=== PATIENT | male | born 1955 | race Caucasian/White ===

== ENCOUNTER 2017-12-24 17:39 | Inpatient (IN) | END 2017-12-31 16:14 | disposition home health service (06) | DRG 292 ==

== ENCOUNTER 2018-10-11 13:06 | Inpatient (IN) | payer OTHER ==
[~2018-10-11] VITALS: Ht 182.9 cm; Wt 122.2 kg
[~2018-10-11 13:06] MED LIST: APIX5TAB PO; BROM0.8T PO; CARV25TA79 PO; DAPA10TA PO; DIGO250T PO; ERGO500013 PO; FURO40TA4 PO; GLIM4TAB PO; METF100010 PO; SIMV40TA2 PO
[2018-10-11 13:10] VITALS: Ht 182.9 cm; Wt 122.2 kg
--- NOTE | 2018-10-11 14:49 | ERD ---
ER Documentation Chief Complaint Chief Complaint cough and sob x 2 1/2 weeks HPI The patient is a 62-year-old male, presenting to the ER because of shortness of breath for the last 2-1/2 weeks, with URI symptoms. He saw his physician on 10/05/2017, treated him with antibiotic and prednisone but he did not remember the antibiotic name. He did not feel better, complains of worsening shortness of breath today, denies any chest pain, abdominal pain, vomiting, dysuria, diarrhea. He does not smoke, drinks socially Past medical history: Diabetes mellitus, dyslipidemia, hypertension, atrial fibrillation, history of CHF with low EF of 50%, history of nonsustained VT, obstructive sleep apnea Past surgical history: None ROS All systems reviewed and are negative except as per history of present illness. Medications Home Meds Reported Medications Amoxicillin* (Amoxicillin*) 500 Mg Cap, 500 MG PO Q12H, #20 CAP 10/11/18 Dextromethorphan Hb-Promethazine Hcl* (Promethazine DM* Syrup) 473 Ml Syrup, 5 ML PO Q6 PRN for COUGH, ML 10/11/18 Simvastatin* (Zocor*) 40 Mg Tablet, 40 MG PO QHS, #30 TAB 10/11/18 Empagliflozin (Jardiance) 10 Mg Tablet, 10 MG PO DAILY, TAB 10/11/18 Acetazolamide* (Acetazolamide*) 250 Mg Tablet, 250 MG PO BID, #60 TAB 10/11/18 Furosemide* (Furosemide*) 40 Mg Tablet, 40 MG PO BID, TAB 10/11/18 Apixaban* (Eliquis*) 5 Mg Tablet, 5 MG PO BID, TAB 10/11/18 Digoxin* (Digox*) 250 Mcg Tablet, 0.25 MG PO DAILY, TAB 10/11/18 Carvedilol* (Coreg*) 25 Mg Tablet, 25 MG PO BID, #60 TAB 10/11/18 Sildenafil Citrate* (Sildenafil Citrate*) 20 Mg Tablet, 20 MG PO NEEDED, TAB TAKE 3-5 TABS BEFORE SEXUAL ACTIVITY. 10/11/18 Bromocriptine Mesylate (CYCLOSET) 0.8 Mg Tablet, 4.8 MG PO QAM, TAB 10/11/18 Glimepiride* (Glimepiride*) 4 Mg Tablet, 4 MG PO WITH BREAKFAST DINNE, TAB 10/11/18 Metformin Hcl* (Metformin Hcl*) 1,000 Mg Tablet, 1000 MG PO WITH BREAKFAST DINNE, #60 TAB 10/11/18 Ergocalciferol (Vitamin D2) (VITAMIN D2) 50,000 Unit Capsule, 13172 UNIT PO Q7D, CAP 10/11/18 Discontinued Reported Medications Dapagliflozin Propanediol (Farxiga) 10 Mg Tablet, 10 MG PO DAILY, #30 TAB 12/24/17 Simvastatin* (Zocor*) 40 Mg Tablet, 40 MG PO QHS, #30 TAB 12/24/17 Bromocriptine Mesylate (CYCLOSET) 0.8 Mg Tablet, 0.8 MG PO DAILY, TAB 12/24/17 Glimepiride* (Glimepiride*) 4 Mg Tablet, 4 MG PO WITH BREAKFAST DINNE, TAB 12/24/17 Ergocalciferol (Vitamin D2) (VITAMIN D2) 50,000 Unit Capsule, 78551 UNIT PO Q7D, CAP 12/24/17 Digoxin* (Digitek*) 250 Mcg Tablet, 0.25 MG PO DAILY, TAB 12/24/17 Apixaban* (Eliquis*) 5 Mg Tablet, 5 MG PO BID, TAB 12/24/17 Carvedilol* (Carvedilol*) 25 Mg Tablet, 25 MG PO BID, #60 TAB 12/24/17 Metformin Hcl* (Metformin Hcl*) 1,000 Mg Tablet, 1000 MG PO WITH BREAKFAST DINNE, #60 TAB 12/24/17 Discontinued Scripts Furosemide* (Furosemide*) 40 Mg Tablet, 40 MG PO BID DIURETICS for 30 Days, TAB 3 Refills Prov:ROEL ALBA F 12/31/17 Allergies Allergies: Coded Allergies: No Known Allergy (Unverified , 10/11/18) PMhx/Soc History of Surgery: Yes Anesthesia Reaction: No Hx 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 Disorder: No Hx Respiratory Disorders: Yes Hx Cardiac Disorders: Yes Hx Psychiatric Problems: No Hx Miscellaneous Medical Probl: No (HTN, Afib on eliquis, DM, systolic CHF ) Hx Alcohol Use: No Hx Substance Use: No Hx Tobacco Use: No Physical Exam Vitals Vital Signs Date Temp Pulse Resp B/P (MAP) Pulse Ox O2 O2 Flow FiO2 Time Delivery Rate 10/11/18 98 24 84 Nasal 2.0 15:39 Cannula 10/11/18 Simple 15:36 Mask 10/11/18 98.0 88 22 110/68 95 High Flow 15:36 (82) 10/11/18 98.2 102 24 98/56 (70) 86 13:10 Physical Exam Const: Mild acute distress. Head: Atraumatic. Eyes: Normal Conjunctiva. ENT: Normal External Ears, Nose and Mouth. Neck: Full range of motion. No meningismus. Resp: Tachypneic, bilateral expiratory wheezes Cardio: Irregularly irregular Abd: Soft, non distended, normal bowel sounds, non tender. Skin: No petechiae or rashes. Back: No midline or flank tenderness. Ext: No cyanosis, or edema. No calf tenderness Neur: Awake and alert. No focal deficit Psych: Normal Mood and Affect. Result Diagram: 10/11/18 1513 10/11/18 1513 Results 24 hrs Laboratory Tests Test 10/11/18 15:13 10/11/18 16:04 10/11/18 17:03 White Blood Count 10.9 10^3/ul Red Blood Count 5.29 10^6/ul Hemoglobin 13.5 g/dl Hematocrit 44.3 % Mean Corpuscular Volume 83.7 fl Mean Corpuscular Hemoglobin 25.5 pg Mean Corpuscular 30.5 g/dl Hemoglobin Concent Red Cell Distribution Width 17.0 % Platelet Count 225 10^3/UL Mean Platelet Volume 9.9 fl Immature Granulocytes % 0.600 % Neutrophils % 74.6 % Lymphocytes % 11.8 % Monocytes % 11.6 % Eosinophils % 1.0 % Basophils % 0.4 % Nucleated Red Blood Cells % 0.0 /100WBC Immature Granulocytes # 0.070 10^3/ul Neutrophils # 8.2 10^3/ul Lymphocytes # 1.3 10^3/ul Monocytes # 1.3 10^3/ul Eosinophils # 0.1 10^3/ul Basophils # 0.0 10^3/ul Nucleated Red Blood Cells # 0.0 10^3/ul Prothrombin Time 16.7 Sec Prothrombin Time Ratio 1.3 INR International 1.34 Normalized Ratio Activated 34.1 Sec Partial Thromboplast Time D-Dimer 468.50 ng/ml D-Dimer Comment Sodium Level 140 mmol/L Potassium Level 3.8 mmol/L Chloride Level 101 mmol/L Carbon Dioxide Level 29 mmol/L Anion Gap 10 Blood Urea Nitrogen 25 mg/dl Creatinine 0.93 mg/dl Est Glomerular Filtrat > 60 mL/min Rate mL/min Glucose Level 106 mg/dl Calcium Level 9.1 mg/dl Magnesium Level 2.2 mg/dl Total Bilirubin 0.9 mg/dl Direct Bilirubin 0.00 mg/dl Indirect Bilirubin 0.9 mg/dl Aspartate Amino 30 IU/L Transf (AST/SGOT) Alanine 38 IU/L Aminotransferase (ALT/SGPT) Alkaline Phosphatase 70 IU/L Troponin I < 0.012 ng/ml B-Type Natriuretic Peptide 324 PG/ML Total Protein 7.4 g/dl Albumin 4.0 g/dl Globulin 3.40 g/dl Albumin/Globulin Ratio 1.17 Digoxin Level 0.7 ng/ml POC Venous Lactate 1.3 mmol/L Blood Gas Specimen Source Blood arterial Arterial Blood Date Drawn 10/11/2018 5:18:31 PM Arterial Blood pH 7.377 (Temp corrected) Arterial Blood pCO2 42.8 mmhg (Temp correct) Arterial Blood pO2 56.1 mmHG (Temp corrected) Arterial Blood HCO3 24.6 mmol/L Arterial Blood Base Excess -0.7 mmol/L Arterial Blood 87.3 mmHG Oxygen Saturation David Test ACCEPTAB Arterial Blood Gas Right Radial Puncture Site Arterial 1.6 % Blood Carboxyhemoglobin Arterial Blood 0.1 % Methemoglobin Blood Gas A-a O2 93.0 mmHg Differential Oxyhemoglobin Percent 85.8 % Blood Gas Temperature 37.0 C Blood Gas Modality NASAL CANNULA FiO2 28.0 % Blood Gas Notified Whom M.D. Blood Gas Notified Time 10/11/2018 5:27:58 PM Current Medications Medications Dose Sig/Fanny Start Time Status Last (Trade) Ordered Route PRN Stop Time Admin Dose Reason Admin 3.75 mg ONCE STAT 10/11/18 DC 10/11/18 Levalbuterol INH 14:57 15:38 (Xopenex 10/11/18 15:00 Neb) Ipratropium 1.5 mg ONCE STAT 10/11/18 DC 10/11/18 [place] INH 14:57 15:38 (Atrovent 10/11/18 15:00 0.02% (Neb)) 125 mg ONCE ONCE 10/11/18 DC 10/11/18 Methylprednis IV 17:30 17:31 olone Sodium 10/11/18 17:31 Succinate (Solu-Medrol) 150 ml @ ONCE ONCE 10/11/18 10/11/18 Levofloxacin/ 100 mls/hr IVPB 17:30 17:31 Dextrose 10/11/18 18:59 Procedures/MDM [place] [id number] Radiology Main Line: [phone] DIAGNOSTIC IMAGING REPORT Patient: RAMYA DE : 1955 Age: 62 Sex: M MR #: [id number] DOS: 10/11/18 1457 Ordering MD: KAYLA ZEE MD Location: E/R Room/Bed: PROCEDURE: XR Chest. CLINICAL INDICATION: Sepsis TECHNIQUE: Single AP view of the chest was obtained COMPARISON: 09/26/2012 FINDINGS: The heart and mediastinum are within normal limits. The pulmonary vasculature are unremarkable. The aorta demonstrates atherosclerotic calcifications. Mild bibasilar linear opacities are seen which appear to be atelectasis with no other opacity, effusion or pneumothorax. Degenerative changes are seen within the thoracic spine and shoulders. There is no acute osseous abnormality. IMPRESSION: Likely bibasilar foci of plate atelectasis. RPTAT: AA .Boyd Raza MD, MD Date Time Electronically viewed and signed by .Boyd Raza MD, MD on 10/11/2018 15:23 .J/ CC: KAYLA ZEE MD [phone] CTA of the chest is pending EKG: Read by emergency physician Rate/Rhythm: Atrial fibrillation 84 beats/min QRS, ST, T-waves: No ST elevation, no T inversion, LAD, inferior Q's Impression: Abnormal EKG MEDICAL MAKING DECISION: The patient is a 61-year-old male, presenting with acute respiratory failure of unknown etiology, was treated with Xopenex 3.75 mg and Atrovent 1.5 mg continuous nebulizer over 1 hour, Solu-Medrol 125 mg IV for acute wheezing and Levaquin IV empirically with good response. The differential diagnoses considered include but are not limited to asthma, COPD, pneumonia, pulmonary embolus, pleural effusion, congestive heart failure. Critical Care: Time: 35 minutes excluding all billable procedures. Treatments/Evaluations: Close monitoring and treatment of unstable vital signs, cardiorespiratory, and neurologic status, while maintaining tight balance of fluid, respiratory, and cardiac interventions. Departure Diagnosis: Primary Impression: Respiratory failure, acute Additional Impression: Anemia Condition: Serious Comments I discussed the findings with the patient. I discussed the patient with Dr Colunga at 5:20p , who was made aware of the lab, the treatment, the patient condition. The patient is admitted to Tel Disclaimer: Inadvertent spelling and grammatical errors are likely due to EHR/dictation software use and do not reflect on the overall quality of patient care. Also, please note that the electronic time recorded on this note does not necessarily reflect the actual time of the patient encounter. KAYLA ZEE MD Oct 11, 2018 14:49
[2018-10-11] MEDS ORDERED: LEVALBUTEROL (NEB) 1.25 MG/0.5 ML AMP INH STA (14:57)
[2018-10-11] MEDS ORDERED: IPRATROPIUM (NEB) 0.5 MG/2.5 ML AMP INH STA (14:57)
[2018-10-11] MEDS ORDERED: ERGO500013 PO (15:06)
[2018-10-11] MEDS ORDERED: METF100010 PO (15:06)
[2018-10-11] MEDS ORDERED: GLIM4TAB PO (15:07)
[2018-10-11] MEDS ORDERED: BROM0.8T PO (15:08)
[2018-10-11] MEDS ORDERED: SILD20TA PO (15:10)
[2018-10-11] MEDS ORDERED: CARV25TA97 PO (15:11)
[2018-10-11] MEDS ORDERED: APIX5TAB PO (15:11)
[2018-10-11] MEDS ORDERED: DIGO250T16 PO (15:11)
[2018-10-11] MEDS ORDERED: ACET250T22 PO (15:12)
[2018-10-11] MEDS ORDERED: FURO40TA4 PO (15:12)
[2018-10-11] MEDS ORDERED: EMPA10TA PO (15:13)
[2018-10-11] MEDS ORDERED: SIMV40TA2 PO (15:14)
[2018-10-11] MEDS ORDERED: D-ME473S2 PO (15:17)
[2018-10-11] MEDS ORDERED: AMOX500C2 PO (15:18)
[2018-10-11] MEDS ORDERED: LEVOFLOXACIN 750MG/D5W (PMX) 150 ML IVPB ONE (17:30)
[2018-10-11] MEDS ORDERED: METHYLPREDNISOLONE 125 MG INJ IV ONE (17:30)
[2018-10-11] MEDS ORDERED: SOD CHLORIDE 0.9% 100 ML ONE (17:46)
[2018-10-11] MEDS ORDERED: IOHEXOL 100 ML ONE (17:46)
[2018-10-11] MEDS ORDERED: IPRATROPIUM (NEB) 0.5 MG/2.5 ML AMP HHN ONE (20:00)
[2018-10-11] MEDS ORDERED: LEVALBUTEROL (NEB) 1.25 MG/0.5 ML AMP HHN ONE (20:00)
[2018-10-11] MEDS ORDERED: ONDANSETRON 4 MG INJ IV PRN (20:30)
[2018-10-11] MEDS ORDERED: ZOLPIDEM 5 MG TAB PO PRN (20:30)
[2018-10-11] MEDS: INSULIN ASPART [NOVOLOG] 3 ML PEN SC SCH (21:00)
[2018-10-11] MEDS ORDERED: GLUCOSE GEL 15 GRAM TUBE BUCCAL PRN (21:00)
[2018-10-11] MEDS ORDERED: DEXTROSE 50% 50 ML SYRINGE IV PRN ×2 (21:00)
[2018-10-11] MEDS ORDERED: GLUCOSE GEL 15 GRAM TUBE PO PRN ×2 (21:00)
[2018-10-11] MEDS ORDERED: PROMETHAZINE/DM (CUP) PO PRN (21:00)
[2018-10-11] MEDS ORDERED: NON-FORMULARY/PATIENT OWN MED (Simvastatin* (Zocor*) 40 MG) PO SCH (21:00)
[2018-10-11] MEDS ORDERED: GLUCAGON 1 MG INJ IM PRN (21:00)
[2018-10-11] MEDS: FUROSEMIDE 40 MG TAB PO SCH (21:57)
[2018-10-11] MEDS: ATORVASTATIN 20 MG TAB PO SCH (23:24)
[2018-10-12] MEDS: METHYLPREDNISOLONE 125 MG INJ IV SCH ×3 (01:00→21:33)
[2018-10-12] MEDS: ALBUTEROL/IPRATROPIUM (NEB) 3 ML AMP HHN SCH ×6 (01:41→19:39)
[2018-10-12] MEDS: INSULIN ASPART [NOVOLOG] 3 ML PEN SC SCH ×4 (08:00→21:04)
[2018-10-12] MEDS ORDERED: metFORMIN 500 MG TAB PO SCH (08:00)
[2018-10-12] MEDS ORDERED: BROMOCRIPTINE MESYLATE PO SCH (09:00)
[2018-10-12] MEDS: GLIMEPIRIDE 4 MG TAB PO SCH ×2 (09:34→17:32)
[2018-10-12] MEDS: DIGOXIN 0.25 MG TAB PO SCH (10:12)
[2018-10-12] MEDS: FUROSEMIDE 40 MG TAB PO SCH ×2 (10:13→21:34)
--- NOTE | 2018-10-12 12:10 | CONS ---
Assessment/Plan Assessment/Plan Hospital Course (Demo Recall) Respiratory failure PNA Chronic Systolic CHF Cardiomyopathy Chronic Atrial Fibrillation DM patient with respiratory failure and evidence of PNA on CT chest, -PE No evidence of significant volume overload BP on lower side, would change coreg to toprol at the current time Cont Eliquis if no contraindication Consultation Date/Type/Reason Admit Date/Time Type of Consult Cardiology Reason for Consultation Shortness of breath Date/Time of Note DATE: 10/12/18 TIME: 12:04 Hx of Present Illness This is a 62-year-old male with past medical history of cardia myopathy, atrial ablation, hypertension who presents with progressive worsening shortness of breath, cough and sweating over the past few weeks. Patient was treated at an urgent care facility with antibiotics and steroids with minimal improvement. Given worsening symptoms, he was told to come to emergency room. [place] any chest pain, dizziness or lightheadedness. He denies any palpitations. He denies any lower extremity swelling. 12 point review of systems was performed with all pertinent positives and negat jess mentioned above and all else is negative Past Medical History Atrial fibrillation Medical History: congestive heart failure, diabetes, hypertension Home Meds Reported Medications Dextromethorphan Hb-Promethazine Hcl* (Promethazine DM* Syrup) 473 Ml Syrup, 5 ML PO Q6 PRN for COUGH, ML 10/11/18 Simvastatin* (Zocor*) 40 Mg Tablet, 40 MG PO QHS, #30 TAB 10/11/18 Empagliflozin (Jardiance) 10 Mg Tablet, 10 MG PO DAILY, TAB 10/11/18 Acetazolamide* (Acetazolamide*) 250 Mg Tablet, 250 MG PO BID, #60 TAB 10/11/18 Furosemide* (Furosemide*) 40 Mg Tablet, 40 MG PO BID, TAB 10/11/18 Apixaban* (Eliquis*) 5 Mg Tablet, 5 MG PO BID, TAB 10/11/18 Digoxin* (Digox*) 250 Mcg Tablet, 0.25 MG PO DAILY, TAB 10/11/18 Carvedilol* (Coreg*) 25 Mg Tablet, 25 MG PO BID, #60 TAB 10/11/18 Sildenafil Citrate* (Sildenafil Citrate*) 20 Mg Tablet, 20 MG PO NEEDED, TAB TAKE 3-5 TABS BEFORE SEXUAL ACTIVITY. 10/11/18 Bromocriptine Mesylate (CYCLOSET) 0.8 Mg Tablet, 4.8 MG PO QAM, TAB 10/11/18 Glimepiride* (Glimepiride*) 4 Mg Tablet, 4 MG PO WITH BREAKFAST DINNE, TAB 10/11/18 Metformin Hcl* (Metformin Hcl*) 1,000 Mg Tablet, 1000 MG PO WITH BREAKFAST DINNE, #60 TAB 10/11/18 Ergocalciferol (Vitamin D2) (VITAMIN D2) 50,000 Unit Capsule, 27369 UNIT PO Q7D, CAP 10/11/18 Discontinued Reported Medications Amoxicillin* (Amoxicillin*) 500 Mg Cap, 500 MG PO Q12H, #20 CAP 10/11/18 Dapagliflozin Propanediol (Farxiga) 10 Mg Tablet, 10 MG PO DAILY, #30 TAB 12/24/17 Simvastatin* (Zocor*) 40 Mg Tablet, 40 MG PO QHS, #30 TAB 12/24/17 Bromocriptine Mesylate (CYCLOSET) 0.8 Mg Tablet, 0.8 MG PO DAILY, TAB 12/24/17 Glimepiride* (Glimepiride*) 4 Mg Tablet, 4 MG PO WITH BREAKFAST DINNE, TAB 12/24/17 Ergocalciferol (Vitamin D2) (VITAMIN D2) 50,000 Unit Capsule, [address]20 UNIT PO Q7D, CAP 12/24/17 Digoxin* (Digitek*) 250 Mcg Tablet, 0.25 MG PO DAILY, TAB 12/24/17 Apixaban* (Eliquis*) 5 Mg Tablet, 5 MG PO BID, TAB 12/24/17 Carvedilol* (Carvedilol*) 25 Mg Tablet, 25 MG PO BID, #60 TAB 12/24/17 Metformin Hcl* (Metformin Hcl*) 1,000 Mg Tablet, 1000 MG PO WITH BREAKFAST DINNE, #60 TAB 12/24/17 Discontinued Scripts Furosemide* (Furosemide*) 40 Mg Tablet, 40 MG PO BID DIURETICS for 30 Days, TAB 3 Refills Prov:ROEL ALBA 12/31/17 Medications Current Medications Levofloxacin/ Dextrose 150 ml @ 100 mls/hr DAILY@1700 IVPB ; Start 10/12/18 at 17:00 Albuterol/ Ipratropium (Duoneb) 3 ml Q4 HHN Last administered on 10/12/18at 07:28; Admin Dose 3 ML; Start 10/11/18 at 21:00 Methylprednisolone Sodium Succinate (Solu-Medrol) 60 mg Q8H IV ; Start 10/12/18 at 01:00 Insulin Aspart (Novolog Insulin Pen) NOVOLOG *MODERATE* ALGORITHM WITH MEALS BEDTIME SC ; Start 10/11/18 at 21:00 Zolpidem Tartrate (Ambien) 5 mg HS MAY REPEAT X 1 PRN PO INSOMNIA; Start 10/11/18 at 20:30 Ondansetron HCl (Zofran Inj) 4 mg Q4 PRN IV nausea; Start 10/11/18 at 20:30 Miscellaneous Information 1 ea NOTE XX ; Start 10/11/18 at 21:00 Glucose (Glutose) 15 gm Q15M PRN PO DECREASED GLUCOSE; Start 10/11/18 at 21:00 Glucose (Glutose) 22.5 gm Q15M PRN PO DECREASED GLUCOSE; Start 10/11/18 at 21:00 Dextrose (D50w Syringe) 25 ml Q15M PRN IV DECREASED GLUCOSE; Start 10/11/18 at 21:00 Dextrose (D50w Syringe) 50 ml Q15M PRN IV DECREASED GLUCOSE; Start 10/11/18 at 21:00 Glucagon (Glucagen) 1 mg Q15M PRN IM DECREASED GLUCOSE; Start 10/11/18 at 21:00 Glucose (Glutose) 15 gm Q15M PRN BUCCAL DECREASED GLUCOSE; Start 10/11/18 at 21:00 Carvedilol (Coreg) 25 mg BID PO Last administered on 10/12/18at 10:12; Admin Dose 25 MG; Start 10/11/18 at 21:00 Promethazine HCl/ Dextromethorphan (Phenergan-Dm) 5 ml Q6 PRN PO COUGH; Start 10/11/18 at 21:00 Digoxin (Digoxin) 0.25 mg DAILY PO Last administered on 10/12/18at 10:12; Admin Dose 0.25 MG; Start 10/12/18 at 09:00 Furosemide (Lasix) 40 mg BID PO Last administered on 10/12/18at 10:13; Admin Dose 40 MG; Start 10/11/18 at 21:00 Glimepiride (Amaryl) 4 mg WITH BREAKFAST DINNE PO Last administered on 10/12/18at 09:34; Admin Dose 4 MG; Start 10/12/18 at 08:00 Metformin HCl (Glucophage) 1,000 mg WITH BREAKFAST DINNE PO Last administered on 10/12/18at 09:34; Admin Dose 1,000 MG; Start 10/12/18 at 08:00 Miscellaneous Information 4.8 mg QAM PO ; Start 10/12/18 at 09:00; Status UNV Atorvastatin Calcium (Lipitor) 20 mg DAILY@21 PO Last administered on 10/11/18at 23:24; Admin Dose 20 MG; Start 10/11/18 at 22:30 Allergies: Coded Allergies: No Known Allergy (Unverified , 10/11/18) Past Surgical History Past Surgical Hx: no surgical history Social History Smoking Status: Former smoker Exam/Review of Systems Vital Signs Vitals Vital Signs Date Temp Pulse Resp B/P (MAP) Pulse Ox O2 O2 Flow FiO2 Time Delivery Rate 10/12/18 86 18 114/89 94 High Flow 10:00 (97) 10/12/18 98.1 08:00 10/12/18 100 07:31 10/11/18 6.0 19:42 Intake and Output 10/11/18 10/11/18 10/12/18 1515:00 23:00 07:00 OutputOutput Total 400 ml 1100 ml BalanceBalance -400 ml -1100 ml Exam Constitutional: alert, oriented (On high flow oxygen, dyspnea with extensive speaking, obese) Head: normocephalic Respiratory: other (Coarse breath sounds with scattered rhonchi and wheezing) Cardiovascular: irregular rhythm, other (S1-S2 heard) Gastrointestinal: soft, non-tender, bowel sounds Extremities: other (No significant edema) Labs Result Diagram: 10/11/18 1513 10/11/18 1513 Results 24hrs Laboratory Tests Test 10/11/18 15:13 10/11/18 16:04 10/11/18 17:03 10/11/18 19:00 White Blood Count 10.9 #H Red Blood Count 5.29 Hemoglobin 13.5 L Hematocrit 44.3 Mean Corpuscular 83.7 Volume Mean Corpuscular 25.5 L Hemoglobin Mean Corpuscular 30.5 L Hemoglobin Concen t Red Cell 17.0 H Distribution Width Platelet Count 225 # Mean Platelet 9.9 Volume Immature 0.600 H Granulocytes % Neutrophils % 74.6 Lymphocytes % 11.8 L Monocytes % 11.6 H Eosinophils % 1.0 Basophils % 0.4 Nucleated Red 0.0 Blood Cells % Immature 0.070 H Granulocytes # Neutrophils # 8.2 H Lymphocytes # 1.3 Monocytes # 1.3 H Eosinophils # 0.1 Basophils # 0.0 Nucleated Red 0.0 Blood Cells # Prothrombin Time 16.7 H Prothrombin Time 1.3 Ratio INR International 1.34 Normalized Ratio Activated 34.1 Partial Thrombopl ast Time D-Dimer 468.50 H D-Dimer Comment Sodium Level 140 Potassium Level 3.8 Chloride Level 101 Carbon Dioxide 29 Level Anion Gap 10 Blood Urea 25 H Nitrogen Creatinine 0.93 Est Glomerular > 60 Filtrat Rate mL/min Glucose Level 106 Calcium Level 9.1 Magnesium Level 2.2 Total Bilirubin 0.9 Direct Bilirubin 0.00 Indirect 0.9 Bilirubin Aspartate Amino 30 Transf (AST/SGOT) Alanine 38 Aminotransferase (ALT/SGPT) Alkaline 70 Phosphatase Troponin I < 0.012 B-Type 324 H Natriuretic Peptide Total Protein 7.4 Albumin 4.0 Globulin 3.40 H Albumin/Globulin 1.17 Ratio Digoxin Level 0.7 L POC Venous 1.3 Lactate Blood Gas Blood arterial Specimen Source Arterial Blood 10/11/2018 5:18:3 Date Drawn 1 PM Arterial Blood pH 7.377 (Temp corrected) Arterial Blood 42.8 pCO2 (Temp correct) Arterial Blood 56.1 L pO2 (Temp corrected) Arterial Blood 24.6 HCO3 Arterial Blood -0.7 Base Excess Arterial Blood 87.3 L Oxygen Saturation David Test ACCEPTAB Arterial Blood Right Radial Gas Puncture Site Arterial 1.6 Blood Carboxyhemo globin Arterial Blood 0.1 Methemoglobin Blood Gas A-a O2 93.0 H Differential Oxyhemoglobin 85.8 L Percent Blood Gas 37.0 Temperature Blood Gas NASAL CANNULA Modality FiO2 28.0 Blood Gas M.D. Notified Whom Blood Gas 10/11/2018 5:27:5 Notified Time 8 PM Bedside Urine pH 6.0 (LAB) Bedside Urine Negative Protein (LAB) Bedside Urine 0.50% H Glucose (UA) Bedside Urine Negative Ketones (LAB) Bedside Urine Negative Blood Bedside Urine Negative Nitrite (LAB) Bedside Urine Negative Leukocyte Esteras e (L Test 10/11/18 21:16 10/11/18 21:47 10/12/18 09:29 Lactic Acid Level 1.4 Bedside Glucose 200 149 Imaging Imaging ECG demonstrates atrial fibrillation 84 bpm, QRS 116 ms,anterolat q waves, non specific st abn Medications Medications Current Medications Levofloxacin/ Dextrose 150 ml @ 100 mls/hr DAILY@1700 IVPB ; Start 10/12/18 at 17:00 Albuterol/ Ipratropium (Duoneb) 3 ml Q4 HHN Last administered on 10/12/18at 07:28; Admin Dose 3 ML; Start 10/11/18 at 21:00 Methylprednisolone Sodium Succinate (Solu-Medrol) 60 mg Q8H IV ; Start 10/12/18 at 01:00 Insulin Aspart (Novolog Insulin Pen) NOVOLOG *MODERATE* ALGORITHM WITH MEALS BEDTIME SC ; Start 10/11/18 at 21:00 Zolpidem Tartrate (Ambien) 5 mg HS MAY REPEAT X 1 PRN PO INSOMNIA; Start 10/11/18 at 20:30 Ondansetron HCl (Zofran Inj) 4 mg Q4 PRN IV nausea; Start 10/11/18 at 20:30 Miscellaneous Information 1 ea NOTE XX ; Start 10/11/18 at 21:00 Glucose (Glutose) 15 gm Q15M PRN PO DECREASED GLUCOSE; Start 10/11/18 at 21:00 Glucose (Glutose) 22.5 gm Q15M PRN PO DECREASED GLUCOSE; Start 10/11/18 at 21:00 Dextrose (D50w Syringe) 25 ml Q15M PRN IV DECREASED GLUCOSE; Start 10/11/18 at 21:00 Dextrose (D50w Syringe) 50 ml Q15M PRN IV DECREASED GLUCOSE; Start 10/11/18 at 21:00 Glucagon (Glucagen) 1 mg Q15M PRN IM DECREASED GLUCOSE; Start 10/11/18 at 21:00 Glucose (Glutose) 15 gm Q15M PRN BUCCAL DECREASED GLUCOSE; Start 10/11/18 at 21:00 Carvedilol (Coreg) 25 mg BID PO Last administered on 10/12/18at 10:12; Admin Dose 25 MG; Start 10/11/18 at 21:00 Promethazine HCl/ Dextromethorphan (Phenergan-Dm) 5 ml Q6 PRN PO COUGH; Start 10/11/18 at 21:00 Digoxin (Digoxin) 0.25 mg DAILY PO Last administered on 6/26/19at 10:12; Admin Dose 0.25 MG; Start 10/12/18 at 09:00 Furosemide (Lasix) 40 mg BID PO Last administered on 10/12/18 10:13; Admin Dose 40 MG; Start 10/11/18 at 21:00 Glimepiride (Amaryl) 4 mg WITH BREAKFAST DINNE PO Last administered on 10/12/18 09:34; Admin Dose 4 MG; Start 10/12/18 at 08:00 Metformin HCl (Glucophage) 1,000 mg WITH BREAKFAST DINNE PO Last administered on 10/12/18 09:34; Admin Dose 1,000 MG; Start 10/12/18 at 08:00 Miscellaneous Information 4.8 mg QAM PO ; Start 10/12/18 at 09:00; Status UNV Atorvastatin Calcium (Lipitor) 20 mg DAILY@21 PO Last administered on 10/11/18 23:24; Admin Dose 20 MG; Start 10/11/18 at 22:30 Rocael Poole DO Oct 12, 2018 12:10
--- NOTE | 2018-10-12 12:17 | RADRPT ---
Echocardiogram Report Patient Name: RAMYA DEPatient ID: [id number] : 1955 (63y )Study Date: 10/12/2018 11:38:22 AM Gender: MAccession #: [id number] Tech: Lito Zayas RDCS Location: [facility] Ref.Physician: ROCAEL POOLE Height(Cm): BSA: Weight(Kg): Quality: AdequateOrder Physician: ROCAEL POOLE Account #: Procedures: Echocardiographic Report: Transthoracic echocardiogram with complete 2D, M-Mode, and doppler examination. Indications: Congestive Heart Failure, and Shortness of breath. Measurements: 2D/M Mode Doppler Measurement Value Normal Range Measurement Value Normal Range LVIDd 2D 5.6 [ 4.2 - 5.8 ] cm AV Peak Marshall 1.7 [ 100.0 - 170.0 ] cm/sec LVIDs 2D 2.6 [ 2.5 - 4.0 ] cm AV Peak PG 11.0 [ 2.0 - 9.0 ] mmHg LVPWd 2D 1.0 [ 0.6 - 1.0 ] cm LVOT Peak Marshall 1.0 [ 70.0 - 110.0 ] cm/sec IVSd 2D 1.0 [ 0.6 - 1.0 ] cm LVOT Peak PG 4.0 [ 2.0 - 6.0 ] mmHg IVS/LVPW 2D 1.0 ratio MV E Peak Marshall 0.9 [ 60.0 - 130.0 ] cm/sec AoR Diam 2D 3.3 [ 2.6 - 3.4 ] cm TR Peak Marshall 3.0 [ 100.0 - 280.0 ] cm/sec LA/Ao 2D 1 ratio TR Peak PG 35.0 mmHg LA Dimen 2D 4.2 [ 3.0 - 4.0 ] cm RVSP 50.0 [ 10.0 - 36.0 ] mmHg RA Pressure 15.0 mmHg Findings: Left Ventricle: Overall, normal left ventricular systolic function. Not all segments visualized. Normal left ventricular cavity size. Normal left ventricular wall thickness. Ejection fraction is visually estimated at 55 %. Abnormal Diastolic Function. Right Ventricle: Normal right ventricular systolic function. Mild enlargement of right ventricle. Left Atrium: There is mild enlargement of left atrium. Right Atrium: The right atrium is normal in size. Mitral Valve: Mitral valve leaflets appear mildly thickened. Mild mitral annular calcification. Mild mitral valve regurgitation. Aortic Valve: Normal appearance of the aortic valve. No significant aortic stenosis or insufficiency. Tricuspid Valve: Normal appearance of the tricuspid valve. The estimated Peak RVSP is 50 mmHg. There is mild tricuspid regurgitation. Pulmonic Valve: Pulmonic valve not well visualized. Pericardium: Normal pericardium with no significant pericardial effusion. Aorta: Normal aortic root. IVC: Dilated IVC without respiratory collapse consistent with elevated right atrial pressure. Conclusions: Overall, normal left ventricular systolic function. Not all segments visualized. Normal left ventricular cavity size. Normal left ventricular wall thickness. Ejection fraction is visually estimated at 55 %. Abnormal Diastolic Function. Normal right ventricular systolic function. Mild enlargement of right ventricle. There is mild enlargement of left atrium. The right atrium is normal in size. Mild mitral valve regurgitation. No significant aortic stenosis or insufficiency. The estimated Peak RVSP is 50 mmHg. There is mild tricuspid regurgitation. Normal pericardium with no significant pericardial effusion. Electronically Signed By: Rocael Poole 2018-10-12 12:15:56 PDT
[2018-10-12] MEDS: APIXABAN 5 MG TABLET PO SCH ×2 (12:53→21:34)
[2018-10-12] MEDS ORDERED: METHYLPREDNISOLONE 125 MG INJ IV ONE (13:30)
--- NOTE | 2018-10-12 15:01 | HP ---
Date/Time of Note Date/Time of Note DATE: 10/12/18 TIME: 14:07 Assessment/Plan VTE Prophylaxis SCD applied (from Nsg): No SCD contraindicated: other Pharmacological prophylaxis: apixaban Lines/Catheters IV [facility]from [facility] Saline Lock Assessment/Plan Assessment/Plan 62 yo male with: DM 1. Acute respiratory failure, likely secondary to reactive airway and pneumonia, patient seems to be euvolemic for now. Continue Solu-Medrol Patient currently on high flow Continue IV antibiotics, Levaquin Titrate O2 requirement down as tolerated Pulmonary consult today. 2. Atrial fibrillation, chronic, rate controlled. Appreciate recommendations from cardiology today, with echocardiogram with ejection fraction of 55%. Again patient seems euvolemic on exam. Continue current medications, noted beta-blockers changed to Toprol XL per cardiology. Continue Eliquis, Digoxin. Cardiology following. 3. Congestive heart failure, diastolic dysfunction, chronic, currently euvolemic. Continue current medication, patient on oral Lasix daily. 4. Diabetes mellitus, patient always refusing insulin, I have explained to him that because of the CT angiogram he had done overnight we cannot give metformin at this point and on the insulin he is on a sliding scale insulin which is needed even more due to the fact that he is on IV steroids currently. Sliding scale insulin, glimepiride, Cycloset Resume metformin in 48 hours and resume Jardiance at home 5. Hypertension, patient currently with systolic blood pressure in the 90s. Appreciate adjustment of medications made by cardiology. We will have to hold Lasix if remains slightly hypotensive. Prophylaxis: Eliquis for DVT prophylaxis, Pepcid for GI prophylaxis. Disposition: Patient was admitted to telemetry on high flow overnight, for now may be upgraded to ICU per pulmonary recommendations given his high requirement on high flow. Result Diagram: 10/11/18 1513 10/11/18 1513 Results 24hrs Laboratory Tests Test 10/11/18 15:13 10/11/18 16:04 10/11/18 17:03 10/11/18 19:00 White Blood Count 10.9 #H Red Blood Count 5.29 Hemoglobin 13.5 L Hematocrit 44.3 Mean Corpuscular 83.7 Volume Mean Corpuscular 25.5 L Hemoglobin Mean Corpuscular 30.5 L Hemoglobin Concen t Red Cell 17.0 H Distribution Width Platelet Count 225 # Mean Platelet 9.9 Volume Immature 0.600 H Granulocytes % Neutrophils % 74.6 Lymphocytes % 11.8 L Monocytes % 11.6 H Eosinophils % 1.0 Basophils % 0.4 Nucleated Red 0.0 Blood Cells % Immature 0.070 H Granulocytes # Neutrophils # 8.2 H Lymphocytes # 1.3 Monocytes # 1.3 H Eosinophils # 0.1 Basophils # 0.0 Nucleated Red 0.0 Blood Cells # Prothrombin Time 16.7 H Prothrombin Time 1.3 Ratio INR International 1.34 Normalized Ratio Activated 34.1 Partial Thrombopl ast Time D-Dimer 468.50 H D-Dimer Comment Sodium Level 140 Potassium Level 3.8 Chloride Level 101 Carbon Dioxide 29 Level Anion Gap 10 Blood Urea 25 H Nitrogen Creatinine 0.93 Est Glomerular > 60 Filtrat Rate mL/min Glucose Level 106 Calcium Level 9.1 Magnesium Level 2.2 Total Bilirubin 0.9 Direct Bilirubin 0.00 Indirect 0.9 Bilirubin Aspartate Amino 30 Transf (AST/SGOT) Alanine 38 Aminotransferase (ALT/SGPT) Alkaline 70 Phosphatase Troponin I < 0.012 B-Type 324 H Natriuretic Peptide Total Protein 7.4 Albumin 4.0 Globulin 3.40 H Albumin/Globulin 1.17 Ratio Digoxin Level 0.7 L POC Venous 1.3 Lactate Blood Gas Blood arterial Specimen Source Arterial Blood 10/11/2018 5:18:3 Date Drawn 1 PM Arterial Blood pH 7.377 (Temp corrected) Arterial Blood 42.8 pCO2 (Temp correct) Arterial Blood 56.1 L pO2 (Temp corrected) Arterial Blood 24.6 HCO3 Arterial Blood -0.7 Base Excess Arterial Blood 87.3 L Oxygen Saturation David Test ACCEPTAB Arterial Blood Right Radial Gas Puncture Site Arterial 1.6 Blood Carboxyhemo globin Arterial Blood 0.1 Methemoglobin Blood Gas A-a O2 93.0 H Differential Oxyhemoglobin 85.8 L Percent Blood Gas 37.0 Temperature Blood Gas NASAL CANNULA Modality FiO2 28.0 Blood Gas M.D. Notified Whom Blood Gas 10/11/2018 5:27:5 Notified Time 8 PM Bedside Urine pH 6.0 (LAB) Bedside Urine Negative Protein (LAB) Bedside Urine 0.50% H Glucose (UA) Bedside Urine Negative Ketones (LAB) Bedside Urine Negative Blood Bedside Urine Negative Nitrite (LAB) Bedside Urine Negative Leukocyte Esteras e (L Test 10/11/18 21:16 10/11/18 21:47 10/12/18 09:29 Lactic Acid Level 1.4 Bedside Glucose 200 149 HPI/ROS Admit Date/Time Admit Date/Time Hx of Present Illness Chief complaint: Shortness of breath 62-year-old male with atrial fibrillation, diastolic dysfunction congestive heart failure, hypertension, diabetes mellitus and previous history of sleep apnea who was sent into the emergency department due to persistent cough, s hortness of breath and worsening hypoxemia. Patient reports that for the past couple weeks, he has been having an ongoing cough, shortness of breath. It started while he was in [place] on vacation, he was seen in urgent care there, started on antibiotics (they do not recall the name) and steroids, his symptoms never really improved, when he came back in the [place] area, he went to his physician, he was given a longer course of steroids with no improvement, he went back to his physician yesterday and was redirected to the emergency department. He was found to be severely hypoxemic in the emergency department, essentially in respiratory failure, and he was started on high flow and currently requiring 90%. He had a chest x-ray and a CT angiogram of the chest, no pulmonary embolus was seen but the patient seems to have a right lower lobe bronchopneumonia. He was started on IV steroids, IV antibiotics and admitted to telemetry on high flow. This afternoon, while being evaluated by pulmonary, there is a concern for possible decompensation therefore patient is upgraded to ICU. He has been evaluated by cardiology also, he remained stable, his beta-blockers have been adjusted. Patient currently reports he is feeling better with high flow on, no fevers. He denies chest pain, nausea or vomiting. ROS Constitutional: improved Eyes: no complaints ENT: no complaints Respiratory: cough, shortness of breath, wheezing Cardiovascular: no complaints Gastrointestinal: no complaints Genitourinary: no complaints Musculoskeletal: no complaints Skin: no complaints Neurologic: no complaints Endocrine: no complaints Lymphatic: no complaints Psychological: no complaints PMH/Family/Social Past Medical History Medical History: congestive heart failure, diabetes, hypertension, other (Atrial fibrillation ) Medications Current Medications Levofloxacin/ Dextrose 150 ml @ 100 mls/hr DAILY@1700 IVPB ; Start 10/12/18 at 17:00 Albuterol/ Ipratropium (Duoneb) 3 ml Q4 HHN Last administered on 10/12/18at 12: 06; Admin Dose 3 ML; Start 10/11/18 at 21:00 Insulin Aspart (Novolog Insulin Pen) NOVOLOG *MODERATE* ALGORITHM WITH MEALS BEDTIME SC ; Start 10/11/18 at 21:00 Zolpidem Tartrate (Ambien) 5 mg HS MAY REPEAT X 1 PRN PO INSOMNIA; Start 10/11/18 at 20:30 Ondansetron HCl (Zofran Inj) 4 mg Q4 PRN IV nausea; Start 10/11/18 at 20:30 Miscellaneous Information 1 ea NOTE XX ; Start 10/11/18 at 21:00 Glucose (Glutose) 15 gm Q15M PRN PO DECREASED GLUCOSE; Start 10/11/18 at 21:00 Glucose (Glutose) 22.5 gm Q15M PRN PO DECREASED GLUCOSE; Start 10/11/18 at 21:00 Dextrose (D50w Syringe) 25 ml Q15M PRN IV DECREASED GLUCOSE; Start 10/11/18 at 21:00 Dextrose (D50w Syringe) 50 ml Q15M PRN IV DECREASED GLUCOSE; Start 10/11/18 at 21:00 Glucagon (Glucagen) 1 mg Q15M PRN IM DECREASED GLUCOSE; Start 10/11/18 at 21:00 Glucose (Glutose) 15 gm Q15M PRN BUCCAL DECREASED GLUCOSE; Start 10/11/18 at 21:00 Promethazine HCl/ Dextromethorphan (Phenergan-Dm) 5 ml Q6 PRN PO COUGH; Start 10/11/18 at 21:00 Digoxin (Digoxin) 0.25 mg DAILY PO Last administered on 10/12/18at 10:12; Admin Dose 0.25 MG; Start 10/12/18 at 09:00 Furosemide (Lasix) 40 mg BID PO Last administered on 10/12/18at 10:13; Admin Dose 40 MG; Start 10/11/18 at 21:00 Glimepiride (Amaryl) 4 mg WITH BREAKFAST DINNE PO Last administered on 9at 09:34; Admin Dose 4 MG; Start 10/12/18 at 08:00 Metformin HCl (Glucophage) 1,000 mg WITH BREAKFAST DINNE PO Last administered on 10/12/18at 09:34; Admin Dose 1,000 MG; Start 10/12/18 at 08:00 Miscellaneous Information 4.8 mg QAM PO ; Start 10/12/18 at 09:00; Status UNV Atorvastatin Calcium (Lipitor) 20 mg DAILY@21 PO Last administered on 10/11/18at 23:24; Admin Dose 20 MG; Start 10/11/18 at 22:30 Apixaban (Eliquis) 5 mg BID PO Last administered on 10/12/18at 12:53; Admin Dose 5 MG; Start 10/12/18 at 12:30 Metoprolol Succinate (Toprol Xl) 50 mg BID PO ; Start 10/12/18 at 21:00 Methylprednisolone Sodium Succinate (Solu-Medrol) 60 mg Q8 IV ; Start 10/12/18 at 22:00 Coded Allergies: No Known Allergy (Unverified , 10/11/18) Past Surgical History Past Surgical Hx: no surgical history Family History Significant Family History: no pertinent family hx Social History Smoking Status: Former smoker Exam/Review of Systems Vital Signs Vitals Vital Signs Date Temp Pulse Resp B/P (MAP) Pulse Ox O2 O2 Flow FiO2 Time Delivery Rate 10/12/18 98.6 87 18 120/17 98 High Flow 6.0 12:13 (51) 86 10/12/18 100 12:06 Intake and Output 10/11/18 10/11/18 10/12/18 1515:00 23:00 07:00 OutputOutput Total 400 ml 1100 ml BalanceBalance -400 ml -1100 ml Exam Constitutional: alert, oriented, well developed, other (on Hi flow currrently ) Respiratory: diminished breath sounds (Bases bilaterally ), wheezing (scaterred bilateral ), other (on Hi Flow ) Cardiovascular: regular rate and rhythm, nl pulses Gastrointestinal: soft, non-tender Musculoskeletal: nl extremities to inspection Extremities: normal pulses, other (no edema, clubbing or cyanosis ) 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 CLINICAL INDICATION: Sepsis TECHNIQUE: Single AP view of the chest was obtained COMPARISON: 09/26/2012 FINDINGS: The heart and mediastinum are within normal limits. The pulmonary vasculature are unremarkable. The aorta demonstrates atherosclerotic calcifications. Mild bibasilar linear opacities are seen which appear to be atelectasis with no other opacity, effusion or pneumothorax. Degenerative changes are seen within the thoracic spine and shoulders. There is no acute osseous abnormality. IMPRESSION: Likely bibasilar foci of plate atelectasis. RPTAT: AA .Boyd Raza MD, Date Time Electronically viewed and signed by .Boyd Raza MD, on 10/11/2018 15:23 .J/ CC: KAYLA ZEE MD PROCEDURE: CTA Chest. CLINICAL INDICATION: Shortness of breath TECHNIQUE: The study was performed utilizing a multidetector CT scanner. Direct spiral 1 axial sections were obtained from the thoracic inlet to the upper abdomen with the use of 100 cc of [id number]-300 nonionic intravenous contrast material and reformatted at 3. Coronal, sagittal and 3-D angiographic reformations were obtained. The images were reviewed on a PACS workstation. CT D I 62 mCi Dose 837 mGy/cm Individualized dose optimization technique was used for the performance of this exam. This included 1. Automated exposure control. 2. Adjustment of the mA and / or kV according to the patient's size. 3. Use of iterative reconstruction technique. DICOM images are included COMPARISON: CT pulmonary angiogram December 31, 2017 FINDINGS: There is no central or peripheral pulmonary embolism. Main pulmonary artery is borderline enlarged measuring 37 mm in diameter. There is cardiomegaly with coronary artery calcifications. Mild calcified plaque is seen in the wall of the aorta with no dissection or aneurysm. Noted are confluent coarse interstitial infiltrates in the right lower lobe extending to the hilum and the pleural surface with volume loss. There is partial compromise of the associated bronchi. This most likely represents evidence of bronchopneumonia, however, underlying malignancy cannot be ruled out. Plate-like atelectasis is noted in the inferior segment of the lingula and in the central right middle lobe. There are visible but nonpathologically enlarged right hilar nodes.. There is no hilar or mediastinal adenopathy or mass. No pleural or pericardial effusion is visualized. There is no pneumothorax. No upper abdominal or adrenal mass is present. There are multiple parenchymal cysts of the right kidney. The osseous structures appear normal. IMPRESSION: No pulmonary embolism. Borderline enlarged main pulmonary artery compatible with pulmonary hypertension. No thoracic aortic aneurysm or dissection. Vascular calcifications. Probable right lower lobe bronchopneumonia with reactive right hilar nodes. Underlying malignancy cannot be ruled out. Follow-up is recommended to ensure complete clearing. Right renal cysts. .Chacorta Killian MD, MD Date Time Electronically viewed and signed by .Chacorta Killian MD, MD on 10/11/2018 18:47 .A/ CC: KAYLA ZEE MD, N'DEYE F Oct 12, 2018 14:17
[2018-10-12] MEDS ORDERED: LEVOFLOXACIN 750MG/D5W (PMX) 150 ML IVPB SCH (17:00)
[2018-10-12 21:21] VITALS: PULSE 96
[2018-10-12] MEDS: METOPROLOL (XL) 25 MG TAB PO SCH (21:34)
[2018-10-12] MEDS: ATORVASTATIN 20 MG TAB PO SCH (21:34)
[2018-10-12 22:00] VITALS: BP 114/80; PULSE 81; RESP 28
--- NOTE | 2018-10-12 22:33 | CONS ---
DATE OF ADMISSION: 10/12/2018 DATE OF CONSULTATION: 10/12/2018 REASON FOR CONSULTATION: Hypoxemia and shortness of breath. Thank you, Dr. Myers, for this consultation. HISTORY OF PRESENT ILLNESS: This is a 62-year-old gentleman who presents with several-day history of increasing shortness of breath, orthopnea, PND, marked hypoxemia, found to be in atrial fibrillation with rapid ventricular rate on admission. He also demonstrates bilateral wheezing and hypoxemia and evidence of pulmonary edema. He states he has been traveling to [place] on vacation where he prese nted to urgent care. At that point, he was given steroids and antibiotics for presumed COPD exacerba tion. He states he still remains short of breath despite this initial treatment. PAST MEDICAL HISTORY: 1. Diabetes mellitus. 2. Hypertension. 3. Hyperlipidemia. 4. History of obstructive sleep apnea. 5. Congestive cardiac failure with diastolic dysfunction. 6. Atrial fibrillation. MEDICATIONS: Per chart. ALLERGIES: UNKNOWN. SOCIAL HISTORY: Currently nonsmoker. No alcohol. No history of drug use. FAMILY HISTORY: Noncontributory. SYSTEMS REVIEW: A 12-point review of systems was negative other than that mentioned above. PHYSICAL EXAMINATION: GENERAL: Elderly-appearing gentleman, appears comfortable at rest, no acute distress. VITAL SIGNS: Currently afebrile, pulse is 87, blood pressure 120/89, O2 saturation 96% on 90% FiO2 a t 30 L/min. NECK: Supple. No JVD or lymphadenopathy. CARDIAC: S1, S2. No added sounds or murmurs. CHEST: Diminished air entry bilaterally with extensive rales. ABDOMEN: Soft, nontender. No guarding or rebound. EXTREMITIES: No cyanosis, clubbing, 1+ edema. NEUROLOGIC: Grossly intact. No focal deficits. LABORATORY DATA: White count 10.9, hemoglobin 13.5, platelets 225. BUN 25, creatinine 0.93. INR wa s 1.34. Urinalysis unremarkable. DIAGNOSTIC STUDIES: CT angiogram negative for pulmonary embolus, however, did demonstrate borderline pulmonary hypertension, right lower lobe pneumonia. IMPRESSION AND PLAN: 1. Acute hypoxemic respiratory failure, likely secondary to acute tracheobronchitis. 2. Right lower lobe pneumonia. No evidence of thromboembolic disease. He will require: 1. Incentive spirometry. 2. Bronchodilators. 3. Steroids. 4. Antibiotics. 5. Continue anticoagulation for atrial fibrillation. 6. Rate control. 7. DVT and GI prophylaxis. Dictated By: TELMA CAI MD SV/MICHAEL Conf#: [id number] DID#: [id number] CC: ELI YARBROUGH MD;*EndCC*
[2018-10-12 23:00] VITALS: BP 109/71; PULSE 85; RESP 20
[2018-10-12] MEDS: [UNRECOGNIZED DRUG - OTHER] XX SCH (23:30)
[2018-10-13] VITALS (28 sets, daily range): BP systolic 101–126; BP diastolic 61–84; PULSE 73–97; RESP 15–24
[2018-10-13] MEDS: ALBUTEROL/IPRATROPIUM (NEB) 3 ML AMP HHN SCH ×6 (01:06→20:26)
[2018-10-13] MEDS: METHYLPREDNISOLONE 125 MG INJ IV SCH ×3 (05:37→17:27)
[2018-10-13] MEDS: [UNRECOGNIZED DRUG - OTHER] XX SCH (07:30)
[2018-10-13] MEDS: GLIMEPIRIDE 4 MG TAB PO SCH (07:46)
[2018-10-13] MEDS: INSULIN ASPART [NOVOLOG] 3 ML PEN SC SCH ×4 (07:59→20:58)
[2018-10-13] MEDS: DIGOXIN 0.25 MG TAB PO SCH (08:53)
[2018-10-13] MEDS: APIXABAN 5 MG TABLET PO SCH ×2 (08:53→20:51)
[2018-10-13] MEDS: METOPROLOL (XL) 25 MG TAB PO SCH ×2 (08:54→20:51)
[2018-10-13] MEDS: FUROSEMIDE 40 MG TAB PO SCH ×2 (08:59→20:51)
--- NOTE | 2018-10-13 09:12 | PN ---
Date/Time of Note Date/Time of Note DATE: 10/13/18 TIME: 08:53 Assessment/Plan VTE Prophylaxis SCD applied (from Nsg): No SCD contraindicated: other Pharmacological prophylaxis: apixaban Lines/Catheters IV Catheter Type (from Nrs): Peripheral IV Urinary Cath still in place: No Assessment/Plan Assessment/Plan 62 yo male with: 1. Acute Hypoxic respiratory failure, likely secondary to reactive airway and pneumonia, patient seems to be euvolemic for now. Still requiring high flow and increased O2 requirement of up to FiO2 100%. Increase Solu-Medrol to 60 mg IV Q6 Antibiotics broaden, starting cefepime and vancomycin. Continue to monitor in ICU today Titrate O2 requirement down as tolerated and able Pulmonary following. Follow-up chest x-ray results this AM. 2. Atrial fibrillation, chronic, rate controlled. Follow up recommendations from cardiology. Again patient seems euvolemic on exam. F/u CXR. Continue current medications. Continue Eliquis, Digoxin. 3. Congestive heart failure, diastolic dysfunction, chronic, currently euvolemic. Echocardiogram with EF of 55%. Continue current medication, patient on oral Lasix daily. 4. Diabetes mellitus, patient always refusing insulin, I have explained to him that because of the CT angiogram he had done overnight we cannot give metformin at this point and on the insulin he is on a sliding scale insulin which is n eeded even more due to the fact that he is on IV steroids currently. Sliding scale insulin, glimepiride, Cycloset Resume metformin in 48 hours and resume Jardiance at home 5. Hypertension, BPs better. Appreciate adjustment of medications made by cardiology. We will have to hold Lasix if remains slightly hypotensive. Prophylaxis: Eliquis for DVT prophylaxis, Pepcid for GI prophylaxis. Disposition: Monitor in ICU, still requiring high FiO2 on high flow, steroids increased and antibiotics broadened. Pulmonary and cardiology following. Result Diagram: 10/13/18 0509 10/13/18 0509 Results 24hrs Laboratory Tests Test 10/12/18 09:29 10/12/18 14:35 10/12/18 17:36 10/12/18 21:00 Bedside Glucose 149 158 222 H 290 H Test 10/13/18 04:15 10/13/18 05:09 10/13/18 07:00 10/13/18 07:45 Bedside Glucose 270 H 207 White Blood Count 11.2 H Red Blood Count 5.18 Hemoglobin 13.2 L Hematocrit 43.5 Mean Corpuscular 84.0 Volume Mean Corpuscular 25.5 L Hemoglobin Mean Corpuscular 30.3 L Hemoglobin Concen t Red Cell 16.6 H Distribution Width Platelet Count 256 Mean Platelet 10.4 Volume Immature 0.900 H Granulocytes % Neutrophils % 89.2 H Lymphocytes % 6.6 L Monocytes % 3.2 Eosinophils % 0.0 Basophils % 0.1 Nucleated Red 0.0 Blood Cells % Immature 0.100 H Granulocytes # Neutrophils # 10.0 H Lymphocytes # 0.7 L Monocytes # 0.4 Eosinophils # 0.0 Basophils # 0.0 Nucleated Red 0.0 Blood Cells # Sodium Level 144 Potassium Level 4.2 Chloride Level 102 Carbon Dioxide 30 Level Anion Gap 12 Blood Urea 22 H Nitrogen Creatinine 0.89 Est Glomerular > 60 Filtrat Rate mL/min Glucose Level 256 #H Calcium Level 9.8 Magnesium Level 2.3 Total Bilirubin 0.5 Direct Bilirubin 0.00 Indirect 0.5 Bilirubin Aspartate Amino 35 Transf (AST/SGOT) Alanine 31 Aminotransferase (ALT/SGPT) Alkaline 69 Phosphatase Total Protein 7.1 Albumin 3.9 Globulin 3.20 Albumin/Globulin 1.21 Ratio Blood Gas Blood arterial Specimen Source Arterial Blood 10/13/2018 7:06:4 Date Drawn 9 AM Arterial Blood pH 7.400 (Temp corrected) Arterial Blood 45.7 H pCO2 (Temp correct) Arterial Blood 81.2 pO2 (Temp corrected) Arterial Blood 27.7 H HCO3 Arterial Blood 2.3 Base Excess Arterial Blood 95.2 Oxygen Saturation David Test ACCEPTAB Arterial Blood Right Radial Gas Puncture Site Arterial 0.4 Blood Carboxyhemo globin Arterial Blood 0 Methemoglobin Blood Gas A-a O2 586.1 H Differential Oxyhemoglobin 94.8 Percent Blood Gas 37.0 Temperature Blood Gas HFNC Modality FiO2 100.0 Blood Gas TM Notified Whom Blood Gas 10/13/2018 7:52:1 Notified Time 9 AM Subjective 24 Hr Interval Summary Free Text/Dictation Patient stated acute hypoxemic respiratory failure, on high flow now requiring 100% FiO2. He reports he feels better, he seems to be more comfortable. He de nies chest pains. Cardiac rhythm remains stable. Exam/Review of Systems Exam Vitals Vital Signs Date Temp Pulse Resp B/P (MAP) Pulse Ox O2 O2 Flow FiO2 Time Delivery Rate 10/13/18 97.8 20 117/84 92 High Flow 08:10 (95) 10/13/18 73 07:00 10/13/18 100 05:03 10/12/18 6.0 16:00 Intake and Output 10/12/18 10/12/18 10/13/18 1515:00 23:00 07:00 IntakeIntake Total 50 ml 45 ml OutputOutput Total 950 ml 1575 ml 1365 ml BalanceBalance -950 ml -1525 ml -1320 ml Constitutional: alert, oriented, well developed, obese Respiratory: diminished breath sounds (bases ), other (no wheezes ) Cardiovascular: regular rate and rhythm, nl pulses Gastrointestinal: soft, non-tender Extremities: normal pulses 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: 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 TEST ENGINEER II-XII 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, nl mental status, nl speech, nl strength Lymph: nl lymph nodes Results Results 24hrs Laboratory Tests Test 10/12/18 09:29 10/12/18 14:35 10/12/18 17:36 10/12/18 21:00 Bedside Glucose 149 158 222 H 290 H Test 10/13/18 04:15 10/13/18 05:09 10/13/18 07:00 10/13/18 07:45 Bedside Glucose 270 H 207 White Blood Count 11.2 H Red Blood Count 5.18 Hemoglobin 13.2 L Hematocrit 43.5 Mean Corpuscular 84.0 Volume Mean Corpuscular 25.5 L Hemoglobin Mean Corpuscular 30.3 L Hemoglobin Concen t Red Cell 16.6 H Distribution Width Platelet Count 256 Mean Platelet 10.4 Volume Immature 0.900 H Granulocytes % Neutrophils % 89.2 H Lymphocytes % 6.6 L Monocytes % 3.2 Eosinophils % 0.0 Basophils % 0.1 Nucleated Red 0.0 Blood Cells % Immature 0.100 H Granulocytes # Neutrophils # 10.0 H Lymphocytes # 0.7 L Monocytes # 0.4 Eosinophils # 0.0 Basophils # 0.0 Nucleated Red 0.0 Blood Cells # Sodium Level 144 Potassium Level 4.2 Chloride Level 102 Carbon Dioxide 30 Level Anion Gap 12 Blood Urea 22 H Nitrogen Creatinine 0.89 Est Glomerular > 60 Filtrat Rate mL/min Glucose Level 256 #H Calcium Level 9.8 Magnesium Level 2.3 Total Bilirubin 0.5 Direct Bilirubin 0.00 Indirect 0.5 Bilirubin Aspartate Amino 35 Transf (AST/SGOT) Alanine 31 Aminotransferase (ALT/SGPT) Alkaline 69 Phosphatase Total Protein 7.1 Albumin 3.9 Globulin 3.20 Albumin/Globulin 1.21 Ratio Blood Gas Blood arterial Specimen Source Arterial Blood 10/13/2018 7:06:4 Date Drawn 9 AM Arterial Blood pH 7.400 (Temp corrected) Arterial Blood 45.7 H pCO2 (Temp correct) Arterial Blood 81.2 pO2 (Temp corrected) Arterial Blood 27.7 H HCO3 Arterial Blood 2.3 Base Excess Arterial Blood 95.2 Oxygen Saturation David Test ACCEPTAB Arterial Blood Right Radial Gas Puncture Site Arterial 0.4 Blood Carboxyhemo globin Arterial Blood 0 Methemoglobin Blood Gas A-a O2 586.1 H Differential Oxyhemoglobin 94.8 Percent Blood Gas 37.0 Temperature Blood Gas HFNC Modality FiO2 100.0 Blood Gas TM Notified Whom Blood Gas 10/13/2018 7:52:1 Notified Time 9 AM Imaging Imaging CXR done this AM, results pending Medications Medication Current Medications Levofloxacin/ Dextrose 150 ml @ 100 mls/hr DAILY@1700 IVPB Last administered on 10/12/18at 17:16; Admin Dose 100 MLS/HR; Start 10/12/18 at 17:00 Albuterol/ Ipratropium (Duoneb) 3 ml Q4 HHN Last administered on 10/13/18at 05:03; Admin Dose 3 ML; Start 10/11/18 at 21:00 Insulin Aspart (Novolog Insulin Pen) NOVOLOG *MODERATE* ALGORITHM WITH MEALS BEDTIME SC Last administered on 10/13/18at 07:59; Admin Dose 4 UNIT; Start 10/11/18 at 21:00 Zolpidem Tartrate (Ambien) 5 mg HS MAY REPEAT X 1 PRN PO INSOMNIA; Start 10/11/18 at 20:30 Ondansetron HCl (Zofran Inj) 4 mg Q4 PRN IV nausea; Start 10/11/18 at 20:30 Miscellaneous Information 1 ea NOTE XX ; Start 10/11/18 at 21:00 Glucose (Glutose) 15 gm Q15M PRN PO DECREASED GLUCOSE; Start 10/11/18 at 21:00 Glucose (Glutose) 22.5 gm Q15M PRN PO DECREASED GLUCOSE; Start 10/11/18 at 21:00 Dextrose (D50w Syringe) 25 ml Q15M PRN IV DECREASED GLUCOSE; Start 10/11/18 at 21:00 Dextrose (D50w Syringe) 50 ml Q15M PRN IV DECREASED GLUCOSE; Start 10/11/18 at 21:00 Glucagon (Glucagen) 1 mg Q15M PRN IM DECREASED GLUCOSE; Start 10/11/18 at 21:00 Glucose (Glutose) 15 gm Q15M PRN BUCCAL DECREASED GLUCOSE; Start 10/11/18 at 21:00 Promethazine HCl/ Dextromethorphan (Phenergan-Dm) 5 ml Q6 PRN PO COUGH; Start 10/11/18 at 21:00 Digoxin (Digoxin) 0.25 mg DAILY PO Last administered on 10/12/18at 10:12; Admin Dose 0.25 MG; Start 10/12/18 at 09:00 Furosemide (Lasix) 40 mg BID PO Last administered on 10/12/18at 21:34; Admin Dose 40 MG; Start 10/11/18 at 21:00 Glimepiride (Amaryl) 4 mg WITH BREAKFAST DINNE PO Last administered on 10/13/18 at 07:46; Admin Dose 4 MG; Start 10/12/18 at 08:00 Miscellaneous Information 4.8 mg QAM PO ; Start 10/12/18 at 09:00; Status UNV Atorvastatin Calcium (Lipitor) 20 mg DAILY@21 PO Last administered on 10/12/18at 21:34; Admin Dose 20 MG; Start 10/11/18 at 22:30 Apixaban (Eliquis) 5 mg BID PO Last administered on 10/12/18at 21:34; Admin Dose 5 MG; Start 10/12/18 at 12:30 Metoprolol Succinate (Toprol Xl) 50 mg BID PO Last administered on 10/12/18 21:34; Admin Dose 50 MG; Start 10/12/18 at 21:00 Miscellaneous Information (*Order Clarification Bulletin) CYCLOSET IS NON FORMULARY ITEM..PLE... Q8H XX ; Start 10/12/18 at 23:30 Methylprednisolone Sodium Succinate (Solu-Medrol) 60 mg Q6 IV ; Start 10/13/18 at 12:00; Status UNV ROEL ALBA Oct 13, 2018 09:03
[2018-10-13] MEDS ORDERED: VANCOMYCIN IV PER PHARMACY XX SCH (09:30)
[2018-10-13] MEDS: CEFEPIME 2GM/50 ML (PMX) 50 ML IVPB SCH ×3 (09:56→21:21)
--- NOTE | 2018-10-13 10:11 | CONS ---
Consult Date/Type/Reason Admit Date/Time Oct 12, 2018 at 06:16 Initial Consult Date Type of Consult Pulmonary Date/Time of Note DATE: 10/13/18 TIME: 10:09 Subjective Patient stable this morning still requiring high flow 100% FiO2. Awake alert and oriented no accessory muscle use. Objective Vital Signs Date Temp Pulse Resp B/P (MAP) Pulse Ox O2 O2 Flow FiO2 Time Delivery Rate 10/13/18 97.8 81 20 106/71 96 High Flow 10:00 (83) 10/13/18 100 09:07 10/12/18 6.0 16:00 Intake and Output 10/12/18 10/12/18 10/13/18 1515:00 23:00 07:00 IntakeIntake Total 50 ml 45 ml OutputOutput Total 950 ml 1575 ml 1365 ml BalanceBalance -950 ml -1525 ml -1320 ml Exam GENERAL: Well-nourished well-developed gentleman on high flow O2. VITAL SIGNS: per chart NECK: Supple. No JVD or lymphadenopathy. CARDIAC EXAM: S1, S2. No added sounds or murmurs. CHEST: Diminished air entry bilaterally with rales ABDOMEN: Soft, nontender. No guarding or rebound. EXTREMITIES: No cyanosis, clubbing or edema. NEUROLOGIC: Generalized weakness. No focal deficits. Vent Setting Fraction of Inspired Oxygen pe: 100 Results/Medications Result Diagram: 10/13/18 0509 10/13/18 0509 Results 24 hrs Laboratory Tests Test 10/12/18 14:35 10/12/18 17:36 10/12/18 21:00 10/13/18 04:15 Bedside Glucose 158 222 H 290 H 270 H Test 10/13/18 05:09 10/13/18 07:00 10/13/18 07:45 White Blood Count 11.2 H Red Blood Count 5.18 Hemoglobin 13.2 L Hematocrit 43.5 Mean Corpuscular 84.0 Volume Mean Corpuscular 25.5 L Hemoglobin Mean Corpuscular 30.3 L Hemoglobin Concen t Red Cell 16.6 H Distribution Width Platelet Count 256 Mean Platelet 10.4 Volume Immature 0.900 H Granulocytes % Neutrophils % 89.2 H Lymphocytes % 6.6 L Monocytes % 3.2 Eosinophils % 0.0 Basophils % 0.1 Nucleated Red 0.0 Blood Cells % Immature 0.100 H Granulocytes # Neutrophils # 10.0 H Lymphocytes # 0.7 L Monocytes # 0.4 Eosinophils # 0.0 Basophils # 0.0 Nucleated Red 0.0 Blood Cells # Sodium Level 144 Potassium Level 4.2 Chloride Level 102 Carbon Dioxide 30 Level Anion Gap 12 Blood Urea 22 H Nitrogen Creatinine 0.89 Est Glomerular > 60 Filtrat Rate mL/min Glucose Level 256 #H Calcium Level 9.8 Magnesium Level 2.3 Total Bilirubin 0.5 Direct Bilirubin 0.00 Indirect 0.5 Bilirubin Aspartate Amino 35 Transf (AST/SGOT) Alanine 31 Aminotransferase (ALT/SGPT) Alkaline 69 Phosphatase Total Protein 7.1 Albumin 3.9 Globulin 3.20 Albumin/Globulin 1.21 Ratio Blood Gas Blood arterial Specimen Source Arterial Blood 10/13/2018 7:06:4 Date Drawn 9 AM Arterial Blood pH 7.400 (Temp corrected) Arterial Blood 45.7 H pCO2 (Temp correct) Arterial Blood 81.2 pO2 (Temp corrected) Arterial Blood 27.7 H HCO3 Arterial Blood 2.3 Base Excess Arterial Blood 95.2 Oxygen Saturation David Test ACCEPTAB Arterial Blood Right Radial Gas Puncture Site Arterial 0.4 Blood Carboxyhemo globin Arterial Blood 0 Methemoglobin Blood Gas A-a O2 586.1 H Differential Oxyhemoglobin 94.8 Percent Blood Gas 37.0 Temperature Blood Gas HFNC Modality FiO2 100.0 Blood Gas TM Notified Whom Blood Gas 10/13/2018 7:52:1 Notified Time 9 AM Bedside Glucose 207 Medications Current Medications Albuterol/ Ipratropium (Duoneb) 3 ml Q4 HHN Last administered on 10/13/18at 09:11; Admin Dose 3 ML; Start 10/11/18 at 21:00 Insulin Aspart (Novolog Insulin Pen) NOVOLOG *MODERATE* ALGORITHM WITH MEALS BEDTIME SC Last administered on 10/13/18at 07:59; Admin Dose 4 UNIT; Start 10/11/18 at 21:00 Zolpidem Tartrate (Ambien) 5 mg HS MAY REPEAT X 1 PRN PO INSOMNIA; Start 10/11/18 at 20:30 Ondansetron HCl (Zofran Inj) 4 mg Q4 PRN IV nausea; Start 10/11/18 at 20:30 Miscellaneous Information 1 ea NOTE XX ; Start 10/11/18 at 21:00 Glucose (Glutose) 15 gm Q15M PRN PO DECREASED GLUCOSE; Start 10/11/18 at 21:00 Glucose (Glutose) 22.5 gm Q15M PRN PO DECREASED GLUCOSE; Start 10/11/18 at 21:00 Dextrose (D50w Syringe) 25 ml Q15M PRN IV DECREASED GLUCOSE; Start 10/11/18 at 21:00 Dextrose (D50w Syringe) 50 ml Q15M PRN IV DECREASED GLUCOSE; Start 10/11/18 at 21:00 Glucagon (Glucagen) 1 mg Q15M PRN IM DECREASED GLUCOSE; Start 10/11/18 at 21:00 Glucose (Glutose) 15 gm Q15M PRN BUCCAL DECREASED GLUCOSE; Start 10/11/18 at 21:00 Promethazine HCl/ Dextromethorphan (Phenergan-Dm) 5 ml Q6 PRN PO COUGH; Start 10/11/18 at 21:00 Digoxin (Digoxin) 0.25 mg DAILY PO Last administered on 10/13/18at 08:53; Admin Dose 0.25 MG; Start 10/12/18 at 09:00 Furosemide (Lasix) 40 mg BID PO Last administered on 10/13/18at 08:59; Admin Dose 40 MG; Start 10/11/18 at 21:00 Glimepiride (Amaryl) 4 mg WITH BREAKFAST DINNE PO Last administered on 10/13/18at 07:46; Admin Dose 4 MG; Start 10/12/18 at 08:00 Miscellaneous Information 4.8 mg QAM PO ; Start 10/12/18 at 09:00; Status UNV Atorvastatin Calcium (Lipitor) 20 mg DAILY@21 PO Last administered on 10/12/18at 21:34; Admin Dose 20 MG; Start 10/11/18 at 22:30 Apixaban (Eliquis) 5 mg BID PO Last administered on 10/13/18at 08:53; Admin Dose 5 MG; Start 10/12/18 at 12:30 Metoprolol Succinate (Toprol Xl) 50 mg BID PO Last administered on 10/13/18at 08:54; Admin Dose 50 MG; Start 10/12/18 at 21:00 Miscellaneous Information (*Order Clarification Bulletin) CYCLOSET IS NON FORMULARY ITEM..PLE... Q8H XX ; Start 10/12/18 at 23:30 Methylprednisolone Sodium Succinate (Solu-Medrol) 60 mg Q6 IV ; Start 10/13/18 at 12:00 Cefepime HCl 50 ml @ 100 mls/hr Q8 IVPB Last administered on 10/13/18at 09:56; Admin Dose 100 MLS/HR; Start 10/13/18 at 10:00 Vancomycin HCl (Vanco Iv Per Pharmacy) VANCOMYCIN PER PHARMACY PER PROTOCOL XX ; Start 10/13/18 at 09:30 Assessment/Plan Hospital Course (Demo Recall) IMPRESSION 1. Acute hypoxemic respiratory failure, likely secondary to acute tracheobronch itis. Bibasilar atelectasis noted but no significant pneumonic infiltrates or effusions. Differential does include thrombo-embolic disease however CT pulmonary angiogram negative. Also in the differential is pulmonary hypertension and a right to left intrapulmonary shunt. 2. Right lower lobe pneumonia. No evidence of thromboembolic disease. Plan 1. Incentive spirometry. 2. Bronchodilators. 3. Steroids., Agree with increasing dose 4. Antibiotics. 5. Continue anticoagulation for atrial fibrillation. 6. Rate control. 7. DVT and GI prophylaxis. 8. Will consider cardiac bubble study to evaluate for intracardiac shunt if hypoxemia does not resolve. TELMA CAI MD, [facility] Oct 13, 2018 10:11
[2018-10-13] MEDS ORDERED: VANCOMYCIN HCL 2 GM in SOD CHLORIDE 0.9% 500 ML IVPB SCH (12:00)
--- NOTE | 2018-10-13 13:33 | CONS ---
Assessment/Plan Assessment/Plan Hospital Course (Demo Recall) Respiratory failure PNA Chronic Systolic CHF History of cardiomyopathy, current left ventricular ejection fraction 55% Chronic Atrial Fibrillation DM Patient with improvement in respiratory status and feeling better Antibiotics as per infectious disease Continue diuretics as renal function blood pressure permits, tolerating switch to Toprol-XL from carvedilol Cont Eliquis if no contraindication Consultation Date/Type/Reason Admit Date/Time Oct 12, 2018 at 06:16 Initial Consult Date Type of Consult Cardiology Date/Time of Note DATE: 10/13/18 TIME: 13:30 24 HR Interval Summary Free Text/Dictation Shortness of breath is better, still with cough. Denies palpitations or chest pain Exam/Review of Systems Vital Signs Vitals Vital Signs Date Temp Pulse Resp B/P (MAP) Pulse Ox O2 O2 Flow FiO2 Time Delivery Rate 10/13/18 94 100 13:06 10/13/18 87 18 13:06 10/13/18 98.6 110/62 High Flow 12:10 (78) 10/12/18 6.0 16:00 Intake and Output 10/12/18 10/12/18 10/13/18 1515:00 23:00 07:00 IntakeIntake Total 50 ml 45 ml OutputOutput Total 950 ml 1575 ml 1365 ml BalanceBalance -950 ml -1525 ml -1320 ml Exam Constitutional: alert, oriented (Eating lunch, on high flow oxygen) Head: normocephalic Respiratory: congested cough, crackles/rales, wheezing Cardiovascular: irregular rhythm (S1-S2 heard) Gastrointestinal: soft, non-tender, bowel sounds Extremities: edema (Trace) Labs Result Diagram: 10/13/18 0509 10/13/18 0509 Results 24hrs Laboratory Tests Test 10/12/18 14:35 10/12/18 17:36 10/12/18 21:00 10/13/18 04:15 Bedside Glucose 158 222 H 290 H 270 H Test 10/13/18 05:09 10/13/18 07:00 10/13/18 07:45 10/13/18 11:38 White Blood Count 11.2 H Red Blood Count 5.18 Hemoglobin 13.2 L Hematocrit 43.5 Mean Corpuscular 84.0 Volume Mean Corpuscular 25.5 L Hemoglobin Mean Corpuscular 30.3 L Hemoglobin Concen t Red Cell 16.6 H Distribution Width Platelet Count 256 Mean Platelet 10.4 Volume Immature 0.900 H Granulocytes % Neutrophils % 89.2 H Lymphocytes % 6.6 L Monocytes % 3.2 Eosinophils % 0.0 Basophils % 0.1 Nucleated Red 0.0 Blood Cells % Immature 0.100 H Granulocytes # Neutrophils # 10.0 H Lymphocytes # 0.7 L Monocytes # 0.4 Eosinophils # 0.0 Basophils # 0.0 Nucleated Red 0.0 Blood Cells # Sodium Level 144 Potassium Level 4.2 Chloride Level 102 Carbon Dioxide 30 Level Anion Gap 12 Blood Urea 22 H Nitrogen Creatinine 0.89 Est Glomerular > 60 Filtrat Rate mL/min Glucose Level 256 #H Calcium Level 9.8 Magnesium Level 2.3 Total Bilirubin 0.5 Direct Bilirubin 0.00 Indirect 0.5 Bilirubin Aspartate Amino 35 Transf (AST/SGOT) Alanine 31 Aminotransferase (ALT/SGPT) Alkaline 69 Phosphatase Total Protein 7.1 Albumin 3.9 Globulin 3.20 Albumin/Globulin 1.21 Ratio Blood Gas Blood arterial Specimen Source Arterial Blood 10/13/2018 7:06:4 Date Drawn 9 AM Arterial Blood pH 7.400 (Temp corrected) Arterial Blood 45.7 H pCO2 (Temp correct) Arterial Blood 81.2 pO2 (Temp corrected) Arterial Blood 27.7 H HCO3 Arterial Blood 2.3 Base Excess Arterial Blood 95.2 Oxygen Saturation David Test ACCEPTAB Arterial Blood Right Radial Gas Puncture Site Arterial 0.4 Blood Carboxyhemo globin Arterial Blood 0 Methemoglobin Blood Gas A-a O2 586.1 H Differential Oxyhemoglobin 94.8 Percent Blood Gas 37.0 Temperature Blood Gas HFNC Modality FiO2 100.0 Blood Gas Notified Whom Blood Gas 10/13/2018 7:52:1 Notified Time 9 AM Bedside Glucose 207 217 Medications Medications Current Medications Albuterol/ Ipratropium (Duoneb) 3 ml Q4 HHN Last administered on 10/13/18at 13:06; Admin Dose 3 ML; Start 10/11/18 at 21:00 Insulin Aspart (Novolog Insulin Pen) NOVOLOG *MODERATE* ALGORITHM WITH MEALS BEDTIME SC Last administered on 10/13/18at 11:43; Admin Dose 4 UNIT; Start 10/11/18 at 21:00 Zolpidem Tartrate (Ambien) 5 mg HS MAY REPEAT X 1 PRN PO INSOMNIA; Start 10/11/18 at 20:30 Ondansetron HCl (Zofran Inj) 4 mg Q4 PRN IV nausea; Start 10/11/18 at 20:30 Miscellaneous Information 1 ea NOTE XX ; Start 10/11/18 at 21:00 Glucose (Glutose) 15 gm Q15M PRN PO DECREASED GLUCOSE; Start 10/11/18 at 21:00 Glucose (Glutose) 22.5 gm Q15M PRN PO DECREASED GLUCOSE; Start 10/11/18 at 21:00 Dextrose (D50w Syringe) 25 ml Q15M PRN IV DECREASED GLUCOSE; Start 10/11/18 at 21:00 Dextrose (D50w Syringe) 50 ml Q15M PRN IV DECREASED GLUCOSE; Start 10/11/18 at 21:00 Glucagon (Glucagen) 1 mg Q15M PRN IM DECREASED GLUCOSE; Start 10/11/18 at 21:00 Glucose (Glutose) 15 gm Q15M PRN BUCCAL DECREASED GLUCOSE; Start 10/11/18 at 21:00 Promethazine HCl/ Dextromethorphan (Phenergan-Dm) 5 ml Q6 PRN PO COUGH; Start 10/11/18 at 21:00 Digoxin (Digoxin) 0.25 mg DAILY PO Last administered on 10/13/18at 08:53; Admin Dose 0.25 MG; Start 10/12/18 at 09:00 Furosemide (Lasix) 40 mg BID PO Last administered on 10/13/18at 08:59; Admin Dose 40 MG; Start 10/11/18 at 21:00 Atorvastatin Calcium (Lipitor) 20 mg DAILY@21 PO Last administered on 10/12/18at 21:34; Admin Dose 20 MG; Start 10/11/18 at 22:30 Apixaban (Eliquis) 5 mg BID PO Last administered on 10/13/18at 08:53; Admin Dose 5 MG; Start 10/12/18 at 12:30 Metoprolol Succinate (Toprol Xl) 50 mg BID PO Last administered on 10/13/18at 08:54; Admin Dose 50 MG; Start 10/12/18 at 21:00 Methylprednisolone Sodium Succinate (Solu-Medrol) 60 mg Q6 IV Last administered on 10/13/18at 11:46; Admin Dose 60 MG; Start 10/13/18 at 12:00 Cefepime HCl 50 ml @ 100 mls/hr Q8 IVPB Last administered on 10/13/18at 09:56; Admin Dose 100 MLS/HR; Start 10/13/18 at 10:00 Vancomycin HCl (Vanco Iv Per Pharmacy) VANCOMYCIN PER PHARMACY PER PROTOCOL XX ; Start 10/13/18 at 09:30 Vancomycin HCl 2 gm/Sodium Chloride 500 ml @ 125 mls/hr ONCE IVPB Last administered on 10/13/18at 12:05; Admin Dose 125 MLS/HR; Start 10/13/18 at 12:00; Stop 10/13/18 at 15:59 Patient Own Medication 6 ea AM PO ; Start 10/13/18 at 13:00 Rocael Poole DO Oct 13, 2018 13:33
[2018-10-13] MEDS: CYCLOSET PO SCH (14:34)
[2018-10-13] MEDS: ATORVASTATIN 20 MG TAB PO SCH (20:51)
[2018-10-13] MEDS: ACETAZOLAMIDE 250 MG TAB PO SCH (20:51)
[2018-10-14] VITALS (23 sets, daily range): BP systolic 86–128; BP diastolic 37–88; PULSE 55–102; RESP 15–25
[2018-10-14] MEDS: METHYLPREDNISOLONE 125 MG INJ IV SCH ×4 (00:35→20:38)
[2018-10-14] MEDS: VANCOMYCIN HCL 1.5 GM in SOD CHLORIDE 0.9% 250 ML IVPB SCH ×2 (00:35→15:33)
[2018-10-14] MEDS: ALBUTEROL/IPRATROPIUM (NEB) 3 ML AMP HHN SCH ×6 (01:16→20:42)
[2018-10-14] MEDS: CEFEPIME 2GM/50 ML (PMX) 50 ML IVPB SCH ×3 (05:42→22:08)
--- NOTE | 2018-10-14 07:34 | CONS ---
Assessment/Plan Assessment/Plan Assessment/Plan (Daily) 1. Metabolic alkalosis on Acetazolamide 250mg BID 1. Acute Hypoxic respiratory failure, likely secondary to reactive airway and pneumonia, patient seems to be euvolemic for now. 2. Atrial fibrillation, chronic, rate controlled. 3. Congestive heart failure, diastolic dysfunction, chronic, currently euvolemic. Echocardiogram with EF of 55%. Continue current medication, patient on oral Lasix daily. 4. Diabetes mellitus Type II with acute hyperglycemia 5. Hypertension Prophylaxis: Eliquis for DVT prophylaxis, Pepcid for GI prophylaxis. Consultation Date/Type/Reason Admit Date/Time Oct 12, 2018 at 06:16 Date of Consultation: Oct 14, 2018 Type of Consult NEPHROLOGY Reason for Consultation Alkalosis, fluid management Requesting Provider: ROEL ALBA Date/Time of Note DATE: 10/14/18 TIME: 07:33 Hx of Present Illness 62 y/o C M w/ h/o T2DM, HTN, chronic diastolic CHF, A-fib, [place], in [place] until recent trip when he developed bronchitis. [place] [facility] [place]. However, symptoms worsened and pt. returned got different antibiotic and steroid. Despite this was not feeling better, developing worsen ing SOB, so 3 days ago came to [facility]. pO2 was 56 on 28% FiO2. Pt. rec'ed solumedrol and xopenex and admitted. Has been on high flow O2 by nasal cannula. Has been receiving solu-medrol 60 mg IV q6. Renal has been consulted for alkalosis. Pt has been on lasix 40mg BID and Acetazolamide 250mg BID at home Constitutional: no complaints Eyes: no complaints ENT: no complaints Respiratory: cough, pleuritic pain, shortness of breath Cardiovascular: no complaints Gastrointestinal: no complaints Genitourinary: no complaints Musculoskeletal: no complaints Skin: no complaints Neurologic: no complaints Endocrine: no complaints Lymphatic: no complaints Psychological: no complaints Immunologic: no complaints Past Medical History Medical History: congestive heart failure, diabetes, hypertension, other (Atrial fibrillation ) Home Meds Reported Medications Dextromethorphan Hb-Promethazine Hcl* (Promethazine DM* Syrup) 473 Ml Syrup, 5 M L PO Q6 PRN for COUGH, ML 10/11/18 Simvastatin* (Zocor*) 40 Mg Tablet, 40 MG PO QHS, #30 TAB 10/11/18 Empagliflozin (Jardiance) 10 Mg Tablet, 10 MG PO DAILY, TAB 10/11/18 Acetazolamide* (Acetazolamide*) 250 Mg Tablet, 250 MG PO BID, #60 TAB 10/11/18 Furosemide* (Furosemide*) 40 Mg Tablet, 40 MG PO BID, TAB 10/11/18 Apixaban* (Eliquis*) 5 Mg Tablet, 5 MG PO BID, TAB 10/11/18 Digoxin* (Digox*) 250 Mcg Tablet, 0.25 MG PO DAILY, TAB 10/11/18 Carvedilol* (Coreg*) 25 Mg Tablet, 25 MG PO BID, #60 TAB 10/11/18 Sildenafil Citrate* (Sildenafil Citrate*) 20 Mg Tablet, 20 MG PO NEEDED, TAB TAKE 3-5 TABS BEFORE SEXUAL ACTIVITY. 10/11/18 Bromocriptine Mesylate (CYCLOSET) 0.8 Mg Tablet, 4.8 MG PO QAM, TAB 10/11/18 Glimepiride* (Glimepiride*) 4 Mg Tablet, 4 MG PO WITH BREAKFAST DINNE, TAB 10/11/18 Metformin Hcl* (Metformin Hcl*) 1,000 Mg Tablet, 1000 MG PO WITH BREAKFAST DINNE, #60 TAB 10/11/18 Ergocalciferol (Vitamin D2) (VITAMIN D2) 50,000 Unit Capsule, 05013 UNIT PO Q7D, CAP 10/11/18 Discontinued Reported Medications Amoxicillin* (Amoxicillin*) 500 Mg Cap, 500 MG PO Q12H, #20 CAP 10/11/18 Dapagliflozin Propanediol (Farxiga) 10 Mg Tablet, 10 MG PO DAILY, #30 TAB 12/24/17 Simvastatin* (Zocor*) 40 Mg Tablet, 40 MG PO QHS, #30 TAB 12/24/17 Bromocriptine Mesylate (CYCLOSET) 0.8 Mg Tablet, 0.8 MG PO DAILY, TAB 12/24/17 Glimepiride* (Glimepiride*) 4 Mg Tablet, 4 MG PO WITH BREAKFAST DINNE, TAB 12/24/17 Ergocalciferol (Vitamin D2) (VITAMIN D2) 50,000 Unit Capsule, 03296 UNIT PO Q7D, CAP 12/24/17 Digoxin* (Digitek*) 250 Mcg Tablet, 0.25 MG PO DAILY, TAB 12/24/17 Apixaban* (Eliquis*) 5 Mg Tablet, 5 MG PO BID, TAB 12/24/17 Carvedilol* (Carvedilol*) 25 Mg Tablet, 25 MG PO BID, #60 TAB 12/24/17 Metformin Hcl* (Metformin Hcl*) 1,000 Mg Tablet, 1000 MG PO WITH BREAKFAST DINNE, #60 TAB 12/24/17 Discontinued Scripts Furosemide* (Furosemide*) 40 Mg Tablet, 40 MG PO BID DIURETICS for 30 Days, TAB 3 Refills Prov:ROEL ALBA F 12/31/17 Medications Current Medications Albuterol/ Ipratropium (Duoneb) 3 ml Q4 HHN Last administered on 10/14/18at 04:04; Admin Dose 3 ML; Start 10/11/18 at 21:00 Insulin Aspart (Novolog Insulin Pen) NOVOLOG *MODERATE* ALGORITHM WITH MEALS BEDTIME SC Last administered on 10/13/18at 20:58; Admin Dose 3 UNIT; Start 10/11/18 at 21:00 Zolpidem Tartrate (Ambien) 5 mg HS MAY REPEAT X 1 PRN PO INSOMNIA; Start 10/11/18 at 20:30 Ondansetron HCl (Zofran Inj) 4 mg Q4 PRN IV nausea; Start 10/11/18 at 20:30 Miscellaneous Information 1 ea NOTE XX ; Start 10/11/18 at 21:00 Glucose (Glutose) 15 gm Q15M PRN PO DECREASED GLUCOSE; Start 10/11/18 at 21:00 Glucose (Glutose) 22.5 gm Q15M PRN PO DECREASED GLUCOSE; Start 10/11/18 at 21:00 Dextrose (D50w Syringe) 25 ml Q15M PRN IV DECREASED GLUCOSE; Start 10/11/18 at 21:00 Dextrose (D50w Syringe) 50 ml Q15M PRN IV DECREASED GLUCOSE; Start 10/11/18 at 21:00 Glucagon (Glucagen) 1 mg Q15M PRN IM DECREASED GLUCOSE; Start 10/11/18 at 21:00 Glucose (Glutose) 15 gm Q15M PRN BUCCAL DECREASED GLUCOSE; Start 10/11/18 at 21:00 Promethazine HCl/ Dextromethorphan (Phenergan-Dm) 5 ml Q6 PRN PO COUGH; Start 10/11/18 at 21:00 Digoxin (Digoxin) 0.25 mg DAILY PO Last administered on 10/13/18 08:53; Admin Dose 0.25 MG; Start 10/12/18 at 09:00 Furosemide (Lasix) 40 mg BID PO Last administered on 10/13/18 20:51; Admin Dose 40 MG; Start 10/11/18 at 21:00 Atorvastatin Calcium (Lipitor) 20 mg DAILY@21 PO Last administered on 10/13/18 20:51; Admin Dose 20 MG; Start 10/11/18 at 22:30 Apixaban (Eliquis) 5 mg BID PO Last administered on 10/13/18 20:51; Admin Dose 5 MG; Start 10/12/18 at 12:30 Metoprolol Succinate (Toprol Xl) 50 mg BID PO Last administered on 10/13/18 20:51; Admin Dose 50 MG; Start 10/12/18 at 21:00 Methylprednisolone Sodium Succinate (Solu-Medrol) 60 mg Q6 IV Last administered on 10/14/18 05:42; Admin Dose 60 MG; Start 10/13/18 at 12:00 Cefepime HCl 50 ml @ 100 mls/hr Q8 IVPB Last administered on 10/14/18 05:42; Admin Dose 100 MLS/HR; Start 10/13/18 at 10:00 Vancomycin HCl (Vanco Iv Per Pharmacy) VANCOMYCIN PER PHARMACY PER PROTOCOL XX ; Start 10/13/18 at 09:30 Patient Own Medication 6 ea AM PO Last administered on 10/13/18 14:34; Admin Dose 6 EA; Start 10/13/18 at 13:00 Acetazolamide (Diamox) 250 mg BID PO Last administered on 10/13/18 20:51; Admin Dose 250 MG; Start 10/13/18 at 21:00 Vancomycin HCl 1.5 gm/Sodium Chloride 250 ml @ 83.333 mls/ hr Q12H IVPB Last administered on 10/14/18 00:35; Admin Dose 83.333 MLS/HR; Start 10/14/18 at 00:00 Allergies: Coded Allergies: No Known Allergy (Unverified , 10/11/18) Past Surgical History Past Surgical Hx: no surgical history Social History Smoking Status: Former smoker Exam/Review of Systems Exam Vitals Vital Signs Date Temp Pulse Resp B/P (MAP) Pulse Ox O2 O2 Flow FiO2 Time Delivery Rate 10/14/18 68 18 113/72 92 High Flow 07:00 (86) 10/14/18 100 04:05 10/14/18 98.0 00:00 10/12/18 6.0 16:00 Intake and Output 10/13/18 10/13/18 10/14/18 1515:00 23:00 07:00 IntakeIntake Total 1170 ml 550 ml 620.00 ml OutputOutput Total 2250 ml 800 ml 1500 ml BalanceBalance -1080 ml -250 ml -880.00 ml Constitutional: distress Psych: no complaints Head: normocephalic Neck: jvd Respiratory: congested cough, crackles/rales, diminished breath sounds Cardiovascular: regular rate and rhythm, nl pulses Gastrointestinal: soft, nl liver, spleen, non-tender, other (obese) Musculoskeletal: nl extremities to inspection, nl gait and stance, swelling (1- 2+ pitting edema ) 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: [employer]ING [employer]ST II-XII intact, nl mental status, nl speech Lymph: nl lymph nodes Results Result Diagram: 10/14/186 10/14/186 Results 24hrs Laboratory Tests Test 10/13/18 07:45 10/13/18 11:38 10/13/18 17:26 10/13/18 20:48 Bedside Glucose 207 217 261 H 289 H Test 10/14/18 04:46 White Blood Count 13.9 #H Red Blood Count 5.04 Hemoglobin 12.8 L Hematocrit 42.0 Mean Corpuscular 83.3 Volume Mean Corpuscular 25.4 L Hemoglobin Mean Corpuscular 30.5 L Hemoglobin Concent Red Cell 16.5 H Distribution Width Platelet Count 240 Mean Platelet Volume 10.7 H Immature 0.900 H Granulocytes % Neutrophils % 87.9 H Lymphocytes % 6.6 L Monocytes % 4.5 Eosinophils % 0.0 Basophils % 0.1 Nucleated Red Blood 0.0 Cells % Immature 0.120 H Granulocytes # Neutrophils # 12.3 H Lymphocytes # 0.9 Monocytes # 0.6 Eosinophils # 0.0 Basophils # 0.0 Nucleated Red Blood 0.0 Cells # Sodium Level 139 Potassium Level 4.2 Chloride Level 101 Carbon Dioxide Level 31 Anion Gap 7 Blood Urea Nitrogen 21 H Creatinine 0.74 Est Glomerular > 60 Filtrat Rate mL/min Glucose Level 272 H Calcium Level 9.0 Phosphorus Level 4.1 Magnesium Level 2.4 Medications Medication Current Medications Albuterol/ Ipratropium (Duoneb) 3 ml Q4 HHN Last administered on 10/14/18at 04:0 4; Admin Dose 3 ML; Start 10/11/18 at 21:00 Insulin Aspart (Novolog Insulin Pen) NOVOLOG *MODERATE* ALGORITHM WITH MEALS BEDTIME SC Last administered on 10/13/18at 20:58; Admin Dose 3 UNIT; Start at 21:00 Zolpidem Tartrate (Ambien) 5 mg HS MAY REPEAT X 1 PRN PO INSOMNIA; Start 10/11/18 at 20:30 Ondansetron HCl (Zofran Inj) 4 mg Q4 PRN IV nausea; Start 10/11/18 at 20:30 Miscellaneous Information 1 ea NOTE XX ; Start 10/11/18 at 21:00 Glucose (Glutose) 15 gm Q15M PRN PO DECREASED GLUCOSE; Start 10/11/18 at 21:00 Glucose (Glutose) 22.5 gm Q15M PRN PO DECREASED GLUCOSE; Start 10/11/18 at 21:00 Dextrose (D50w Syringe) 25 ml Q15M PRN IV DECREASED GLUCOSE; Start 10/11/18 at 21:00 Dextrose (D50w Syringe) 50 ml Q15M PRN IV DECREASED GLUCOSE; Start 10/11/18 at 21:00 Glucagon (Glucagen) 1 mg Q15M PRN IM DECREASED GLUCOSE; Start 10/11/18 at 21:00 Glucose (Glutose) 15 gm Q15M PRN BUCCAL DECREASED GLUCOSE; Start 10/11/18 at 21:00 Promethazine HCl/ Dextromethorphan (Phenergan-Dm) 5 ml Q6 PRN PO COUGH; Start 10/11/18 at 21:00 Digoxin (Digoxin) 0.25 mg DAILY PO Last administered on 10/13/18at 08:53; Admin Dose 0.25 MG; Start 10/12/18 at 09:00 Furosemide (Lasix) 40 mg BID PO Last administered on 10/13/18at 20:51; Admin Dose 40 MG; Start 10/11/18 at 21:00 Atorvastatin Calcium (Lipitor) 20 mg DAILY@21 PO Last administered on 6/27/19at 20:51; Admin Dose 20 MG; Start 10/11/18 at 22:30 Apixaban (Eliquis) 5 mg BID PO Last administered on 10/13/18 20:51; Admin Dose 5 MG; Start 10/12/18 at 12:30 Metoprolol Succinate (Toprol Xl) 50 mg BID PO Last administered on 10/13/18 20:51; Admin Dose 50 MG; Start 10/12/18 at 21:00 Methylprednisolone Sodium Succinate (Solu-Medrol) 60 mg Q6 IV Last administered on 10/14/18 05:42; Admin Dose 60 MG; Start 10/13/18 at 12:00 Cefepime HCl 50 ml @ 100 mls/hr Q8 IVPB Last administered on 10/14/18 05:42; Admin Dose 100 MLS/HR; Start 10/13/18 at 10:00 Vancomycin HCl (Vanco Iv Per Pharmacy) VANCOMYCIN PER PHARMACY PER PROTOCOL XX ; Start 10/13/18 at 09:30 Patient Own Medication 6 ea AM PO Last administered on 10/13/18 14:34; Admin Dose 6 EA; Start 10/13/18 at 13:00 Acetazolamide (Diamox) 250 mg BID PO Last administered on 10/13/18 20:51; Admin Dose 250 MG; Start 10/13/18 at 21:00 Vancomycin HCl 1.5 gm/Sodium Chloride 250 ml @ 83.333 mls/ hr Q12H IVPB Last administered on 10/14/18 00:35; Admin Dose 83.333 MLS/HR; Start 10/14/18 at 00:00 NEDA STAHL MD Oct 14, 2018 07:34
[2018-10-14] MEDS: INSULIN ASPART [NOVOLOG] 3 ML PEN SC SCH ×4 (08:53→20:53)
[2018-10-14] MEDS: FUROSEMIDE 40 MG TAB PO SCH ×2 (08:54→20:43)
[2018-10-14] MEDS: DIGOXIN 0.25 MG TAB PO SCH (08:55)
[2018-10-14] MEDS: METOPROLOL (XL) 25 MG TAB PO SCH ×2 (08:55→20:42)
[2018-10-14] MEDS: APIXABAN 5 MG TABLET PO SCH ×2 (08:56→20:43)
[2018-10-14] MEDS: ACETAZOLAMIDE 250 MG TAB PO SCH ×2 (08:56→20:43)
[2018-10-14] MEDS: CYCLOSET PO SCH (09:00)
--- NOTE | 2018-10-14 09:46 | CONS ---
Consult Date/Type/Reason Admit Date/Time Oct 12, 2018 at 06:16 Initial Consult Date Type of Consult Pulmonary Date/Time of Note DATE: 10/14/18 TIME: 09:37 Objective Vital Signs Date Temp Pulse Resp B/P (MAP) Pulse Ox O2 O2 Flow FiO2 Time Delivery Rate 10/14/18 79 17 97 80 09:08 10/14/18 113/72 High Flow 07:00 (86) 10/14/18 98.0 00:00 10/12/18 6.0 16:00 Intake and Output 10/13/18 10/13/18 10/14/18 1515:00 23:00 07:00 IntakeIntake Total 1170 ml 550 ml 620.00 ml OutputOutput Total 2250 ml 800 ml 1500 ml BalanceBalance -1080 ml -250 ml -880.00 ml Exam GENERAL: Well-nourished well-developed gentleman on high flow O2. VITAL SIGNS: per chart NECK: Supple. No JVD or lymphadenopathy. CARDIAC EXAM: S1, S2. No added sounds or murmurs. CHEST: Diminished air entry bilaterally with rales ABDOMEN: Soft, nontender. No guarding or rebound. EXTREMITIES: No cyanosis, clubbing or edema. NEUROLOGIC: Generalized weakness. No focal deficits. Vent Setting Fraction of Inspired Oxygen pe: 80 Results/Medications Result Diagram: 10/14/186 10/14/186 Results 24 hrs Laboratory Tests Test 10/13/18 11:38 10/13/18 17:26 10/13/18 20:48 10/14/18 04:46 Bedside Glucose 217 261 H 289 H White Blood Count 13.9 #H Red Blood Count 5.04 Hemoglobin 12.8 L Hematocrit 42.0 Mean Corpuscular 83.3 Volume Mean Corpuscular 25.4 L Hemoglobin Mean Corpuscular 30.5 L Hemoglobin Concent Red Cell 16.5 H Distribution Width Platelet Count 240 Mean Platelet Volume 10.7 H Immature 0.900 H Granulocytes % Neutrophils % 87.9 H Lymphocytes % 6.6 L Monocytes % 4.5 Eosinophils % 0.0 Basophils % 0.1 Nucleated Red Blood 0.0 Cells % Immature 0.120 H Granulocytes # Neutrophils # 12.3 H Lymphocytes # 0.9 Monocytes # 0.6 Eosinophils # 0.0 Basophils # 0.0 Nucleated Red Blood 0.0 Cells # Sodium Level 139 Potassium Level 4.2 Chloride Level 101 Carbon Dioxide Level 31 Anion Gap 7 Blood Urea Nitrogen 21 H Creatinine 0.74 Est Glomerular > 60 Filtrat Rate mL/min Glucose Level 272 H Calcium Level 9.0 Phosphorus Level 4.1 Magnesium Level 2.4 Test 10/14/18 08:30 Bedside Glucose 249 H Medications Current Medications Albuterol/ Ipratropium (Duoneb) 3 ml Q4 HHN Last administered on 10/14/18at 09:04; Admin Dose 3 ML; Start 10/11/18 at 21:00 Insulin Aspart (Novolog Insulin Pen) NOVOLOG *MODERATE* ALGORITHM WITH MEALS BEDTIME SC Last administered on 10/14/18at 08:53; Admin Dose 6 UNIT; Start 10/11/18 at 21:00 Zolpidem Tartrate (Ambien) 5 mg HS MAY REPEAT X 1 PRN PO INSOMNIA; Start 10/11/18 at 20:30 Ondansetron HCl (Zofran Inj) 4 mg Q4 PRN IV nausea; Start 10/11/18 at 20:30 Miscellaneous Information 1 ea NOTE XX ; Start 10/11/18 at 21:00 Glucose (Glutose) 15 gm Q15M PRN PO DECREASED GLUCOSE; Start 10/11/18 at 21:00 Glucose (Glutose) 22.5 gm Q15M PRN PO DECREASED GLUCOSE; Start 10/11/18 at 21:00 Dextrose (D50w Syringe) 25 ml Q15M PRN IV DECREASED GLUCOSE; Start 10/11/18 at 21:00 Dextrose (D50w Syringe) 50 ml Q15M PRN IV DECREASED GLUCOSE; Start 10/11/18 at 21:00 Glucagon (Glucagen) 1 mg Q15M PRN IM DECREASED GLUCOSE; Start 10/11/18 at 21:00 Glucose (Glutose) 15 gm Q15M PRN BUCCAL DECREASED GLUCOSE; Start 10/11/18 at 21:00 Promethazine HCl/ Dextromethorphan (Phenergan-Dm) 5 ml Q6 PRN PO COUGH; Start 10/11/18 at 21:00 Digoxin (Digoxin) 0.25 mg DAILY PO Last administered on 10/14/18at 08:55; Admin Dose 0.25 MG; Start 10/12/18 at 09:00 Furosemide (Lasix) 40 mg BID PO Last administered on 10/14/18 08:54; Admin Dose 40 MG; Start 10/11/18 at 21:00 Atorvastatin Calcium (Lipitor) 20 mg DAILY@21 PO Last administered on 10/13/18 20:51; Admin Dose 20 MG; Start 10/11/18 at 22:30 Apixaban (Eliquis) 5 mg BID PO Last administered on 10/14/18 08:56; Admin Dose 5 MG; Start 10/12/18 at 12:30 Metoprolol Succinate (Toprol Xl) 50 mg BID PO Last administered on 10/14/18 08:55; Admin Dose 50 MG; Start 10/12/18 at 21:00 Methylprednisolone Sodium Succinate (Solu-Medrol) 60 mg Q6 IV Last administered on 10/14/18 05:42; Admin Dose 60 MG; Start 10/13/18 at 12:00 Cefepime HCl 50 ml @ 100 mls/hr Q8 IVPB Last administered on 10/14/18 05:42; Admin Dose 100 MLS/HR; Start 10/13/18 at 10:00 Vancomycin HCl (Vanco Iv Per Pharmacy) VANCOMYCIN PER PHARMACY PER PROTOCOL XX ; Start 10/13/18 at 09:30 Patient Own Medication 6 ea AM PO Last administered on 10/14/18 09:00; Admin Dose 6 EA; Start 10/13/18 at 13:00 Acetazolamide (Diamox) 250 mg BID PO Last administered on 10/14/18 08:56; A dmin Dose 250 MG; Start 10/13/18 at 21:00 Vancomycin HCl 1.5 gm/Sodium Chloride 250 ml @ 83.333 mls/ hr Q12H IVPB Last administered on 10/14/18 00:35; Admin Dose 83.333 MLS/HR; Start 10/14/18 at 00 :00 Assessment/Plan Hospital Course (Demo Recall) IMPRESSION 1. Acute hypoxemic respiratory failure, likely secondary to acute tracheobronchitis. Bibasilar atelectasis noted but no significant pneumonic infiltrates or effusions. Differential does include thrombo-embolic disease however CT pulmonary angiogram negative. Also in the differential is pulmonary hypertension and a right to left intrapulmonary shunt. 2. Right lower lobe pneumonia. No evidence of thromboembolic disease. Plan 1. Incentive spirometry. 2. Bronchodilators. 3. Steroids., Agree with increasing dose 4. Antibiotics. 5. Continue anticoagulation for atrial fibrillation. 6. Rate control. 7. DVT and GI prophylaxis. 8. Consider bubble study for intracardiac shunt. critical care time 40 minutes. We will discuss with primary care team. TELMA CAI MD, [facility] Oct 14, 2018 09:46
--- NOTE | 2018-10-14 10:59 | PN ---
Date/Time of Note Date/Time of Note DATE: 10/14/18 TIME: 10:57 Subjective Doing well. No chest pain or shortness of breath. at the bedside. Objective Vitals Vital Signs Date Temp Pulse Resp B/P (MAP) Pulse Ox O2 O2 Flow FiO2 Time Delivery Rate 10/14/18 79 17 97 80 09:08 10/14/18 113/72 High Flow 07:00 (86) 10/14/18 98.0 00:00 10/12/18 6.0 16:00 Intake and Output 10/13/18 10/13/18 10/14/18 1515:00 23:00 07:00 IntakeIntake Total 1170 ml 550 ml 620.00 ml OutputOutput Total 2250 ml 800 ml 1500 ml BalanceBalance -1080 ml -250 ml -880.00 ml Bilateral rhonchi. No wheezes. Regular rate and rhythm with distant heart sounds Soft obese nontender nondistended normoactive bowel sounds No edema Nonfocal Results Result Diagram: 10/14/18 0446 10/14/18 0446 Medications Medications Current Medications Albuterol/ Ipratropium (Duoneb) 3 ml Q4 HHN Last administered on 10/14/18at 09:04; Admin Dose 3 ML; Start 10/11/18 at 21:00 Insulin Aspart (Novolog Insulin Pen) NOVOLOG *MODERATE* ALGORITHM WITH MEALS BEDTIME SC Last administered on 10/14/18at 08:53; Admin Dose 6 UNIT; Start 10/11/18 at 21:00 Zolpidem Tartrate (Ambien) 5 mg HS MAY REPEAT X 1 PRN PO INSOMNIA; Start 10/11/18 at 20:30 Ondansetron HCl (Zofran Inj) 4 mg Q4 PRN IV nausea; Start 10/11/18 at 20:30 Miscellaneous Information 1 ea NOTE XX ; Start 10/11/18 at 21:00 Glucose (Glutose) 15 gm Q15M PRN PO DECREASED GLUCOSE; Start 10/11/18 at 21:00 Glucose (Glutose) 22.5 gm Q15M PRN PO DECREASED GLUCOSE; Start 10/11/18 at 21:00 Dextrose (D50w Syringe) 25 ml Q15M PRN IV DECREASED GLUCOSE; Start 10/11/18 at 21:00 Dextrose (D50w Syringe) 50 ml Q15M PRN IV DECREASED GLUCOSE; Start 10/11/18 at 21:00 Glucagon (Glucagen) 1 mg Q15M PRN IM DECREASED GLUCOSE; Start 10/11/18 at 21:00 Glucose (Glutose) 15 gm Q15M PRN BUCCAL DECREASED GLUCOSE; Start 10/11/18 at 21:00 Promethazine HCl/ Dextromethorphan (Phenergan-Dm) 5 ml Q6 PRN PO COUGH; Start 10/11/18 at 21:00 Digoxin (Digoxin) 0.25 mg DAILY PO Last administered on 10/14/18 08:55; Admin Dose 0.25 MG; Start 10/12/18 at 09:00 Furosemide (Lasix) 40 mg BID PO Last administered on 10/14/18 08:54; Admin Dose 40 MG; Start 10/11/18 at 21:00 Atorvastatin Calcium (Lipitor) 20 mg DAILY@21 PO Last administered on 10/13/18at 20:51; Admin Dose 20 MG; Start 10/11/18 at 22:30 Apixaban (Eliquis) 5 mg BID PO Last administered on 10/14/18 08:56; Admin Dose 5 MG; Start 10/12/18 at 12:30 Metoprolol Succinate (Toprol Xl) 50 mg BID PO Last administered on 10/14/18 08:55; Admin Dose 50 MG; Start 10/12/18 at 21:00 Methylprednisolone Sodium Succinate (Solu-Medrol) 60 mg Q6 IV Last administered on 10/14/18at 05:42; Admin Dose 60 MG; Start 10/13/18 at 12:00 Cefepime HCl 50 ml @ 100 mls/hr Q8 IVPB Last administered on 10/14/18at 05:42; Admin Dose 100 MLS/HR; Start 10/13/18 at 10:00 Vancomycin HCl (Vanco Iv Per Pharmacy) VANCOMYCIN PER PHARMACY PER PROTOCOL XX ; Start 10/13/18 at 09:30 Patient Own Medication 6 ea AM PO Last administered on 10/14/18at 09:00; Admin Dose 6 EA; Start 10/13/18 at 13:00 Acetazolamide (Diamox) 250 mg BID PO Last administered on 10/14/18 08:56; Admin Dose 250 MG; Start 10/13/18 at 21:00 Vancomycin HCl 1.5 gm/Sodium Chloride 250 ml @ 83.333 mls/ hr Q12H IVPB Last administered on 10/14/18at 00:35; Admin Dose 83.333 MLS/HR; Start 10/14/18 at 00:00 VTE Prophylaxis Risk score (from Ns)>0 risk: 3 SCD applied (from [facility] [place]): Yes Lines/Catheters IV Catheter Type: Saline Lock [place] in Place: No Assessment/Plan Assessment/Plan 62-year-old male with acute hypoxemic respiratory failure Possible pneumonia versus tracheobronchitis Chronic atrial fibrillation, rate controlled CHF compensated Type 2 diabetes mellitus Continue high flow to and wean as tolerated Transfer to telemetry if okay with pulmonary Endocrinology consultation was requested per family's wishes ELI YARBROUGH MD Oct 14, 2018 10:59
--- NOTE | 2018-10-14 12:50 | CONS ---
Assessment/Plan Assessment/Plan Hospital Course (Demo Recall) Respiratory failure PNA Chronic Systolic CHF History of cardiomyopathy, current left ventricular ejection fraction 55% Chronic Atrial Fibrillation DM Patient with less shortness of breath but continues to require significant oxygen supplementation Request was made for bubble study, will order limited echo Antibiotics as per infectious disease Continue diuretics as renal function and blood pressure permits, tolerating switch to Toprol-XL from carvedilol Cont Eliquis if no contraindication Consultation Date/Type/Reason Admit Date/Time Oct 12, 2018 at 06:16 Initial Consult Date Type of Consult Cardiology Date/Time of Note DATE: 10/14/18 TIME: 12:48 24 HR Interval Summary Free Text/Dictation Feeling better, less shortness of breath, cough is improving Exam/Review of Systems Vital Signs Vitals Vital Signs Date Temp Pulse Resp B/P (MAP) Pulse Ox O2 O2 Flow FiO2 Time Delivery Rate 10/14/18 79 17 97 80 09:08 10/14/18 113/72 High Flow 07:00 (86) 10/14/18 98.0 00:00 10/12/18 6.0 16:00 Intake and Output 10/13/18 10/13/18 10/14/18 1515:00 23:00 07:00 IntakeIntake Total 1170 ml 550 ml 620.00 ml OutputOutput Total 2250 ml 800 ml 1500 ml BalanceBalance -1080 ml -250 ml -880.00 ml Exam Constitutional: alert, oriented Head: normocephalic Respiratory: wheezing, other (Scattered rhonchi) Cardiovascular: irregular rhythm (S1-S2 heard) Gastrointestinal: soft, non-tender, bowel sounds Extremities: edema (Trace) Labs Result Diagram: 10/14/18 0446 10/14/18 0446 Results 24hrs Laboratory Tests Test 10/13/18 17:26 10/13/18 20:48 10/14/18 04:46 10/14/18 08:30 Bedside Glucose 261 H 289 H 249 H White Blood Count 13.9 #H Red Blood Count 5.04 Hemoglobin 12.8 L Hematocrit 42.0 Mean Corpuscular 83.3 Volume Mean Corpuscular 25.4 L Hemoglobin Mean Corpuscular 30.5 L Hemoglobin Concen t Red Cell 16.5 H Distribution Width Platelet Count 240 Mean Platelet 10.7 H Volume Immature 0.900 H Granulocytes % Neutrophils % 87.9 H Lymphocytes % 6.6 L Monocytes % 4.5 Eosinophils % 0.0 Basophils % 0.1 Nucleated Red 0.0 Blood Cells % Immature 0.120 H Granulocytes # Neutrophils # 12.3 H Lymphocytes # 0.9 Monocytes # 0.6 Eosinophils # 0.0 Basophils # 0.0 Nucleated Red 0.0 Blood Cells # Sodium Level 139 Potassium Level 4.2 Chloride Level 101 Carbon Dioxide 31 Level Anion Gap 7 Blood Urea 21 H Nitrogen Creatinine 0.74 Est Glomerular > 60 Filtrat Rate mL/min Glucose Level 272 H Calcium Level 9.0 Phosphorus Level 4.1 Magnesium Level 2.4 Test 10/14/18 09:45 Blood Gas Blood arterial Specimen Source Arterial Blood 10/14/2018 9:54:2 Date Drawn 9 AM Arterial Blood pH 7.405 (Temp corrected) Arterial Blood 46.8 H pCO2 (Temp correct) Arterial Blood 65.5 L pO2 (Temp corrected) Arterial Blood 28.7 H HCO3 Arterial Blood 3.2 H Base Excess Arterial Blood 92.1 L Oxygen Saturation David Test ACCEPTAB Arterial Blood Right Radial Gas Puncture Site Arterial 1.0 Blood Carboxyhemo globin Arterial Blood 0.1 Methemoglobin Blood Gas A-a O2 600.7 H Differential Oxyhemoglobin 91.1 L Percent Blood Gas 37.0 Temperature Blood Gas HFNC Modality FiO2 100.0 Blood Gas TM Notified Whom Blood Gas 10/14/2018 10:03: Notified Time 07 AM Medications Medications Current Medications Albuterol/ Ipratropium (Duoneb) 3 ml Q4 HHN Last administered on 10/14/18at 09:04; Admin Dose 3 ML; Start 10/11/18 at 21:00 Insulin Aspart (Novolog Insulin Pen) NOVOLOG *MODERATE* ALGORITHM WITH MEALS BEDTIME SC Last administered on 10/14/18at 08:53; Admin Dose 6 UNIT; Start 10/11/18 at 21:00 Zolpidem Tartrate (Ambien) 5 mg HS MAY REPEAT X 1 PRN PO INSOMNIA; Start 10/11/18 at 20:30 Ondansetron HCl (Zofran Inj) 4 mg Q4 PRN IV nausea; Start 10/11/18 at 20:30 Miscellaneous Information 1 ea NOTE XX ; Start 10/11/18 at 21:00 Glucose (Glutose) 15 gm Q15M PRN PO DECREASED GLUCOSE; Start 10/11/18 at 21:00 Glucose (Glutose) 22.5 gm Q15M PRN PO DECREASED GLUCOSE; Start 10/11/18 at 21:00 Dextrose (D50w Syringe) 25 ml Q15M PRN IV DECREASED GLUCOSE; Start 10/11/18 at 21:00 Dextrose (D50w Syringe) 50 ml Q15M PRN IV DECREASED GLUCOSE; Start 10/11/18 at 21:00 Glucagon (Glucagen) 1 mg Q15M PRN IM DECREASED GLUCOSE; Start 10/11/18 at 21:00 Glucose (Glutose) 15 gm Q15M PRN BUCCAL DECREASED GLUCOSE; Start 10/11/18 at 21:00 Promethazine HCl/ Dextromethorphan (Phenergan-Dm) 5 ml Q6 PRN PO COUGH; Start 10/11/18 at 21:00 Digoxin (Digoxin) 0.25 mg DAILY PO Last administered on 10/14/18 08:55; Admin Dose 0.25 MG; Start 10/12/18 at 09:00 Furosemide (Lasix) 40 mg BID PO Last administered on 10/14/18 08:54; Admin Do se 40 MG; Start 10/11/18 at 21:00 Atorvastatin Calcium (Lipitor) 20 mg DAILY@21 PO Last administered on 10/13/18at 20:51; Admin Dose 20 MG; Start 10/11/18 at 22:30 Apixaban (Eliquis) 5 mg BID PO Last administered on 10/14/18at 08:56; Admin Dose 5 MG; Start 10/12/18 at 12:30 Metoprolol Succinate (Toprol Xl) 50 mg BID PO Last administered on 10/14/18 08:55; Admin Dose 50 MG; Start 10/12/18 at 21:00 Methylprednisolone Sodium Succinate (Solu-Medrol) 60 mg Q6 IV Last administered on 10/14/18at 05:42; Admin Dose 60 MG; Start 10/13/18 at 12:00 Cefepime HCl 50 ml @ 100 mls/hr Q8 IVPB Last administered on 10/14/18at 05:42; Admin Dose 100 MLS/HR; Start 10/13/18 at 10:00 Vancomycin HCl (Vanco Iv Per Pharmacy) VANCOMYCIN PER PHARMACY PER PROTOCOL XX ; Start 10/13/18 at 09:30 Patient Own Medication 6 ea AM PO Last administered on 10/14/18at 09:00; Admin Dose 6 EA; Start 10/13/18 at 13:00 Acetazolamide (Diamox) 250 mg BID PO Last administered on 10/14/18at 08:56; Admin Dose 250 MG; Start 10/13/18 at 21:00 Vancomycin HCl 1.5 gm/Sodium Chloride 250 ml @ 83.333 mls/ hr Q12H IVPB Last administered on 10/14/18at 00:35; Admin Dose 83.333 MLS/HR; Start 10/14/18 at 00:00 Miscellaneous Information (*Rx Drug Level Order Reminder*) VANCO TR LEVEL PRIOR... 2300 ONCE XX ; Start 10/14/18 at 23:00; Stop 10/14/18 at 23:01 Rocael Poole DO Oct 14, 2018 12:50
--- NOTE | 2018-10-14 19:02 | RADRPT ---
Echocardiogram Report Patient Name: RAMYA DEPatient ID: [id number] : 1955 (63y )Study Date: 10/14/2018 1:35:50 PM Gender: MAccession #: [id number] Tech: Lito Zayas [facility] Location: 112 Ref.Physician: ROCAEL POOLE Height(Cm): BSA: Weight(Kg): Quality: AdequateOrder Physician: ROCAEL POOLE Account #: Procedures: Echocardiographic Report: Transthoracic echocardiogram examination. Indications: Pulmonary Hypertension. Measurements: 2D/M Mode Doppler Measurement Value Normal Range Measurement Value Normal Range IVC Diam 3.0 [ 1.2 - 2.0 ] sec TR Peak Marshall 3.6 [ 100.0 - 280.0 ] cm/sec TR Peak PG 52.0 mmHg RVSP 67.0 [ 10.0 - 36.0 ] mmHg RA Pressure 15.0 mmHg Findings: Left Ventricle: Lower limits of normal left ventricular systolic function. The left ventricular ejection fraction is visually estimated at 50-55 %. Atrial Septum: Agitated saline was injected intravenously for microbubble contrast study. No right to left shunt was identified with and with out valsalva maneuver. Tricuspid Valve: Normal appearance of the tricuspid valve. The estimated Peak RVSP is 67 mmHg. There is mild tricuspid regurgitation. IVC: Dilated inferior vena cava with no respiratory collapse. Conclusions: Lower limits of normal left ventricular systolic function. The left ventricular ejection fraction is visually estimated at 50-55 %. Agitated saline was injected intravenously for microbubble contrast study. No right to left shunt was identified with and with out valsalva maneuver. The estimated Peak RVSP is 67 mmHg. There is mild tricuspid regurgitation. Electronically Signed By: Rocael Poole 2018-10-14 19:02:14 PDT
--- NOTE | 2018-10-14 20:07 | CONS ---
Assessment/Plan Assessment/Plan Problems: (1) Type 2 diabetes mellitus with hyperglycemia Status: Acute Comment: Glucose elevated due to steroids. Pt. w/ last A1c 7.4% 2 months ago. Currently only on one of his home meds, cycloset. Will resume metformin and SGLT-2i. Will substitute DPP-David for GLP-1a. However, pt. normally takes high- dose glimepiride and acarbose to maintain his A1c. Instead of resuming these, which would likely be ineffective in the face of steroid treatment, will start weight-based insulin. Will start lantus 30 units qhs and Novolog 14 units qac. Monitor on these doses and titrate up or down as needed. Plan to wean down or off as steroids weaned. Will follow with you. Qualifiers: Qualified Codes: E11.65 - Type 2 diabetes mellitus with hyperglycemia Consultation Date/Type/Reason Admit Date/Time Oct 12, 2018 at 06:16 Date of Consultation: Oct 14, 2018 Type of Consult Endocrinology Reason for Consultation T2DM Management Requesting Provider: ELI YARBROUGH MD Date/Time of Note DATE: 10/14/18 TIME: 19:42 Hx of Present Illness Pt. is a 62 y/o C M w/ h/o T2DM, HTN, chronic diastolic CHF, A-fib, [place], in [place] until recent trip when he developed bronchitis. Went to [facility] where he was given antibiotics. However, symptoms worsened and pt. returned got different antibiotic and steroid. Despite this was not feeling better, developing worsening SOB, so 3 days ago came to [facility]. pO2 was 56 on 28% FiO2. Pt. rec'ed solumedrol and xopenex and admitted. Has been on high flow O2 by nasal cannula. Has been receiving solu-medrol 60 mg IV q6. Predictably, BG has been elevated to 200-300 mg/dL range. Endo consulted today to assist w/ BG control. Constitutional: no complaints, improved, requiring O2 Eyes: no complaints ENT: no complaints Respiratory: cough, shortness of breath Cardiovascular: no complaints Gastrointestinal: no complaints Genitourinary: no complaints Musculoskeletal: no complaints Neurologic: no complaints Past Medical History Medical History: congestive heart failure, diabetes, hypertension, other (Atrial fibrillation, REYNOLD) Home Meds Reported Medications Dextromethorphan Hb-Promethazine Hcl* (Promethazine DM* Syrup) 473 Ml Syrup, 5 ML PO Q6 PRN for COUGH, ML 10/11/18 Simvastatin* (Zocor*) 40 Mg Tablet, 40 MG PO QHS, #30 TAB 10/11/18 Empagliflozin (Jardiance) 10 Mg Tablet, 10 MG PO DAILY, TAB 10/11/18 Acetazolamide* (Acetazolamide*) 250 Mg Tablet, 250 MG PO BID, #60 TAB 10/11/18 Furosemide* (Furosemide*) 40 Mg Tablet, 40 MG PO BID, TAB 10/11/18 Apixaban* (Eliquis*) 5 Mg Tablet, 5 MG PO BID, TAB 10/11/18 Digoxin* (Digox*) 250 Mcg Tablet, 0.25 MG PO DAILY, TAB 10/11/18 Carvedilol* (Coreg*) 25 Mg Tablet, 25 MG PO BID, #60 TAB 10/11/18 Sildenafil Citrate* (Sildenafil Citrate*) 20 Mg Tablet, 20 MG PO NEEDED, TAB TAKE 3-5 TABS BEFORE SEXUAL ACTIVITY. 10/11/18 Bromocriptine Mesylate (CYCLOSET) 0.8 Mg Tablet, 4.8 MG PO QAM, TAB 10/11/18 Glimepiride* (Glimepiride*) 4 Mg Tablet, 4 MG PO WITH BREAKFAST DINNE, TAB 10/11/18 Metformin Hcl* (Metformin Hcl*) 1,000 Mg Tablet, 1000 MG PO WITH BREAKFAST DINNE, #60 TAB 10/11/18 Ergocalciferol (Vitamin D2) (VITAMIN D2) 50,000 Unit Capsule, 45864 UNIT PO Q7D, CAP 10/11/18 Discontinued Reported Medications Amoxicillin* (Amoxicillin*) 500 Mg Cap, 500 MG PO Q12H, #20 CAP 10/11/18 Dapagliflozin Propanediol (Farxiga) 10 Mg Tablet, 10 MG PO DAILY, #30 TAB 12/24/17 Simvastatin* (Zocor*) 40 Mg Tablet, 40 MG PO QHS, #30 TAB 12/24/17 Bromocriptine Mesylate (CYCLOSET) 0.8 Mg Tablet, 0.8 MG PO DAILY, TAB 12/24/17 Glimepiride* (Glimepiride*) 4 Mg Tablet, 4 MG PO WITH BREAKFAST DINNE, TAB 12/24/17 Ergocalciferol (Vitamin D2) (VITAMIN D2) 50,000 Unit Capsule, 52627 UNIT PO Q7D, CAP 12/24/17 Digoxin* (Digitek*) 250 Mcg Tablet, 0.25 MG PO DAILY, TAB 12/24/17 Apixaban* (Eliquis*) 5 Mg Tablet, 5 MG PO BID, TAB 12/24/17 Carvedilol* (Carvedilol*) 25 Mg Tablet, 25 MG PO BID, #60 TAB 12/24/17 Metformin Hcl* (Metformin Hcl*) 1,000 Mg Tablet, 1000 MG PO WITH BREAKFAST DINNE, #60 TAB 12/24/17 Discontinued Scripts Furosemide* (Furosemide*) 40 Mg Tablet, 40 MG PO BID DIURETICS for 30 Days, TAB 3 Refills Prov:Felix ALBAMagdalenaBONITA F 12/31/17 Medications Current Medications Albuterol/ Ipratropium (Duoneb) 3 ml Q4 HHN Last administered on 10/14/18at 17:26; Admin Dose 3 ML; Start 10/11/18 at 21:00 Insulin Aspart (Novolog Insulin Pen) NOVOLOG *MODERATE* ALGORITHM WITH MEALS BEDTIME SC Last administered on 10/14/18at 17:36; Admin Dose 8 UNIT; Start 09/18 09/04 at 21:00 Zolpidem Tartrate (Ambien) 5 mg HS MAY REPEAT X 1 PRN PO INSOMNIA; Start 10/11/18 at 20:30 Ondansetron HCl (Zofran Inj) 4 mg Q4 PRN IV nausea; Start 10/11/18 at 20:30 Miscellaneous Information 1 ea NOTE XX ; Start 10/11/18 at 21:00 Glucose (Glutose) 15 gm Q15M PRN PO DECREASED GLUCOSE; Start 10/11/18 at 21:00 Glucose (Glutose) 22.5 gm Q15M PRN PO DECREASED GLUCOSE; Start 10/11/18 at 21:00 Dextrose (D50w Syringe) 25 ml Q15M PRN IV DECREASED GLUCOSE; Start 10/11/18 at 21:00 Dextrose (D50w Syringe) 50 ml Q15M PRN IV DECREASED GLUCOSE; Start 10/11/18 at 21:00 Glucagon (Glucagen) 1 mg Q15M PRN IM DECREASED GLUCOSE; Start 10/11/18 at 21:00 Glucose (Glutose) 15 gm Q15M PRN BUCCAL DECREASED GLUCOSE; Start 10/11/18 at 21:00 Promethazine HCl/ Dextromethorphan (Phenergan-Dm) 5 ml Q6 PRN PO COUGH; Start 10/11/18 at 21:00 Digoxin (Digoxin) 0.25 mg DAILY PO Last administered on 10/14/18 08:55; Admin Dose 0.25 MG; Start 10/12/18 at 09:00 Furosemide (Lasix) 40 mg BID PO Last administered on 10/14/18 08:54; Admin Dose 40 MG; Start 10/11/18 at 21:00 Atorvastatin Calcium (Lipitor) 20 mg DAILY@21 PO Last administered on 10/13/18 20:51; Admin Dose 20 MG; Start 10/11/18 at 22:30 Apixaban (Eliquis) 5 mg BID PO Last administered on 10/14/18 08:56; Admin Dose 5 MG; Start 10/12/18 at 12:30 Metoprolol Succinate (Toprol Xl) 50 mg BID PO Last administered on 10/14/18 08:55; Admin Dose 50 MG; Start 10/12/18 at 21:00 Methylprednisolone Sodium Succinate (Solu-Medrol) 60 mg Q6 IV Last administered on 10/14/18 13:00; Admin Dose 60 MG; Start 10/13/18 at 12:00 Cefepime HCl 50 ml @ 100 mls/hr Q8 IVPB Last administered on 10/14/18 15:37; Admin Dose 100 MLS/HR; Start 10/13/18 at 10:00 Vancomycin HCl (Vanco Iv Per Pharmacy) VANCOMYCIN PER PHARMACY PER PROTOCOL XX ; Start 10/13/18 at 09:30 Patient Own Medication 6 ea AM PO Last administered on 10/14/18 09:00; Admin Dose 6 EA; Start 10/13/18 at 13:00 Acetazolamide (Diamox) 250 mg BID PO Last administered on 10/14/18 08:56; Admin Dose 250 MG; Start 10/13/18 at 21:00 Vancomycin HCl 1.5 gm/Sodium Chloride 250 ml @ 83.333 mls/ hr Q12H IVPB Last administered on 10/14/18 15:33; Admin Dose 83.333 MLS/HR; Start 10/14/18 at 00:00 Miscellaneous Information (*Rx Drug Level Order Reminder*) VANCO TR LEVEL PRIOR... 2300 ONCE XX ; Start 10/14/18 at 23:00; Stop 10/14/18 at 23:01 Metformin HCl (Glucophage Xr) 1,000 mg BID PO ; Start 10/14/18 at 21:00 Empaglifozin (Jardiance) 25 mg DAILY@08 PO ; Start 10/15/18 at 08:00 Diagnostic Test (Pha) (Accu-Chek) 1 ea 02 XX ; Start 10/15/18 at 02:00 Insulin Glargine (Lantus) 30 units DAILY@2000 SC ; Start 10/14/18 at 20:00 Insulin Aspart (Novolog Insulin Pen) 14 unit WITH MEALS SC ; Start 10/15/18 at 07:35 Linagliptin (Tradjenta) 5 mg DAILY PO ; Start 10/15/18 at 09:00 Allergies: Coded Allergies: No Known Allergy (Unverified , 10/11/18) Past Surgical History Past Surgical Hx: no surgical history Family History Significant Family History: COPD (sister) Social History b. [place], hs grad, some college, works for [employer], , 2 children Alcohol Use: none Smoking Status: Former smoker (adolesence) Drug Use: none Exam/Review of Systems Exam Vitals VS - Last 72 Hours, by Label Date Temp Pulse Resp B/P (MAP) Pulse Ox O2 O2 Flow FiO2 Time Delivery Rate 10/14/18 80 18 105/71 97 High Flow 18:00 (82) 10/14/18 96 100 17:30 10/14/18 71 22 68 99 17:29 10/14/18 74 99/69 (79) 97 High Flow 17:00 10/14/18 97.7 85 21 112/71 88 High Flow 16:00 (85) 10/14/18 77 16:00 10/14/18 95 100 15:20 10/14/18 70 18 107/67 95 High Flow 15:00 (80) 10/14/18 94 25 99/37 (57) 95 High Flow 14:00 10/14/18 72 21 95 100 13:04 10/14/18 95 100 13:00 10/14/18 83 20 105/68 94 High Flow 13:00 (80) 10/14/18 97.6 84 20 101/69 98 High Flow 12:00 (80) 10/14/18 84 12:00 10/14/18 93 100 11:35 10/14/18 102 21 86/62 (70) 93 High Flow 11:00 10/14/18 96 20 119/66 92 High Flow 10:00 (83) 10/14/18 79 17 97 100 09:08 10/14/18 94 100 09:05 10/14/18 95 20 112/51 91 High Flow 09:00 (71) 10/14/18 97.3 80 22 128/88 96 High Flow 08:00 (101) 10/14/18 63 08:00 10/14/18 Vapotherm 08:00 10/14/18 93 100 08:00 10/14/18 68 18 113/72 92 High Flow 07:00 (86) 10/14/18 68 18 113/72 92 07:00 (86) 10/14/18 18 121/78 93 High Flow 06:00 (92) 10/14/18 67 18 119/73 93 High Flow 05:00 (88) 10/14/18 71 18 94 100 04:05 10/14/18 94 100 04:05 10/14/18 80 04:00 10/14/18 66 15 108/64 94 04:00 (79) 10/14/18 63 19 114/71 96 High Flow 03:00 (85) 10/14/18 69 16 101/65 93 High Flow 02:00 (77) 10/14/18 94 100 01:17 10/14/18 84 18 94 100 01:17 10/14/18 71 20 110/81 94 High Flow 01:00 (91) 10/14/18 90 00:00 10/14/18 98.0 80 18 114/70 92 High Flow 00:00 (85) 10/13/18 24 114/70 92 High Flow 23:00 (85) 10/13/18 82 15 112/75 92 High Flow 22:00 (87) 10/13/18 89 19 113/79 90 High Flow 21:00 (90) 10/13/18 93 100 20:27 10/13/18 97 18 93 100 20:27 10/13/18 Vapotherm 20:00 10/13/18 88 22 126/70 94 High Flow 20:00 (88) 10/13/18 87 20:00 10/13/18 98.5 76 18 112/63 91 High Flow 19:00 (79) 10/13/18 98.6 88 20 114/75 94 High Flow 18:14 (88) 10/13/18 98.9 92 20 122/70 95 High Flow 17:00 (87) 10/13/18 93 90 16:46 10/13/18 86 16 93 90 16:46 10/13/18 98.8 87 18 110/70 94 High Flow 16:16 (83) 10/13/18 97 16:00 10/13/18 94 90 15:38 10/13/18 98.5 88 18 112/67 94 High Flow 15:10 (82) 10/13/18 98.7 90 20 111/69 92 High Flow 14:20 (83) 10/13/18 98.7 90 20 115/74 92 High Flow 13:33 (88) 10/13/18 94 100 13:06 10/13/18 87 18 95 100 13:06 10/13/18 98.6 91 20 110/62 94 High Flow 12:10 (78) 10/13/18 93 12:00 10/13/18 98.0 86 20 114/65 93 High Flow 11:00 (81) 10/13/18 97.8 81 20 106/71 96 High Flow 10:00 (83) 10/13/18 78 15 94 100 09:07 10/13/18 92 100 09:07 10/13/18 97.9 80 20 106/68 93 High Flow 09:04 (81) 10/13/18 97.8 20 117/84 92 High Flow 08:10 (95) 10/13/18 95 08:00 10/13/18 Vapotherm 08:00 10/13/18 73 20 109/63 98 High Flow 07:00 (78) 10/13/18 83 23 108/70 92 High Flow 06:00 (83) 10/13/18 77 18 95 100 05:03 10/13/18 75 22 123/78 95 High Flow 05:00 (93) 10/13/18 85 04:04 10/13/18 94 100 04:02 10/13/18 97.9 88 24 104/61 93 High Flow 04:00 (75) 10/13/18 79 16 104/76 High Flow 03:00 (85) 10/13/18 80 20 110/74 95 High Flow 02:00 (86) 10/13/18 85 18 94 100 01:08 10/13/18 94 100 01:08 10/13/18 77 21 106/62 94 High Flow 01:01 (77) 10/13/18 90 00:00 10/13/18 97.6 101/64 High Flow 00:00 (76) 10/12/18 85 20 109/71 92 High Flow 23:00 (84) 10/12/18 92 100 22:03 10/12/18 97.8 81 28 114/80 93 High Flow 22:00 (91) 10/12/18 Vapotherm 22:00 10/12/18 96 21:21 10/12/18 98.7 91 17 113/68 92 High Flow 20:14 (83) 10/12/18 92 100 19:40 10/12/18 78 22 92 Nasal 100 19:40 Cannula 10/12/18 90 20 103/77 95 High Flow 18:30 (86) 10/12/18 86 20 93 Nasal 90 17:15 Cannula 10/12/18 93 90 17:15 10/12/18 98.6 74 18 98/63 (75) 96 High Flow 6.0 16:00 86 10/12/18 98.6 87 18 120/17 98 High Flow 6.0 12:13 (51) 86 10/12/18 91 20 92 Nasal 100 12:06 Cannula 10/12/18 92 100 12:06 10/12/18 86 18 114/89 94 High Flow 10:00 (97) 10/12/18 98.1 86 18 109/79 93 High Flow 08:00 (89) 10/12/18 83 20 96 Nasal 100 07:31 Cannula 10/12/18 93 100 07:28 10/12/18 100 06:18 10/12/18 82 18 105/63 92 High Flow 06:01 (77) 10/12/18 93 22 95 Nasal 100 05:29 Cannula 10/12/18 92 20 107/73 91 High Flow 04:00 (84) 10/12/18 96 20 107/63 91 High Flow 02:00 (78) 10/12/18 89 22 92 Nasal 100 01:43 Cannula 10/12/18 90 18 107/81 90 High Flow 00:00 (90) 10/11/18 92 100 23:40 10/11/18 95 18 110/44 90 High Flow 22:00 (66) 10/11/18 90 100 21:50 10/11/18 100 20:08 Vital Signs Date Temp Pulse Resp B/P (MAP) Pulse Ox O2 O2 Flow FiO2 Time Delivery Rate 10/14/18 80 18 105/71 97 High Flow 18:00 (82) 10/14/18 100 17:30 10/14/18 97.7 16:00 10/12/18 6.0 16:00 Intake and Output 10/13/18 10/13/18 10/14/18 1515:00 23:00 07:00 IntakeIntake Total 1170 ml 550 ml 620.00 ml OutputOutput Total 2250 ml 800 ml 1500 ml BalanceBalance -1080 ml -250 ml -880.00 ml Constitutional: alert, oriented, obese Psych: no complaints, nl mood/affect Eyes: nl conjunctiva, EOMI, nl lids, nl sclera, PERRL ENMT: nl external ears & nose, mucosa pink and moist Neck: supple, non-tender; No bruits, No masses, No thyromegaly Respiratory: clear to auscultation, normal air movement Cardiovascular: regular rate and rhythm, nl pulses, edema (1+ BLE), other (venous congestion BLE); No murmurs/extra sounds, No rub Gastrointestinal: soft, nl liver, spleen, non-tender, bowel sounds; No mass, No rebound or guarding Musculoskeletal: nl extremities to inspection Extremities: normal pulses, edema (1+ BLE); No cyanosis, No clubbing 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: INFORMATION SYSTEMS DIRECTOR II-XII intact, nl mental status, nl speech, nl strength Additional Comments Bedside Glucose - 72 Hours Test 10/11/18 21:47 10/12/18 09:29 10/12/18 14:35 10/12/18 17:36 Bedside 200 149 158 222 Glucose mg/dL (70-220) mg/dL (70-220) mg/dL (70-220) mg/dL (70-220) H Test 10/12/18 21:00 10/13/18 04:15 10/13/18 07:45 10/13/18 11:38 Bedside 290 270 207 217 Glucose mg/dL (70-220) mg/dL (70-220) mg/dL (70-220) mg/dL (70-220) H H Test 10/13/18 17:26 10/13/18 20:48 10/14/18 08:30 10/14/18 13:06 Bedside 261 289 249 303 Glucose mg/dL (70-220) mg/dL (70-220) mg/dL (70-220) mg/dL (70-220) H H H H Test 10/14/18 17:33 Bedside 287 Glucose mg/dL (70-220) H Results Result Diagram: 10/14/18 0446 10/14/18 0446 Results 24hrs Laboratory Tests Test 10/13/18 20:48 10/14/18 04:46 10/14/18 08:30 10/14/18 09:45 Bedside Glucose 289 H 249 H White Blood Count 13.9 #H Red Blood Count 5.04 Hemoglobin 12.8 L Hematocrit 42.0 Mean Corpuscular 83.3 Volume Mean Corpuscular 25.4 L Hemoglobin Mean Corpuscular 30.5 L Hemoglobin Concen t Red Cell 16.5 H Distribution Width Platelet Count 240 Mean Platelet 10.7 H Volume Immature 0.900 H Granulocytes % Neutrophils % 87.9 H Lymphocytes % 6.6 L Monocytes % 4.5 Eosinophils % 0.0 Basophils % 0.1 Nucleated Red 0.0 Blood Cells % Immature 0.120 H Granulocytes # Neutrophils # 12.3 H Lymphocytes # 0.9 Monocytes # 0.6 Eosinophils # 0.0 Basophils # 0.0 Nucleated Red 0.0 Blood Cells # Sodium Level 139 Potassium Level 4.2 Chloride Level 101 Carbon Dioxide 31 Level Anion Gap 7 Blood Urea 21 H Nitrogen Creatinine 0.74 Est Glomerular > 60 Filtrat Rate mL/min Glucose Level 272 H Calcium Level 9.0 Phosphorus Level 4.1 Magnesium Level 2.4 Blood Gas Blood arterial Specimen Source Arterial Blood 10/14/2018 9:54:2 Date Drawn 9 AM Arterial Blood pH 7.405 (Temp corrected) Arterial Blood 46.8 H pCO2 (Temp correct) Arterial Blood 65.5 L pO2 (Temp corrected) Arterial Blood 28.7 H HCO3 Arterial Blood 3.2 H Base Excess Arterial Blood 92.1 L Oxygen Saturation David Test ACCEPTAB Arterial Blood Right Radial Gas Puncture Site Arterial 1.0 Blood Carboxyhemo globin Arterial Blood 0.1 Methemoglobin Blood Gas A-a O2 600.7 H Differential Oxyhemoglobin 91.1 L Percent Blood Gas 37.0 Temperature Blood Gas HFNC Modality FiO2 100.0 Blood Gas TM Notified Whom Blood Gas 10/14/2018 10:03: Notified Time 07 AM Test 10/14/18 13:06 10/14/18 17:33 Bedside Glucose 303 H 287 H Medications Medication Current Medications Albuterol/ Ipratropium (Duoneb) 3 ml Q4 HHN Last administered on 10/14/18at 17:26; Admin Dose 3 ML; Start 10/11/18 at 21:00 Insulin Aspart (Novolog Insulin Pen) NOVOLOG *MODERATE* ALGORITHM WITH MEALS BEDTIME SC Last administered on 10/14/18at 17:36; Admin Dose 8 UNIT; Start 10/11/18 at 21:00 Zolpidem Tartrate (Ambien) 5 mg HS MAY REPEAT X 1 PRN PO INSOMNIA; Start 10/11/18 at 20:30 Ondansetron HCl (Zofran Inj) 4 mg Q4 PRN IV nausea; Start 10/11/18 at 20:30 Miscellaneous Information 1 ea NOTE XX ; Start 10/11/18 at 21:00 Glucose (Glutose) 15 gm Q15M PRN PO DECREASED GLUCOSE; Start 10/11/18 at 21:00 Glucose (Glutose) 22.5 gm Q15M PRN PO DECREASED GLUCOSE; Start 10/11/18 at 21:00 Dextrose (D50w Syringe) 25 ml Q15M PRN IV DECREASED GLUCOSE; Start 10/11/18 at 21:00 Dextrose (D50w Syringe) 50 ml Q15M PRN IV DECREASED GLUCOSE; Start 10/11/18 at 21:00 Glucagon (Glucagen) 1 mg Q15M PRN IM DECREASED GLUCOSE; Start 10/11/18 at 21:00 Glucose (Glutose) 15 gm Q15M PRN BUCCAL DECREASED GLUCOSE; Start 10/11/18 at 21:00 Promethazine HCl/ Dextromethorphan (Phenergan-Dm) 5 ml Q6 PRN PO COUGH; Start 10/11/18 at 21:00 Digoxin (Digoxin) 0.25 mg DAILY PO Last administered on 10/14/18at 08:55; Admin Dose 0.25 MG; Start 10/12/18 at 09:00 Furosemide (Lasix) 40 mg BID PO Last administered on 10/14/18 08:54; Admin Dose 40 MG; Start 10/11/18 at 21:00 Atorvastatin Calcium (Lipitor) 20 mg DAILY@21 PO Last administered on 10/13/18 20:51; Admin Dose 20 MG; Start 10/11/18 at 22:30 Apixaban (Eliquis) 5 mg BID PO Last administered on 10/14/18 08:56; Admin Dose 5 MG; Start 10/12/18 at 12:30 Metoprolol Succinate (Toprol Xl) 50 mg BID PO Last administered on 10/14/18 08:55; Admin Dose 50 MG; Start 10/12/18 at 21:00 Methylprednisolone Sodium Succinate (Solu-Medrol) 60 mg Q6 IV Last administered on 10/14/18 13:00; Admin Dose 60 MG; Start 10/13/18 at 12:00 Cefepime HCl 50 ml @ 100 mls/hr Q8 IVPB Last administered on 10/14/18 15:37; Admin Dose 100 MLS/HR; Start 10/13/18 at 10:00 Vancomycin HCl (Vanco Iv Per Pharmacy) VANCOMYCIN PER PHARMACY PER PROTOCOL XX ; Start 10/13/18 at 09:30 Patient Own Medication 6 ea AM PO Last administered on 10/14/18 09:00; Admin Dose 6 EA; Start 10/13/18 at 13:00 Acetazolamide (Diamox) 250 mg BID PO Last administered on 10/14/18 08:56; Admin Dose 250 MG; Start 10/13/18 at 21:00 Vancomycin HCl 1.5 gm/Sodium Chloride 250 ml @ 83.333 mls/ hr Q12H IVPB Last administered on 10/14/18 15:33; Admin Dose 83.333 MLS/HR; Start 10/14/18 at 00:00 Miscellaneous Information (*Rx Drug Level Order Reminder*) VANCO TR LEVEL PRIOR... 2300 ONCE XX ; Start 10/14/18 at 23:00; Stop 10/14/18 at 23:01 Metformin HCl (Glucophage Xr) 1,000 mg BID PO ; Start 10/14/18 at 21:00 Empaglifozin (Jardiance) 25 mg DAILY@08 PO ; Start 10/15/18 at 08:00 Diagnostic Test (Pha) (Accu-Chek) 1 ea 02 XX ; Start 10/15/18 at 02:00 Insulin Glargine (Lantus) 30 units DAILY@2000 SC ; Start 10/14/18 at 20:00 Insulin Aspart (Novolog Insulin Pen) 14 unit WITH MEALS SC ; Start 10/15/18 at 07:35 Linagliptin (Tradjenta) 5 mg DAILY PO ; Start 10/15/18 at 09:00 KAYLA BUCK MD Oct 14, 2018 19:54
[2018-10-14] MEDS: ATORVASTATIN 20 MG TAB PO SCH (20:41)
[2018-10-14] MEDS: INSULIN GLARGINE [LANTus] (100 UNITS/ML) SYG SC SCH (20:53)
[2018-10-14] MEDS: metFORMIN (XR) 500 MG TAB PO SCH (22:07)
[2018-10-15] VITALS (17 sets, daily range): BP systolic 102–127; BP diastolic 59–79; PULSE 58–103; RESP 15–24
[2018-10-15] MEDS: METHYLPREDNISOLONE 125 MG INJ IV SCH ×5 (00:21→23:07)
[2018-10-15] MEDS: VANCOMYCIN HCL 1.5 GM in SOD CHLORIDE 0.9% 250 ML IVPB SCH ×3 (00:21→23:07)
[2018-10-15] MEDS: ALBUTEROL/IPRATROPIUM (NEB) 3 ML AMP HHN SCH ×6 (01:17→21:15)
[2018-10-15] MEDS: ACCU-CHEK XX SCH (02:00)
[2018-10-15] MEDS: CEFEPIME 2GM/50 ML (PMX) 50 ML IVPB SCH ×3 (05:52→21:05)
[2018-10-15] MEDS: INSULIN ASPART [NOVOLOG] 3 ML PEN SC SCH ×7 (07:35→20:49)
[2018-10-15] MEDS: CYCLOSET PO SCH (08:39)
[2018-10-15] MEDS: metFORMIN (XR) 500 MG TAB PO SCH ×2 (08:40→20:33)
[2018-10-15] MEDS: EMPAGLIFLOZIN 10 MG TABLET PO SCH (08:40)
[2018-10-15] MEDS: ACETAZOLAMIDE 250 MG TAB PO SCH ×2 (08:41→20:34)
[2018-10-15] MEDS: LINAGLIPTIN 5 MG TABLET PO SCH (08:41)
[2018-10-15] MEDS: DIGOXIN 0.25 MG TAB PO SCH (08:42)
[2018-10-15] MEDS: APIXABAN 5 MG TABLET PO SCH ×2 (08:42→20:32)
--- NOTE | 2018-10-15 08:47 | CONS ---
Assessment/Plan Assessment/Plan Assessment/Plan (Daily) 1. Metabolic alkalosis on Acetazolamide 250mg BID 1. Acute Hypoxic respiratory failure, likely secondary to reactive airway and pneumonia, patient seems to be euvolemic for now.- on IV abx cefepime and vancomycin< renally dose all abx and monitor electrolytes 2. Atrial fibrillation, chronic, rate controlled. 3. Congestive heart failure, diastolic dysfunction, chronic, currently euvolemic. Echocardiogram with EF of 55%.- on lasix 40mg pO BID Continue current medication, patient on oral Lasix daily. 4. Diabetes mellitus Type II with acute hyperglycemia 5. Hypertension Consultation Date/Type/Reason Admit Date/Time Oct 12, 2018 at 06:16 Initial Consult Date 10/14/18 Type of Consult NEPHROLOGY Requesting Provider: ROEL ALBA Date/Time of Note DATE: 10/15/18 TIME: 08:47 Exam/Review of Systems Exam Vitals Vital Signs Date Temp Pulse Resp B/P (MAP) Pulse Ox O2 O2 Flow FiO2 Time Delivery Rate 10/15/18 79 20 91 100 08:11 10/15/18 105/69 High Flow 06:00 (81) 10/15/18 98.0 04:00 10/12/18 6.0 16:00 Intake and Output 10/14/18 10/14/18 10/15/18 1515:00 23:00 07:00 IntakeIntake Total 1320 ml 1399.999 ml 900.00 ml OutputOutput Total 2500 ml 2400 ml 1300 ml BalanceBalance -1180 ml -1000.001 ml -400.00 ml Exam Constitutional: awake, alert, no acute distress Respiratory: congested cough, crackles/rales, diminished breath sounds Cardiovascular: regular rate and rhythm, nl pulses Gastrointestinal: soft, nl liver, spleen, non-tender, other (obese) Musculoskeletal: nl extremities to inspection, nl gait and stance, swelling (1- 2+ pitting edema ) 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: [employer] II-XII intact, nl mental status, nl speech Results Result Diagram: 10/15/18 0447 10/15/187 Results 24hrs Laboratory Tests Test 10/14/18 09:45 10/14/18 13:06 10/14/18 17:33 10/14/18 20:45 Blood Gas Blood arterial Specimen Source Arterial Blood 10/14/2018 9:54:2 Date Drawn 9 AM Arterial Blood pH 7.405 (Temp corrected) Arterial Blood 46.8 H pCO2 (Temp correct) Arterial Blood 65.5 L pO2 (Temp corrected) Arterial Blood 28.7 H HCO3 Arterial Blood 3.2 H Base Excess Arterial Blood 92.1 L Oxygen Saturation David Test ACCEPTAB Arterial Blood Right Radial Gas Puncture Site Arterial 1.0 Blood Carboxyhemo globin Arterial Blood 0.1 Methemoglobin Blood Gas A-a O2 600.7 H Differential Oxyhemoglobin 91.1 L Percent Blood Gas 37.0 Temperature Blood Gas HFNC Modality FiO2 100.0 Blood Gas TM Notified Whom Blood Gas 10/14/2018 10:03: Notified Time 07 AM Bedside Glucose 303 H 287 H 296 H Test 10/14/18 23:19 10/15/18 02:11 10/15/18 04:47 10/15/18 08:02 Vancomycin Level 11.2 Trough Bedside Glucose 269 H 273 H White Blood Count 12.9 H Red Blood Count 5.03 Hemoglobin 13.0 L Hematocrit 42.6 Mean Corpuscular 84.7 Volume Mean Corpuscular 25.8 L Hemoglobin Mean Corpuscular 30.5 L Hemoglobin Concen t Red Cell 16.4 H Distribution Width Platelet Count 217 Mean Platelet 10.5 H Volume Immature 0.600 H Granulocytes % Neutrophils % 89.9 H Lymphocytes % 5.5 L Monocytes % 3.9 Eosinophils % 0.0 Basophils % 0.1 Nucleated Red 0.0 Blood Cells % Immature 0.080 H Granulocytes # Neutrophils # 11.6 H Lymphocytes # 0.7 L Monocytes # 0.5 Eosinophils # 0.0 Basophils # 0.0 Nucleated Red 0.0 Blood Cells # Sodium Level 139 Potassium Level 4.2 Chloride Level 100 Carbon Dioxide 29 Level Anion Gap 10 Blood Urea 24 H Nitrogen Creatinine 0.86 Est Glomerular > 60 Filtrat Rate mL/min Glucose Level 300 H Calcium Level 9.2 Phosphorus Level 3.8 Magnesium Level 2.4 Medications Medication Current Medications Albuterol/ Ipratropium (Duoneb) 3 ml Q4 HHN Last administered on 10/15/18at 08:10; Admin Dose 3 ML; Start 10/11/18 at 21:00 Insulin Aspart (Novolog Insulin Pen) NOVOLOG *MODERATE* ALGORITHM WITH MEALS BEDTIME SC Last administered on 10/14/18at 20:53; Admin Dose 3 UNIT; Start 10/11/18 at 21:00 Zolpidem Tartrate (Ambien) 5 mg HS MAY REPEAT X 1 PRN PO INSOMNIA; Start 10/11/18 at 20:30 Ondansetron HCl (Zofran Inj) 4 mg Q4 PRN IV nausea; Start 10/11/18 at 20:30 Miscellaneous Information 1 ea NOTE XX ; Start 10/11/18 at 21:00 Glucose (Glutose) 15 gm Q15M PRN PO DECREASED GLUCOSE; Start 10/11/18 at 21:00 Glucose (Glutose) 22.5 gm Q15M PRN PO DECREASED GLUCOSE; Start 10/11/18 at 21:00 Dextrose (D50w Syringe) 25 ml Q15M PRN IV DECREASED GLUCOSE; Start 10/11/18 at 21:00 Dextrose (D50w Syringe) 50 ml Q15M PRN IV DECREASED GLUCOSE; Start 10/11/18 at 21:00 Glucagon (Glucagen) 1 mg Q15M PRN IM DECREASED GLUCOSE; Start 10/11/18 at 21:00 Glucose (Glutose) 15 gm Q15M PRN BUCCAL DECREASED GLUCOSE; Start 10/11/18 at 21:00 Promethazine HCl/ Dextromethorphan (Phenergan-Dm) 5 ml Q6 PRN PO COUGH; Start 10/11/18 at 21:00 Digoxin (Digoxin) 0.25 mg DAILY PO Last administered on 10/15/18at 08:42; Admin Dose 0.25 MG; Start 10/12/18 at 09:00 Furosemide (Lasix) 40 mg BID PO Last administered on 10/14/18at 20:43; Admin Dose 40 MG; Start 10/11/18 at 21:00 Atorvastatin Calcium (Lipitor) 20 mg DAILY@21 PO Last administered on 10/14/18at 20:41; Admin Dose 20 MG; Start 10/11/18 at 22:30 Apixaban (Eliquis) 5 mg BID PO Last administered on 10/15/18at 08:42; Admin Dose 5 MG; Start 10/12/18 at 12:30 Metoprolol Succinate (Toprol Xl) 50 mg BID PO Last administered on 10/14/18at 20:42; Admin Dose 50 MG; Start 10/12/18 at 21:00 Methylprednisolone Sodium Succinate (Solu-Medrol) 60 mg Q6 IV Last administered on 10/15/18 05:52; Admin Dose 60 MG; Start 10/13/18 at 12:00 Cefepime HCl 50 ml @ 100 mls/hr Q8 IVPB Last administered on 10/15/18 05:52; Admin Dose 100 MLS/HR; Start 10/13/18 at 10:00 Vancomycin HCl (Vanco Iv Per Pharmacy) VANCOMYCIN PER PHARMACY PER PROTOCOL XX ; Start 10/13/18 at 09:30 Patient Own Medication 6 ea AM PO Last administered on 10/15/18 08:39; Admin Dose 6 EA; Start 10/13/18 at 13:00 Acetazolamide (Diamox) 250 mg BID PO Last administered on 10/15/18 08:41; Admin Dose 250 MG; Start 10/13/18 at 21:00 Vancomycin HCl 1.5 gm/Sodium Chloride 250 ml @ 83.333 mls/ hr Q12H IVPB Last administered on 10/15/18 00:21; Admin Dose 83.333 MLS/HR; Start 10/14/18 at 00:00 Metformin HCl (Glucophage Xr) 1,000 mg BID PO Last administered on 10/15/18 08:40; Admin Dose 1,000 MG; Start 10/14/18 at 21:00 Empaglifozin (Jardiance) 25 mg DAILY@08 PO Last administered on 10/15/18 08:40; Admin Dose 25 MG; Start 10/15/18 at 08:00 Diagnostic Test (Pha) (Accu-Chek) 1 ea 02 XX Last administered on 10/15/18 02:00; Admin Dose 1 EA; Start 10/15/18 at 02:00 Insulin Glargine (Lantus) 30 units DAILY@2000 SC Last administered on 10/14/18 20:53; Admin Dose 30 UNITS; Start 10/14/18 at 20:00 Insulin Aspart (Novolog Insulin Pen) 14 unit WITH MEALS SC ; Start 10/15/18 at 07:35 Linagliptin (Tradjenta) 5 mg DAILY PO Last administered on 10/15/18 08:41; Admin Dose 5 MG; Start 10/15/18 at 09:00 NEDA STAHL MD Oct 15, 2018 08:47
[2018-10-15] MEDS: METOPROLOL (XL) 25 MG TAB PO SCH ×2 (09:00→20:34)
[2018-10-15] MEDS: FUROSEMIDE 40 MG TAB PO SCH ×2 (09:00→20:33)
--- NOTE | 2018-10-15 09:26 | CONS ---
Consult Date/Type/Reason Admit Date/Time Oct 12, 2018 at 06:16 Initial Consult Date Type of Consult Pulmonary Requesting Provider: ROEL ALBA Date/Time of Note DATE: 10/15/18 TIME: 09:23 Subjective Continues high flow FiO2 at 100%. Remains awake alert and oriented no accessory muscle use preliminary bubble study negative for intracardiac shunt. Objective Vital Signs Date Temp Pulse Resp B/P (MAP) Pulse Ox O2 O2 Flow FiO2 Time Delivery Rate 10/15/18 79 20 91 100 08:11 10/15/18 105/69 High Flow 06:00 (81) 10/15/18 98.0 04:00 10/12/18 6.0 16:00 Intake and Output 10/14/18 10/14/18 10/15/18 1515:00 23:00 07:00 IntakeIntake Total 1320 ml 1399.999 ml 900.00 ml OutputOutput Total 2500 ml 2400 ml 1300 ml BalanceBalance -1180 ml -1000.001 ml -400.00 ml Exam GENERAL: Well-nourished well-developed gentleman on high flow O2. VITAL SIGNS: per chart NECK: Supple. No JVD or lymphadenopathy. CARDIAC EXAM: S1, S2. No added sounds or murmurs. CHEST: Diminished air entry bilaterally with rales ABDOMEN: Soft, nontender. No guarding or rebound. EXTREMITIES: No cyanosis, clubbing or edema. NEUROLOGIC: Generalized weakness. No focal deficits. Vent Setting Fraction of Inspired Oxygen pe: 100 Results/Medications Result Diagram: 10/15/18 0447 10/15/18 0447 Results 24 hrs Laboratory Tests Test 10/14/18 09:45 10/14/18 13:06 10/14/18 17:33 10/14/18 20:45 Blood Gas Blood arterial Specimen Source Arterial Blood 10/14/2018 9:54:2 Date Drawn 9 AM Arterial Blood pH 7.405 (Temp corrected) Arterial Blood 46.8 H pCO2 (Temp correct) Arterial Blood 65.5 L pO2 (Temp corrected) Arterial Blood 28.7 H HCO3 Arterial Blood 3.2 H Base Excess Arterial Blood 92.1 L Oxygen Saturation David Test ACCEPTAB Arterial Blood Right Radial Gas Puncture Site Arterial 1.0 Blood Carboxyhemo globin Arterial Blood 0.1 Methemoglobin Blood Gas A-a O2 600.7 H Differential Oxyhemoglobin 91.1 L Percent Blood Gas 37.0 Temperature Blood Gas HFNC Modality FiO2 100.0 Blood Gas TM Notified Whom Blood Gas 10/14/2018 10:03: Notified Time 07 AM Bedside Glucose 303 H 287 H 296 H Test 10/14/18 23:19 10/15/18 02:11 10/15/18 04:47 10/15/18 08:02 Vancomycin Level 11.2 Trough Bedside Glucose 269 H 273 H White Blood Count 12.9 H Red Blood Count 5.03 Hemoglobin 13.0 L Hematocrit 42.6 Mean Corpuscular 84.7 Volume Mean Corpuscular 25.8 L Hemoglobin Mean Corpuscular 30.5 L Hemoglobin Concen t Red Cell 16.4 H Distribution Width Platelet Count 217 Mean Platelet 10.5 H Volume Immature 0.600 H Granulocytes % Neutrophils % 89.9 H Lymphocytes % 5.5 L Monocytes % 3.9 Eosinophils % 0.0 Basophils % 0.1 Nucleated Red 0.0 Blood Cells % Immature 0.080 H Granulocytes # Neutrophils # 11.6 H Lymphocytes # 0.7 L Monocytes # 0.5 Eosinophils # 0.0 Basophils # 0.0 Nucleated Red 0.0 Blood Cells # Sodium Level 139 Potassium Level 4.2 Chloride Level 100 Carbon Dioxide 29 Level Anion Gap 10 Blood Urea 24 H Nitrogen Creatinine 0.86 Est Glomerular > 60 Filtrat Rate mL/min Glucose Level 300 H Calcium Level 9.2 Phosphorus Level 3.8 Magnesium Level 2.4 Medications Current Medications Albuterol/ Ipratropium (Duoneb) 3 ml Q4 HHN Last administered on 10/15/18at 08:10; Admin Dose 3 ML; Start 10/11/18 at 21:00 Insulin Aspart (Novolog Insulin Pen) NOVOLOG *MODERATE* ALGORITHM WITH MEALS BEDTIME SC Last administered on 10/15/18at 08:49; Admin Dose 8 UNIT; Start 10/11/18 at 21:00 Zolpidem Tartrate (Ambien) 5 mg HS MAY REPEAT X 1 PRN PO INSOMNIA; Start 10/11/18 at 20:30 Ondansetron HCl (Zofran Inj) 4 mg Q4 PRN IV nausea; Start 10/11/18 at 20:30 Miscellaneous Information 1 ea NOTE XX ; Start 10/11/18 at 21:00 Glucose (Glutose) 15 gm Q15M PRN PO DECREASED GLUCOSE; Start 10/11/18 at 21:00 Glucose (Glutose) 22.5 gm Q15M PRN PO DECREASED GLUCOSE; Start 10/11/18 at 21:00 Dextrose (D50w Syringe) 25 ml Q15M PRN IV DECREASED GLUCOSE; Start 10/11/18 at 21:00 Dextrose (D50w Syringe) 50 ml Q15M PRN IV DECREASED GLUCOSE; Start 10/11/18 at 21:00 Glucagon (Glucagen) 1 mg Q15M PRN IM DECREASED GLUCOSE; Start 10/11/18 at 21:00 Glucose (Glutose) 15 gm Q15M PRN BUCCAL DECREASED GLUCOSE; Start 10/11/18 at 21:00 Promethazine HCl/ Dextromethorphan (Phenergan-Dm) 5 ml Q6 PRN PO COUGH; Start 10/11/18 at 21:00 Digoxin (Digoxin) 0.25 mg DAILY PO Last administered on 10/15/18 08:42; Admin Dose 0.25 MG; Start 10/12/18 at 09:00 Furosemide (Lasix) 40 mg BID PO Last administered on 10/14/18at 20:43; Admin Dose 40 MG; Start 10/11/18 at 21:00 Atorvastatin Calcium (Lipitor) 20 mg DAILY@21 PO Last administered on 10/14/18at 20:41; Admin Dose 20 MG; Start 10/11/18 at 22:30 Apixaban (Eliquis) 5 mg BID PO Last administered on 10/15/18at 08:42; Admin Dose 5 MG; Start 10/12/18 at 12:30 Metoprolol Succinate (Toprol Xl) 50 mg BID PO Last administered on 10/14/18at 20:42; Admin Dose 50 MG; Start 10/12/18 at 21:00 Methylprednisolone Sodium Succinate (Solu-Medrol) 60 mg Q6 IV Last administered on 10/15/18at 05:52; Admin Dose 60 MG; Start 10/13/18 at 12:00 Cefepime HCl 50 ml @ 100 mls/hr Q8 IVPB Last administered on 10/15/18 05:52; Admin Dose 100 MLS/HR; Start 10/13/18 at 10:00 Vancomycin HCl (Vanco Iv Per Pharmacy) VANCOMYCIN PER PHARMACY PER PROTOCOL XX ; Start 10/13/18 at 09:30 Patient Own Medication 6 ea AM PO Last administered on 10/15/18 08:39; Admin Dose 6 EA; Start 10/13/18 at 13:00 Acetazolamide (Diamox) 250 mg BID PO Last administered on 10/15/18 08:41; Admin Dose 250 MG; Start 10/13/18 at 21:00 Vancomycin HCl 1.5 gm/Sodium Chloride 250 ml @ 83.333 mls/ hr Q12H IVPB Last administered on 10/15/18 00:21; Admin Dose 83.333 MLS/HR; Start 10/14/18 at 00:00 Metformin HCl (Glucophage Xr) 1,000 mg BID PO Last administered on 10/15/18 08:40; Admin Dose 1,000 MG; Start 10/14/18 at 21:00 Empaglifozin (Jardiance) 25 mg DAILY@08 PO Last administered on 10/15/18 08:40; Admin Dose 25 MG; Start 10/15/18 at 08:00 Diagnostic Test (Pha) (Accu-Chek) 1 ea 02 XX Last administered on 10/15/18 02:00; Admin Dose 1 EA; Start 10/15/18 at 02:00 Insulin Glargine (Lantus) 30 units DAILY@2000 SC Last administered on 10/14/18 20:53; Admin Dose 30 UNITS; Start 10/14/18 at 20:00 Insulin Aspart (Novolog Insulin Pen) 14 unit WITH MEALS SC Last administered on 10/15/18 07:35; Admin Dose 14 UNIT; Start 10/15/18 at 07:35 Linagliptin (Tradjenta) 5 mg DAILY PO Last administered on 10/15/18 08:41; Admin Dose 5 MG; Start 10/15/18 at 09:00 Assessment/Plan Hospital Course (Demo Recall) IMPRESSION 1. Acute hypoxemic respiratory failure, likely secondary to acute tracheobronchitis. Bibasilar atelectasis noted but no significant pneumonic infiltrates or effusions. No evidence of intracardiac shunt 2. Right lower lobe pneumonia. No evidence of thromboembolic disease. During hypoxemia out of proportion to minimal radiographic changes. Plan 1. Incentive spirometry. 2. Bronchodilators. 3. Steroids., 4. Antibiotics. 5. Continue anticoagulation for atrial fibrillation. 6. Rate control. 7. DVT and GI prophylaxis. critical care time 40 minutes. TELMA CAI MD, [facility] Oct 15, 2018 09:26
--- NOTE | 2018-10-15 11:13 | PN ---
Date/Time of Note Date/Time of Note DATE: 10/15/18 TIME: 11:11 Subjective Doing well. No new complaints. Objective Vitals Vital Signs Date Temp Pulse Resp B/P (MAP) Pulse Ox O2 O2 Flow FiO2 Time Delivery Rate 10/15/18 79 20 91 100 08:11 10/15/18 105/69 High Flow 06:00 (81) 10/15/18 98.0 04:00 10/12/18 6.0 16:00 Intake and Output 10/14/18 10/14/18 10/15/18 1515:00 23:00 07:00 IntakeIntake Total 1320 ml 1399.999 ml 900.00 ml OutputOutput Total 2500 ml 2400 ml 1300 ml BalanceBalance -1180 ml -1000.001 ml -400.00 ml Mild rhonchi bilaterally Regular rate and rhythm Soft nontender nondistended normoactive bowel sounds no edema Nonfocal Results Result Diagram: 10/15/18 0447 10/15/18446 Medications Medications Current Medications Albuterol/ Ipratropium (Duoneb) 3 ml Q4 HHN Last administered on 10/15/18at 08:10; Admin Dose 3 ML; Start 10/11/18 at 21:00 Insulin Aspart (Novolog Insulin Pen) NOVOLOG *MODERATE* ALGORITHM WITH MEALS BEDTIME SC Last administered on 10/15/18at 08:49; Admin Dose 8 UNIT; Start 10/11/18 at 21:00 Zolpidem Tartrate (Ambien) 5 mg HS MAY REPEAT X 1 PRN PO INSOMNIA; Start 10/11/18 at 20:30 Ondansetron HCl (Zofran Inj) 4 mg Q4 PRN IV nausea; Start 10/11/18 at 20:30 Miscellaneous Information 1 ea NOTE XX ; Start 10/11/18 at 21:00 Glucose (Glutose) 15 gm Q15M PRN PO DECREASED GLUCOSE; Start 10/11/18 at 21:00 Glucose (Glutose) 22.5 gm Q15M PRN PO DECREASED GLUCOSE; Start 10/11/18 at 21:00 Dextrose (D50w Syringe) 25 ml Q15M PRN IV DECREASED GLUCOSE; Start 10/11/18 at 21:00 Dextrose (D50w Syringe) 50 ml Q15M PRN IV DECREASED GLUCOSE; Start 10/11/18 at 21:00 Glucagon (Glucagen) 1 mg Q15M PRN IM DECREASED GLUCOSE; Start 10/11/18 at 21:00 Glucose (Glutose) 15 gm Q15M PRN BUCCAL DECREASED GLUCOSE; Start 10/11/18 at 21:00 Promethazine HCl/ Dextromethorphan (Phenergan-Dm) 5 ml Q6 PRN PO COUGH; Start 10/11/18 at 21:00 Digoxin (Digoxin) 0.25 mg DAILY PO Last administered on 10/15/18 08:42; Admin Dose 0.25 MG; Start 10/12/18 at 09:00 Furosemide (Lasix) 40 mg BID PO Last administered on 10/14/18 20:43; Admin Dose 40 MG; Start 10/11/18 at 21:00 Atorvastatin Calcium (Lipitor) 20 mg DAILY@21 PO Last administered on 10/14/18 20:41; Admin Dose 20 MG; Start 10/11/18 at 22:30 Apixaban (Eliquis) 5 mg BID PO Last administered on 10/15/18 08:42; Admin Dose 5 MG; Start 10/12/18 at 12:30 Metoprolol Succinate (Toprol Xl) 50 mg BID PO Last administered on 10/14/18 20:42; Admin Dose 50 MG; Start 10/12/18 at 21:00 Methylprednisolone Sodium Succinate (Solu-Medrol) 60 mg Q6 IV Last administered on 10/15/18 05:52; Admin Dose 60 MG; Start 10/13/18 at 12:00 Cefepime HCl 50 ml @ 100 mls/hr Q8 IVPB Last administered on 10/15/18 05:52; Admin Dose 100 MLS/HR; Start 10/13/18 at 10:00 Vancomycin HCl (Vanco Iv Per Pharmacy) VANCOMYCIN PER PHARMACY PER PROTOCOL XX ; Start 10/13/18 at 09:30 Patient Own Medication 6 ea AM PO Last administered on 10/15/18 08:39; Admin Dose 6 EA; Start 10/13/18 at 13:00 Acetazolamide (Diamox) 250 mg BID PO Last administered on 10/15/18 08:41; Admin Dose 250 MG; Start 10/13/18 at 21:00 Vancomycin HCl 1.5 gm/Sodium Chloride 250 ml @ 83.333 mls/ hr Q12H IVPB Last administered on 10/15/18 00:21; Admin Dose 83.333 MLS/HR; Start 10/14/18 at 00:00 Metformin HCl (Glucophage Xr) 1,000 mg BID PO Last administered on 10/15/18 08:40; Admin Dose 1,000 MG; Start 10/14/18 at 21:00 Empaglifozin (Jardiance) 25 mg DAILY@08 PO Last administered on 10/15/18 08:40; Admin Dose 25 MG; Start 10/15/18 at 08:00 Diagnostic Test (Pha) (Accu-Chek) 1 ea 02 XX Last administered on 10/15/18 0 2:00; Admin Dose 1 EA; Start 10/15/18 at 02:00 Insulin Glargine (Lantus) 30 units DAILY@2000 SC Last administered on 10/14/18 20:53; Admin Dose 30 UNITS; Start 10/14/18 at 20:00 Insulin Aspart (Novolog Insulin Pen) 14 unit WITH MEALS SC Last administered on 10/15/18 07:35; Admin Dose 14 UNIT; Start 10/15/18 at 07:35 Linagliptin (Tradjenta) 5 mg DAILY PO Last administered on 10/15/18 08:41; Admin Dose 5 MG; Start 10/15/18 at 09:00 VTE Prophylaxis Risk score (from Nsg)>0 risk: 5 SCD applied (from Nsg): Yes Lines/Catheters IV Catheter Type: Saline Lock [place] in Place: No Assessment/Plan Assessment/Plan 62-year-old male with acute hypoxemic respiratory failure, on high flow O2 Left lower lobe pneumonia Sleep apnea Moderate obesity Type 2 diabetes mellitus Wean off high flow O2 Continue current therapy Pulmonary and endocrine follow-up ELI YARBROUGH MD Oct 15, 2018 11:13
--- NOTE | 2018-10-15 14:39 | CONS ---
Consult Date/Type/Reason Admit Date/Time Oct 12, 2018 at 06:16 Initial Consult Date 10/14/18 Requesting Provider: ROEL ALBA Date/Time of Note DATE: 10/15/18 TIME: 14:33 Subjective Interventional cardiology follow-up progress note Subjective: Case discussed with the staff telemetry was reviewed patient remains in atrial fibrillation. Heart rate is under good control. Patient continues to be severely hypoxemic and 100% high flow oxygen. Discussed with family were at the bedside. Patient said his breathing has improved now no chest pain or pressure no palpitation Objective: General: Obese gentleman in no acute distress HEENT: NC/AT. pupils are equal. round. NECK: no stridor. CV: Regularly regular. systolic murmur; no gallop or rubs. PULM: no wheezing . + rhonchi. Right more than left side GI: SOFT, NT, ND, no rebound or guarding Extremity: trace B/L LE edema. no clubbing. neuro: awake and alert, OX3. Psych: calm and pleasant rectal: deferred echo Overall, normal left ventricular systolic function. Not all segments visualized. Normal left ventricular cavity size. Normal left ventricular wall thickness. Ejection fraction is visually estimated at 55 %. Abnormal Diastolic Function. Normal right ventricular systolic function. Mild enlargement of right ventricle. There is mild enlargement of left atrium. The right atrium is normal in size. Mild mitral valve regurgitation. No significant aortic stenosis or insufficiency. The estimated Peak RVSP is 50 mmHg. There is mild tricuspid regurgitation. Normal pericardium with no significant pericardial effusion. Objective Vitals Vital Signs Date Temp Pulse Resp B/P (MAP) Pulse Ox O2 O2 Flow FiO2 Time Delivery Rate 10/15/18 95 18 93 100 13:21 10/15/18 105/69 High Flow 06:00 (81) 10/15/18 98.0 04:00 10/12/18 6.0 16:00 Intake and Output 10/14/18 10/14/18 10/15/18 1515:00 23:00 07:00 IntakeIntake Total 1320 ml 1399.999 ml 900.00 ml OutputOutput Total 2500 ml 2400 ml 1300 ml BalanceBalance -1180 ml -1000.001 ml -400.00 ml Results/Medications Result Diagram: 10/15/18 0447 10/15/18 0447 Results 24 hrs Laboratory Tests Test 10/14/18 17:33 10/14/18 20:45 10/14/18 23:19 10/15/18 02:11 Bedside Glucose 287 H 296 H 269 H Vancomycin Level 11.2 Trough Test 10/15/18 04:47 10/15/18 08:02 10/15/18 12:09 White Blood Count 12.9 H Red Blood Count 5.03 Hemoglobin 13.0 L Hematocrit 42.6 Mean Corpuscular 84.7 Volume Mean Corpuscular 25.8 L Hemoglobin Mean Corpuscular 30.5 L Hemoglobin Concent Red Cell 16.4 H Distribution Width Platelet Count 217 Mean Platelet Volume 10.5 H Immature 0.600 H Granulocytes % Neutrophils % 89.9 H Lymphocytes % 5.5 L Monocytes % 3.9 Eosinophils % 0.0 Basophils % 0.1 Nucleated Red Blood 0.0 Cells % Immature 0.080 H Granulocytes # Neutrophils # 11.6 H Lymphocytes # 0.7 L Monocytes # 0.5 Eosinophils # 0.0 Basophils # 0.0 Nucleated Red Blood 0.0 Cells # Sodium Level 139 Potassium Level 4.2 Chloride Level 100 Carbon Dioxide Level 29 Anion Gap 10 Blood Urea Nitrogen 24 H Creatinine 0.86 Est Glomerular > 60 Filtrat Rate mL/min Glucose Level 300 H Calcium Level 9.2 Phosphorus Level 3.8 Magnesium Level 2.4 Bedside Glucose 273 H 182 Home Meds Reported Medications Dextromethorphan Hb-Promethazine Hcl* (Promethazine DM* Syrup) 473 Ml Syrup, 5 ML PO Q6 PRN for COUGH, ML 10/11/18 Simvastatin* (Zocor*) 40 Mg Tablet, 40 MG PO QHS, #30 TAB 10/11/18 Empagliflozin (Jardiance) 10 Mg Tablet, 10 MG PO DAILY, TAB 10/11/18 Acetazolamide* (Acetazolamide*) 250 Mg Tablet, 250 MG PO BID, #60 TAB 10/11/18 Furosemide* (Furosemide*) 40 Mg Tablet, 40 MG PO BID, TAB 10/11/18 Apixaban* (Eliquis*) 5 Mg Tablet, 5 MG PO BID, TAB 10/11/18 Digoxin* (Digox*) 250 Mcg Tablet, 0.25 MG PO DAILY, TAB 10/11/18 Carvedilol* (Coreg*) 25 Mg Tablet, 25 MG PO BID, #60 TAB 10/11/18 Sildenafil Citrate* (Sildenafil Citrate*) 20 Mg Tablet, 20 MG PO NEEDED, TAB TAKE 3-5 TABS BEFORE SEXUAL ACTIVITY. 10/11/18 Bromocriptine Mesylate (CYCLOSET) 0.8 Mg Tablet, 4.8 MG PO QAM, TAB 10/11/18 Glimepiride* (Glimepiride*) 4 Mg Tablet, 4 MG PO WITH BREAKFAST DINNE, TAB 10/11/18 Metformin Hcl* (Metformin Hcl*) 1,000 Mg Tablet, 1000 MG PO WITH BREAKFAST DINNE, #60 TAB 10/11/18 Ergocalciferol (Vitamin D2) (VITAMIN D2) 50,000 Unit Capsule, 11583 UNIT PO Q7D, CAP 10/11/18 Discontinued Reported Medications Amoxicillin* (Amoxicillin*) 500 Mg Cap, 500 MG PO Q12H, #20 CAP 10/11/18 Dapagliflozin Propanediol (Farxiga) 10 Mg Tablet, 10 MG PO DAILY, #30 TAB 12/24/17 Simvastatin* (Zocor*) 40 Mg Tablet, 40 MG PO QHS, #30 TAB 12/24/17 Bromocriptine Mesylate (CYCLOSET) 0.8 Mg Tablet, 0.8 MG PO DAILY, TAB 12/24/17 Glimepiride* (Glimepiride*) 4 Mg Tablet, 4 MG PO WITH BREAKFAST DINNE, TAB 12/24/17 Ergocalciferol (Vitamin D2) (VITAMIN D2) 50,000 Unit Capsule, 16088 UNIT PO Q7D, CAP 12/24/17 Digoxin* (Digitek*) 250 Mcg Tablet, 0.25 MG PO DAILY, TAB 12/24/17 Apixaban* (Eliquis*) 5 Mg Tablet, 5 MG PO BID, TAB 12/24/17 Carvedilol* (Carvedilol*) 25 Mg Tablet, 25 MG PO BID, #60 TAB 12/24/17 Metformin Hcl* (Metformin Hcl*) 1,000 Mg Tablet, 1000 MG PO WITH BREAKFAST DINNE, #60 TAB 12/24/17 Discontinued Scripts Furosemide* (Furosemide*) 40 Mg Tablet, 40 MG PO BID DIURETICS for 30 Days, TAB 3 Refills Prov:ROEL ALBA F 12/31/17 Medications Current Medications Albuterol/ Ipratropium (Duoneb) 3 ml Q4 HHN Last administered on 10/15/18at 13:20; Admin Dose 3 ML; Start 10/11/18 at 21:00 Insulin Aspart (Novolog Insulin Pen) NOVOLOG *MODERATE* ALGORITHM WITH MEALS BEDTIME SC Last administered on 10/15/18at 12:58; Admin Dose 4 UNIT; Start 10/11/18 at 21:00 Zolpidem Tartrate (Ambien) 5 mg HS MAY REPEAT X 1 PRN PO INSOMNIA; Start 10/11/18 at 20:30 Ondansetron HCl (Zofran Inj) 4 mg Q4 PRN IV nausea; Start 10/11/18 at 20:30 Miscellaneous Information 1 ea NOTE XX ; Start 10/11/18 at 21:00 Glucose (Glutose) 15 gm Q15M PRN PO DECREASED GLUCOSE; Start 10/11/18 at 21:00 Glucose (Glutose) 22.5 gm Q15M PRN PO DECREASED GLUCOSE; Start 10/11/18 at 21:00 Dextrose (D50w Syringe) 25 ml Q15M PRN IV DECREASED GLUCOSE; Start 10/11/18 at 21:00 Dextrose (D50w Syringe) 50 ml Q15M PRN IV DECREASED GLUCOSE; Start 10/11/18 at 21:00 Glucagon (Glucagen) 1 mg Q15M PRN IM DECREASED GLUCOSE; Start 10/11/18 at 21:00 Glucose (Glutose) 15 gm Q15M PRN BUCCAL DECREASED GLUCOSE; Start 10/11/18 at 21:00 Promethazine HCl/ Dextromethorphan (Phenergan-Dm) 5 ml Q6 PRN PO COUGH; Start 10/11/18 at 21:00 Digoxin (Digoxin) 0.25 mg DAILY PO Last administered on 10/15/18at 08:42; Admin Dose 0.25 MG; Start 10/12/18 at 09:00 Furosemide (Lasix) 40 mg BID PO Last administered on 10/14/18at 20:43; Admin Dose 40 MG; Start 10/11/18 at 21:00 Atorvastatin Calcium (Lipitor) 20 mg DAILY@21 PO Last administered on 10/14/18at 20:41; Admin Dose 20 MG; Start 10/11/18 at 22:30 Apixaban (Eliquis) 5 mg BID PO Last administered on 10/15/18 08:42; Admin Dose 5 MG; Start 10/12/18 at 12:30 Metoprolol Succinate (Toprol Xl) 50 mg BID PO Last administered on 10/14/18 20:42; Admin Dose 50 MG; Start 10/12/18 at 21:00 Methylprednisolone Sodium Succinate (Solu-Medrol) 60 mg Q6 IV Last administered on 10/15/18 12:14; Admin Dose 60 MG; Start 10/13/18 at 12:00 Cefepime HCl 50 ml @ 100 mls/hr Q8 IVPB Last administered on 10/15/18 14:06; Admin Dose 100 MLS/HR; Start 10/13/18 at 10:00 Vancomycin HCl (Vanco Iv Per Pharmacy) VANCOMYCIN PER PHARMACY PER PROTOCOL XX ; Start 10/13/18 at 09:30 Patient Own Medication 6 ea AM PO Last administered on 10/15/18 08:39; Admin Dose 6 EA; Start 10/13/18 at 13:00 Acetazolamide (Diamox) 250 mg BID PO Last administered on 10/15/18 08:41; Admin Dose 250 MG; Start 10/13/18 at 21:00 Vancomycin HCl 1.5 gm/Sodium Chloride 250 ml @ 83.333 mls/ hr Q12H IVPB Last administered on 10/15/18 12:13; Admin Dose 83.333 MLS/HR; Start 10/14/18 at 00:00 Metformin HCl (Glucophage Xr) 1,000 mg BID PO Last administered on 10/15/18 08:40; Admin Dose 1,000 MG; Start 10/14/18 at 21:00 Empaglifozin (Jardiance) 25 mg DAILY@08 PO Last administered on 10/15/18 08:40; Admin Dose 25 MG; Start 10/15/18 at 08:00 Diagnostic Test (Pha) (Accu-Chek) 1 ea 02 XX Last administered on 10/15/18 02:00; Admin Dose 1 EA; Start 10/15/18 at 02:00 Insulin Glargine (Lantus) 30 units DAILY@2000 SC Last administered on 10/14/18 20:53; Admin Dose 30 UNITS; Start 10/14/18 at 20:00 Insulin Aspart (Novolog Insulin Pen) 14 unit WITH MEALS SC Last administered on 10/15/18at 12:58; Admin Dose 14 UNIT; Start 10/15/18 at 07:35 Linagliptin (Tradjenta) 5 mg DAILY PO Last administered on 10/15/18at 08:41; Admin Dose 5 MG; Start 10/15/18 at 09:00 Assessment/Plan Hospital Course (Demo Recall) 1. Severe hypoxemia 2. Pneumonia 3. Atrial fibrillation 4. Diabetes 5. Hypertension 6. pulm HTN Recommendations: Diabetic management as per endocrine consultation and internal medicine team. Continue with Eliquis for anticoagulation Continue with the digoxin will check the level and adjusted as needed Continue oxygen supplementation. Currently on high flow oxygen at 100% Continue with the Coreg for now Continue with ICU care for now. More than 33 minutes critical care time was for management treatment is critically patient excluding any procedures thank you for his referral. We will continue to follow along with you SAGE PILLAI MD [facility] SAGE PILLAI MD Oct 15, 2018 14:39
--- NOTE | 2018-10-15 14:58 | CONS ---
Assessment/Plan Assessment/Plan Problems: (1) Type 2 diabetes mellitus with hyperglycemia Status: Acute Comment: Hyperglycemia secondary to corticosteroids. Started on insulin yesterday evening basal prandial bolus regimen. Shoeing better glycemic control. Qualifiers: Diabetes mellitus intermediate accountant insulin use: without prison use Qualified Codes: E11.65 - Type 2 diabetes mellitus with hyperglycemia Assessment/Plan (Daily) Will monitor blood glucose levels today and further adjust tomorrow. Consultation Date/Type/Reason Admit Date/Time Oct 12, 2018 at 06:16 Initial Consult Date 10/14/18 Type of Consult Endocrine Reason for Consultation DM Type 2 and glucose management while on corticosteroids Requesting Provider: ROEL ALBA Date/Time of Note DATE: 10/15/18 TIME: 14:54 24 HR Interval Summary Free Text/Dictation Feeling better although still feels like he is wheezing. Exam/Review of Systems Exam Vitals Vital Signs Date Temp Pulse Resp B/P (MAP) Pulse Ox O2 O2 Flow FiO2 Time Delivery Rate 10/15/18 95 18 93 100 13:21 10/15/18 105/69 High Flow 06:00 (81) 10/15/18 98.0 04:00 10/12/18 6.0 16:00 Intake and Output 10/14/18 10/14/18 10/15/18 1515:00 23:00 07:00 IntakeIntake Total 1320 ml 1399.999 ml 900.00 ml OutputOutput Total 2500 ml 2400 ml 1300 ml BalanceBalance -1180 ml -1000.001 ml -400.00 ml Constitutional: alert, oriented, obese Neck: supple Respiratory: respirations (normal), other (O2 nasal cannula) Cardiovascular: regular rate and rhythm Musculoskeletal: nl extremities to inspection Additional Comments POC glucose reviewed Results Result Diagram: 10/15/18 0447 10/15/18 0447 Results 24hrs Laboratory Tests Test 10/14/18 17:33 10/14/18 20:45 10/14/18 23:19 10/15/18 02:11 Bedside Glucose 287 H 296 H 269 H Vancomycin Level 11.2 Trough Test 10/15/18 04:47 10/15/18 08:02 10/15/18 12:09 White Blood Count 12.9 H Red Blood Count 5.03 Hemoglobin 13.0 L Hematocrit 42.6 Mean Corpuscular 84.7 Volume Mean Corpuscular 25.8 L Hemoglobin Mean Corpuscular 30.5 L Hemoglobin Concent Red Cell 16.4 H Distribution Width Platelet Count 217 Mean Platelet Volume 10.5 H Immature 0.600 H Granulocytes % Neutrophils % 89.9 H Lymphocytes % 5.5 L Monocytes % 3.9 Eosinophils % 0.0 Basophils % 0.1 Nucleated Red Blood 0.0 Cells % Immature 0.080 H Granulocytes # Neutrophils # 11.6 H Lymphocytes # 0.7 L Monocytes # 0.5 Eosinophils # 0.0 Basophils # 0.0 Nucleated Red Blood 0.0 Cells # Sodium Level 139 Potassium Level 4.2 Chloride Level 100 Carbon Dioxide Level 29 Anion Gap 10 Blood Urea Nitrogen 24 H Creatinine 0.86 Est Glomerular > 60 Filtrat Rate mL/min Glucose Level 300 H Calcium Level 9.2 Phosphorus Level 3.8 Magnesium Level 2.4 Bedside Glucose 273 H 182 Medications Medication Current Medications Albuterol/ Ipratropium (Duoneb) 3 ml Q4 HHN Last administered on 10/15/18at 13:20; Admin Dose 3 ML; Start 10/11/18 at 21:00 Insulin Aspart (Novolog Insulin Pen) NOVOLOG *MODERATE* ALGORITHM WITH MEALS BEDTIME SC Last administered on 10/15/18at 12:58; Admin Dose 4 UNIT; Start 10/11/18 at 21:00 Zolpidem Tartrate (Ambien) 5 mg HS MAY REPEAT X 1 PRN PO INSOMNIA; Start 10/11/18 at 20:30 Ondansetron HCl (Zofran Inj) 4 mg Q4 PRN IV nausea; Start 10/11/18 at 20:30 Miscellaneous Information 1 ea NOTE XX ; Start 10/11/18 at 21:00 Glucose (Glutose) 15 gm Q15M PRN PO DECREASED GLUCOSE; Start 10/11/18 at 21:00 Glucose (Glutose) 22.5 gm Q15M PRN PO DECREASED GLUCOSE; Start 10/11/18 at 21:00 Dextrose (D50w Syringe) 25 ml Q15M PRN IV DECREASED GLUCOSE; Start 10/11/18 at 21:00 Dextrose (D50w Syringe) 50 ml Q15M PRN IV DECREASED GLUCOSE; Start 10/11/18 at 21:00 Glucagon (Glucagen) 1 mg Q15M PRN IM DECREASED GLUCOSE; Start 10/11/18 at 21:00 Glucose (Glutose) 15 gm Q15M PRN BUCCAL DECREASED GLUCOSE; Start 10/11/18 at 21:00 Promethazine HCl/ Dextromethorphan (Phenergan-Dm) 5 ml Q6 PRN PO COUGH; Start 10/11/18 at 21:00 Digoxin (Digoxin) 0.25 mg DAILY PO Last administered on 10/15/18 08:42; Admin Dose 0.25 MG; Start 10/12/18 at 09:00 Furosemide (Lasix) 40 mg BID PO Last administered on 10/14/18 20:43; Admin Dose 40 MG; Start 10/11/18 at 21:00 Atorvastatin Calcium (Lipitor) 20 mg DAILY@21 PO Last administered on 10/14/18 20:41; Admin Dose 20 MG; Start 10/11/18 at 22:30 Apixaban (Eliquis) 5 mg BID PO Last administered on 10/15/18 08:42; Admin Dose 5 MG; Start 10/12/18 at 12:30 Metoprolol Succinate (Toprol Xl) 50 mg BID PO Last administered on 10/14/18 20:42; Admin Dose 50 MG; Start 10/12/18 at 21:00 Methylprednisolone Sodium Succinate (Solu-Medrol) 60 mg Q6 IV Last administered on 10/15/18 12:14; Admin Dose 60 MG; Start 10/13/18 at 12:00 Cefepime HCl 50 ml @ 100 mls/hr Q8 IVPB Last administered on 10/15/18 14:06; Admin Dose 100 MLS/HR; Start 10/13/18 at 10:00 Vancomycin HCl (Vanco Iv Per Pharmacy) VANCOMYCIN PER PHARMACY PER PROTOCOL XX ; Start 10/13/18 at 09:30 Patient Own Medication 6 ea AM PO Last administered on 10/15/18 08:39; Admin Dose 6 EA; Start 10/13/18 at 13:00 Acetazolamide (Diamox) 250 mg BID PO Last administered on 10/15/18 08:41; Admin Dose 250 MG; Start 10/13/18 at 21:00 Vancomycin HCl 1.5 gm/Sodium Chloride 250 ml @ 83.333 mls/ hr Q12H IVPB Last administered on 10/15/18 12:13; Admin Dose 83.333 MLS/HR; Start 10/14/18 at 00:00 Metformin HCl (Glucophage Xr) 1,000 mg BID PO Last administered on 10/15/18 08:40; Admin Dose 1,000 MG; Start 10/14/18 at 21:00 Empaglifozin (Jardiance) 25 mg DAILY@08 PO Last administered on 10/15/18 08:40; Admin Dose 25 MG; Start 10/15/18 at 08:00 Diagnostic Test (Pha) (Accu-Chek) 1 ea 02 XX Last administered on 10/15/18 02:00; Admin Dose 1 EA; Start 10/15/18 at 02:00 Insulin Glargine (Lantus) 30 units DAILY@2000 SC Last administered on 10/14/18 20:53; Admin Dose 30 UNITS; Start 10/14/18 at 20:00 Insulin Aspart (Novolog Insulin Pen) 14 unit WITH MEALS SC Last administered on 10/15/18 12:58; Admin Dose 14 UNIT; Start 10/15/18 at 07:35 Linagliptin (Tradjenta) 5 mg DAILY PO Last administered on 10/15/18 08:41; Admin Dose 5 MG; Start 10/15/18 at 09:00 CELIA MCCLELLAN MD Oct 15, 2018 14:58
[2018-10-15] MEDS: ATORVASTATIN 20 MG TAB PO SCH (20:33)
[2018-10-15] MEDS: INSULIN GLARGINE [LANTus] (100 UNITS/ML) SYG SC SCH (20:38)
[2018-10-16] VITALS (26 sets, daily range): BP systolic 96–123; BP diastolic 59–93; PULSE 84–146; RESP 11–28
[2018-10-16] MEDS: ALBUTEROL/IPRATROPIUM (NEB) 3 ML AMP HHN SCH ×6 (01:25→20:56)
[2018-10-16] MEDS: ACCU-CHEK XX SCH (02:15)
[2018-10-16] MEDS: CEFEPIME 2GM/50 ML (PMX) 50 ML IVPB SCH ×3 (05:23→21:24)
[2018-10-16] MEDS: METHYLPREDNISOLONE 125 MG INJ IV SCH ×4 (05:23→23:39)
--- NOTE | 2018-10-16 07:55 | CONS ---
Assessment/Plan Assessment/Plan Assessment/Plan (Daily) 1. Metabolic alkalosis on Acetazolamide 250mg BID , HCO3 30, BUN/Cr 27/0.82, WBC 12 1. Acute Hypoxic respiratory failure, likely secondary to reactive airway and pneumonia, patient seems to be euvolemic for now.- on IV abx cefepime and vancomycin< renally dose all abx and monitor electrolytes 2. Atrial fibrillation, chronic, rate controlled. 3. Congestive heart failure, diastolic dysfunction, chronic, currently euvolemic. Echocardiogram with EF of 55%.- on lasix 40mg pO BID Continue current medication, patient on oral Lasix daily. 4. Diabetes mellitus Type II with acute hyperglycemia 5. Hypertension Consultation Date/Type/Reason Admit Date/Time Oct 12, 2018 at 06:16 Initial Consult Date 10/14/18 Type of Consult NEPHROLOGY Requesting Provider: ROEL ALBA Date/Time of Note DATE: 10/16/18 TIME: 07:55 Exam/Review of Systems Exam Vitals Vital Signs Date Temp Pulse Resp B/P (MAP) Pulse Ox O2 O2 Flow FiO2 Time Delivery Rate 10/16/18 84 16 123/83 91 High Flow 07:00 (96) 10/16/18 90 04:15 10/16/18 97.9 04:15 10/12/18 6.0 16:00 Intake and Output 10/15/18 10/15/18 10/16/18 1515:00 23:00 07:00 IntakeIntake Total 360 ml 3090 ml 1640 ml OutputOutput Total 525 ml 1975 ml 2000 ml BalanceBalance -165 ml 1115 ml -360 ml Results Result Diagram: 10/15/18 0447 10/16/18 0508 Results 24hrs Laboratory Tests Test 10/15/18 08:02 10/15/18 12:09 10/15/18 17:20 10/15/18 20:31 Bedside Glucose 273 H 182 201 197 Test 10/16/18 01:53 10/16/18 05:08 Bedside Glucose 200 Sodium Level 139 Potassium Level 3.9 Chloride Level 99 Carbon Dioxide Level 30 Anion Gap 10 Blood Urea Nitrogen 27 H Creatinine 0.82 Est Glomerular > 60 Filtrat Rate mL/min Glucose Level 194 # Calcium Level 9.5 Magnesium Level 2.3 Total Bilirubin 0.6 Direct Bilirubin 0.00 Indirect Bilirubin 0.6 Aspartate Amino 40 Transf (AST/SGOT) Alanine 63 Aminotransferase (AL T/SGPT) Alkaline Phosphatase 65 B-Type Natriuretic 912 H Peptide Total Protein 6.6 Albumin 3.7 Globulin 2.90 Albumin/Globulin 1.27 Ratio Digoxin Level < 0.4 L Medications Medication Current Medications Albuterol/ Ipratropium (Duoneb) 3 ml Q4 HHN Last administered on 10/16/18at 04:15; Admin Dose 3 ML; Start 10/11/18 at 21:00 Insulin Aspart (Novolog Insulin Pen) NOVOLOG *MODERATE* ALGORITHM WITH MEALS BEDTIME SC Last administered on 10/15/18at 20:49; Admin Dose 1 UNIT; Start 10/11/18 at 21:00 Zolpidem Tartrate (Ambien) 5 mg HS MAY REPEAT X 1 PRN PO INSOMNIA; Start 10/11/18 at 20:30 Ondansetron HCl (Zofran Inj) 4 mg Q4 PRN IV nausea; Start 10/11/18 at 20:30 Miscellaneous Information 1 ea NOTE XX ; Start 10/11/18 at 21:00 Glucose (Glutose) 15 gm Q15M PRN PO DECREASED GLUCOSE; Start 10/11/18 at 21:00 Glucose (Glutose) 22.5 gm Q15M PRN PO DECREASED GLUCOSE; Start 10/11/18 at 21:00 Dextrose (D50w Syringe) 25 ml Q15M PRN IV DECREASED GLUCOSE; Start 10/11/18 at 21:00 Dextrose (D50w Syringe) 50 ml Q15M PRN IV DECREASED GLUCOSE; Start 10/11/18 at 21:00 Glucagon (Glucagen) 1 mg Q15M PRN IM DECREASED GLUCOSE; Start 10/11/18 at 21:00 Glucose (Glutose) 15 gm Q15M PRN BUCCAL DECREASED GLUCOSE; Start 10/11/18 at 21:00 Promethazine HCl/ Dextromethorphan (Phenergan-Dm) 5 ml Q6 PRN PO COUGH; Start 10/11/18 at 21:00 Digoxin (Digoxin) 0.25 mg DAILY PO Last administered on 10/15/18at 08:42; Admin Dose 0.25 MG; Start 10/12/18 at 09:00 Furosemide (Lasix) 40 mg BID PO Last administered on 10/15/18at 20:33; Admin Dose 40 MG; Start 10/11/18 at 21:00 Atorvastatin Calcium (Lipitor) 20 mg DAILY@21 PO Last administered on 10/15/18 20:33; Admin Dose 20 MG; Start 10/11/18 at 22:30 Apixaban (Eliquis) 5 mg BID PO Last administered on 10/15/18 20:32; Admin Dose 5 MG; Start 10/12/18 at 12:30 Metoprolol Succinate (Toprol Xl) 50 mg BID PO Last administered on 10/15/18 20:34; Admin Dose 50 MG; Start 10/12/18 at 21:00 Methylprednisolone Sodium Succinate (Solu-Medrol) 60 mg Q6 IV Last administered on 10/16/18 05:23; Admin Dose 60 MG; Start 10/13/18 at 12:00 Cefepime HCl 50 ml @ 100 mls/hr Q8 IVPB Last administered on 10/16/18 05:23; Admin Dose 100 MLS/HR; Start 10/13/18 at 10:00 Vancomycin HCl (Vanco Iv Per Pharmacy) VANCOMYCIN PER PHARMACY PER PROTOCOL XX ; Start 10/13/18 at 09:30 Patient Own Medication 6 ea AM PO Last administered on 10/15/18 08:39; Admin Dose 6 EA; Start 10/13/18 at 13:00 Acetazolamide (Diamox) 250 mg BID PO Last administered on 10/15/18 20:34; Admin Dose 250 MG; Start 10/13/18 at 21:00 Vancomycin HCl 1.5 gm/Sodium Chloride 250 ml @ 83.333 mls/ hr Q12H IVPB Last administered on 10/15/18 23:07; Admin Dose 83.333 MLS/HR; Start 10/14/18 at 00:00 Metformin HCl (Glucophage Xr) 1,000 mg BID PO Last administered on 10/15/18 20:33; Admin Dose 1,000 MG; Start 10/14/18 at 21:00 Empaglifozin (Jardiance) 25 mg DAILY@08 PO Last administered on 10/15/18 08:40; Admin Dose 25 MG; Start 10/15/18 at 08:00 Diagnostic Test (Pha) (Accu-Chek) 1 ea 02 XX Last administered on 10/16/18 02:15; Admin Dose 1 EA; Start 10/15/18 at 02:00 Insulin Glargine (Lantus) 30 units DAILY@2000 SC Last administered on 10/15/18at 20:38; Admin Dose 30 UNITS; Start 10/14/18 at 20:00 Insulin Aspart (Novolog Insulin Pen) 14 unit WITH MEALS SC Last administered on 10/15/18at 17:40; Admin Dose 14 UNIT; Start 10/15/18 at 07:35 Linagliptin (Tradjenta) 5 mg DAILY PO Last administered on 10/15/18at 08:41; Admin Dose 5 MG; Start 10/15/18 at 09:00 NEDA STAHL MD Oct 16, 2018 07:55
[2018-10-16] MEDS: INSULIN ASPART [NOVOLOG] 3 ML PEN SC SCH ×7 (08:18→21:00)
[2018-10-16] MEDS: metFORMIN (XR) 500 MG TAB PO SCH ×2 (08:41→20:48)
[2018-10-16] MEDS: LINAGLIPTIN 5 MG TABLET PO SCH (08:43)
[2018-10-16] MEDS: DIGOXIN 0.25 MG TAB PO SCH (08:43)
[2018-10-16] MEDS: METOPROLOL (XL) 25 MG TAB PO SCH ×2 (08:44→20:49)
[2018-10-16] MEDS: FUROSEMIDE 40 MG TAB PO SCH (08:45)
[2018-10-16] MEDS: APIXABAN 5 MG TABLET PO SCH ×2 (08:46→20:48)
[2018-10-16] MEDS: EMPAGLIFLOZIN 10 MG TABLET PO SCH (08:56)
[2018-10-16] MEDS: ACETAZOLAMIDE 250 MG TAB PO SCH ×2 (08:56→20:48)
--- NOTE | 2018-10-16 10:17 | CONS ---
Consult Date/Type/Reason Admit Date/Time Oct 12, 2018 at 06:16 Initial Consult Date Type of Consult Pulmonary Requesting Provider: ROEL ALBA Date/Time of Note DATE: 10/16/18 TIME: 10:17 Subjective Patient continues high flow O2 though FiO2 is decreased to 90% today. Remains awake alert cough is becoming more productive. Objective Vital Signs Date Temp Pulse Resp B/P (MAP) Pulse Ox O2 O2 Flow FiO2 Time Delivery Rate 10/16/18 91 20 92 90 09:19 10/16/18 96/59 (71) High Flow 09:00 10/16/18 98.0 08:00 10/12/18 6.0 16:00 Intake and Output 10/15/18 10/15/18 10/16/18 1515:00 23:00 07:00 IntakeIntake Total 360 ml 3090 ml 1640 ml OutputOutput Total 525 ml 1975 ml 2000 ml BalanceBalance -165 ml 1115 ml -360 ml Exam GENERAL: Well-nourished well-developed gentleman on high flow O2. VITAL SIGNS: per chart NECK: Supple. No JVD or lymphadenopathy. CARDIAC EXAM: S1, S2. No added sounds or murmurs. CHEST: Diminished air entry bilaterally with rales ABDOMEN: Soft, nontender. No guarding or rebound. EXTREMITIES: No cyanosis, clubbing or edema. NEUROLOGIC: Generalized weakness. No focal deficits. Vent Setting Fraction of Inspired Oxygen pe: 90 Results/Medications Result Diagram: 10/15/18 0447 10/16/18 0508 Results 24 hrs Laboratory Tests Test 10/15/18 12:09 10/15/18 17:20 10/15/18 20:31 10/16/18 01:53 Bedside Glucose 182 201 197 200 Test 10/16/18 05:08 10/16/18 08:09 Sodium Level 139 Potassium Level 3.9 Chloride Level 99 Carbon Dioxide Level 30 Anion Gap 10 Blood Urea Nitrogen 27 H Creatinine 0.82 Est Glomerular > 60 Filtrat Rate mL/min Glucose Level 194 # Calcium Level 9.5 Magnesium Level 2.3 Total Bilirubin 0.6 Direct Bilirubin 0.00 Indirect Bilirubin 0.6 Aspartate Amino 40 Transf (AST/SGOT) Alanine 63 Aminotransferase (AL T/SGPT) Alkaline Phosphatase 65 B-Type Natriuretic 912 H Peptide Total Protein 6.6 Albumin 3.7 Globulin 2.90 Albumin/Globulin 1.27 Ratio Digoxin Level < 0.4 L Bedside Glucose 173 Medications Current Medications Albuterol/ Ipratropium (Duoneb) 3 ml Q4 HHN Last administered on 10/16/18at 09:18; Admin Dose 3 ML; Start 10/11/18 at 21:00 Insulin Aspart (Novolog Insulin Pen) NOVOLOG *MODERATE* ALGORITHM WITH MEALS BEDTIME SC Last administered on 10/16/18 08:22; Admin Dose 2 UNIT; Start 10/11/18 at 21:00 Zolpidem Tartrate (Ambien) 5 mg HS MAY REPEAT X 1 PRN PO INSOMNIA; Start 10/11/18 at 20:30 Ondansetron HCl (Zofran Inj) 4 mg Q4 PRN IV nausea; Start 10/11/18 at 20:30 Miscellaneous Information 1 ea NOTE XX ; Start 10/11/18 at 21:00 Glucose (Glutose) 15 gm Q15M PRN PO DECREASED GLUCOSE; Start 10/11/18 at 21:00 Glucose (Glutose) 22.5 gm Q15M PRN PO DECREASED GLUCOSE; Start 10/11/18 at 21:00 Dextrose (D50w Syringe) 25 ml Q15M PRN IV DECREASED GLUCOSE; Start 10/11/18 at 21:00 Dextrose (D50w Syringe) 50 ml Q15M PRN IV DECREASED GLUCOSE; Start 10/11/18 at 21:00 Glucagon (Glucagen) 1 mg Q15M PRN IM DECREASED GLUCOSE; Start 10/11/18 at 21:00 Glucose (Glutose) 15 gm Q15M PRN BUCCAL DECREASED GLUCOSE; Start 10/11/18 at 21:00 Promethazine HCl/ Dextromethorphan (Phenergan-Dm) 5 ml Q6 PRN PO COUGH; Start 10/11/18 at 21:00 Digoxin (Digoxin) 0.25 mg DAILY PO Last administered on 10/16/18at 08:43; Admin Dose 0.25 MG; Start 10/12/18 at 09:00 Furosemide (Lasix) 40 mg BID PO Last administered on 10/16/18at 08:45; Admin Dose 40 MG; Start 10/11/18 at 21:00 Atorvastatin Calcium (Lipitor) 20 mg DAILY@21 PO Last administered on 10/15/18at 20:33; Admin Dose 20 MG; Start 10/11/18 at 22:30 Apixaban (Eliquis) 5 mg BID PO Last administered on 10/16/18 08:46; Admin Dose 5 MG; Start 10/12/18 at 12:30 Metoprolol Succinate (Toprol Xl) 50 mg BID PO Last administered on 10/16/18 08:44; Admin Dose 50 MG; Start 10/12/18 at 21:00 Methylprednisolone Sodium Succinate (Solu-Medrol) 60 mg Q6 IV Last administered on 10/16/18 05:23; Admin Dose 60 MG; Start 10/13/18 at 12:00 Cefepime HCl 50 ml @ 100 mls/hr Q8 IVPB Last administered on 10/16/18 05:23; Admin Dose 100 MLS/HR; Start 10/13/18 at 10:00 Vancomycin HCl (Vanco Iv Per Pharmacy) VANCOMYCIN PER PHARMACY PER PROTOCOL XX ; Start 10/13/18 at 09:30 Patient Own Medication 6 ea AM PO Last administered on 10/15/18 08:39; Admin Dose 6 EA; Start 10/13/18 at 13:00 Acetazolamide (Diamox) 250 mg BID PO Last administered on 10/16/18 08:56; Admin Dose 250 MG; Start 10/13/18 at 21:00 Vancomycin HCl 1.5 gm/Sodium Chloride 250 ml @ 83.333 mls/ hr Q12H IVPB Last administered on 10/15/18 23:07; Admin Dose 83.333 MLS/HR; Start 10/14/18 at 00:00 Metformin HCl (Glucophage Xr) 1,000 mg BID PO Last administered on 10/16/18 08:41; Admin Dose 1,000 MG; Start 10/14/18 at 21:00 Empaglifozin (Jardiance) 25 mg DAILY@08 PO Last administered on 10/16/18 08:56; Admin Dose 25 MG; Start 10/15/18 at 08:00 Diagnostic Test (Pha) (Accu-Chek) 1 ea 02 XX Last administered on 10/16/18 02:15; Admin Dose 1 EA; Start 10/15/18 at 02:00 Insulin Glargine (Lantus) 30 units DAILY@2000 SC Last administered on 10/15/18 20:38; Admin Dose 30 UNITS; Start 10/14/18 at 20:00 Insulin Aspart (Novolog Insulin Pen) 14 unit WITH MEALS SC Last administered on 10/16/18at 08:18; Admin Dose 14 UNIT; Start 10/15/18 at 07:35 Linagliptin (Tradjenta) 5 mg DAILY PO Last administered on 10/16/18at 08:43; Admin Dose 5 MG; Start 10/15/18 at 09:00 Assessment/Plan Hospital Course (Demo Recall) IMPRESSION 1. Acute hypoxemic respiratory failure, likely secondary to acute tracheobronchitis. Bibasilar atelectasis noted but no significant pneumonic infiltrates or effusions. No evidence of intracardiac shunt 2. Right lower lobe pneumonia. No evidence of thromboembolic disease. During hypoxemia out of proportion to minimal radiographic changes. Plan 1. Incentive spirometry. 2. Bronchodilators. 3. Steroids., 4. Antibiotics. 5. Continue anticoagulation for atrial fibrillation. 6. Rate control. 7. DVT and GI prophylaxis. critical care time 40 minutes. TELMA CAI MD, [facility] Oct 16, 2018 10:17
--- NOTE | 2018-10-16 10:49 | PN ---
Date/Time of Note Date/Time of Note DATE: 10/16/18 TIME: 10:47 Subjective Doing well. No chest pain or shortness of breath. Coughing up prado sputum Objective Vitals Vital Signs Date Temp Pulse Resp B/P (MAP) Pulse Ox O2 O2 Flow FiO2 Time Delivery Rate 10/16/18 91 20 92 90 09:19 10/16/18 96/59 (71) High Flow 09:00 10/16/18 98.0 08:00 10/12/18 6.0 16:00 Intake and Output 10/15/18 10/15/18 10/16/18 1515:00 23:00 07:00 IntakeIntake Total 360 ml 3090 ml 1640 ml OutputOutput Total 525 ml 1975 ml 2000 ml BalanceBalance -165 ml 1115 ml -360 ml Bilateral rhonchi no wheezes Regular rate and rhythm no murmurs or gallops Soft nontender nondistended normoactive bowel sounds No edema Nonfocal Results Result Diagram: 10/15/18 0447 10/16/18 0508 Medications Medications Current Medications Albuterol/ Ipratropium (Duoneb) 3 ml Q4 HHN Last administered on 10/16/18at 09:18; Admin Dose 3 ML; Start 10/11/18 at 21:00 Insulin Aspart (Novolog Insulin Pen) NOVOLOG *MODERATE* ALGORITHM WITH MEALS BEDTIME SC Last administered on 10/16/18at 08:22; Admin Dose 2 UNIT; Start 10/11/18 at 21:00 Zolpidem Tartrate (Ambien) 5 mg HS MAY REPEAT X 1 PRN PO INSOMNIA; Start 10/11/18 at 20:30 Ondansetron HCl (Zofran Inj) 4 mg Q4 PRN IV nausea; Start 10/11/18 at 20:30 Miscellaneous Information 1 ea NOTE XX ; Start 10/11/18 at 21:00 Glucose (Glutose) 15 gm Q15M PRN PO DECREASED GLUCOSE; Start 10/11/18 at 21:00 Glucose (Glutose) 22.5 gm Q15M PRN PO DECREASED GLUCOSE; Start 10/11/18 at 21:00 Dextrose (D50w Syringe) 25 ml Q15M PRN IV DECREASED GLUCOSE; Start 10/11/18 at 21:00 Dextrose (D50w Syringe) 50 ml Q15M PRN IV DECREASED GLUCOSE; Start 10/11/18 at 21:00 Glucagon (Glucagen) 1 mg Q15M PRN IM DECREASED GLUCOSE; Start 10/11/18 at 21:00 Glucose (Glutose) 15 gm Q15M PRN BUCCAL DECREASED GLUCOSE; Start 10/11/18 at 21:00 Promethazine HCl/ Dextromethorphan (Phenergan-Dm) 5 ml Q6 PRN PO COUGH; Start 10/11/18 at 21:00 Digoxin (Digoxin) 0.25 mg DAILY PO Last administered on 10/16/18 08:43; Admin Dose 0.25 MG; Start 10/12/18 at 09:00 Atorvastatin Calcium (Lipitor) 20 mg DAILY@21 PO Last administered on 10/15/18 20:33; Admin Dose 20 MG; Start 10/11/18 at 22:30 Apixaban (Eliquis) 5 mg BID PO Last administered on 10/16/18 08:46; Admin Dose 5 MG; Start 10/12/18 at 12:30 Metoprolol Succinate (Toprol Xl) 50 mg BID PO Last administered on 10/16/18 08:44; Admin Dose 50 MG; Start 10/12/18 at 21:00 Methylprednisolone Sodium Succinate (Solu-Medrol) 60 mg Q6 IV Last administered on 10/16/18 05:23; Admin Dose 60 MG; Start 10/13/18 at 12:00 Cefepime HCl 50 ml @ 100 mls/hr Q8 IVPB Last administered on 10/16/18 05:23; Admin Dose 100 MLS/HR; Start 10/13/18 at 10:00 Vancomycin HCl (Vanco Iv Per Pharmacy) VANCOMYCIN PER PHARMACY PER PROTOCOL XX ; Start 10/13/18 at 09:30 Patient Own Medication 6 ea AM PO Last administered on 10/15/18 08:39; Admin Dose 6 EA; Start 10/13/18 at 13:00 Acetazolamide (Diamox) 250 mg BID PO Last administered on 10/16/18 08:56; Admin Dose 250 MG; Start 10/13/18 at 21:00 Vancomycin HCl 1.5 gm/Sodium Chloride 250 ml @ 83.333 mls/ hr Q12H IVPB Last administered on 10/15/18at 23:07; Admin Dose 83.333 MLS/HR; Start 10/14/18 at 0 0:00 Metformin HCl (Glucophage Xr) 1,000 mg BID PO Last administered on 10/16/18 08:41; Admin Dose 1,000 MG; Start 10/14/18 at 21:00 Empaglifozin (Jardiance) 25 mg DAILY@08 PO Last administered on 10/16/18 08:56; Admin Dose 25 MG; Start 10/15/18 at 08:00 Diagnostic Test (Pha) (Accu-Chek) 1 ea 02 XX Last administered on 10/16/18 02:15; Admin Dose 1 EA; Start 10/15/18 at 02:00 Insulin Glargine (Lantus) 30 units DAILY@2000 SC Last administered on 10/15/18 20:38; Admin Dose 30 UNITS; Start 10/14/18 at 20:00 Insulin Aspart (Novolog Insulin Pen) 14 unit WITH MEALS SC Last administered on 10/16/18 08:18; Admin Dose 14 UNIT; Start 10/15/18 at 07:35 Linagliptin (Tradjenta) 5 mg DAILY PO Last administered on 10/16/18 08:43; Admin Dose 5 MG; Start 10/15/18 at 09:00 Furosemide (Lasix) 40 mg BID DIURETICS IV ; Start 10/16/18 at 18:00 VTE Prophylaxis Risk score (from Nsg)>0 risk: 7 SCD applied (from Nsg): Yes Lines/Catheters IV Catheter Type: Saline Lock [place] in Place: No Assessment/Plan Assessment/Plan 62-year-old male with acute hypoxemic respiratory failure, high flow O2 has been decreased to 90% Left lower lobe pneumonia Sleep apnea Moderate obesity Hypertension Type 2 diabetes mellitus Continue current therapy Wean off high flow 02 Pulmonary follow-up Case was discussed with stock grader. The extent of hypoxia is out of prop ortion to imaging studies. ELI YARBROUGH MD Oct 16, 2018 10:49
[2018-10-16] MEDS ORDERED: POTASSIUM CHLORIDE (SR) 20 MEQ TAB PO STA (12:09)
--- NOTE | 2018-10-16 12:10 | CONS ---
Consult Date/Type/Reason Admit Date/Time Oct 12, 2018 at 06:16 Initial Consult Date 10/14/18 Type of Consultation: cv Requesting Provider: ROEL ALBA Date/Time of Note DATE: 10/16/18 TIME: 12:04 Subjective Interventional cardiology follow-up progress note/ critical care note Subjective: Case discussed with the staff telemetry was reviewed patient remains in atrial fibrillation. Heart rate is under fair control. Patient continues to be severely hypoxemic and 90% high flow oxygen. Discussed with family were at the bedside. Patient states his breathing has improved now no chest pain or pressure no palpitation + orthopnea and cough with lying down Objective: General: Obese gentleman in mild resp distress but on High flow O2 HEENT: NC/AT. pupils are equal. round. NECK: no stridor. CV: Regularly regular. systolic murmur; no gallop or rubs. PULM: no wheezing . + rhonchi. Right more than left side GI: SOFT, NT, ND, no rebound or guarding Extremity: trace B/L LE edema. no clubbing. neuro: awake and alert, OX3. Psych: calm and pleasant rectal: deferred echo Overall, normal left ventricular systolic function. Not all segments visualized. Normal left ventricular cavity size. Normal left ventricular wall thickness. Ejection fraction is visually estimated at 55 %. Abnormal Diastolic Function. Normal right ventricular systolic function. Mild enlargement of right ventricle.\ There is mild enlargement of left atrium. The right atrium is normal in size. Mild mitral valve regurgitation. No significant aortic stenosis or insufficiency. The estimated Peak RVSP is 50 mmHg. There is mild tricuspid regurgitation. Normal pericardium with no significant pericardial effusion. Objective Vitals Vital Signs Date Temp Pulse Resp B/P (MAP) Pulse Ox O2 O2 Flow FiO2 Time Delivery Rate 10/16/18 131 21 99/71 (80) 89 High Flow 11:00 10/16/18 90 09:19 10/16/18 98.0 08:00 10/12/18 6.0 16:00 Intake and Output 10/15/18 10/15/18 10/16/18 1515:00 23:00 07:00 IntakeIntake Total 360 ml 3090 ml 1640 ml OutputOutput Total 525 ml 1975 ml 2000 ml BalanceBalance -165 ml 1115 ml -360 ml Results/Medications Result Diagram: 10/15/18 0447 10/16/18 0508 Results 24 hrs Laboratory Tests Test 10/15/18 12:09 10/15/18 17:20 10/15/18 20:31 10/16/18 01:53 Bedside Glucose 182 201 197 200 Test 10/16/18 05:08 10/16/18 07:00 10/16/18 08:09 10/16/18 11:59 Sodium Level 139 Potassium Level 3.9 Chloride Level 99 Carbon Dioxide 30 Level Anion Gap 10 Blood Urea 27 H Nitrogen Creatinine 0.82 Est Glomerular > 60 Filtrat Rate mL/min Glucose Level 194 # Calcium Level 9.5 Magnesium Level 2.3 Total Bilirubin 0.6 Direct Bilirubin 0.00 Indirect 0.6 Bilirubin Aspartate Amino 40 Transf (AST/SGOT) Alanine 63 Aminotransferase (ALT/SGPT) Alkaline 65 Phosphatase B-Type 912 H Natriuretic Peptide Total Protein 6.6 Albumin 3.7 Globulin 2.90 Albumin/Globulin 1.27 Ratio Digoxin Level < 0.4 L Blood Gas Blood arterial Specimen Source Arterial Blood 10/16/2018 10:35: Date Drawn 02 AM Arterial Blood pH 7.404 (Temp corrected) Arterial Blood 40.7 pCO2 (Temp correct) Arterial Blood 75.5 L pO2 (Temp corrected) Arterial Blood 24.9 HCO3 Arterial Blood 0.1 Base Excess Arterial Blood 94.8 L Oxygen Saturation David Test ACCEPTAB Arterial Blood Right Radial Gas Puncture Site Arterial 0.4 Blood Carboxyhemo globin Arterial Blood 0.1 Methemoglobin Blood Gas A-a O2 524.5 H Differential Oxyhemoglobin 94.3 Percent Blood Gas 37.0 Temperature Blood Gas HFNC Modality FiO2 90.0 Blood Gas DT Notified Whom Blood Gas 10/16/2018 10:45: Notified Time 43 AM Bedside Glucose 173 221 H Home Meds Reported Medications Dextromethorphan Hb-Promethazine Hcl* (Promethazine DM* Syrup) 473 Ml Syrup, 5 ML PO Q6 PRN for COUGH, ML 10/11/18 Simvastatin* (Zocor*) 40 Mg Tablet, 40 MG PO QHS, #30 TAB 10/11/18 Empagliflozin (Jardiance) 10 Mg Tablet, 10 MG PO DAILY, TAB 10/11/18 Acetazolamide* (Acetazolamide*) 250 Mg Tablet, 250 MG PO BID, #60 TAB 10/11/18 Furosemide* (Furosemide*) 40 Mg Tablet, 40 MG PO BID, TAB 10/11/18 Apixaban* (Eliquis*) 5 Mg Tablet, 5 MG PO BID, TAB 10/11/18 Digoxin* (Digox*) 250 Mcg Tablet, 0.25 MG PO DAILY, TAB 10/11/18 Carvedilol* (Coreg*) 25 Mg Tablet, 25 MG PO BID, #60 TAB 10/11/18 Sildenafil Citrate* (Sildenafil Citrate*) 20 Mg Tablet, 20 MG PO NEEDED, TAB TAKE 3-5 TABS BEFORE SEXUAL ACTIVITY. 10/11/18 Bromocriptine Mesylate (CYCLOSET) 0.8 Mg Tablet, 4.8 MG PO QAM, TAB 10/11/18 Glimepiride* (Glimepiride*) 4 Mg Tablet, 4 MG PO WITH BREAKFAST DINNE, TAB 10/11/18 Metformin Hcl* (Metformin Hcl*) 1,000 Mg Tablet, 1000 MG PO WITH BREAKFAST DINNE, #60 TAB 10/11/18 Ergocalciferol (Vitamin D2) (VITAMIN D2) 50,000 Unit Capsule, 37256 UNIT PO Q7D, CAP 10/11/18 Discontinued Reported Medications Amoxicillin* (Amoxicillin*) 500 Mg Cap, 500 MG PO Q12H, #20 CAP 10/11/18 Dapagliflozin Propanediol (Farxiga) 10 Mg Tablet, 10 MG PO DAILY, #30 TAB 12/24/17 Simvastatin* (Zocor*) 40 Mg Tablet, 40 MG PO QHS, #30 TAB 12/24/17 Bromocriptine Mesylate (CYCLOSET) 0.8 Mg Tablet, 0.8 MG PO DAILY, TAB 12/24/17 Glimepiride* (Glimepiride*) 4 Mg Tablet, 4 MG PO WITH BREAKFAST DINNE, TAB 12/24/17 Ergocalciferol (Vitamin D2) (VITAMIN D2) 50,000 Unit Capsule, 34931 UNIT PO Q7D, CAP 12/24/17 Digoxin* (Digitek*) 250 Mcg Tablet, 0.25 MG PO DAILY, TAB 12/24/17 Apixaban* (Eliquis*) 5 Mg Tablet, 5 MG PO BID, TAB 12/24/17 Carvedilol* (Carvedilol*) 25 Mg Tablet, 25 MG PO BID, #60 TAB 12/24/17 Metformin Hcl* (Metformin Hcl*) 1,000 Mg Tablet, 1000 MG PO WITH BREAKFAST DINNE, #60 TAB 12/24/17 Discontinued Scripts Furosemide* (Furosemide*) 40 Mg Tablet, 40 MG PO BID DIURETICS for 30 Days, TAB 3 Refills Prov:ROEL ALBA 12/31/17 Medications Current Medications Albuterol/ Ipratropium (Duoneb) 3 ml Q4 HHN Last administered on 10/16/18at 09:18; Admin Dose 3 ML; Start 10/11/18 at 21:00 Insulin Aspart (Novolog Insulin Pen) NOVOLOG *MODERATE* ALGORITHM WITH MEALS BEDTIME SC Last administered on 10/16/18at 08:22; Admin Dose 2 UNIT; Start 10/11/18 at 21:00 Zolpidem Tartrate (Ambien) 5 mg HS MAY REPEAT X 1 PRN PO INSOMNIA; Start 10/11/18 at 20:30 Ondansetron HCl (Zofran Inj) 4 mg Q4 PRN IV nausea; Start 10/11/18 at 20:30 Miscellaneous Information 1 ea NOTE XX ; Start 10/11/18 at 21:00 Glucose (Glutose) 15 gm Q15M PRN PO DECREASED GLUCOSE; Start 10/11/18 at 21:00 Glucose (Glutose) 22.5 gm Q15M PRN PO DECREASED GLUCOSE; Start 10/11/18 at 21:00 Dextrose (D50w Syringe) 25 ml Q15M PRN IV DECREASED GLUCOSE; Start 10/11/18 at 21:00 Dextrose (D50w Syringe) 50 ml Q15M PRN IV DECREASED GLUCOSE; Start 10/11/18 at 21:00 Glucagon (Glucagen) 1 mg Q15M PRN IM DECREASED GLUCOSE; Start 10/11/18 at 21:00 Glucose (Glutose) 15 gm Q15M PRN BUCCAL DECREASED GLUCOSE; Start 10/11/18 at 21:00 Promethazine HCl/ Dextromethorphan (Phenergan-Dm) 5 ml Q6 PRN PO COUGH; Start 10/11/18 at 21:00 Digoxin (Digoxin) 0.25 mg DAILY PO Last administered on 10/16/18at 08:43; Admin Dose 0.25 MG; Start 10/12/18 at 09:00 Atorvastatin Calcium (Lipitor) 20 mg DAILY@21 PO Last administered on 10/15/18 20:33; Admin Dose 20 MG; Start 10/11/18 at 22:30 Apixaban (Eliquis) 5 mg BID PO Last administered on 10/16/18 08:46; Admin Dose 5 MG; Start 10/12/18 at 12:30 Metoprolol Succinate (Toprol Xl) 50 mg BID PO Last administered on 10/16/18 08:44; Admin Dose 50 MG; Start 10/12/18 at 21:00 Methylprednisolone Sodium Succinate (Solu-Medrol) 60 mg Q6 IV Last administered on 10/16/18 05:23; Admin Dose 60 MG; Start 10/13/18 at 12:00 Cefepime HCl 50 ml @ 100 mls/hr Q8 IVPB Last administered on 10/16/18 05:23; Admin Dose 100 MLS/HR; Start 10/13/18 at 10:00 Vancomycin HCl (Vanco Iv Per Pharmacy) VANCOMYCIN PER PHARMACY PER PROTOCOL XX ; Start 10/13/18 at 09:30 Patient Own Medication 6 ea AM PO Last administered on 10/15/18 08:39; Admin Dose 6 EA; Start 10/13/18 at 13:00 Acetazolamide (Diamox) 250 mg BID PO Last administered on 10/16/18 08:56; Admin Dose 250 MG; Start 10/13/18 at 21:00 Vancomycin HCl 1.5 gm/Sodium Chloride 250 ml @ 83.333 mls/ hr Q12H IVPB Last administered on 10/15/18 23:07; Admin Dose 83.333 MLS/HR; Start 10/14/18 at 00:00 Metformin HCl (Glucophage Xr) 1,000 mg BID PO Last administered on 10/16/18 08:41; Admin Dose 1,000 MG; Start 10/14/18 at 21:00 Empaglifozin (Jardiance) 25 mg DAILY@08 PO Last administered on 10/16/18 08:56; Admin Dose 25 MG; Start 10/15/18 at 08:00 Diagnostic Test (Pha) (Accu-Chek) 1 ea 02 XX Last administered on 10/16/18 02:15; Admin Dose 1 EA; Start 10/15/18 at 02:00 Insulin Glargine (Lantus) 30 units DAILY@2000 SC Last administered on 10/15/18at 20:38; Admin Dose 30 UNITS; Start 10/14/18 at 20:00 Insulin Aspart (Novolog Insulin Pen) 14 unit WITH MEALS SC Last administered on 10/16/18at 08:18; Admin Dose 14 UNIT; Start 10/15/18 at 07:35 Linagliptin (Tradjenta) 5 mg DAILY PO Last administered on 10/16/18at 08:43; Admin Dose 5 MG; Start 10/15/18 at 09:00 Furosemide (Lasix) 40 mg BID DIURETICS IV ; Start 10/16/18 at 18:00 Assessment/Plan Hospital Course (Demo Recall) 1. Severe hypoxemia 2. Pneumonia 3. Atrial fibrillation 4. Diabetes 5. Hypertension 6. pulm HTN Recommendations: Diabetic management as per endocrine consultation and internal medicine team. Continue with Eliquis for anticoagulation IV dig now. cont po dig and adjust as needed CHECK TSH. Continue oxygen supplementation. Currently on high flow oxygen at 90% Continue with the betablocker for for now Continue with ICU care for now. More than 32 minutes critical care time was for management treatment is critically patient excluding any procedures thank you for his referral. We will continue to follow along with you SAGE PILLAI MD [facility] SAGE PILLAI MD Oct 16, 2018 12:10
[2018-10-16] MEDS: SPIRONOLACTONE 25 MG TAB PO SCH (12:30)
[2018-10-16] MEDS ORDERED: DIGOXIN 500 MCG INJ IV ONE (12:30)
--- NOTE | 2018-10-16 14:23 | CONS ---
Assessment/Plan Assessment/Plan Problems: (1) Type 2 diabetes mellitus with hyperglycemia Status: Acute Comment: Blood glucose levels are suboptimal. Appears to require an increase in basal dose of insulin. Qualifiers: Diabetes mellitus care home insulin use: without care home use Qualified Codes: E11.65 - Type 2 diabetes mellitus with hyperglycemia Assessment/Plan (Daily) Increase Glargine to 36 units at HS Consultation Date/Type/Reason Admit Date/Time Oct 12, 2018 at 06:16 Initial Consult Date 10/14/18 Type of Consult Endocrine Reason for Consultation DM Type 2 management of glucose while on corticosteroids Requesting Provider: ROEL ALBA Date/Time of Note DATE: 10/16/18 TIME: 14:20 24 HR Interval Summary Free Text/Dictation Patient feels a little better. FIO2 decreased to 90% Exam/Review of Systems Exam Vitals Vital Signs Date Temp Pulse Resp B/P (MAP) Pulse Ox O2 O2 Flow FiO2 Time Delivery Rate 10/16/18 110 12:00 10/16/18 21 99/71 (80) 89 High Flow 11:00 10/16/18 90 09:19 10/16/18 98.0 08:00 10/12/18 6.0 16:00 Intake and Output 10/15/18 10/15/18 10/16/18 1515:00 23:00 07:00 IntakeIntake Total 360 ml 3090 ml 1640 ml OutputOutput Total 525 ml 1975 ml 2000 ml BalanceBalance -165 ml 1115 ml -360 ml Exam Family at bedside Constitutional: alert, oriented Respiratory: wheezing Cardiovascular: regular rate and rhythm Gastrointestinal: soft Musculoskeletal: nl extremities to inspection Additional Comments POC glucose reviewed Results Result Diagram: 10/15/18 0447 10/16/18 0508 Results 24hrs Laboratory Tests Test 10/15/18 17:20 10/15/18 20:31 10/16/18 01:53 10/16/18 05:08 Bedside Glucose 201 197 200 Sodium Level 139 Potassium Level 3.9 Chloride Level 99 Carbon Dioxide 30 Level Anion Gap 10 Blood Urea 27 H Nitrogen Creatinine 0.82 Est Glomerular > 60 Filtrat Rate mL/min Glucose Level 194 # Calcium Level 9.5 Magnesium Level 2.3 Total Bilirubin 0.6 Direct Bilirubin 0.00 Indirect 0.6 Bilirubin Aspartate Amino 40 Transf (AST/SGOT) Alanine 63 Aminotransferase (ALT/SGPT) Alkaline 65 Phosphatase B-Type 912 H Natriuretic Peptide Total Protein 6.6 Albumin 3.7 Globulin 2.90 Albumin/Globulin 1.27 Ratio Digoxin Level < 0.4 L Test 10/16/18 07:00 10/16/18 08:09 10/16/18 11:59 Blood Gas Blood arterial Specimen Source Arterial Blood 10/16/2018 10:35: Date Drawn 02 AM Arterial Blood pH 7.404 (Temp corrected) Arterial Blood 40.7 pCO2 (Temp correct) Arterial Blood 75.5 L pO2 (Temp corrected) Arterial Blood 24.9 HCO3 Arterial Blood 0.1 Base Excess Arterial Blood 94.8 L Oxygen Saturation David Test ACCEPTAB Arterial Blood Right Radial Gas Puncture Site Arterial 0.4 Blood Carboxyhemo globin Arterial Blood 0.1 Methemoglobin Blood Gas A-a O2 524.5 H Differential Oxyhemoglobin 94.3 Percent Blood Gas 37.0 Temperature Blood Gas HFNC Modality FiO2 90.0 Blood Gas DT Notified Whom Blood Gas 10/16/2018 10:45: Notified Time 43 AM Bedside Glucose 173 221 H Medications Medication Current Medications Albuterol/ Ipratropium (Duoneb) 3 ml Q4 HHN Last administered on 10/16/18at 09:18; Admin Dose 3 ML; Start 10/11/18 at 21:00 Insulin Aspart (Novolog Insulin Pen) NOVOLOG *MODERATE* ALGORITHM WITH MEALS BEDTIME SC Last administered on 10/16/18at 08:22; Admin Dose 2 UNIT; Start 10/11/18 at 21:00 Zolpidem Tartrate (Ambien) 5 mg HS MAY REPEAT X 1 PRN PO INSOMNIA; Start 10/11/18 at 20:30 Ondansetron HCl (Zofran Inj) 4 mg Q4 PRN IV nausea; Start 10/11/18 at 20:30 Miscellaneous Information 1 ea NOTE XX ; Start 10/11/18 at 21:00 Glucose (Glutose) 15 gm Q15M PRN PO DECREASED GLUCOSE; Start 10/11/18 at 21:00 Glucose (Glutose) 22.5 gm Q15M PRN PO DECREASED GLUCOSE; Start 10/11/18 at 21:00 Dextrose (D50w Syringe) 25 ml Q15M PRN IV DECREASED GLUCOSE; Start 10/11/18 at 21:00 Dextrose (D50w Syringe) 50 ml Q15M PRN IV DECREASED GLUCOSE; Start 10/11/18 at 21:00 Glucagon (Glucagen) 1 mg Q15M PRN IM DECREASED GLUCOSE; Start 10/11/18 at 21:00 Glucose (Glutose) 15 gm Q15M PRN BUCCAL DECREASED GLUCOSE; Start 10/11/18 at 21:00 Promethazine HCl/ Dextromethorphan (Phenergan-Dm) 5 ml Q6 PRN PO COUGH; Start 10/11/18 at 21:00 Digoxin (Digoxin) 0.25 mg DAILY PO Last administered on 10/16/18 08:43; Admin Dose 0.25 MG; Start 10/12/18 at 09:00 Atorvastatin Calcium (Lipitor) 20 mg DAILY@21 PO Last administered on 10/15/18 20:33; Admin Dose 20 MG; Start 10/11/18 at 22:30 Apixaban (Eliquis) 5 mg BID PO Last administered on 10/16/18 08:46; Admin Dose 5 MG; Start 10/12/18 at 12:30 Metoprolol Succinate (Toprol Xl) 50 mg BID PO Last administered on 10/16/18 08:44; Admin Dose 50 MG; Start 10/12/18 at 21:00 Methylprednisolone Sodium Succinate (Solu-Medrol) 60 mg Q6 IV Last administered on 10/16/18 05:23; Admin Dose 60 MG; Start 10/13/18 at 12:00 Cefepime HCl 50 ml @ 100 mls/hr Q8 IVPB Last administered on 10/16/18 05:23; Admin Dose 100 MLS/HR; Start 10/13/18 at 10:00 Vancomycin HCl (Vanco Iv Per Pharmacy) VANCOMYCIN PER PHARMACY PER PROTOCOL XX ; Start 10/13/18 at 09:30 Patient Own Medication 6 ea AM PO Last administered on 10/15/18 08:39; Admin Dose 6 EA; Start 10/13/18 at 13:00 Acetazolamide (Diamox) 250 mg BID PO Last administered on 10/16/18 08:56; Admin Dose 250 MG; Start 10/13/18 at 21:00 Vancomycin HCl 1.5 gm/Sodium Chloride 250 ml @ 83.333 mls/ hr Q12H IVPB Last administered on 10/15/18 23:07; Admin Dose 83.333 MLS/HR; Start 10/14/18 at 00:00 Metformin HCl (Glucophage Xr) 1,000 mg BID PO Last administered on 10/16/18at 08:41; Admin Dose 1,000 MG; Start 10/14/18 at 21:00 Empaglifozin (Jardiance) 25 mg DAILY@08 PO Last administered on 10/16/18at 08:56; Admin Dose 25 MG; Start 10/15/18 at 08:00 Diagnostic Test (Pha) (Accu-Chek) 1 ea 02 XX Last administered on 10/16/18at 02:15; Admin Dose 1 EA; Start 10/15/18 at 02:00 Insulin Aspart (Novolog Insulin Pen) 14 unit WITH MEALS SC Last administered on 10/16/18at 12:08; Admin Dose 14 UNIT; Start 10/15/18 at 07:35 Linagliptin (Tradjenta) 5 mg DAILY PO Last administered on 10/16/18at 08:43; Admin Dose 5 MG; Start 10/15/18 at 09:00 Furosemide (Lasix) 40 mg BID DIURETICS IV ; Start 10/16/18 at 18:00 Spironolactone (Aldactone) 25 mg DAILY PO ; Start 10/16/18 at 12:30 Insulin Glargine (Lantus) 36 units DAILY@2000 SC ; Start 10/16/18 at 20:00 CELIA MCCLELLAN MD Oct 16, 2018 14:23
[2018-10-16] MEDS: VANCOMYCIN HCL 1.5 GM in SOD CHLORIDE 0.9% 250 ML IVPB SCH ×2 (14:25→23:39)
[2018-10-16] MEDS: CYCLOSET PO SCH (16:02)
[2018-10-16] MEDS: FUROSEMIDE 40 MG INJ IV SCH (17:48)
[2018-10-16] MEDS: ATORVASTATIN 20 MG TAB PO SCH (20:48)
[2018-10-16] MEDS: INSULIN GLARGINE [LANTus] (100 UNITS/ML) SYG SC SCH (20:55)
[2018-10-17] VITALS (24 sets, daily range): BP systolic 85–118; BP diastolic 52–84; PULSE 83–131; RESP 11–28
[2018-10-17] MEDS: ALBUTEROL/IPRATROPIUM (NEB) 3 ML AMP HHN SCH ×6 (01:03→20:47)
[2018-10-17] MEDS: ACCU-CHEK XX SCH (02:00)
[2018-10-17] MEDS: METHYLPREDNISOLONE 125 MG INJ IV SCH ×3 (06:32→18:38)
[2018-10-17] MEDS: CEFEPIME 2GM/50 ML (PMX) 50 ML IVPB SCH ×3 (06:32→21:03)
[2018-10-17] MEDS: FUROSEMIDE 40 MG INJ IV SCH ×2 (06:33→18:37)
[2018-10-17] MEDS: INSULIN ASPART [NOVOLOG] 3 ML PEN SC SCH ×7 (08:25→21:00)
[2018-10-17] MEDS: SPIRONOLACTONE 25 MG TAB PO SCH (09:34)
[2018-10-17] MEDS: EMPAGLIFLOZIN 10 MG TABLET PO SCH (09:34)
[2018-10-17] MEDS: ACETAZOLAMIDE 250 MG TAB PO SCH ×2 (09:35→20:54)
[2018-10-17] MEDS: DIGOXIN 0.25 MG TAB PO SCH (09:35)
[2018-10-17] MEDS: APIXABAN 5 MG TABLET PO SCH ×2 (09:36→20:53)
[2018-10-17] MEDS: metFORMIN (XR) 500 MG TAB PO SCH ×2 (09:36→20:54)
[2018-10-17] MEDS: METOPROLOL (XL) 25 MG TAB PO SCH ×2 (09:37→20:55)
[2018-10-17] MEDS: LINAGLIPTIN 5 MG TABLET PO SCH (09:38)
--- NOTE | 2018-10-17 09:42 | CONS ---
Consult Date/Type/Reason Admit Date/Time Oct 12, 2018 at 06:16 Initial Consult Date Type of Consult Pulmonary Requesting Provider: ROEL ALBA Date/Time of Note DATE: 10/17/18 TIME: 09:41 Subjective Patient continues high flow O2 at 90% still has oxygen saturations in the low 90s to high 80s. Objective Vital Signs Date Temp Pulse Resp B/P (MAP) Pulse Ox O2 O2 Flow FiO2 Time Delivery Rate 10/17/18 91 90 09:05 10/17/18 102 16 Nasal 08:00 Cannula 10/17/18 98.0 108/75 06:00 (86) Intake and Output 10/16/18 10/16/18 10/17/18 1515:00 23:00 07:00 IntakeIntake Total 634 ml 568 ml 750 ml OutputOutput Total 2300 ml 600 ml 500 ml BalanceBalance -1666 ml -32 ml 250 ml Exam GENERAL: Well-nourished well-developed gentleman on high flow O2. VITAL SIGNS: per chart NECK: Supple. No JVD or lymphadenopathy. CARDIAC EXAM: S1, S2. No added sounds or murmurs. CHEST: Diminished air entry bilaterally with rales ABDOMEN: Soft, nontender. No guarding or rebound. EXTREMITIES: No cyanosis, clubbing or edema. NEUROLOGIC: Generalized weakness. No focal deficits. Vent Setting Fraction of Inspired Oxygen pe: 90 Results/Medications Result Diagram: 10/15/18 0447 10/16/18 0508 Results 24 hrs Laboratory Tests Test 10/16/18 11:59 10/16/18 17:12 10/16/18 20:33 10/17/18 04:51 Bedside Glucose 221 H 112 172 Magnesium Level 2.3 B-Type Natriuretic 649 H Peptide Thyroid Stimulating 0.092 L Hormone (TSH) Free Thyroxine 0.86 Test 10/17/18 08:21 Bedside Glucose 173 Medications Current Medications Albuterol/ Ipratropium (Duoneb) 3 ml Q4 HHN Last administered on 10/17/18at 08: 00; Admin Dose 3 ML; Start 10/11/18 at 21:00 Insulin Aspart (Novolog Insulin Pen) NOVOLOG *MODERATE* ALGORITHM WITH MEALS BEDTIME SC Last administered on 10/17/18at 08:26; Admin Dose 2 UNIT; Start at 21:00 Zolpidem Tartrate (Ambien) 5 mg HS MAY REPEAT X 1 PRN PO INSOMNIA; Start 10/11/18 at 20:30 Ondansetron HCl (Zofran Inj) 4 mg Q4 PRN IV nausea; Start 10/11/18 at 20:30 Miscellaneous Information 1 ea NOTE XX ; Start 10/11/18 at 21:00 Glucose (Glutose) 15 gm Q15M PRN PO DECREASED GLUCOSE; Start 10/11/18 at 21:00 Glucose (Glutose) 22.5 gm Q15M PRN PO DECREASED GLUCOSE; Start 10/11/18 at 21:00 Dextrose (D50w Syringe) 25 ml Q15M PRN IV DECREASED GLUCOSE; Start 10/11/18 at 21:00 Dextrose (D50w Syringe) 50 ml Q15M PRN IV DECREASED GLUCOSE; Start 10/11/18 at 21:00 Glucagon (Glucagen) 1 mg Q15M PRN IM DECREASED GLUCOSE; Start 10/11/18 at 21:00 Glucose (Glutose) 15 gm Q15M PRN BUCCAL DECREASED GLUCOSE; Start 10/11/18 at 21:00 Promethazine HCl/ Dextromethorphan (Phenergan-Dm) 5 ml Q6 PRN PO COUGH; Start 10/11/18 at 21:00 Digoxin (Digoxin) 0.25 mg DAILY PO Last administered on 10/16/18at 08:43; Admin Dose 0.25 MG; Start 10/12/18 at 09:00 Atorvastatin Calcium (Lipitor) 20 mg DAILY@21 PO Last administered on 10/16/18at 20:48; Admin Dose 20 MG; Start 10/11/18 at 22:30 Apixaban (Eliquis) 5 mg BID PO Last administered on 10/16/18at 20:48; Admin Dose 5 MG; Start 10/12/18 at 12:30 Metoprolol Succinate (Toprol Xl) 50 mg BID PO Last administered on 10/16/18at 20:49; Admin Dose 50 MG; Start 10/12/18 at 21:00 Methylprednisolone Sodium Succinate (Solu-Medrol) 60 mg Q6 IV Last administered on 10/17/18at 06:32; Admin Dose 60 MG; Start 10/13/18 at 12:00 Cefepime HCl 50 ml @ 100 mls/hr Q8 IVPB Last administered on 10/17/18 06:32; Admin Dose 100 MLS/HR; Start 10/13/18 at 10:00 Vancomycin HCl (Vanco Iv Per Pharmacy) VANCOMYCIN PER PHARMACY PER PROTOCOL XX ; Start 10/13/18 at 09:30 Patient Own Medication 6 ea AM PO Last administered on 10/16/18 16:02; Admin Dose 6 EA; Start 10/13/18 at 13:00 Acetazolamide (Diamox) 250 mg BID PO Last administered on 10/16/18 20:48; Admin Dose 250 MG; Start 10/13/18 at 21:00 Vancomycin HCl 1.5 gm/Sodium Chloride 250 ml @ 83.333 mls/ hr Q12H IVPB Last administered on 10/16/18 23:39; Admin Dose 83.333 MLS/HR; Start 10/14/18 at 00:00 Metformin HCl (Glucophage Xr) 1,000 mg BID PO Last administered on 10/16/18 20:48; Admin Dose 1,000 MG; Start 10/14/18 at 21:00 Empaglifozin (Jardiance) 25 mg DAILY@08 PO Last administered on 10/16/18 08:56; Admin Dose 25 MG; Start 10/15/18 at 08:00 Diagnostic Test (Pha) (Accu-Chek) 1 ea 02 XX Last administered on 10/16/18 02:15; Admin Dose 1 EA; Start 10/15/18 at 02:00 Linagliptin (Tradjenta) 5 mg DAILY PO Last administered on 10/16/18 08:43; Admin Dose 5 MG; Start 10/15/18 at 09:00 Furosemide (Lasix) 40 mg BID DIURETICS IV Last administered on 10/17/18 06:33; Admin Dose 40 MG; Start 10/16/18 at 18:00 Spironolactone (Aldactone) 25 mg DAILY PO Last administered on 10/16/18 12:30; Admin Dose 25 MG; Start 10/16/18 at 12:30 Insulin Glargine (Lantus) 36 units DAILY@2000 SC Last administered on 10/16/18 20:55; Admin Dose 36 UNITS; Start 10/16/18 at 20:00 Insulin Aspart (Novolog Insulin Pen) 18 unit WITH MEALS SC ; Start 10/17/18 at 11:30 Assessment/Plan Hospital Course (Demo Recall) IMPRESSION 1. Acute hypoxemic respiratory failure, likely secondary to acute tracheobronchitis. Bibasilar atelectasis noted but no significant pneumonic in filtrates or effusions. No evidence of intracardiac shunt. Persistent hypoxemia however despite prolonged steroids and antibiotics. 2. Right lower lobe pneumonia. No evidence of thromboembolic disease. During hypoxemia out of proportion to minimal radiographic changes. Plan 1. Incentive spirometry. 2. Bronchodilators. 3. Steroids., 4. Antibiotics. 5. Continue anticoagulation for atrial fibrillation. 6. Rate control. 7. DVT and GI prophylaxis. critical care time 40 minutes. TELMA CAI MD, [facility] Oct 17, 2018 09:42
[2018-10-17] MEDS: CYCLOSET PO SCH (09:43)
--- NOTE | 2018-10-17 10:02 | PN ---
Date/Time of Note Date/Time of Note DATE: 10/17/18 TIME: 10:00 Subjective Alert and comfortable. No complaint of shortness of breath or chest pain. Remains on high flow to Objective Vitals Vital Signs Date Temp Pulse Resp B/P (MAP) Pulse Ox O2 O2 Flow FiO2 Time Delivery Rate 10/17/18 91 90 09:05 10/17/18 102 16 Nasal 08:00 Cannula 10/17/18 98.0 108/75 06:00 (86) Intake and Output 10/16/18 10/16/18 10/17/18 1515:00 23:00 07:00 IntakeIntake Total 634 ml 568 ml 750 ml OutputOutput Total 2300 ml 600 ml 500 ml BalanceBalance -1666 ml -32 ml 250 ml Bilateral rhonchi and rales Regular rate and rhythm Soft nontender nondistended normoactive bowel sounds No edema Nonfocal Results Result Diagram: 10/15/18 0447 10/16/18 0508 Medications Medications Current Medications Albuterol/ Ipratropium (Duoneb) 3 ml Q4 HHN Last administered on 10/17/18at 08:00; Admin Dose 3 ML; Start 10/11/18 at 21:00 Insulin Aspart (Novolog Insulin Pen) NOVOLOG *MODERATE* ALGORITHM WITH MEALS BEDTIME SC Last administered on 10/17/18at 08:26; Admin Dose 2 UNIT; Start 10/11/18 at 21:00 Zolpidem Tartrate (Ambien) 5 mg HS MAY REPEAT X 1 PRN PO INSOMNIA; Start 10/11/18 at 20:30 Ondansetron HCl (Zofran Inj) 4 mg Q4 PRN IV nausea; Start 10/11/18 at 20:30 Miscellaneous Information 1 ea NOTE XX ; Start 10/11/18 at 21:00 Glucose (Glutose) 15 gm Q15M PRN PO DECREASED GLUCOSE; Start 10/11/18 at 21:00 Glucose (Glutose) 22.5 gm Q15M PRN PO DECREASED GLUCOSE; Start 10/11/18 at 21:00 Dextrose (D50w Syringe) 25 ml Q15M PRN IV DECREASED GLUCOSE; Start 10/11/18 at 21:00 Dextrose (D50w Syringe) 50 ml Q15M PRN IV DECREASED GLUCOSE; Start 10/11/18 at 21:00 Glucagon (Glucagen) 1 mg Q15M PRN IM DECREASED GLUCOSE; Start 10/11/18 at 21:00 Glucose (Glutose) 15 gm Q15M PRN BUCCAL DECREASED GLUCOSE; Start 10/11/18 at 21:00 Promethazine HCl/ Dextromethorphan (Phenergan-Dm) 5 ml Q6 PRN PO COUGH; Start 10/11/18 at 21:00 Digoxin (Digoxin) 0.25 mg DAILY PO Last administered on 10/17/18 09:35; Admin Dose 0.25 MG; Start 10/12/18 at 09:00 Atorvastatin Calcium (Lipitor) 20 mg DAILY@21 PO Last administered on 10/16/18 20:48; Admin Dose 20 MG; Start 10/11/18 at 22:30 Apixaban (Eliquis) 5 mg BID PO Last administered on 10/17/18 09:36; Admin Dose 5 MG; Start 10/12/18 at 12:30 Metoprolol Succinate (Toprol Xl) 50 mg BID PO Last administered on 10/17/18 09:37; Admin Dose 50 MG; Start 10/12/18 at 21:00 Methylprednisolone Sodium Succinate (Solu-Medrol) 60 mg Q6 IV Last administered on 10/17/18 06:32; Admin Dose 60 MG; Start 10/13/18 at 12:00 Cefepime HCl 50 ml @ 100 mls/hr Q8 IVPB Last administered on 10/17/18 06:32; Admin Dose 100 MLS/HR; Start 10/13/18 at 10:00 Vancomycin HCl (Vanco Iv Per Pharmacy) VANCOMYCIN PER PHARMACY PER PROTOCOL XX ; Start 10/13/18 at 09:30 Patient Own Medication 6 ea AM PO Last administered on 10/17/18 09:43; Admin Dose 6 EA; Start 10/13/18 at 13:00 Acetazolamide (Diamox) 250 mg BID PO Last administered on 10/17/18 09:35; Admin Dose 250 MG; Start 10/13/18 at 21:00 Vancomycin HCl 1.5 gm/Sodium Chloride 250 ml @ 83.333 mls/ hr Q12H IVPB Last administered on 10/16/18 23:39; Admin Dose 83.333 MLS/HR; Start 10/14/18 at 00:00 Metformin HCl (Glucophage Xr) 1,000 mg BID PO Last administered on 10/17/18 09:36; Admin Dose 1,000 MG; Start 10/14/18 at 21:00 Empaglifozin (Jardiance) 25 mg DAILY@08 PO Last administered on 10/17/18 09:34; Admin Dose 25 MG; Start 10/15/18 at 08:00 Diagnostic Test (Pha) (Accu-Chek) 1 ea 02 XX Last administered on 10/16/18at 02:15; Admin Dose 1 EA; Start 10/15/18 at 02:00 Linagliptin (Tradjenta) 5 mg DAILY PO Last administered on 10/17/18 09:38; Admin Dose 5 MG; Start 10/15/18 at 09:00 Furosemide (Lasix) 40 mg BID DIURETICS IV Last administered on 10/17/18 06:33; Admin Dose 40 MG; Start 10/16/18 at 18:00 Spironolactone (Aldactone) 25 mg DAILY PO Last administered on 10/17/18 09:34; Admin Dose 25 MG; Start 10/16/18 at 12:30 Insulin Glargine (Lantus) 36 units DAILY@2000 SC Last administered on 10/16/18 20:55; Admin Dose 36 UNITS; Start 10/16/18 at 20:00 Insulin Aspart (Novolog Insulin Pen) 18 unit WITH MEALS SC ; Start 10/17/18 at 11:30 VTE Prophylaxis Risk score (from Nsg)>0 risk: 5 SCD applied (from Nsg): Yes Lines/Catheters IV Catheter Type: Saline Lock [place] in Place: No Assessment/Plan Assessment/Plan 62-year-old male with acute hypoxemic respiratory failure, on high flow O2 90% Left lower lobe pneumonia Moderate obesity Sleep apnea Type 2 diabetes mellitus Continue current therapy Wean off high flow O2 Pulmonary follow-up ELI YARBROUGH MD Oct 17, 2018 10:02
--- NOTE | 2018-10-17 11:26 | CONS ---
Assessment/Plan Assessment/Plan Hospital Course (Demo Recall) Respiratory failure with persistent hypoxia PNA Acute decompensated systolic and diastolic congestive heart failure History of cardiomyopathy, current left ventricular ejection fraction 50-55% Pulmonary hypertension Chronic Atrial Fibrillation DM Patient with less shortness of breath but continues to require significant oxygen supplementation Repeat echocardiogram with negative bubble study. PA pressures were in the high 60s. Lasix has been switched to IV. If no significant improvement in hypoxia, would consider a trial of sildenafil Antibiotics as per infectious disease Continue beta-blockers heart rate and blood pressure permits Cont Eliquis if no contraindication Consultation Date/Type/Reason Admit Date/Time Oct 12, 2018 at 06:16 Initial Consult Date Type of Consult Cardiology Requesting Provider: ROEL ALBA Date/Time of Note DATE: 10/17/18 TIME: 11:23 24 HR Interval Summary Free Text/Dictation Denies chest pain, palpitations. Shortness of breath is present but improved Exam/Review of Systems Vital Signs Vitals Vital Signs Date Temp Pulse Resp B/P (MAP) Pulse Ox O2 O2 Flow FiO2 Time Delivery Rate 10/17/18 91 90 09:05 10/17/18 102 16 Nasal 08:00 Cannula 10/17/18 98.0 108/75 06:00 (86) Intake and Output 10/16/18 10/16/18 10/17/18 1515:00 23:00 07:00 IntakeIntake Total 634 ml 568 ml 750 ml OutputOutput Total 2300 ml 600 ml 500 ml BalanceBalance -1666 ml -32 ml 250 ml Exam Constitutional: alert, oriented (Distant with excessively speaking) Head: normocephalic Respiratory: other (Coarse breath sounds bilaterally, scattered rhonchi, mild end expiratory wheeze) Cardiovascular: irregular rhythm, other (S1-S2 heard) Gastrointestinal: soft, non-tender, bowel sounds Extremities: edema Labs Result Diagram: 10/17/1837 10/17/18936 Results 24hrs Laboratory Tests Test 10/16/18 11:59 10/16/18 17:12 10/16/18 20:33 10/17/18 04:51 Bedside Glucose 221 H 112 172 Magnesium Level 2.3 B-Type Natriuretic 649 H Peptide Thyroid Stimulating 0.092 L Hormone (TSH) Free Thyroxine 0.86 Test 10/17/18 08:21 10/17/18 09:37 Bedside Glucose 173 White Blood Count 13.6 H Red Blood Count 5.54 Hemoglobin 14.2 Hematocrit 45.4 Mean Corpuscular 81.9 L Volume Mean Corpuscular 25.6 L Hemoglobin Mean Corpuscular 31.3 L Hemoglobin Concent Red Cell Distribution 16.2 H Width Platelet Count 217 Mean Platelet Volume 10.4 Immature Granulocytes 0.900 H % Neutrophils % 90.4 H Lymphocytes % 5.6 L Monocytes % 3.0 Eosinophils % 0.0 Basophils % 0.1 Nucleated Red Blood 0.0 Cells % Immature Granulocytes 0.120 H # Neutrophils # 12.3 H Lymphocytes # 0.8 Monocytes # 0.4 Eosinophils # 0.0 Basophils # 0.0 Nucleated Red Blood 0.0 Cells # Sodium Level 139 Potassium Level 3.9 Chloride Level 96 L Carbon Dioxide Level 30 Anion Gap 13 Blood Urea Nitrogen 31 H Creatinine 0.90 Est Glomerular > 60 Filtrat Rate mL/min Glucose Level 215 Calcium Level 9.4 Medications Medications Current Medications Albuterol/ Ipratropium (Duoneb) 3 ml Q4 HHN Last administered on 10/17/18at 08:00; Admin Dose 3 ML; Start 10/11/18 at 21:00 Insulin Aspart (Novolog Insulin Pen) NOVOLOG *MODERATE* ALGORITHM WITH MEALS BE DTIME SC Last administered on 10/17/18at 08:26; Admin Dose 2 UNIT; Start 10/11/18 at 21:00 Zolpidem Tartrate (Ambien) 5 mg HS MAY REPEAT X 1 PRN PO INSOMNIA; Start 10/11/18 at 20:30 Ondansetron HCl (Zofran Inj) 4 mg Q4 PRN IV nausea; Start 10/11/18 at 20:30 Miscellaneous Information 1 ea NOTE XX ; Start 10/11/18 at 21:00 Glucose (Glutose) 15 gm Q15M PRN PO DECREASED GLUCOSE; Start 10/11/18 at 21:00 Glucose (Glutose) 22.5 gm Q15M PRN PO DECREASED GLUCOSE; Start 10/11/18 at 21:00 Dextrose (D50w Syringe) 25 ml Q15M PRN IV DECREASED GLUCOSE; Start 10/11/18 at 21:00 Dextrose (D50w Syringe) 50 ml Q15M PRN IV DECREASED GLUCOSE; Start 10/11/18 at 21:00 Glucagon (Glucagen) 1 mg Q15M PRN IM DECREASED GLUCOSE; Start 10/11/18 at 21:00 Glucose (Glutose) 15 gm Q15M PRN BUCCAL DECREASED GLUCOSE; Start 10/11/18 at 21:00 Promethazine HCl/ Dextromethorphan (Phenergan-Dm) 5 ml Q6 PRN PO COUGH; Start 10/11/18 at 21:00 Digoxin (Digoxin) 0.25 mg DAILY PO Last administered on 10/17/18 09:35; Admin D ose 0.25 MG; Start 10/12/18 at 09:00 Atorvastatin Calcium (Lipitor) 20 mg DAILY@21 PO Last administered on 10/16/18 20:48; Admin Dose 20 MG; Start 10/11/18 at 22:30 Apixaban (Eliquis) 5 mg BID PO Last administered on 10/17/18 09:36; Admin Dose 5 MG; Start 10/12/18 at 12:30 Metoprolol Succinate (Toprol Xl) 50 mg BID PO Last administered on 10/17/18 09:37; Admin Dose 50 MG; Start 10/12/18 at 21:00 Methylprednisolone Sodium Succinate (Solu-Medrol) 60 mg Q6 IV Last administered on 10/17/18 06:32; Admin Dose 60 MG; Start 10/13/18 at 12:00 Cefepime HCl 50 ml @ 100 mls/hr Q8 IVPB Last administered on 10/17/18 06:32; Admin Dose 100 MLS/HR; Start 10/13/18 at 10:00 Patient Own Medication 6 ea AM PO Last administered on 10/17/18 09:43; Admin Dose 6 EA; Start 10/13/18 at 13:00 Acetazolamide (Diamox) 250 mg BID PO Last administered on 10/17/18 09:35; Admin Dose 250 MG; Start 10/13/18 at 21:00 Metformin HCl (Glucophage Xr) 1,000 mg BID PO Last administered on 10/17/18 09:36; Admin Dose 1,000 MG; Start 10/14/18 at 21:00 Empaglifozin (Jardiance) 25 mg DAILY@08 PO Last administered on 10/17/18 09:34; Admin Dose 25 MG; Start 10/15/18 at 08:00 Diagnostic Test (Pha) (Accu-Chek) 1 ea 02 XX Last administered on 10/16/18at 02:15; Admin Dose 1 EA; Start 10/15/18 at 02:00 Linagliptin (Tradjenta) 5 mg DAILY PO Last administered on 10/17/18at 09:38; Admin Dose 5 MG; Start 10/15/18 at 09:00 Furosemide (Lasix) 40 mg BID DIURETICS IV Last administered on 10/17/18at 06:33; Admin Dose 40 MG; Start 10/16/18 at 18:00 Spironolactone (Aldactone) 25 mg DAILY PO Last administered on 10/17/18at 09:34; Admin Dose 25 MG; Start 10/16/18 at 12:30 Insulin Glargine (Lantus) 36 units DAILY@2000 SC Last administered on 10/16/18at 20:55; Admin Dose 36 UNITS; Start 10/16/18 at 20:00 Insulin Aspart (Novolog Insulin Pen) 18 unit WITH MEALS SC ; Start 10/17/18 at 11:30 Rocael Poole DO Oct 17, 2018 11:26
--- NOTE | 2018-10-17 11:49 | CONS ---
Assessment/Plan Assessment/Plan Assessment/Plan (Daily) 1. Metabolic alkalosis on Acetazolamide 250mg BID , HCO3 30, BUN/Cr 31/0.9, WBC 12 1. Acute Hypoxic respiratory failure, likely secondary to reactive airway and pneumonia, patient seems to be euvolemic for now.- on IV abx cefepime and vancomycin< renally dose all abx and monitor electrolytes 2. Atrial fibrillation, chronic, rate controlled. 3. Congestive heart failure, diastolic dysfunction, chronic, currently euvolemic. Echocardiogram with EF of 55%.- on lasix 40mg pO BID Continue current medication, patient on oral Lasix daily. 4. Diabetes mellitus Type II with acute hyperglycemia 5. Hypertension Consultation Date/Type/Reason Admit Date/Time Oct 12, 2018 at 06:16 Initial Consult Date 10/14/18 Type of Consult NEPHROLOGY Requesting Provider: ROEL ALBA Date/Time of Note DATE: 10/17/18 TIME: 11:49 Exam/Review of Systems Exam Vitals Vital Signs Date Temp Pulse Resp B/P (MAP) Pulse Ox O2 O2 Flow FiO2 Time Delivery Rate 10/17/18 91 90 11:29 10/17/18 102 16 Nasal 08:00 Cannula 10/17/18 98.0 108/75 06:00 (86) Intake and Output 10/16/18 10/16/18 10/17/18 1515:00 23:00 07:00 IntakeIntake Total 634 ml 568 ml 750 ml OutputOutput Total 2300 ml 600 ml 500 ml BalanceBalance -1666 ml -32 ml 250 ml Results Result Diagram: 10/17/18 0937 10/17/18 0937 Results 24hrs Laboratory Tests Test 10/16/18 11:59 10/16/18 17:12 10/16/18 20:33 10/17/18 04:51 Bedside Glucose 221 H 112 172 Magnesium Level 2.3 B-Type Natriuretic 649 H Peptide Thyroid Stimulating 0.092 L Hormone (TSH) Free Thyroxine 0.86 Test 10/17/18 08:21 10/17/18 09:37 Bedside Glucose 173 White Blood Count 13.6 H Red Blood Count 5.54 Hemoglobin 14.2 Hematocrit 45.4 Mean Corpuscular 81.9 L Volume Mean Corpuscular 25.6 L Hemoglobin Mean Corpuscular 31.3 L Hemoglobin Concent Red Cell Distribution 16.2 H Width Platelet Count 217 Mean Platelet Volume 10.4 Immature Granulocytes 0.900 H % Neutrophils % 90.4 H Lymphocytes % 5.6 L Monocytes % 3.0 Eosinophils % 0.0 Basophils % 0.1 Nucleated Red Blood 0.0 Cells % Immature Granulocytes 0.120 H # Neutrophils # 12.3 H Lymphocytes # 0.8 Monocytes # 0.4 Eosinophils # 0.0 Basophils # 0.0 Nucleated Red Blood 0.0 Cells # Sodium Level 139 Potassium Level 3.9 Chloride Level 96 L Carbon Dioxide Level 30 Anion Gap 13 Blood Urea Nitrogen 31 H Creatinine 0.90 Est Glomerular > 60 Filtrat Rate mL/min Glucose Level 215 Calcium Level 9.4 Medications Medication Current Medications Albuterol/ Ipratropium (Duoneb) 3 ml Q4 HHN Last administered on 10/17/18at 08:00; Admin Dose 3 ML; Start 10/11/18 at 21:00 Insulin Aspart (Novolog Insulin Pen) NOVOLOG *MODERATE* ALGORITHM WITH MEALS BEDTIME SC Last administered on 10/17/18at 08:26; Admin Dose 2 UNIT; Start 10/11/18 at 21:00 Zolpidem Tartrate (Ambien) 5 mg HS MAY REPEAT X 1 PRN PO INSOMNIA; Start 10/11/18 at 20:30 Ondansetron HCl (Zofran Inj) 4 mg Q4 PRN IV nausea; Start 10/11/18 at 20:30 Miscellaneous Information 1 ea NOTE XX ; Start 10/11/18 at 21:00 Glucose (Glutose) 15 gm Q15M PRN PO DECREASED GLUCOSE; Start 10/11/18 at 21:00 Glucose (Glutose) 22.5 gm Q15M PRN PO DECREASED GLUCOSE; Start 10/11/18 at 2 1:00 Dextrose (D50w Syringe) 25 ml Q15M PRN IV DECREASED GLUCOSE; Start 10/11/18 at 21:00 Dextrose (D50w Syringe) 50 ml Q15M PRN IV DECREASED GLUCOSE; Start 10/11/18 at 21:00 Glucagon (Glucagen) 1 mg Q15M PRN IM DECREASED GLUCOSE; Start 10/11/18 at 21:00 Glucose (Glutose) 15 gm Q15M PRN BUCCAL DECREASED GLUCOSE; Start 10/11/18 at 21:00 Promethazine HCl/ Dextromethorphan (Phenergan-Dm) 5 ml Q6 PRN PO COUGH; Start 10/11/18 at 21:00 Digoxin (Digoxin) 0.25 mg DAILY PO Last administered on 10/17/18 09:35; Admin Dose 0.25 MG; Start 10/12/18 at 09:00 Atorvastatin Calcium (Lipitor) 20 mg DAILY@21 PO Last administered on 10/16/18 20:48; Admin Dose 20 MG; Start 10/11/18 at 22:30 Apixaban (Eliquis) 5 mg BID PO Last administered on 10/17/18 09:36; Admin Dose 5 MG; Start 10/12/18 at 12:30 Metoprolol Succinate (Toprol Xl) 50 mg BID PO Last administered on 10/17/18 09:37; Admin Dose 50 MG; Start 10/12/18 at 21:00 Methylprednisolone Sodium Succinate (Solu-Medrol) 60 mg Q6 IV Last administered on 10/17/18 06:32; Admin Dose 60 MG; Start 10/13/18 at 12:00 Cefepime HCl 50 ml @ 100 mls/hr Q8 IVPB Last administered on 10/17/18 06:32; Admin Dose 100 MLS/HR; Start 10/13/18 at 10:00 Patient Own Medication 6 ea AM PO Last administered on 10/17/18 09:43; Admin Dose 6 EA; Start 10/13/18 at 13:00 Acetazolamide (Diamox) 250 mg BID PO Last administered on 10/17/18 09:35; Admin Dose 250 MG; Start 10/13/18 at 21:00 Metformin HCl (Glucophage Xr) 1,000 mg BID PO Last administered on 10/17/18 09 :36; Admin Dose 1,000 MG; Start 10/14/18 at 21:00 Empaglifozin (Jardiance) 25 mg DAILY@08 PO Last administered on 10/17/18 09:34; Admin Dose 25 MG; Start 10/15/18 at 08:00 Diagnostic Test (Pha) (Accu-Chek) 1 ea 02 XX Last administered on 10/16/18 02:15; Admin Dose 1 EA; Start 10/15/18 at 02:00 Linagliptin (Tradjenta) 5 mg DAILY PO Last administered on 7/1/19at 09:38; Admin Dose 5 MG; Start 10/15/18 at 09:00 Furosemide (Lasix) 40 mg BID DIURETICS IV Last administered on 10/17/18at 06:33; Admin Dose 40 MG; Start 10/16/18 at 18:00 Spironolactone (Aldactone) 25 mg DAILY PO Last administered on 10/17/18at 09:34; Admin Dose 25 MG; Start 10/16/18 at 12:30 Insulin Glargine (Lantus) 36 units DAILY@2000 SC Last administered on 10/16/18at 20:55; Admin Dose 36 UNITS; Start 10/16/18 at 20:00 Insulin Aspart (Novolog Insulin Pen) 18 unit WITH MEALS SC ; Start 10/17/18 at 11:30 NEDA STAHL MD Oct 17, 2018 11:49
--- NOTE | 2018-10-17 18:15 | CONS ---
Assessment/Plan Assessment/Plan Problems: (1) Type 2 diabetes mellitus without complications Status: Chronic Comment: Marked improvement in glycemic control while on steroids. Still w/ occ. post-prandial hyperglycemia. Will increase Novolog from 14 to 18 units qac. Will follow and continue to adjust insulin and oral med doses to optimization. 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: without jail use Qualified Codes: E11.9 - Type 2 diabetes mellitus without complications Consultation Date/Type/Reason Admit Date/Time Oct 12, 2018 at 06:16 Initial Consult Date 10/14/18 Type of Consult Endocrinology Reason for Consultation T2DM management Requesting Provider: ROEL ALBA Date/Time of Note DATE: 10/17/18 TIME: 18:13 24 HR Interval Summary Constitutional: no complaints, improved, requiring O2 Detailed Summary Respiratory: cough, shortness of breath (breathing better) Cardiovascular: no complaints Gastrointestinal: no complaints Genitourinary: no complaints Musculoskeletal: no complaints Neurologic: no complaints Exam/Review of Systems Exam Vitals VS - Last 72 Hours, by Label Date Temp Pulse Resp B/P (MAP) Pulse Ox O2 O2 Flow FiO2 Time Delivery Rate 10/17/18 97 75 17:06 10/17/18 106 20 97 Nasal 75 17:05 Cannula 10/17/18 100 16:00 10/17/18 98.3 105 15 118/74 94 High Flow 16:00 (89) 10/17/18 99 18 106/69 94 High Flow 15:00 (81) 10/17/18 94 85 14:54 10/17/18 104 22 94/71 (79) 95 High Flow 14:00 10/17/18 94 19 96 Nasal 90 13:24 Cannula 10/17/18 94 90 13:23 10/17/18 100 18 96/78 (84) 93 High Flow 13:00 10/17/18 131 12:00 10/17/18 98.0 124 28 85/71 (76) 96 High Flow 12:00 10/17/18 91 90 11:29 10/17/18 110 18 89/52 (64) 91 High Flow 11:00 10/17/18 113 21 96/68 (77) 92 High Flow 10:00 10/17/18 91 90 09:05 10/17/18 99 14 112/76 88 High Flow 09:00 (88) 10/17/18 98.9 94 17 112/81 91 High Flow 08:00 (91) 10/17/18 Vapotherm 08:00 10/17/18 102 16 91 Nasal 90 08:00 Cannula 10/17/18 98 08:00 10/17/18 90 90 07:55 10/17/18 87 18 103/68 88 High Flow 07:00 (80) 10/17/18 98.0 90 16 108/75 93 High Flow 06:00 (86) 10/17/18 88 18 93 90 05:02 10/17/18 93 90 05:02 10/17/18 83 18 110/80 90 High Flow 05:00 (90) 10/17/18 95 16 103/65 84 High Flow 04:00 (78) 10/17/18 91 04:00 10/17/18 84 15 99/65 (76) 92 High Flow 03:00 10/17/18 98.0 95 18 100/68 92 High Flow 02:00 (79) 10/17/18 90 19 91 90 01:03 10/17/18 91 90 01:03 10/17/18 88 18 105/73 90 High Flow 01:00 (84) 10/17/18 93 11 102/74 90 High Flow 00:00 (83) 10/17/18 88 00:00 10/16/18 89 16 103/68 91 High Flow 23:00 (80) 10/16/18 96 18 102/61 90 High Flow 22:00 (75) 10/16/18 146 21:09 10/16/18 107 11 104/75 90 High Flow 21:00 (85) 10/16/18 102 18 92 90 20:56 10/16/18 92 90 20:56 10/16/18 98.0 97 18 108/70 92 High Flow 20:00 (83) 10/16/18 94 20:00 10/16/18 92 90 19:45 10/16/18 96 20 99/67 (78) 94 High Flow 18:00 10/16/18 93 80 17:23 10/16/18 75 18 93 80 17:05 10/16/18 99 11 108/64 92 High Flow 17:00 (79) 10/16/18 107 16:00 10/16/18 103 12 109/70 86 High Flow 16:00 (83) 10/16/18 107 25 107/93 91 High Flow 15:00 (98) 10/16/18 98.2 110 18 105/74 96 High Flow 14:00 (84) 10/16/18 93 80 13:25 10/16/18 85 20 93 80 13:20 10/16/18 104 16 97/65 (76) 90 High Flow 13:00 10/16/18 114 23 113/79 89 High Flow 12:00 (90) 10/16/18 110 12:00 10/16/18 131 21 99/71 (80) 89 High Flow 11:00 10/16/18 97 25 108/76 93 High Flow 10:00 (87) 10/16/18 91 20 92 90 09:19 10/16/18 92 90 09:19 10/16/18 102 18 96/59 (71) 91 High Flow 09:00 10/16/18 96 08:00 10/16/18 98.0 88 20 123/81 91 High Flow 08:00 (95) 10/16/18 84 16 123/83 91 High Flow 07:00 (96) 10/16/18 101 17 118/81 93 High Flow 06:00 (93) 10/16/18 92 28 91 05:15 10/16/18 97 17 118/72 90 High Flow 05:05 (87) 10/16/18 78 22 93 90 04:15 10/16/18 87 23 91 High Flow 04:15 10/16/18 93 90 04:15 10/16/18 97.9 04:15 10/16/18 95 04:00 10/16/18 97 22 90 03:10 10/16/18 101/68 03:10 (79) 10/16/18 97 22 90 High Flow 03:10 10/16/18 100 25 106/64 90 High Flow 02:14 (78) 10/16/18 93 90 01:25 10/16/18 78 22 93 90 01:25 10/16/18 93 25 90 High Flow 01:03 10/16/18 97.9 00:09 10/16/18 98 28 111/59 93 High Flow 00:00 (76) 10/16/18 105 00:00 10/15/18 120/76 23:18 (91) 10/15/18 97 24 93 23:00 10/15/18 97 24 93 23:00 10/15/18 89 21 114/74 90 22:00 (87) 10/15/18 90 21:27 10/15/18 96 95 21:15 10/15/18 88 22 96 95 21:15 10/15/18 97.9 87 15 113/79 94 21:00 (90) 10/15/18 87 15 113/79 94 High Flow 21:00 (90) 10/15/18 90 20 127/76 96 20:00 (93) 10/15/18 101 20:00 10/15/18 98.0 20:00 10/15/18 103 22 104/71 96 High Flow 19:00 (82) 10/15/18 95 95 18:07 10/15/18 85 22 96 100 17:56 10/15/18 94 100 17:40 10/15/18 102 16:11 10/15/18 101 16:00 10/15/18 92 100 15:50 10/15/18 91 100 13:40 10/15/18 95 18 93 100 13:21 10/15/18 88 12:00 10/15/18 92 100 11:40 10/15/18 94 100 09:40 10/15/18 79 20 91 100 08:11 10/15/18 91 100 08:10 10/15/18 81 08:00 10/15/18 69 18 105/69 92 High Flow 06:00 (81) 10/15/18 87 18 95 100 05:58 10/15/18 95 100 05:58 10/15/18 73 18 102/59 93 High Flow 05:00 (73) 10/15/18 98.0 94 15 118/79 95 High Flow 04:00 (92) 10/15/18 70 04:00 10/15/18 64 15 109/59 94 High Flow 03:00 (76) 10/15/18 62 16 110/70 94 High Flow 02:00 (83) 10/15/18 100 01:19 10/15/18 94 100 01:19 10/15/18 66 20 98 100 01:18 10/15/18 60 17 106/71 97 High Flow 01:00 (83) 10/15/18 97.6 58 18 114/70 97 High Flow 00:00 (85) 10/15/18 63 00:00 10/14/18 69 15 107/70 93 High Flow 23:00 (82) 10/14/18 55 18 110/62 93 High Flow 22:00 (78) 10/14/18 71 21 111/74 99 High Flow 21:00 (86) 10/14/18 100 20:44 10/14/18 97 100 20:43 10/14/18 98.5 81 20 112/69 97 High Flow 20:00 (83) 10/14/18 73 20:00 10/14/18 Vapotherm 20:00 Vital Signs Date Temp Pulse Resp B/P (MAP) Pulse Ox O2 O2 Flow FiO2 Time Delivery Rate 10/17/18 97 75 17:06 10/17/18 106 20 Nasal 17:05 Cannula 10/17/18 98.3 118/74 16:00 (89) Intake and Output 10/16/18 10/16/18 10/17/18 1515:00 23:00 07:00 IntakeIntake Total 634 ml 568 ml 750 ml OutputOutput Total 2300 ml 600 ml 500 ml BalanceBalance -1666 ml -32 ml 250 ml Constitutional: alert, oriented, obese Psych: no complaints, nl mood/affect Respiratory: crackles/rales, wheezing Cardiovascular: regular rate and rhythm, nl pulses; No edema, No murmurs/extra sounds, No rub Gastrointestinal: soft, nl liver, spleen, non-tender, bowel sounds; No mass, No rebound or guarding Musculoskeletal: nl extremities to inspection Extremities: normal pulses; No cyanosis, No clubbing, No edema 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, nl mental status, nl speech, nl strength Additional Comments Bedside Glucose - 72 Hours Test 10/14/18 20:45 10/15/18 02:11 10/15/18 08:02 10/15/18 12:09 Bedside 296 269 273 182 Glucose mg/dL (70-220) mg/dL (70-220) mg/dL (70-220) mg/dL (70-220) H H H Test 10/15/18 17:20 10/15/18 20:31 10/16/18 01:53 10/16/18 08:09 Bedside 201 197 200 173 Glucose mg/dL (70-220) mg/dL (70-220) mg/dL (70-220) mg/dL (70-220) Test 10/16/18 11:59 10/16/18 17:12 10/16/18 20:33 10/17/18 08:21 Bedside 221 112 172 173 Glucose mg/dL (70-220) mg/dL (70-220) mg/dL (70-220) mg/dL (70-220) H Test 10/17/18 12:32 10/17/18 17:59 Bedside 167 158 Glucose mg/dL (70-220) mg/dL (70-220) Results Result Diagram: 10/17/18 0937 10/17/18 0937 Results 24hrs Laboratory Tests Test 10/16/18 20:33 10/17/18 04:51 10/17/18 08:21 10/17/18 09:37 Bedside Glucose 172 173 Magnesium Level 2.3 B-Type Natriuretic 649 H Peptide Thyroid Stimulating 0.092 L Hormone (TSH) Free Thyroxine 0.86 White Blood Count 13.6 H Red Blood Count 5.54 Hemoglobin 14.2 Hematocrit 45.4 Mean Corpuscular Volume 81.9 L Mean Corpuscular 25.6 L Hemoglobin Mean Corpuscular 31.3 L Hemoglobin Concent Red Cell Distribution 16.2 H Width Platelet Count 217 Mean Platelet Volume 10.4 Immature Granulocytes % 0.900 H Neutrophils % 90.4 H Lymphocytes % 5.6 L Monocytes % 3.0 Eosinophils % 0.0 Basophils % 0.1 Nucleated Red Blood 0.0 Cells % Immature Granulocytes # 0.120 H Neutrophils # 12.3 H Lymphocytes # 0.8 Monocytes # 0.4 Eosinophils # 0.0 Basophils # 0.0 Nucleated Red Blood 0.0 Cells # Sodium Level 139 Potassium Level 3.9 Chloride Level 96 L Carbon Dioxide Level 30 Anion Gap 13 Blood Urea Nitrogen 31 H Creatinine 0.90 Est Glomerular Filtrat > 60 Rate mL/min Glucose Level 215 Calcium Level 9.4 Test 10/17/18 12:32 Bedside Glucose 167 Medications Medication Current Medications Albuterol/ Ipratropium (Duoneb) 3 ml Q4 HHN Last administered on 10/17/18at 17:05; Admin Dose 3 ML; Start 10/11/18 at 21:00 Insulin Aspart (Novolog Insulin Pen) NOVOLOG *MODERATE* ALGORITHM WITH MEALS BEDTIME SC Last administered on 10/17/18at 13:12; Admin Dose 2 UNIT; Start 10/11/18 at 21:00 Zolpidem Tartrate (Ambien) 5 mg HS MAY REPEAT X 1 PRN PO INSOMNIA; Start 10/11/18 at 20:30 Ondansetron HCl (Zofran Inj) 4 mg Q4 PRN IV nausea; Start 10/11/18 at 20:30 Miscellaneous Information 1 ea NOTE XX ; Start 10/11/18 at 21:00 Glucose (Glutose) 15 gm Q15M PRN PO DECREASED GLUCOSE; Start 10/11/18 at 21:00 Glucose (Glutose) 22.5 gm Q15M PRN PO DECREASED GLUCOSE; Start 10/11/18 at 21:00 Dextrose (D50w Syringe) 25 ml Q15M PRN IV DECREASED GLUCOSE; Start 10/11/18 at 21:00 Dextrose (D50w Syringe) 50 ml Q15M PRN IV DECREASED GLUCOSE; Start 10/11/18 at 21:00 Glucagon (Glucagen) 1 mg Q15M PRN IM DECREASED GLUCOSE; Start 10/11/18 at 21:00 Glucose (Glutose) 15 gm Q15M PRN BUCCAL DECREASED GLUCOSE; Start 10/11/18 at 21 :00 Promethazine HCl/ Dextromethorphan (Phenergan-Dm) 5 ml Q6 PRN PO COUGH; Start 10/11/18 at 21:00 Digoxin (Digoxin) 0.25 mg DAILY PO Last administered on 10/17/18at 09:35; Admin Dose 0.25 MG; Start 10/12/18 at 09:00 Atorvastatin Calcium (Lipitor) 20 mg DAILY@21 PO Last administered on 10/16/18at 20:48; Admin Dose 20 MG; Start 10/11/18 at 22:30 Apixaban (Eliquis) 5 mg BID PO Last administered on 10/17/18 09:36; Admin Dose 5 MG; Start 10/12/18 at 12:30 Metoprolol Succinate (Toprol Xl) 50 mg BID PO Last administered on 10/17/18 09:37; Admin Dose 50 MG; Start 10/12/18 at 21:00 Methylprednisolone Sodium Succinate (Solu-Medrol) 60 mg Q6 IV Last administered on 10/17/18at 12:27; Admin Dose 60 MG; Start 10/13/18 at 12:00 Cefepime HCl 50 ml @ 100 mls/hr Q8 IVPB Last administered on 10/17/18 14:03; Admin Dose 100 MLS/HR; Start 10/13/18 at 10:00 Patient Own Medication 6 ea AM PO Last administered on 10/17/18 09:43; Admin Dose 6 EA; Start 10/13/18 at 13:00 Acetazolamide (Diamox) 250 mg BID PO Last administered on 10/17/18 09:35; Admin Dose 250 MG; Start 10/13/18 at 21:00 Metformin HCl (Glucophage Xr) 1,000 mg BID PO Last administered on 10/17/18 09:36; Admin Dose 1,000 MG; Start 10/14/18 at 21:00 Empaglifozin (Jardiance) 25 mg DAILY@08 PO Last administered on 10/17/18 09:34; Admin Dose 25 MG; Start 10/15/18 at 08:00 Diagnostic Test (Pha) (Accu-Chek) 1 ea 02 XX Last administered on 10/16/18 02:15; Admin Dose 1 EA; Start 10/15/18 at 02:00 Linagliptin (Tradjenta) 5 mg DAILY PO Last administered on 10/17/18 09:38; Admin Dose 5 MG; Start 10/15/18 at 09:00 Furosemide (Lasix) 40 mg BID DIURETICS IV Last administered on 10/17/18 06:33; Admin Dose 40 MG; Start 10/16/18 at 18:00 Spironolactone (Aldactone) 25 mg DAILY PO Last administered on 10/17/18 09:34; Admin Dose 25 MG; Start 10/16/18 at 12:30 Insulin Glargine (Lantus) 36 units DAILY@2000 SC Last administered on 10/16/18 20:55; Admin Dose 36 UNITS; Start 10/16/18 at 20:00 Insulin Aspart (Novolog Insulin Pen) 18 unit WITH MEALS SC Last administered on 10/17/18 13:12; Admin Dose 18 UNIT; Start 10/17/18 at 11:30 KAYLA BUCK MD Oct 17, 2018 18:15
[2018-10-17] MEDS: ATORVASTATIN 20 MG TAB PO SCH (20:54)
[2018-10-17] MEDS: INSULIN GLARGINE [LANTus] (100 UNITS/ML) SYG SC SCH (21:02)
[2018-10-18] VITALS (24 sets, daily range): BP systolic 94–120; BP diastolic 54–93; PULSE 90–121; RESP 12–26
[2018-10-18] MEDS: METHYLPREDNISOLONE 125 MG INJ IV SCH ×4 (00:30→17:43)
[2018-10-18] MEDS: ALBUTEROL/IPRATROPIUM (NEB) 3 ML AMP HHN SCH ×6 (00:55→20:40)
[2018-10-18] MEDS: ACCU-CHEK XX SCH (02:00)
[2018-10-18] MEDS: FUROSEMIDE 40 MG INJ IV SCH (05:29)
[2018-10-18] MEDS: CEFEPIME 2GM/50 ML (PMX) 50 ML IVPB SCH ×3 (05:29→22:04)
[2018-10-18] MEDS: INSULIN ASPART [NOVOLOG] 3 ML PEN SC SCH ×8 (08:20→21:29)
--- NOTE | 2018-10-18 09:01 | PN ---
Date/Time of Note Date/Time of Note DATE: 10/18/18 TIME: 08:59 Subjective Doing well. No shortness of breath. Sitting in the chair and having breakfast Objective Vitals Vital Signs Date Temp Pulse Resp B/P (MAP) Pulse Ox O2 O2 Flow FiO2 Time Delivery Rate 10/18/18 99 23 119/88 88 High Flow 06:00 (98) 10/18/18 75 04:53 10/18/18 97.8 04:00 Intake and Output 10/17/18 10/17/18 10/18/18 1515:00 23:00 07:00 IntakeIntake Total 410 ml 370 ml 1300 ml OutputOutput Total 2275 ml 1750 ml 2000 ml BalanceBalance -1865 ml -1380 ml -700 ml Bilateral rhonchi Regular rate and rhythm no murmurs or gallops Soft nontender nondistended normoactive bowel sounds No edema Nonfocal Results Result Diagram: 10/18/1844110/18/18 044 Medications Medications Current Medications Albuterol/ Ipratropium (Duoneb) 3 ml Q4 HHN Last administered on 10/18/18at 04:52; Admin Dose 3 ML; Start 10/11/18 at 21:00 Insulin Aspart (Novolog Insulin Pen) NOVOLOG *MODERATE* ALGORITHM WITH MEALS BEDTIME SC Last administered on 10/18/18at 08:20; Admin Dose 2 UNIT; Start 10/11/18 at 21:00 Zolpidem Tartrate (Ambien) 5 mg HS MAY REPEAT X 1 PRN PO INSOMNIA; Start 10/11/18 at 20:30 Ondansetron HCl (Zofran Inj) 4 mg Q4 PRN IV nausea; Start 10/11/18 at 20:30 Miscellaneous Information 1 ea NOTE XX ; Start 10/11/18 at 21:00 Glucose (Glutose) 15 gm Q15M PRN PO DECREASED GLUCOSE; Start 10/11/18 at 21:00 Glucose (Glutose) 22.5 gm Q15M PRN PO DECREASED GLUCOSE; Start 10/11/18 at 21:00 Dextrose (D50w Syringe) 25 ml Q15M PRN IV DECREASED GLUCOSE; Start 10/11/18 at 21:00 Dextrose (D50w Syringe) 50 ml Q15M PRN IV DECREASED GLUCOSE; Start 10/11/18 at 21:00 Glucagon (Glucagen) 1 mg Q15M PRN IM DECREASED GLUCOSE; Start 10/11/18 at 21:00 Glucose (Glutose) 15 gm Q15M PRN BUCCAL DECREASED GLUCOSE; Start 10/11/18 at 21:00 Promethazine HCl/ Dextromethorphan (Phenergan-Dm) 5 ml Q6 PRN PO COUGH; Start 10/11/18 at 21:00 Digoxin (Digoxin) 0.25 mg DAILY PO Last administered on 10/17/18 09:35; Admin Dose 0.25 MG; Start 10/12/18 at 09:00 Atorvastatin Calcium (Lipitor) 20 mg DAILY@21 PO Last administered on 10/17/18 20:54; Admin Dose 20 MG; Start 10/11/18 at 22:30 Apixaban (Eliquis) 5 mg BID PO Last administered on 10/17/18 20:53; Admin Dose 5 MG; Start 10/12/18 at 12:30 Metoprolol Succinate (Toprol Xl) 50 mg BID PO Last administered on 10/17/18 09:37; Admin Dose 50 MG; Start 10/12/18 at 21:00 Methylprednisolone Sodium Succinate (Solu-Medrol) 60 mg Q6 IV Last administered on 10/18/18 05:29; Admin Dose 60 MG; Start 10/13/18 at 12:00 Cefepime HCl 50 ml @ 100 mls/hr Q8 IVPB Last administered on 10/18/18 05:29; Admin Dose 100 MLS/HR; Start 10/13/18 at 10:00 Patient Own Medication 6 ea AM PO Last administered on 10/17/18 09:43; Admin Dose 6 EA; Start 10/13/18 at 13:00 Acetazolamide (Diamox) 250 mg BID PO Last administered on 10/17/18 20:54; Admin Dose 250 MG; Start 10/13/18 at 21:00 Metformin HCl (Glucophage Xr) 1,000 mg BID PO Last administered on 10/17/18 20:54; Admin Dose 1,000 MG; Start 10/14/18 at 21:00 Empaglifozin (Jardiance) 25 mg DAILY@08 PO Last administered on 10/17/18 09:34; Admin Dose 25 MG; Start 10/15/18 at 08:00 Diagnostic Test (Pha) (Accu-Chek) 1 ea 02 XX Last administered on 10/16/18at 02:15; Admin Dose 1 EA; Start 10/15/18 at 02:00 Linagliptin (Tradjenta) 5 mg DAILY PO Last administered on 10/17/18 09:38; Admin Dose 5 MG; Start 10/15/18 at 09:00 Furosemide (Lasix) 40 mg BID DIURETICS IV Last administered on 10/18/18 05:29; Admin Dose 40 MG; Start 10/16/18 at 18:00 Spironolactone (Aldactone) 25 mg DAILY PO Last administered on 10/17/18 09:34; Admin Dose 25 MG; Start 10/16/18 at 12:30 Insulin Glargine (Lantus) 36 units DAILY@2000 SC Last administered on 10/17/18 21:02; Admin Dose 36 UNITS; Start 10/16/18 at 20:00 Insulin Aspart (Novolog Insulin Pen) 18 unit WITH MEALS SC Last administered on 10/18/18 08:20; Admin Dose 18 UNIT; Start 10/17/18 at 11:30 VTE Prophylaxis Risk score (from Nsg)>0 risk: 4 SCD applied (from Nsg): Yes Lines/Catheters IV Catheter Type: Saline Lock [place] in Place: No Assessment/Plan Assessment/Plan 62-year-old male with acute hypoxemic respiratory failure, very slow improvement Left lower lobe pneumonia Sleep apnea Type 2 diabetes mellitus Moderate obesity Continue to wean off high flow O2 ID consultation was requested Case was discussed with patient , and service promoter salesperson ELI YARBROUGH MD Oct 18, 2018 09:01
[2018-10-18] MEDS: EMPAGLIFLOZIN 10 MG TABLET PO SCH (09:24)
[2018-10-18] MEDS: CYCLOSET PO SCH (09:25)
[2018-10-18] MEDS: SPIRONOLACTONE 25 MG TAB PO SCH (09:26)
[2018-10-18] MEDS: ACETAZOLAMIDE 250 MG TAB PO SCH ×2 (09:26→21:11)
[2018-10-18] MEDS: APIXABAN 5 MG TABLET PO SCH ×2 (09:27→21:10)
[2018-10-18] MEDS: DIGOXIN 0.25 MG TAB PO SCH (09:27)
[2018-10-18] MEDS: metFORMIN (XR) 500 MG TAB PO SCH ×2 (09:28→21:11)
[2018-10-18] MEDS: METOPROLOL (XL) 25 MG TAB PO SCH ×2 (09:30→21:10)
[2018-10-18] MEDS: LINAGLIPTIN 5 MG TABLET PO SCH (09:31)
--- NOTE | 2018-10-18 10:06 | CONS ---
Assessment/Plan Assessment/Plan Assessment/Plan (Daily) 1. Metabolic alkalosis on Acetazolamide 250mg BID , HCO3 30, BUN/Cr 27/0.82, WBC 12 1. Acute Hypoxic respiratory failure, likely secondary to reactive airway and pneumonia, patient seems to be euvolemic for now.- on IV abx cefepime and vancomycin< renally dose all abx and monitor electrolytes 2. Atrial fibrillation, chronic, rate controlled. 3. Congestive heart failure, diastolic dysfunction, chronic, currently euvolemic. Echocardiogram with EF of 55%.- on lasix 40mg pO BID Continue current medication, patient on oral Lasix daily. 4. Diabetes mellitus Type II with acute hyperglycemia 5. Hypertension Consultation Date/Type/Reason Admit Date/Time Oct 12, 2018 at 06:16 Initial Consult Date 10/14/18 Type of Consult NEPHROLOGY Requesting Provider: ROEL ALBA Date/Time of Note DATE: 10/18/18 TIME: 10:06 Exam/Review of Systems Exam Vitals Vital Signs Date Temp Pulse Resp B/P (MAP) Pulse Ox O2 O2 Flow FiO2 Time Delivery Rate 10/18/18 94 75 09:17 10/18/18 99 08:00 10/18/18 23 119/88 High Flow 06:00 (98) 10/18/18 97.8 04:00 Intake and Output 10/17/18 10/17/18 10/18/18 1515:00 23:00 07:00 IntakeIntake Total 410 ml 370 ml 1300 ml OutputOutput Total 2275 ml 1750 ml 2000 ml BalanceBalance -1865 ml -1380 ml -700 ml Results Result Diagram: 10/18/18 0442 10/18/18 0442 Results 24hrs Laboratory Tests Test 10/17/18 12:32 10/17/18 17:59 10/17/18 20:52 10/18/18 01:44 Bedside Glucose 167 158 228 H 171 Test 10/18/18 04:42 10/18/18 05:28 10/18/18 08:05 White Blood Count 15.4 H Red Blood Count 5.33 Hemoglobin 13.6 L Hematocrit 43.8 Mean Corpuscular Volume 82.2 Mean Corpuscular 25.5 L Hemoglobin Mean Corpuscular 31.1 L Hemoglobin Concent Red Cell Distribution 16.1 H Width Platelet Count 201 Mean Platelet Volume 9.8 Immature Granulocytes % 0.800 H Neutrophils % 90.1 H Lymphocytes % 5.3 L Monocytes % 3.6 Eosinophils % 0.1 Basophils % 0.1 Nucleated Red Blood 0.0 Cells % Immature Granulocytes # 0.120 H Neutrophils # 13.8 H Lymphocytes # 0.8 Monocytes # 0.6 Eosinophils # 0.0 Basophils # 0.0 Nucleated Red Blood 0.0 Cells # Sodium Level 138 Potassium Level 4.3 Chloride Level 97 Carbon Dioxide Level 30 Anion Gap 11 Blood Urea Nitrogen 38 H Creatinine 0.88 Est Glomerular Filtrat > 60 Rate mL/min Glucose Level 167 Calcium Level 9.2 Bedside Glucose 181 173 Medications Medication Current Medications Albuterol/ Ipratropium (Duoneb) 3 ml Q4 HHN Last administered on 10/18/18at 09:07; Admin Dose 3 ML; Start 10/11/18 at 21:00 Insulin Aspart (Novolog Insulin Pen) NOVOLOG *MODERATE* ALGORITHM WITH MEALS BEDTIME SC Last administered on 10/18/18at 08:20; Admin Dose 2 UNIT; Start 10/11/18 at 21:00 Zolpidem Tartrate (Ambien) 5 mg HS MAY REPEAT X 1 PRN PO INSOMNIA; Start 10/11/18 at 20:30 Ondansetron HCl (Zofran Inj) 4 mg Q4 PRN IV nausea; Start 10/11/18 at 20:30 Miscellaneous Information 1 ea NOTE XX ; Start 10/11/18 at 21:00 Glucose (Glutose) 15 gm Q15M PRN PO DECREASED GLUCOSE; Start 10/11/18 at 21:00 Glucose (Glutose) 22.5 gm Q15M PRN PO DECREASED GLUCOSE; Start 10/11/18 at 21:00 Dextrose (D50w Syringe) 25 ml Q15M PRN IV DECREASED GLUCOSE; Start 10/11/18 at 21:00 Dextrose (D50w Syringe) 50 ml Q15M PRN IV DECREASED GLUCOSE; Start 10/11/18 at 21:00 Glucagon (Glucagen) 1 mg Q15M PRN IM DECREASED GLUCOSE; Start 10/11/18 at 21:00 Glucose (Glutose) 15 gm Q15M PRN BUCCAL DECREASED GLUCOSE; Start 10/11/18 at 21:00 Promethazine HCl/ Dextromethorphan (Phenergan-Dm) 5 ml Q6 PRN PO COUGH; Start 10/11/18 at 21:00 Digoxin (Digoxin) 0.25 mg DAILY PO Last administered on 10/18/18 09:27; Admin Dose 0.25 MG; Start 10/12/18 at 09:00 Atorvastatin Calcium (Lipitor) 20 mg DAILY@21 PO Last administered on 10/17/18 20:54; Admin Dose 20 MG; Start 10/11/18 at 22:30 Apixaban (Eliquis) 5 mg BID PO Last administered on 10/18/18 09:27; Admin Dose 5 MG; Start 10/12/18 at 12:30 Metoprolol Succinate (Toprol Xl) 50 mg BID PO Last administered on 10/18/18 09:30; Admin Dose 50 MG; Start 10/12/18 at 21:00 Methylprednisolone Sodium Succinate (Solu-Medrol) 60 mg Q6 IV Last administered on 10/18/18 05:29; Admin Dose 60 MG; Start 10/13/18 at 12:00 Cefepime HCl 50 ml @ 100 mls/hr Q8 IVPB Last administered on 10/18/18 05:29; Admin Dose 100 MLS/HR; Start 10/13/18 at 10:00 Patient Own Medication 6 ea AM PO Last administered on 10/18/18 09:25; Admin Dose 6 EA; Start 10/13/18 at 13:00 Acetazolamide (Diamox) 250 mg BID PO Last administered on 10/18/18 09:26; Admin Dose 250 MG; Start 10/13/18 at 21:00 Metformin HCl (Glucophage Xr) 1,000 mg BID PO Last administered on 10/18/18 09:28; Admin Dose 1,000 MG; Start 10/14/18 at 21:00 Empaglifozin (Jardiance) 25 mg DAILY@08 PO Last administered on 10/18/18 09:24; Admin Dose 25 MG; Start 10/15/18 at 08:00 Diagnostic Test (Pha) (Accu-Chek) 1 ea 02 XX Last administered on 10/16/18 02:15; Admin Dose 1 EA; Start 10/15/18 at 02:00 Linagliptin (Tradjenta) 5 mg DAILY PO Last administered on 10/18/18 09:31; Admin Dose 5 MG; Start 10/15/18 at 09:00 Furosemide (Lasix) 40 mg BID DIURETICS IV Last administered on 10/18/18 05:29; Admin Dose 40 MG; Start 10/16/18 at 18:00 Spironolactone (Aldactone) 25 mg DAILY PO Last administered on 10/18/18at 09:26; Admin Dose 25 MG; Start 10/16/18 at 12:30 Insulin Glargine (Lantus) 36 units DAILY@2000 SC Last administered on 10/17/18at 21:02; Admin Dose 36 UNITS; Start 10/16/18 at 20:00 Insulin Aspart (Novolog Insulin Pen) 18 unit WITH MEALS SC Last administered on 10/18/18 08:20; Admin Dose 18 UNIT; Start 10/17/18 at 11:30 NEDA STAHL MD Oct 18, 2018 10:06
--- NOTE | 2018-10-18 10:58 | CONS ---
Consult Date/Type/Reason Admit Date/Time Oct 12, 2018 at 06:16 Initial Consult Date Type of Consult Pulmonary Requesting Provider: ROEL ALBA Date/Time of Note DATE: 10/18/18 TIME: 10:55 Subjective patient slowly improving FiO2 decreased to 75%. Currently hemodynamically stable chest x-ray shows bibasilar atelectasis. Objective Vital Signs Date Temp Pulse Resp B/P (MAP) Pulse Ox O2 O2 Flow FiO2 Time Delivery Rate 10/18/18 121 21 105/76 94 High Flow 10:00 (86) 10/18/18 75 09:17 10/18/18 97.1 08:00 Intake and Output 10/17/18 10/17/18 10/18/18 1515:00 23:00 07:00 IntakeIntake Total 410 ml 370 ml 1300 ml OutputOutput Total 2275 ml 1750 ml 2000 ml BalanceBalance -1865 ml -1380 ml -700 ml Exam GENERAL: Well-nourished well-developed gentleman on high flow O2. VITAL SIGNS: per chart NECK: Supple. No JVD or lymphadenopathy. CARDIAC EXAM: S1, S2. No added sounds or murmurs. CHEST: Diminished air entry bilaterally with rales ABDOMEN: Soft, nontender. No guarding or rebound. EXTREMITIES: No cyanosis, clubbing or edema. NEUROLOGIC: Generalized weakness. No focal deficits. Vent Setting Fraction of Inspired Oxygen pe: 75 Results/Medications Result Diagram: 10/18/18 0442 10/18/18 0442 Results 24 hrs Laboratory Tests Test 10/17/18 12:32 10/17/18 17:59 10/17/18 20:52 10/18/18 01:44 Bedside Glucose 167 158 228 H 171 Test 10/18/18 04:42 10/18/18 05:28 10/18/18 08:05 White Blood Count 15.4 H Red Blood Count 5.33 Hemoglobin 13.6 L Hematocrit 43.8 Mean Corpuscular Volume 82.2 Mean Corpuscular 25.5 L Hemoglobin Mean Corpuscular 31.1 L Hemoglobin Concent Red Cell Distribution 16.1 H Width Platelet Count 201 Mean Platelet Volume 9.8 Immature Granulocytes % 0.800 H Neutrophils % 90.1 H Lymphocytes % 5.3 L Monocytes % 3.6 Eosinophils % 0.1 Basophils % 0.1 Nucleated Red Blood 0.0 Cells % Immature Granulocytes # 0.120 H Neutrophils # 13.8 H Lymphocytes # 0.8 Monocytes # 0.6 Eosinophils # 0.0 Basophils # 0.0 Nucleated Red Blood 0.0 Cells # Sodium Level 138 Potassium Level 4.3 Chloride Level 97 Carbon Dioxide Level 30 Anion Gap 11 Blood Urea Nitrogen 38 H Creatinine 0.88 Est Glomerular Filtrat > 60 Rate mL/min Glucose Level 167 Calcium Level 9.2 Bedside Glucose 181 173 Medications Current Medications Albuterol/ Ipratropium (Duoneb) 3 ml Q4 HHN Last administered on 10/18/18at 09:07; Admin Dose 3 ML; Start 10/11/18 at 21:00 Insulin Aspart (Novolog Insulin Pen) NOVOLOG *MODERATE* ALGORITHM WITH MEALS BEDTIME SC Last administered on 10/18/18 08:20; Admin Dose 2 UNIT; Start 10/11/18 at 21:00 Zolpidem Tartrate (Ambien) 5 mg HS MAY REPEAT X 1 PRN PO INSOMNIA; Start 10/11/18 at 20:30 Ondansetron HCl (Zofran Inj) 4 mg Q4 PRN IV nausea; Start 10/11/18 at 20:30 Miscellaneous Information 1 ea NOTE XX ; Start 10/11/18 at 21:00 Glucose (Glutose) 15 gm Q15M PRN PO DECREASED GLUCOSE; Start 10/11/18 at 21:00 Glucose (Glutose) 22.5 gm Q15M PRN PO DECREASED GLUCOSE; Start 10/11/18 at 21:00 Dextrose (D50w Syringe) 25 ml Q15M PRN IV DECREASED GLUCOSE; Start 10/11/18 at 21:00 Dextrose (D50w Syringe) 50 ml Q15M PRN IV DECREASED GLUCOSE; Start 10/11/18 at 21:00 Glucagon (Glucagen) 1 mg Q15M PRN IM DECREASED GLUCOSE; Start 10/11/18 at 21:00 Glucose (Glutose) 15 gm Q15M PRN BUCCAL DECREASED GLUCOSE; Start 10/11/18 at 21:00 Promethazine HCl/ Dextromethorphan (Phenergan-Dm) 5 ml Q6 PRN PO COUGH; Start 10/11/18 at 21:00 Digoxin (Digoxin) 0.25 mg DAILY PO Last administered on 10/18/18at 09:27; Admin Dose 0.25 MG; Start 10/12/18 at 09:00 Atorvastatin Calcium (Lipitor) 20 mg DAILY@21 PO Last administered on 10/17/18 20:54; Admin Dose 20 MG; Start 10/11/18 at 22:30 Apixaban (Eliquis) 5 mg BID PO Last administered on 10/18/18 09:27; Admin Dose 5 MG; Start 10/12/18 at 12:30 Metoprolol Succinate (Toprol Xl) 50 mg BID PO Last administered on 10/18/18 09:30; Admin Dose 50 MG; Start 10/12/18 at 21:00 Methylprednisolone Sodium Succinate (Solu-Medrol) 60 mg Q6 IV Last administered on 10/18/18 05:29; Admin Dose 60 MG; Start 10/13/18 at 12:00 Cefepime HCl 50 ml @ 100 mls/hr Q8 IVPB Last administered on 10/18/18 05:29; Admin Dose 100 MLS/HR; Start 10/13/18 at 10:00 Patient Own Medication 6 ea AM PO Last administered on 10/18/18 09:25; Admin Dose 6 EA; Start 10/13/18 at 13:00 Acetazolamide (Diamox) 250 mg BID PO Last administered on 10/18/18 09:26; Admin Dose 250 MG; Start 10/13/18 at 21:00 Metformin HCl (Glucophage Xr) 1,000 mg BID PO Last administered on 10/18/18 09:28; Admin Dose 1,000 MG; Start 10/14/18 at 21:00 Empaglifozin (Jardiance) 25 mg DAILY@08 PO Last administered on 10/18/18 09:24; Admin Dose 25 MG; Start 10/15/18 at 08:00 Diagnostic Test (Pha) (Accu-Chek) 1 ea 02 XX Last administered on 10/16/18 02:15; Admin Dose 1 EA; Start 10/15/18 at 02:00 Linagliptin (Tradjenta) 5 mg DAILY PO Last administered on 10/18/18 09:31; Admin Dose 5 MG; Start 10/15/18 at 09:00 Furosemide (Lasix) 40 mg BID DIURETICS IV Last administered on 10/18/18 05:29; Admin Dose 40 MG; Start 10/16/18 at 18:00 Spironolactone (Aldactone) 25 mg DAILY PO Last administered on 10/18/18at 09:26; Admin Dose 25 MG; Start 10/16/18 at 12:30 Insulin Glargine (Lantus) 36 units DAILY@2000 SC Last administered on 10/17/18at 21:02; Admin Dose 36 UNITS; Start 10/16/18 at 20:00 Insulin Aspart (Novolog Insulin Pen) 18 unit WITH MEALS SC Last administered on 10/18/18at 08:20; Admin Dose 18 UNIT; Start 10/17/18 at 11:30 Assessment/Plan Hospital Course (Demo Recall) IMPRESSION 1. Acute hypoxemic respiratory failure, likely secondary to acute tracheobronchitis. Bibasilar atelectasis noted but no significant pneumonic infiltrates or effusions. No evidence of intracardiac shunt. Persistent hypoxemia however despite prolonged steroids and antibiotics. 2. Right lower lobe pneumonia. No evidence of thromboembolic disease. During hypoxemia out of proportion to minimal radiographic changes.Worsening bibasilar atelectasis noted. Plan 1. Incentive spirometry. 2. Bronchodilators. 3. Steroids. 4. Antibiotics. 5. Continue anticoagulation for atrial fibrillation. 6. Rate control. 7. DVT and GI prophylaxis. critical care time 40 minutes. TELMA CAI MD, [facility] Oct 18, 2018 10:58
--- NOTE | 2018-10-18 13:55 | CONS ---
Assessment/Plan Assessment/Plan Assessment/Plan (Daily) Assessment Respiratory failure with persistent hypoxia PNA Acute decompensated systolic and diastolic congestive heart failure History of cardiomyopathy, current left ventricular ejection fraction 50-55% Pulmonary hypertension Chronic Atrial Fibrillation DM Plan: continue AC no change in cardiac mgt Consultation Date/Type/Reason Admit Date/Time Oct 12, 2018 at 06:16 Initial Consult Date 10/14/18 Type of Consult Cardiology Requesting Provider: ROEL ALBA Date/Time of Note DATE: 10/18/18 TIME: 13:54 24 HR Interval Summary Free Text/Dictation sitting in chair, no chest pain, mild SOB Detailed Summary Respiratory: no complaints Cardiovascular: no complaints Gastrointestinal: no complaints Musculoskeletal: no complaints Skin: no complaints Exam/Review of Systems Vital Signs Vitals Vital Signs Date Temp Pulse Resp B/P (MAP) Pulse Ox O2 O2 Flow FiO2 Time Delivery Rate 10/18/18 111 12:00 10/18/18 21 105/76 94 High Flow 10:00 (86) 10/18/18 75 09:17 10/18/18 97.1 08:00 Intake and Output 10/17/18 10/17/18 10/18/18 1515:00 23:00 07:00 IntakeIntake Total 410 ml 370 ml 1300 ml OutputOutput Total 2275 ml 1750 ml 2000 ml BalanceBalance -1865 ml -1380 ml -700 ml Exam Constitutional: alert, oriented Head: normocephalic, atraumatic Respiratory: clear to auscultation Cardiovascular: irregular rhythm Musculoskeletal: nl extremities to inspection Labs Result Diagram: 10/18/18 0442 10/18/18 0442 Results 24hrs Laboratory Tests Test 10/17/18 17:59 10/17/18 20:52 10/18/18 01:44 10/18/18 04:42 Bedside Glucose 158 228 H 171 White Blood Count 15.4 H Red Blood Count 5.33 Hemoglobin 13.6 L Hematocrit 43.8 Mean Corpuscular Volume 82.2 Mean Corpuscular 25.5 L Hemoglobin Mean Corpuscular 31.1 L Hemoglobin Concent Red Cell Distribution 16.1 H Width Platelet Count 201 Mean Platelet Volume 9.8 Immature Granulocytes % 0.800 H Neutrophils % 90.1 H Lymphocytes % 5.3 L Monocytes % 3.6 Eosinophils % 0.1 Basophils % 0.1 Nucleated Red Blood 0.0 Cells % Immature Granulocytes # 0.120 H Neutrophils # 13.8 H Lymphocytes # 0.8 Monocytes # 0.6 Eosinophils # 0.0 Basophils # 0.0 Nucleated Red Blood 0.0 Cells # Sodium Level 138 Potassium Level 4.3 Chloride Level 97 Carbon Dioxide Level 30 Anion Gap 11 Blood Urea Nitrogen 38 H Creatinine 0.88 Est Glomerular Filtrat > 60 Rate mL/min Glucose Level 167 Calcium Level 9.2 Test 10/18/18 05:28 10/18/18 08:05 10/18/18 13:02 Bedside Glucose 181 173 161 Medications Medications Current Medications Albuterol/ Ipratropium (Duoneb) 3 ml Q4 HHN Last administered on 10/18/18at 13:48; Admin Dose 3 ML; Start 10/11/18 at 21:00 Insulin Aspart (Novolog Insulin Pen) NOVOLOG *MODERATE* ALGORITHM WITH MEALS BEDTIME SC Last administered on 10/18/18at 13:06; Admin Dose 2 UNIT; Start 10/11/18 at 21:00 Zolpidem Tartrate (Ambien) 5 mg HS MAY REPEAT X 1 PRN PO INSOMNIA; Start 10/11/18 at 20:30 Ondansetron HCl (Zofran Inj) 4 mg Q4 PRN IV nausea; Start 10/11/18 at 20:30 Miscellaneous Information 1 ea NOTE XX ; Start 10/11/18 at 21:00 Glucose (Glutose) 15 gm Q15M PRN PO DECREASED GLUCOSE; Start 10/11/18 at 21:00 Glucose (Glutose) 22.5 gm Q15M PRN PO DECREASED GLUCOSE; Start 10/11/18 at 21:00 Dextrose (D50w Syringe) 25 ml Q15M PRN IV DECREASED GLUCOSE; Start 10/11/18 at 21:00 Dextrose (D50w Syringe) 50 ml Q15M PRN IV DECREASED GLUCOSE; Start 10/11/18 at 21:00 Glucagon (Glucagen) 1 mg Q15M PRN IM DECREASED GLUCOSE; Start 10/11/18 at 21:00 Glucose (Glutose) 15 gm Q15M PRN BUCCAL DECREASED GLUCOSE; Start 10/11/18 at 21:00 Promethazine HCl/ Dextromethorphan (Phenergan-Dm) 5 ml Q6 PRN PO COUGH; Start 10/11/18 at 21:00 Digoxin (Digoxin) 0.25 mg DAILY PO Last administered on 10/18/18 09:27; Admin Dose 0.25 MG; Start 10/12/18 at 09:00 Atorvastatin Calcium (Lipitor) 20 mg DAILY@21 PO Last administered on 10/17/18 20:54; Admin Dose 20 MG; Start 10/11/18 at 22:30 Apixaban (Eliquis) 5 mg BID PO Last administered on 10/18/18 09:27; Admin Dose 5 MG; Start 10/12/18 at 12:30 Metoprolol Succinate (Toprol Xl) 50 mg BID PO Last administered on 10/18/18 09:30; Admin Dose 50 MG; Start 10/12/18 at 21:00 Methylprednisolone Sodium Succinate (Solu-Medrol) 60 mg Q6 IV Last administered on 10/18/18 05:29; Admin Dose 60 MG; Start 10/13/18 at 12:00 Cefepime HCl 50 ml @ 100 mls/hr Q8 IVPB Last administered on 10/18/18 05:29; Admin Dose 100 MLS/HR; Start 10/13/18 at 10:00 Patient Own Medication 6 ea AM PO Last administered on 10/18/18 09:25; Admin Dose 6 EA; Start 10/13/18 at 13:00 Acetazolamide (Diamox) 250 mg BID PO Last administered on 10/18/18 09:26; Admin Dose 250 MG; Start 10/13/18 at 21:00 Metformin HCl (Glucophage Xr) 1,000 mg BID PO Last administered on 10/18/18 09:28; Admin Dose 1,000 MG; Start 10/14/18 at 21:00 Empaglifozin (Jardiance) 25 mg DAILY@08 PO Last administered on 10/18/18 09:24; Admin Dose 25 MG; Start 10/15/18 at 08:00 Diagnostic Test (Pha) (Accu-Chek) 1 ea 02 XX Last administered on 10/16/18 02:15; Admin Dose 1 EA; Start 10/15/18 at 02:00 Linagliptin (Tradjenta) 5 mg DAILY PO Last administered on 10/18/18 09:31; Admin Dose 5 MG; Start 10/15/18 at 09:00 Spironolactone (Aldactone) 25 mg DAILY PO Last administered on 10/18/18at 09:26; Admin Dose 25 MG; Start 10/16/18 at 12:30 Insulin Glargine (Lantus) 36 units DAILY@2000 SC Last administered on 10/17/18at 21:02; Admin Dose 36 UNITS; Start 10/16/18 at 20:00 Insulin Aspart (Novolog Insulin Pen) 18 unit WITH MEALS SC Last administered on 10/18/18at 13:06; Admin Dose 18 UNIT; Start 10/17/18 at 11:30 Furosemide (Lasix) 40 mg DAILY IV ; Start 10/19/18 at 09:00 RALF LINARES MD Oct 18, 2018 13:55
--- NOTE | 2018-10-18 14:08 | CONS ---
DATE OF ADMISSION: 10/12/2018 DATE OF CONSULTATION: 10/18/2018 TYPE OF CONSULTATION: Infectious disease. REASON FOR CONSULTATION: Antibiotic management. HISTORY OF PRESENT ILLNESS: Emiliano Ascencio is a 62-year-old male who comes in on the with cough and shortness of breath for 2-1/2 weeks. The patient saw his physician on 10/05, treated him with antib iotics and prednisone, but he did not feel better. He complains of increased worsening of his shortn ess of breath on the day of admission. He denies any chest pain. He does not smoke. He does drink socially. Past problems include: 1. Adult-onset diabetes mellitus. 2. Dyslipidemia. 3. Hypertension. 4. Atrial fibrillation. 5. Congestive heart failure with low ejection fraction of 50%. 6. History of nonsustained ventricular tachycardia. 7. Obstructive sleep apnea. PAST MEDICAL HISTORY: As outlined. The patient is on Eliquis for atrial fibrillation. SOCIAL HISTORY: Does not smoke, drink or abuse drugs. ALLERGIES: NONE TO PENICILLIN, SULFA OR FOODS. MEDICATIONS: Per chart. REVIEW OF SYSTEMS: As per HPI. On admission, he was in no acute distress. On admission, he was tachycardic to 102. His white count was 10.9, H and H of 13.5 and 44.3, platele t count 225,000. BUN and creatinine 25/0.93. He had 75% neutrophils. The patient was placed on met hylprednisolone and Levaquin. Chest x-ray showed likely bibasilar foci of plate-like atelectasis. HOSPITAL COURSE: He had a CT scan of the thorax, CT angiogram that showed no pulmonary emboli, borde rline enlarged main pulmonary artery compatible with pulmonary hypertension. No thoracic aortic aneu rysm or dissection, probable right lower lobe bronchopneumonia with reactive right hilar nodes, under lying malignancy cannot be ruled out, right renal cyst. The patient was seen by Dr. Poole in cardio logy consultation. He noted respiratory failure, pneumonia, chronic systolic congestive heart failur e, cardiomyopathy, chronic atrial fibrillation, and diabetes mellitus. No evidence of volume overloa d. The patient seen by Dr. Kearney, the patient requiring 100% FiO2. Dr. Colunga felt he was doing we ll on the , white count of 13.9, on vancomycin and cefepime. Dr. Salvatore Rodriguez saw him for metab olic alkalosis on the acetazolamide to 50 b.i.d. BUN and creatinine 27/0.82. White count of 12,000. Acute hypoxic respiratory failure. The patient is euvolemic, currently slowly improving, hemodynam ically stable. White count today is 15.4. BUN and creatinine 38/0.88. PHYSICAL EXAMINATION: GENERAL: He is a well-developed male on high flow oxygen. VITAL SIGNS: Stable. SKIN: Without generalized rash. HEENT: Within normal limits. NECK: Supple. LYMPH NODES: None palpable. CHEST: Decreased breath sounds at the bases. HEART: Without murmur or gallop. Irregularly irregular rhythm. ABDOMEN: Soft, nontender, without organosplenomegaly or masses. EXTREMITIES: Without cyanosis, clubbing, or edema. RECTAL AND GENITAL: Deferred. NEUROLOGICAL: No focal neurological abnormality. Chest x-ray from the 1st showed bilateral lower lobe atelectasis and infiltrate with probable small l eft pleural effusion. We will continue him on his current therapy. He is currently on methylprednis olone 60 mg q.6h. and cefepime q.8h. I will dictate my findings to Dr. Colunga. Dictated By: LAVON SMITH MD, JD/MICHAEL Conf#: [id number] DID#: [id number]
--- NOTE | 2018-10-18 17:07 | CONS ---
Assessment/Plan Assessment/Plan Problems: (1) Type 2 diabetes mellitus without complications Status: Chronic Comment: Fair glycemic control although remains in upper end of therapeutic range. Will increase Lantus to 40 qhs and Novolog to 20 qac. Monitor and follow up tomorrow. 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: without senior living use Qualified Codes: E11.9 - Type 2 diabetes mellitus without complications Consultation Date/Type/Reason Admit Date/Time Oct 12, 2018 at 06:16 Initial Consult Date 10/14/18 Type of Consult Endocrinology Reason for Consultation T2DM management Requesting Provider: ROEL ALBA Date/Time of Note DATE: 10/18/18 TIME: 17:05 24 HR Interval Summary Constitutional: no complaints, requiring O2 Detailed Summary Respiratory: shortness of breath (stable on O2) Cardiovascular: no complaints Gastrointestinal: no complaints Genitourinary: no complaints Musculoskeletal: no complaints Neurologic: no complaints Exam/Review of Systems Exam Vitals VS - Last 72 Hours, by Label Date Temp Pulse Resp B/P (MAP) Pulse Ox O2 O2 Flow FiO2 Time Delivery Rate 10/18/18 93 70 16:43 10/18/18 99 16:00 10/18/18 109 18 117/77 95 High Flow 14:00 (90) 10/18/18 96 75 13:48 10/18/18 101 25 107/93 97 High Flow 13:00 (98) 10/18/18 97.3 109 21 116/83 96 High Flow 12:00 (94) 10/18/18 111 12:00 10/18/18 108 20 110/91 96 High Flow 11:00 (97) 10/18/18 121 21 105/76 94 10:00 (86) 10/18/18 121 21 105/76 94 High Flow 10:00 (86) 10/18/18 94 75 09:17 10/18/18 110 26 108/54 96 High Flow 09:00 (72) 10/18/18 97.1 112 24 110/55 91 High Flow 08:00 (73) 10/18/18 Vapotherm 08:00 10/18/18 99 08:00 10/18/18 101 15 100/74 90 High Flow 07:00 (83) 10/18/18 99 23 119/88 88 High Flow 06:00 (98) 10/18/18 90 12 102/71 93 High Flow 05:00 (81) 10/18/18 93 75 04:53 10/18/18 92 20 93 75 04:53 10/18/18 97.8 90 18 102/71 93 High Flow 04:00 (81) 10/18/18 91 04:00 10/18/18 99 15 101/65 91 High Flow 03:00 (77) 10/18/18 91 19 109/70 90 High Flow 02:00 (83) 10/18/18 100 17 106/69 87 High Flow 01:00 (81) 10/18/18 90 75 00:55 10/18/18 101 17 90 75 00:55 10/18/18 94 00:00 10/18/18 97.8 98 18 95/81 (86) 88 High Flow 00:00 10/17/18 102 19 103/69 90 High Flow 23:00 (80) 10/17/18 83 16 97/65 (76) 90 High Flow 22:00 10/17/18 86 75 21:06 10/17/18 103 21 108/67 86 High Flow 21:00 (81) 10/17/18 113 20 94 75 20:50 10/17/18 94 75 20:50 10/17/18 97.8 100 19 111/68 93 High Flow 20:00 (82) 10/17/18 102 20:00 10/17/18 100 20 103/84 91 High Flow 19:00 (90) 10/17/18 102 20 107/80 89 High Flow 18:00 (89) 10/17/18 97 75 17:06 10/17/18 106 20 97 Nasal 75 17:05 Cannula 10/17/18 103 12 117/83 95 High Flow 17:00 (94) 10/17/18 100 16:00 10/17/18 105 15 118/74 94 16:00 (89) 10/17/18 98.3 105 15 118/74 94 High Flow 16:00 (89) 10/17/18 99 18 106/69 94 High Flow 15:00 (81) 10/17/18 94 85 14:54 10/17/18 104 22 94/71 (79) 95 High Flow 14:00 10/17/18 94 19 96 Nasal 90 13:24 Cannula 10/17/18 94 90 13:23 10/17/18 100 18 96/78 (84) 93 High Flow 13:00 10/17/18 131 12:00 10/17/18 98.0 124 28 85/71 (76) 96 High Flow 12:00 10/17/18 91 90 11:29 10/17/18 110 18 89/52 (64) 91 High Flow 11:00 10/17/18 113 21 96/68 (77) 92 High Flow 10:00 10/17/18 91 90 09:05 10/17/18 99 14 112/76 88 High Flow 09:00 (88) 10/17/18 98.9 94 17 112/81 91 High Flow 08:00 (91) 10/17/18 Vapotherm 08:00 10/17/18 102 16 91 Nasal 90 08:00 Cannula 10/17/18 98 08:00 10/17/18 90 90 07:55 10/17/18 87 18 103/68 88 High Flow 07:00 (80) 10/17/18 98.0 90 16 108/75 93 High Flow 06:00 (86) 10/17/18 88 18 93 90 05:02 10/17/18 93 90 05:02 10/17/18 83 18 110/80 90 High Flow 05:00 (90) 10/17/18 95 16 103/65 84 High Flow 04:00 (78) 10/17/18 91 04:00 10/17/18 84 15 99/65 (76) 92 High Flow 03:00 10/17/18 98.0 95 18 100/68 92 High Flow 02:00 (79) 10/17/18 90 19 91 90 01:03 10/17/18 91 90 01:03 10/17/18 88 18 105/73 90 High Flow 01:00 (84) 10/17/18 93 11 102/74 90 High Flow 00:00 (83) 10/17/18 88 00:00 10/16/18 89 16 103/68 91 High Flow 23:00 (80) 10/16/18 96 18 102/61 90 High Flow 22:00 (75) 10/16/18 146 21:09 10/16/18 107 11 104/75 90 High Flow 21:00 (85) 10/16/18 102 18 92 90 20:56 10/16/18 92 90 20:56 10/16/18 98.0 97 18 108/70 92 High Flow 20:00 (83) 10/16/18 94 20:00 10/16/18 92 90 19:45 10/16/18 96 20 99/67 (78) 94 High Flow 18:00 10/16/18 93 80 17:23 10/16/18 75 18 93 80 17:05 10/16/18 99 11 108/64 92 High Flow 17:00 (79) 10/16/18 107 16:00 10/16/18 103 12 109/70 86 High Flow 16:00 (83) 10/16/18 107 25 107/93 91 High Flow 15:00 (98) 10/16/18 98.2 110 18 105/74 96 High Flow 14:00 (84) 10/16/18 93 80 13:25 10/16/18 85 20 93 80 13:20 10/16/18 104 16 97/65 (76) 90 High Flow 13:00 10/16/18 114 23 113/79 89 High Flow 12:00 (90) 10/16/18 110 12:00 10/16/18 131 21 99/71 (80) 89 High Flow 11:00 10/16/18 97 25 108/76 93 High Flow 10:00 (87) 10/16/18 91 20 92 90 09:19 10/16/18 92 90 09:19 10/16/18 102 18 96/59 (71) 91 High Flow 09:00 10/16/18 96 08:00 10/16/18 98.0 88 20 123/81 91 High Flow 08:00 (95) 10/16/18 84 16 123/83 91 High Flow 07:00 (96) 10/16/18 101 17 118/81 93 High Flow 06:00 (93) 10/16/18 92 28 91 05:15 10/16/18 97 17 118/72 90 High Flow 05:05 (87) 10/16/18 78 22 93 90 04:15 10/16/18 87 23 91 High Flow 04:15 10/16/18 93 90 04:15 10/16/18 97.9 04:15 10/16/18 95 04:00 10/16/18 97 22 90 03:10 10/16/18 101/68 03:10 (79) 10/16/18 97 22 90 High Flow 03:10 10/16/18 100 25 106/64 90 High Flow 02:14 (78) 10/16/18 93 90 01:25 10/16/18 78 22 93 90 01:25 10/16/18 93 25 90 High Flow 01:03 10/16/18 97.9 00:09 10/16/18 98 28 111/59 93 High Flow 00:00 (76) 10/16/18 105 00:00 10/15/18 120/76 23:18 (91) 10/15/18 97 24 93 23:00 10/15/18 97 24 93 23:00 10/15/18 89 21 114/74 90 22:00 (87) 10/15/18 90 21:27 10/15/18 96 95 21:15 10/15/18 88 22 96 95 21:15 10/15/18 97.9 87 15 113/79 94 21:00 (90) 10/15/18 87 15 113/79 94 High Flow 21:00 (90) 10/15/18 90 20 127/76 96 20:00 (93) 10/15/18 101 20:00 10/15/18 98.0 20:00 10/15/18 103 22 104/71 96 High Flow 19:00 (82) 10/15/18 95 95 18:07 10/15/18 85 22 96 100 17:56 10/15/18 94 100 17:40 Vital Signs Date Temp Pulse Resp B/P (MAP) Pulse Ox O2 O2 Flow FiO2 Time Delivery Rate 10/18/18 93 70 16:43 10/18/18 99 16:00 10/18/18 18 117/77 High Flow 14:00 (90) 10/18/18 97.3 12:00 Intake and Output 10/17/18 10/17/18 10/18/18 1515:00 23:00 07:00 IntakeIntake Total 410 ml 370 ml 1300 ml OutputOutput Total 2275 ml 1750 ml 2000 ml BalanceBalance -1865 ml -1380 ml -700 ml Constitutional: alert, oriented, obese Psych: no complaints, nl mood/affect Respiratory: crackles/rales, wheezing Cardiovascular: regular rate and rhythm; No edema, No murmurs/extra sounds, No rub Gastrointestinal: soft, nl liver, spleen, non-tender, bowel sounds; No mass, No rebound or guarding Musculoskeletal: nl extremities to inspection Extremities: normal pulses; No cyanosis, No clubbing, No edema 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: CLINICAL PROGRAM CONSULTANT II-XII intact, nl mental status, nl speech, nl strength Additional Comments Bedside Glucose - 72 Hours Test 10/15/18 17:20 10/15/18 20:31 10/16/18 01:53 10/16/18 08:09 Bedside 201 197 200 173 Glucose mg/dL (70-220) mg/dL (70-220) mg/dL (70-220) mg/dL (70-220) Test 10/16/18 11:59 10/16/18 17:12 10/16/18 20:33 10/17/18 08:21 Bedside 221 112 172 173 Glucose mg/dL (70-220) mg/dL (70-220) mg/dL (70-220) mg/dL (70-220) H Test 10/17/18 12:32 10/17/18 17:59 10/17/18 20:52 10/18/18 01:44 Bedside 167 158 228 171 Glucose mg/dL (70-220) mg/dL (70-220) mg/dL (70-220) mg/dL (70-220) H Test 10/18/18 05:28 10/18/18 08:05 10/18/18 13:02 Bedside 181 173 161 Glucose mg/dL (70-220) mg/dL (70-220) mg/dL (70-220) Results Result Diagram: 10/18/18 0442 10/18/18 0442 Results 24hrs Laboratory Tests Test 10/17/18 17:59 10/17/18 20:52 10/18/18 01:44 10/18/18 04:42 Bedside Glucose 158 228 H 171 White Blood Count 15.4 H Red Blood Count 5.33 Hemoglobin 13.6 L Hematocrit 43.8 Mean Corpuscular Volume 82.2 Mean Corpuscular 25.5 L Hemoglobin Mean Corpuscular 31.1 L Hemoglobin Concent Red Cell Distribution 16.1 H Width Platelet Count 201 Mean Platelet Volume 9.8 Immature Granulocytes % 0.800 H Neutrophils % 90.1 H Lymphocytes % 5.3 L Monocytes % 3.6 Eosinophils % 0.1 Basophils % 0.1 Nucleated Red Blood 0.0 Cells % Immature Granulocytes # 0.120 H Neutrophils # 13.8 H Lymphocytes # 0.8 Monocytes # 0.6 Eosinophils # 0.0 Basophils # 0.0 Nucleated Red Blood 0.0 Cells # Sodium Level 138 Potassium Level 4.3 Chloride Level 97 Carbon Dioxide Level 30 Anion Gap 11 Blood Urea Nitrogen 38 H Creatinine 0.88 Est Glomerular Filtrat > 60 Rate mL/min Glucose Level 167 Calcium Level 9.2 Test 10/18/18 05:28 10/18/18 08:05 10/18/18 13:02 Bedside Glucose 181 173 161 Medications Medication Current Medications Albuterol/ Ipratropium (Duoneb) 3 ml Q4 HHN Last administered on 10/18/18at 16:33; Admin Dose 3 ML; Start 10/11/18 at 21:00 Insulin Aspart (Novolog Insulin Pen) NOVOLOG *MODERATE* ALGORITHM WITH MEALS BEDTIME SC Last administered on 10/18/18at 13:06; Admin Dose 2 UNIT; Start 10/11/18 at 21:00 Zolpidem Tartrate (Ambien) 5 mg HS MAY REPEAT X 1 PRN PO INSOMNIA; Start 10/11/18 at 20:30 Ondansetron HCl (Zofran Inj) 4 mg Q4 PRN IV nausea; Start 10/11/18 at 20:30 Miscellaneous Information 1 ea NOTE XX ; Start 10/11/18 at 21:00 Glucose (Glutose) 15 gm Q15M PRN PO DECREASED GLUCOSE; Start 10/11/18 at 21:00 Glucose (Glutose) 22.5 gm Q15M PRN PO DECREASED GLUCOSE; Start 10/11/18 at 21:00 Dextrose (D50w Syringe) 25 ml Q15M PRN IV DECREASED GLUCOSE; Start 10/11/18 at 21:00 Dextrose (D50w Syringe) 50 ml Q15M PRN IV DECREASED GLUCOSE; Start 10/11/18 at 21:00 Glucagon (Glucagen) 1 mg Q15M PRN IM DECREASED GLUCOSE; Start 10/11/18 at 21:00 Glucose (Glutose) 15 gm Q15M PRN BUCCAL DECREASED GLUCOSE; Start 10/11/18 at 21:00 Promethazine HCl/ Dextromethorphan (Phenergan-Dm) 5 ml Q6 PRN PO COUGH; Start 10/11/18 at 21:00 Digoxin (Digoxin) 0.25 mg DAILY PO Last administered on 10/18/18 09:27; Admin Dose 0.25 MG; Start 10/12/18 at 09:00 Atorvastatin Calcium (Lipitor) 20 mg DAILY@21 PO Last administered on 10/17/18 20:54; Admin Dose 20 MG; Start 10/11/18 at 22:30 Apixaban (Eliquis) 5 mg BID PO Last administered on 10/18/18 09:27; Admin Dose 5 MG; Start 10/12/18 at 12:30 Metoprolol Succinate (Toprol Xl) 50 mg BID PO Last administered on 10/18/18 09:30; Admin Dose 50 MG; Start 10/12/18 at 21:00 Methylprednisolone Sodium Succinate (Solu-Medrol) 60 mg Q6 IV Last administered on 10/18/18 14:35; Admin Dose 60 MG; Start 10/13/18 at 12:00 Cefepime HCl 50 ml @ 100 mls/hr Q8 IVPB Last administered on 10/18/18 14:35; Admin Dose 100 MLS/HR; Start 10/13/18 at 10:00 Patient Own Medication 6 ea AM PO Last administered on 10/18/18 09:25; Admin Dose 6 EA; Start 10/13/18 at 13:00 Acetazolamide (Diamox) 250 mg BID PO Last administered on 10/18/18 09:26; Admin Dose 250 MG; Start 10/13/18 at 21:00 Metformin HCl (Glucophage Xr) 1,000 mg BID PO Last administered on 10/18/18 09:28; Admin Dose 1,000 MG; Start 10/14/18 at 21:00 Empaglifozin (Jardiance) 25 mg DAILY@08 PO Last administered on 10/18/18 09:24; Admin Dose 25 MG; Start 10/15/18 at 08:00 Diagnostic Test (Pha) (Accu-Chek) 1 ea 02 XX Last administered on 10/16/18 02:15; Admin Dose 1 EA; Start 10/15/18 at 02:00 Linagliptin (Tradjenta) 5 mg DAILY PO Last administered on 10/18/18 09:31; Admin Dose 5 MG; Start 10/15/18 at 09:00 Spironolactone (Aldactone) 25 mg DAILY PO Last administered on 10/18/18at 09:26; Admin Dose 25 MG; Start 10/16/18 at 12:30 Furosemide (Lasix) 40 mg DAILY IV ; Start 10/19/18 at 09:00 Insulin Aspart (Novolog Insulin Pen) 20 unit WITH MEALS SC ; Start 10/18/18 at 17:35 Insulin Glargine (Lantus) 40 units DAILY@2000 SC ; Start 10/18/18 at 20:00 KAYLA BUCK MD Oct 18, 2018 17:07
[2018-10-18] MEDS: INSULIN GLARGINE [LANTus] (100 UNITS/ML) SYG SC SCH (20:23)
[2018-10-18] MEDS: ATORVASTATIN 20 MG TAB PO SCH (21:10)
[2018-10-19] VITALS (24 sets, daily range): BP systolic 80–120; BP diastolic 61–90; PULSE 83–126; RESP 13–26
[2018-10-19] MEDS: METHYLPREDNISOLONE 125 MG INJ IV SCH ×4 (00:03→18:20)
[2018-10-19] MEDS: ALBUTEROL/IPRATROPIUM (NEB) 3 ML AMP HHN SCH ×6 (00:48→20:13)
[2018-10-19] MEDS: ACCU-CHEK XX SCH (01:58)
[2018-10-19] MEDS: CEFEPIME 2GM/50 ML (PMX) 50 ML IVPB SCH ×3 (05:47→21:52)
[2018-10-19] MEDS: EMPAGLIFLOZIN 10 MG TABLET PO SCH (08:28)
[2018-10-19] MEDS: INSULIN ASPART [NOVOLOG] 3 ML PEN SC SCH ×6 (08:35→21:02)
[2018-10-19] MEDS ORDERED: VALPROATE INJ 1,000 MG in SOD CHLORIDE 0.9% 100 ML IVPB STA (08:46)
--- NOTE | 2018-10-19 09:20 | PN ---
Date/Time of Note Date/Time of Note DATE: 10/19/18 TIME: 09:15 Subjective Doing well. No complaint of chest pain or shortness of breath. Sitting in chair Objective Vitals Vital Signs Date Temp Pulse Resp B/P (MAP) Pulse Ox O2 O2 Flow FiO2 Time Delivery Rate 10/19/18 91 65 08:30 10/19/18 97 18 25.0 08:30 10/19/18 111/78 High Flow 07:00 (89) 10/19/18 98.0 04:00 Intake and Output 10/18/18 10/18/18 10/19/18 1414:59 22:59 06:59 IntakeIntake Total 360 ml 520 ml 300 ml OutputOutput Total 950 ml 1290 ml 1100 ml BalanceBalance -590 ml -770 ml -800 ml Bilateral rhonchi Regular rate and rhythm no murmurs or gallops Soft obese nontender nondistended normoactive bowel sounds Mild edema Nonfocal Results Result Diagram: 10/18/1844110/18/18 044 Medications Medications Current Medications Albuterol/ Ipratropium (Duoneb) 3 ml Q4 HHN Last administered on 10/19/18at 08:27; Admin Dose 3 ML; Start 10/11/18 at 21:00 Insulin Aspart (Novolog Insulin Pen) NOVOLOG *MODERATE* ALGORITHM WITH MEALS BEDTIME SC Last administered on 10/18/18at 21:29; Admin Dose 1 UNIT; Start 10/11/18 at 21:00 Zolpidem Tartrate (Ambien) 5 mg HS MAY REPEAT X 1 PRN PO INSOMNIA; Start 10/11/18 at 20:30 Ondansetron HCl (Zofran Inj) 4 mg Q4 PRN IV nausea; Start 10/11/18 at 20:30 Miscellaneous Information 1 ea NOTE XX ; Start 10/11/18 at 21:00 Glucose (Glutose) 15 gm Q15M PRN PO DECREASED GLUCOSE; Start 10/11/18 at 21:00 Glucose (Glutose) 22.5 gm Q15M PRN PO DECREASED GLUCOSE; Start 10/11/18 at 21:00 Dextrose (D50w Syringe) 25 ml Q15M PRN IV DECREASED GLUCOSE; Start 10/11/18 at 21:00 Dextrose (D50w Syringe) 50 ml Q15M PRN IV DECREASED GLUCOSE; Start 10/11/18 at 21:00 Glucagon (Glucagen) 1 mg Q15M PRN IM DECREASED GLUCOSE; Start 10/11/18 at 21:00 Glucose (Glutose) 15 gm Q15M PRN BUCCAL DECREASED GLUCOSE; Start 10/11/18 at 21:00 Promethazine HCl/ Dextromethorphan (Phenergan-Dm) 5 ml Q6 PRN PO COUGH; Start 10/11/18 at 21:00 Digoxin (Digoxin) 0.25 mg DAILY PO Last administered on 10/18/18 09:27; Admin Dose 0.25 MG; Start 10/12/18 at 09:00 Atorvastatin Calcium (Lipitor) 20 mg DAILY@21 PO Last administered on 10/18/18 21:10; Admin Dose 20 MG; Start 10/11/18 at 22:30 Apixaban (Eliquis) 5 mg BID PO Last administered on 10/18/18 21:10; Admin Dose 5 MG; Start 10/12/18 at 12:30 Metoprolol Succinate (Toprol Xl) 50 mg BID PO Last administered on 10/18/18 21:10; Admin Dose 50 MG; Start 10/12/18 at 21:00 Methylprednisolone Sodium Succinate (Solu-Medrol) 60 mg Q6 IV Last administered on 10/19/18 05:48; Admin Dose 60 MG; Start 10/13/18 at 12:00 Cefepime HCl 50 ml @ 100 mls/hr Q8 IVPB Last administered on 10/19/18 05:47; Admin Dose 100 MLS/HR; Start 10/13/18 at 10:00 Patient Own Medication 6 ea AM PO Last administered on 10/18/18 09:25; Admin Dose 6 EA; Start 10/13/18 at 13:00 Acetazolamide (Diamox) 250 mg BID PO Last administered on 10/18/18 21:11; Admin Dose 250 MG; Start 10/13/18 at 21:00 Metformin HCl (Glucophage Xr) 1,000 mg BID PO Last administered on 10/18/18 21 :11; Admin Dose 1,000 MG; Start 10/14/18 at 21:00 Empaglifozin (Jardiance) 25 mg DAILY@08 PO Last administered on 10/19/18 08:28; Admin Dose 25 MG; Start 10/15/18 at 08:00 Diagnostic Test (Pha) (Accu-Chek) 1 ea 02 XX Last administered on 10/16/18at 02:15; Admin Dose 1 EA; Start 10/15/18 at 02:00 Linagliptin (Tradjenta) 5 mg DAILY PO Last administered on 10/18/18at 09:31; Admin Dose 5 MG; Start 10/15/18 at 09:00 Spironolactone (Aldactone) 25 mg DAILY PO Last administered on 10/18/18at 09:26; Admin Dose 25 MG; Start 10/16/18 at 12:30 Furosemide (Lasix) 40 mg DAILY IV ; Start 10/19/18 at 09:00 Insulin Aspart (Novolog Insulin Pen) 20 unit WITH MEALS SC Last administered on 10/19/18at 08:35; Admin Dose 20 UNIT; Start 10/18/18 at 17:35 Insulin Glargine (Lantus) 40 units DAILY@2000 SC Last administered on 10/18/18at 20:23; Admin Dose 40 UNITS; Start 10/18/18 at 20:00 VTE Prophylaxis Risk score (from Nsg)>0 risk: 3 SCD applied (from Nsg): No SCD contraindication: other Pharmacological prophylaxis: apixaban Lines/Catheters IV Catheter Type: Saline Lock [place] in Place: No Assessment/Plan Assessment/Plan 62-year-old male with acute hypoxemic respiratory failure, slowly improving Right lower lobe pneumonia Pulmonary hypertension Hypertension Type 2 diabetes mellitus Chronic atrial fibrillation, rate controlled Obesity Continue current therapy Wean off high flow O2 Pulmonary, cardiology, and ID follow-up Plan of care was discussed with patient and his at the bedside ELI YARBROUGH MD Oct 19, 2018 09:20
[2018-10-19] MEDS: metFORMIN (XR) 500 MG TAB PO SCH ×2 (09:21→20:46)
[2018-10-19] MEDS: APIXABAN 5 MG TABLET PO SCH ×2 (09:21→20:45)
[2018-10-19] MEDS: DIGOXIN 0.25 MG TAB PO SCH (09:22)
[2018-10-19] MEDS: LINAGLIPTIN 5 MG TABLET PO SCH (09:22)
[2018-10-19] MEDS: FUROSEMIDE 40 MG INJ IV SCH (09:25)
[2018-10-19] MEDS: SPIRONOLACTONE 25 MG TAB PO SCH (09:25)
[2018-10-19] MEDS: METOPROLOL (XL) 25 MG TAB PO SCH ×2 (09:26→20:45)
[2018-10-19] MEDS: CYCLOSET PO SCH (09:35)
[2018-10-19] MEDS: ACETAZOLAMIDE 250 MG TAB PO SCH ×2 (09:35→21:05)
--- NOTE | 2018-10-19 11:26 | CONS ---
Assessment/Plan Assessment/Plan Assessment/Plan (Daily) 1. Metabolic alkalosis on Acetazolamide 250mg BID , HCO3 30, BUN/Cr 27/0.82, WBC 12 1. Acute Hypoxic respiratory failure, likely secondary to reactive airway and pneumonia, patient seems to be euvolemic for now.- on IV abx cefepime and vancomycin< renally dose all abx and monitor electrolytes 2. Atrial fibrillation, chronic, rate controlled. 3. Congestive heart failure, diastolic dysfunction, chronic, currently euvolemic. Echocardiogram with EF of 55%.- on lasix 40mg pO BID Continue current medication, patient on oral Lasix daily. 4. Diabetes mellitus Type II with acute hyperglycemia 5. Hypertension Consultation Date/Type/Reason Admit Date/Time Oct 12, 2018 at 06:16 Initial Consult Date 10/14/18 Type of Consult NEPHROLOGY Requesting Provider: ROEL ALBA Date/Time of Note DATE: 10/19/18 TIME: 11:26 Exam/Review of Systems Exam Vitals Vital Signs Date Temp Pulse Resp B/P (MAP) Pulse Ox O2 O2 Flow FiO2 Time Delivery Rate 10/19/18 91 65 08:30 10/19/18 97 18 25.0 08:30 10/19/18 111/78 High Flow 07:00 (89) 10/19/18 98.0 04:00 Intake and Output 10/18/18 10/18/18 10/19/18 1515:00 23:00 07:00 IntakeIntake Total 410 ml 520 ml 300 ml OutputOutput Total 950 ml 1290 ml 1100 ml BalanceBalance -540 ml -770 ml -800 ml Results Result Diagram: 10/18/18 0442 10/18/182 Results 24hrs Laboratory Tests Test 10/18/18 13:02 10/18/18 17:36 10/18/18 20:30 10/19/18 01:54 Bedside Glucose 161 121 185 240 H Test 10/19/18 08:18 Bedside Glucose 168 Medications Medication Current Medications Albuterol/ Ipratropium (Duoneb) 3 ml Q4 HHN Last administered on 10/19/18at 08:27; Admin Dose 3 ML; Start 10/11/18 at 21:00 Insulin Aspart (Novolog Insulin Pen) NOVOLOG *MODERATE* ALGORITHM WITH MEALS BEDTIME SC Last administered on 10/18/18at 21:29; Admin Dose 1 UNIT; Start 10/11/18 at 21:00 Zolpidem Tartrate (Ambien) 5 mg HS MAY REPEAT X 1 PRN PO INSOMNIA; Start 10/11/18 at 20:30 Ondansetron HCl (Zofran Inj) 4 mg Q4 PRN IV nausea; Start 10/11/18 at 20:30 Miscellaneous Information 1 ea NOTE XX ; Start 10/11/18 at 21:00 Glucose (Glutose) 15 gm Q15M PRN PO DECREASED GLUCOSE; Start 10/11/18 at 21:00 Glucose (Glutose) 22.5 gm Q15M PRN PO DECREASED GLUCOSE; Start 10/11/18 at 21:00 Dextrose (D50w Syringe) 25 ml Q15M PRN IV DECREASED GLUCOSE; Start 10/11/18 at 21:00 Dextrose (D50w Syringe) 50 ml Q15M PRN IV DECREASED GLUCOSE; Start 10/11/18 at 21:00 Glucagon (Glucagen) 1 mg Q15M PRN IM DECREASED GLUCOSE; Start 10/11/18 at 21:00 Glucose (Glutose) 15 gm Q15M PRN BUCCAL DECREASED GLUCOSE; Start 10/11/18 at 21:00 Promethazine HCl/ Dextromethorphan (Phenergan-Dm) 5 ml Q6 PRN PO COUGH; Start 10/11/18 at 21:00 Digoxin (Digoxin) 0.25 mg DAILY PO Last administered on 10/19/18at 09:22; Admin Dose 0.25 MG; Start 10/12/18 at 09:00 Atorvastatin Calcium (Lipitor) 20 mg DAILY@21 PO Last administered on 10/18/18at 21:10; Admin Dose 20 MG; Start 10/11/18 at 22:30 Apixaban (Eliquis) 5 mg BID PO Last administered on 10/19/18 09:21; Admin Dose 5 MG; Start 10/12/18 at 12:30 Metoprolol Succinate (Toprol Xl) 50 mg BID PO Last administered on 10/19/18 09:26; Admin Dose 50 MG; Start 10/12/18 at 21:00 Methylprednisolone Sodium Succinate (Solu-Medrol) 60 mg Q6 IV Last administered on 10/19/18at 05:48; Admin Dose 60 MG; Start 10/13/18 at 12:00 Cefepime HCl 50 ml @ 100 mls/hr Q8 IVPB Last administered on 10/19/18 05:47; Admin Dose 100 MLS/HR; Start 10/13/18 at 10:00 Patient Own Medication 6 ea AM PO Last administered on 10/19/18 09:35; Admin Dose 6 EA; Start 10/13/18 at 13:00 Acetazolamide (Diamox) 250 mg BID PO Last administered on 10/19/18 09:35; Admin Dose 250 MG; Start 10/13/18 at 21:00 Metformin HCl (Glucophage Xr) 1,000 mg BID PO Last administered on 10/19/18 09:21; Admin Dose 1,000 MG; Start 10/14/18 at 21:00 Empaglifozin (Jardiance) 25 mg DAILY@08 PO Last administered on 10/19/18 08:28; Admin Dose 25 MG; Start 10/15/18 at 08:00 Diagnostic Test (Pha) (Accu-Chek) 1 ea 02 XX Last administered on 10/16/18 02 :15; Admin Dose 1 EA; Start 10/15/18 at 02:00 Linagliptin (Tradjenta) 5 mg DAILY PO Last administered on 10/19/18 09:22; Admin Dose 5 MG; Start 10/15/18 at 09:00 Spironolactone (Aldactone) 25 mg DAILY PO Last administered on 10/19/18 09:25; Admin Dose 25 MG; Start 10/16/18 at 12:30 Furosemide (Lasix) 40 mg DAILY IV Last administered on 10/19/18 09:25; Admin Dose 40 MG; Start 10/19/18 at 09:00 Insulin Aspart (Novolog Insulin Pen) 20 unit WITH MEALS SC Last administered on 10/19/18 08:35; Admin Dose 20 UNIT; Start 10/18/18 at 17:35 Insulin Glargine (Lantus) 40 units DAILY@2000 SC Last administered on 10/18/18 20:23; Admin Dose 40 UNITS; Start 10/18/18 at 20:00 NEDA STAHL MD Oct 19, 2018 11:26
--- NOTE | 2018-10-19 12:02 | CONS ---
Assessment/Plan Assessment/Plan Hospital Course (Demo Recall) Patient is alert sitting in the chair he is on high flow oxygen in no distress and no fevers overnight. WBC 15.4 yesterday no labs today Microbiology: Sputum culture grew Louise albicans blood and urine culture negative MRSA swab negative Antimicrobials: Cefepime Physical examination: This is an obese very pleasant well-developed elderly man who is alert in no distress head atraumatic normocephalic sclera nonicteric vehicle mucosa dry patient has white Trush on his tongue neck is supple chest rise symmetrical breath sounds with bilateral rhonchi more on the right. Heart: S1-S2 tachycardic regular abdomen soft bowel sounds present extremities without cyanosis patient has bilateral lower extremity chronic discoloration Assessment: 1. Acute hypoxemic respiratory failure 2. Right lower lobe pneumonia 3. Oral thrush 4. Atrial fibrillation, chronic 5. Bilateral lower extremities chronic venous stasis 6. CHF 7. Diabetes Plan: Patient is clinically stable, pending cocci and Aspergillus serology, we will add to Cancidas to the regimen as Diflucan has multiple drug interactions, add oral nystatin, continue cefepime, follow cardiology and pulmonary recommendations Discussed with family at bedside at length Consultation Date/Type/Reason Admit Date/Time Oct 12, 2018 at 06:16 Initial Consult Date 10/14/18 Type of Consult id Requesting Provider: ROEL ALBA Date/Time of Note DATE: 10/19/18 TIME: 12:02 Exam/Review of Systems Exam Vitals Vital Signs Date Temp Pulse Resp B/P (MAP) Pulse Ox O2 O2 Flow FiO2 Time Delivery Rate 10/19/18 108 24 80/69 (73) 88 11:00 10/19/18 High Flow 10:00 10/19/18 65 08:30 10/19/18 25.0 08:30 10/19/18 98.0 04:00 Intake and Output 10/18/18 10/18/18 10/19/18 1515:00 23:00 07:00 IntakeIntake Total 410 ml 520 ml 300 ml OutputOutput Total 950 ml 1290 ml 1100 ml BalanceBalance -540 ml -770 ml -800 ml Results Result Diagram: 10/18/18 0442 10/18/18 0442 Results 24hrs Laboratory Tests Test 10/18/18 13:02 10/18/18 17:36 10/18/18 20:30 10/19/18 01:54 Bedside Glucose 161 121 185 240 H Test 10/19/18 08:18 10/19/18 11:52 Bedside Glucose 168 152 Medications Medication Current Medications Albuterol/ Ipratropium (Duoneb) 3 ml Q4 HHN Last administered on 10/19/18at 08:27; Admin Dose 3 ML; Start 10/11/18 at 21:00 Insulin Aspart (Novolog Insulin Pen) NOVOLOG *MODERATE* ALGORITHM WITH MEALS BEDTIME SC Last administered on 10/18/18at 21:29; Admin Dose 1 UNIT; Start 10/11/18 at 21:00 Zolpidem Tartrate (Ambien) 5 mg HS MAY REPEAT X 1 PRN PO INSOMNIA; Start 10/11/18 at 20:30 Ondansetron HCl (Zofran Inj) 4 mg Q4 PRN IV nausea; Start 10/11/18 at 20:30 Miscellaneous Information 1 ea NOTE XX ; Start 10/11/18 at 21:00 Glucose (Glutose) 15 gm Q15M PRN PO DECREASED GLUCOSE; Start 10/11/18 at 21:00 Glucose (Glutose) 22.5 gm Q15M PRN PO DECREASED GLUCOSE; Start 10/11/18 at 21 :00 Dextrose (D50w Syringe) 25 ml Q15M PRN IV DECREASED GLUCOSE; Start 10/11/18 at 21:00 Dextrose (D50w Syringe) 50 ml Q15M PRN IV DECREASED GLUCOSE; Start 10/11/18 at 21:00 Glucagon (Glucagen) 1 mg Q15M PRN IM DECREASED GLUCOSE; Start 10/11/18 at 21:00 Glucose (Glutose) 15 gm Q15M PRN BUCCAL DECREASED GLUCOSE; Start 10/11/18 at 21:00 Promethazine HCl/ Dextromethorphan (Phenergan-Dm) 5 ml Q6 PRN PO COUGH; Start 10/11/18 at 21:00 Digoxin (Digoxin) 0.25 mg DAILY PO Last administered on 10/19/18at 09:22; Admin Dose 0.25 MG; Start 10/12/18 at 09:00 Atorvastatin Calcium (Lipitor) 20 mg DAILY@21 PO Last administered on 10/18/18at 21:10; Admin Dose 20 MG; Start 10/11/18 at 22:30 Apixaban (Eliquis) 5 mg BID PO Last administered on 10/19/18 09:21; Admin Dose 5 MG; Start 10/12/18 at 12:30 Metoprolol Succinate (Toprol Xl) 50 mg BID PO Last administered on 10/19/18 09:26; Admin Dose 50 MG; Start 10/12/18 at 21:00 Methylprednisolone Sodium Succinate (Solu-Medrol) 60 mg Q6 IV Last administered on 10/19/18 05:48; Admin Dose 60 MG; Start 10/13/18 at 12:00 Cefepime HCl 50 ml @ 100 mls/hr Q8 IVPB Last administered on 10/19/18 05:47; Admin Dose 100 MLS/HR; Start 10/13/18 at 10:00 Patient Own Medication 6 ea AM PO Last administered on 10/19/18 09:35; Admin Dose 6 EA; Start 10/13/18 at 13:00 Acetazolamide (Diamox) 250 mg BID PO Last administered on 10/19/18 09:35; Admin Dose 250 MG; Start 10/13/18 at 21:00 Metformin HCl (Glucophage Xr) 1,000 mg BID PO Last administered on 10/19/18 09:21; Admin Dose 1,000 MG; Start 10/14/18 at 21:00 Empaglifozin (Jardiance) 25 mg DAILY@08 PO Last administered on 10/19/18 08:28; Admin Dose 25 MG; Start 10/15/18 at 08:00 Diagnostic Test (Pha) (Accu-Chek) 1 ea 02 XX Last administered on 10/16/18 02:15; Admin Dose 1 EA; Start 10/15/18 at 02:00 Linagliptin (Tradjenta) 5 mg DAILY PO Last administered on 10/19/18 09:22; Admin Dose 5 MG; Start 10/15/18 at 09:00 Spironolactone (Aldactone) 25 mg DAILY PO Last administered on 10/19/18 09:25; Admin Dose 25 MG; Start 10/16/18 at 12:30 Furosemide (Lasix) 40 mg DAILY IV Last administered on 10/19/18 09:25; Admin Dose 40 MG; Start 10/19/18 at 09:00 Insulin Aspart (Novolog Insulin Pen) 20 unit WITH MEALS SC Last administered on 10/19/18at 08:35; Admin Dose 20 UNIT; Start 10/18/18 at 17:35 Insulin Glargine (Lantus) 40 units DAILY@2000 SC Last administered on 10/18/18at 20:23; Admin Dose 40 UNITS; Start 10/18/18 at 20:00 AGATHA ATKINS NP Oct 19, 2018 12:02
--- NOTE | 2018-10-19 12:32 | CONS ---
Consult Date/Type/Reason Admit Date/Time Oct 12, 2018 at 06:16 Initial Consult Date Type of Consult Pulmonary Requesting Provider: ROEL ALBA Date/Time of Note DATE: 10/19/18 TIME: 12:30 Subjective Slow progress. Still requiring FiO2 65% flow decreased to 25 L/min. Patient has significant frustration in his slow improvement. Objective Vital Signs Date Temp Pulse Resp B/P (MAP) Pulse Ox O2 O2 Flow FiO2 Time Delivery Rate 10/19/18 99 12:00 10/19/18 24 80/69 (73) 88 11:00 10/19/18 High Flow 10:00 10/19/18 65 08:30 10/19/18 25.0 08:30 10/19/18 98.0 04:00 Intake and Output 10/18/18 10/18/18 10/19/18 1515:00 23:00 07:00 IntakeIntake Total 410 ml 520 ml 300 ml OutputOutput Total 950 ml 1290 ml 1100 ml BalanceBalance -540 ml -770 ml -800 ml Exam GENERAL: Well-nourished well-developed gentleman on high flow O2. VITAL SIGNS: per chart NECK: Supple. No JVD or lymphadenopathy. CARDIAC EXAM: S1, S2. No added sounds or murmurs. CHEST: Diminished air entry bilaterally with rales ABDOMEN: Soft, nontender. No guarding or rebound. EXTREMITIES: No cyanosis, clubbing or edema. NEUROLOGIC: Generalized weakness. No focal deficits Vent Setting Fraction of Inspired Oxygen pe: 65 Results/Medications Result Diagram: 10/18/18 0442 10/18/18 0442 Results 24 hrs Laboratory Tests Test 10/18/18 13:02 10/18/18 17:36 10/18/18 20:30 10/19/18 01:54 Bedside Glucose 161 121 185 240 H Test 10/19/18 08:18 10/19/18 11:52 Bedside Glucose 168 152 Medications Current Medications Albuterol/ Ipratropium (Duoneb) 3 ml Q4 HHN Last administered on 10/19/18at 08:27; Admin Dose 3 ML; Start 10/11/18 at 21:00 Insulin Aspart (Novolog Insulin Pen) NOVOLOG *MODERATE* ALGORITHM WITH MEALS BEDTIME SC Last administered on 10/19/18at 12:02; Admin Dose 22 UNIT; Start 10/11/18 at 21:00 Zolpidem Tartrate (Ambien) 5 mg HS MAY REPEAT X 1 PRN PO INSOMNIA; Start 10/11/18 at 20:30 Ondansetron HCl (Zofran Inj) 4 mg Q4 PRN IV nausea; Start 10/11/18 at 20:30 Miscellaneous Information 1 ea NOTE XX ; Start 10/11/18 at 21:00 Glucose (Glutose) 15 gm Q15M PRN PO DECREASED GLUCOSE; Start 10/11/18 at 21:00 Glucose (Glutose) 22.5 gm Q15M PRN PO DECREASED GLUCOSE; Start 10/11/18 at 21:00 Dextrose (D50w Syringe) 25 ml Q15M PRN IV DECREASED GLUCOSE; Start 10/11/18 at 21:00 Dextrose (D50w Syringe) 50 ml Q15M PRN IV DECREASED GLUCOSE; Start 10/11/18 at 21:00 Glucagon (Glucagen) 1 mg Q15M PRN IM DECREASED GLUCOSE; Start 10/11/18 at 21:00 Glucose (Glutose) 15 gm Q15M PRN BUCCAL DECREASED GLUCOSE; Start 10/11/18 at 21:00 Promethazine HCl/ Dextromethorphan (Phenergan-Dm) 5 ml Q6 PRN PO COUGH; Start 10/11/18 at 21:00 Digoxin (Digoxin) 0.25 mg DAILY PO Last administered on 10/19/18at 09:22; Admin Dose 0.25 MG; Start 10/12/18 at 09:00 Atorvastatin Calcium (Lipitor) 20 mg DAILY@21 PO Last administered on 10/18/18 21:10; Admin Dose 20 MG; Start 10/11/18 at 22:30 Apixaban (Eliquis) 5 mg BID PO Last administered on 10/19/18 09:21; Admin Dose 5 MG; Start 10/12/18 at 12:30 Metoprolol Succinate (Toprol Xl) 50 mg BID PO Last administered on 10/19/18 09:26; Admin Dose 50 MG; Start 10/12/18 at 21:00 Methylprednisolone Sodium Succinate (Solu-Medrol) 60 mg Q6 IV Last administered on 10/19/18at 12:03; Admin Dose 60 MG; Start 10/13/18 at 12:00 Cefepime HCl 50 ml @ 100 mls/hr Q8 IVPB Last administered on 10/19/18 05:47; Admin Dose 100 MLS/HR; Start 10/13/18 at 10:00 Patient Own Medication 6 ea AM PO Last administered on 10/19/18 09:35; Admin Dose 6 EA; Start 10/13/18 at 13:00 Acetazolamide (Diamox) 250 mg BID PO Last administered on 10/19/18 09:35; Admin Dose 250 MG; Start 10/13/18 at 21:00 Metformin HCl (Glucophage Xr) 1,000 mg BID PO Last administered on 10/19/18 09:21; Admin Dose 1,000 MG; Start 10/14/18 at 21:00 Empaglifozin (Jardiance) 25 mg DAILY@08 PO Last administered on 10/19/18 08:28; Admin Dose 25 MG; Start 10/15/18 at 08:00 Diagnostic Test (Pha) (Accu-Chek) 1 ea 02 XX Last administered on 10/16/18 02:15; Admin Dose 1 EA; Start 10/15/18 at 02:00 Linagliptin (Tradjenta) 5 mg DAILY PO Last administered on 10/19/18 09:22; Admin Dose 5 MG; Start 10/15/18 at 09:00 Spironolactone (Aldactone) 25 mg DAILY PO Last administered on 10/19/18 09:25; Admin Dose 25 MG; Start 10/16/18 at 12:30 Furosemide (Lasix) 40 mg DAILY IV Last administered on 10/19/18 09:25; Admin Dose 40 MG; Start 10/19/18 at 09:00 Insulin Aspart (Novolog Insulin Pen) 20 unit WITH MEALS SC Last administered on 10/19/18 12:08; Admin Dose 20 UNIT; Start 10/18/18 at 17:35 Insulin Glargine (Lantus) 40 units DAILY@2000 SC Last administered on 10/18/18 20:23; Admin Dose 40 UNITS; Start 10/18/18 at 20:00 Caspofungin 50 mg/ Sodium Chloride 250 ml @ 250 mls/hr Q24H IVPB ; Start 10/20/18 at 13:00 Caspofungin 70 mg/ Sodium Chloride 250 ml @ 250 mls/hr ONCE ONCE IVPB ; Start 10/19/18 at 14:00; Stop 10/19/18 at 14:59 Nystatin (Nystatin Susp) 5 ml QID PO ; Start 10/19/18 at 13:00 Assessment/Plan Hospital Course (Demo Recall) IMPRESSION 1. Acute hypoxemic respiratory failure, likely secondary to acute tracheobronchitis. Bibasilar atelectasis noted but no significant pneumonic infiltrates or effusions. No evidence of intracardiac shunt. Persistent hypoxemia however despite prolonged steroids and antibiotics. 2. Right lower lobe pneumonia. No evidence of thromboembolic disease. During hypoxemia out of proportion to minimal radiographic changes.Worsening bibasilar atelectasis noted. Differential includes probable for possible pulmonary aspergillosis. Will check aspergillosis precipitants. Plan 1. Incentive spirometry. 2. Bronchodilators. 3. Steroids. 4. Antibiotics. 5. Continue anticoagulation for atrial fibrillation. 6. Rate control. 7. DVT and GI prophylaxis. critical care time 40 minutes. TELMA CAI MD, [facility] Oct 19, 2018 12:32
[2018-10-19] MEDS: NYSTATIN SUSP 5 ML CUP PO SCH ×3 (13:08→20:47)
[2018-10-19] MEDS ORDERED: CASPOFUNGIN 70 MG in SOD CHLORIDE 0.9% 250 ML IVPB ONE (14:00)
--- NOTE | 2018-10-19 15:53 | CONS ---
Assessment/Plan Assessment/Plan Hospital Course (Demo Recall) Respiratory failure with hypoxia-improving PNA Acute decompensated systolic and diastolic congestive heart failure History of cardiomyopathy, current left ventricular ejection fraction 50-55% Pulmonary hypertension Chronic Atrial Fibrillation DM Patient with less shortness of breath, O2 requirements decreasing BP on the lower side, would consider decreasing diuretics Repeat echocardiogram with negative bubble study. PA pressures were in the high 60s. Antibiotics as per infectious disease Continue beta-dana as heart rate and blood pressure permits Cont Eliquis if no contraindication Consultation Date/Type/Reason Admit Date/Time Oct 12, 2018 at 06:16 Initial Consult Date Type of Consult Cardiology Requesting Provider: ROEL ALBA Date/Time of Note DATE: 10/19/18 TIME: 15:51 24 HR Interval Summary Free Text/Dictation no cp,palp, sob is better Exam/Review of Systems Vital Signs Vitals Vital Signs Date Temp Pulse Resp B/P (MAP) Pulse Ox O2 O2 Flow FiO2 Time Delivery Rate 10/19/18 94 60 13:02 10/19/18 110 17 25.0 13:02 10/19/18 80/69 (73) 11:00 10/19/18 High Flow 10:00 10/19/18 98.0 04:00 Intake and Output 10/18/18 10/18/18 10/19/18 1515:00 23:00 07:00 IntakeIntake Total 410 ml 520 ml 300 ml OutputOutput Total 950 ml 1290 ml 1100 ml BalanceBalance -540 ml -770 ml -800 ml Exam Constitutional: alert, oriented (mild dyspnea with extensisvely speaking) Head: normocephalic Respiratory: other (course bs, scattered rhonchi, mild wheeze) Cardiovascular: irregular rhythm (s1s2) Gastrointestinal: soft, non-tender, bowel sounds Extremities: edema (tr) Labs Result Diagram: 10/18/18 0442 10/18/18 0442 Results 24hrs Laboratory Tests Test 10/18/18 17:36 10/18/18 20:30 10/19/18 01:54 10/19/18 08:18 Bedside Glucose 121 185 240 H 168 Test 10/19/18 11:52 10/19/18 13:08 Bedside Glucose 152 HIV (1&2) Antibody NEGATIVE Medications Medications Current Medications Albuterol/ Ipratropium (Duoneb) 3 ml Q4 HHN Last administered on 10/19/18 13:02; Admin Dose 3 ML; Start 10/11/18 at 21:00 Insulin Aspart (Novolog Insulin Pen) NOVOLOG *MODERATE* ALGORITHM WITH MEALS BEDTIME SC Last administered on 10/19/18 12:02; Admin Dose 22 UNIT; Start 10/11/18 at 21:00 Zolpidem Tartrate (Ambien) 5 mg HS MAY REPEAT X 1 PRN PO INSOMNIA; Start 10/11/18 at 20:30 Ondansetron HCl (Zofran Inj) 4 mg Q4 PRN IV nausea; Start 10/11/18 at 20:30 Miscellaneous Information 1 ea NOTE XX ; Start 10/11/18 at 21:00 Glucose (Glutose) 15 gm Q15M PRN PO DECREASED GLUCOSE; Start 10/11/18 at 21:00 Glucose (Glutose) 22.5 gm Q15M PRN PO DECREASED GLUCOSE; Start 10/11/18 at 21:00 Dextrose (D50w Syringe) 25 ml Q15M PRN IV DECREASED GLUCOSE; Start 10/11/18 at 21:00 Dextrose (D50w Syringe) 50 ml Q15M PRN IV DECREASED GLUCOSE; Start 10/11/18 at 21:00 Glucagon (Glucagen) 1 mg Q15M PRN IM DECREASED GLUCOSE; Start 10/11/18 at 21:00 Glucose (Glutose) 15 gm Q15M PRN BUCCAL DECREASED GLUCOSE; Start 10/11/18 at 21:00 Promethazine HCl/ Dextromethorphan (Phenergan-Dm) 5 ml Q6 PRN PO COUGH; Start 10/11/18 at 21:00 Digoxin (Digoxin) 0.25 mg DAILY PO Last administered on 10/19/18at 09:22; Admin Dose 0.25 MG; Start 10/12/18 at 09:00 Atorvastatin Calcium (Lipitor) 20 mg DAILY@21 PO Last administered on 10/18/18 21:10; Admin Dose 20 MG; Start 10/11/18 at 22:30 Apixaban (Eliquis) 5 mg BID PO Last administered on 10/19/18 09:21; Admin Dose 5 MG; Start 10/12/18 at 12:30 Metoprolol Succinate (Toprol Xl) 50 mg BID PO Last administered on 10/19/18 09:26; Admin Dose 50 MG; Start 10/12/18 at 21:00 Methylprednisolone Sodium Succinate (Solu-Medrol) 60 mg Q6 IV Last administered on 10/19/18 12:03; Admin Dose 60 MG; Start 10/13/18 at 12:00 Cefepime HCl 50 ml @ 100 mls/hr Q8 IVPB Last administered on 10/19/18 14:11; Admin Dose 100 MLS/HR; Start 10/13/18 at 10:00 Patient Own Medication 6 ea AM PO Last administered on 10/19/18 09:35; Admin Dose 6 EA; Start 10/13/18 at 13:00 Acetazolamide (Diamox) 250 mg BID PO Last administered on 10/19/18 09:35; Admin Dose 250 MG; Start 10/13/18 at 21:00 Metformin HCl (Glucophage Xr) 1,000 mg BID PO Last administered on 10/19/18 09:21; Admin Dose 1,000 MG; Start 10/14/18 at 21:00 Empaglifozin (Jardiance) 25 mg DAILY@08 PO Last administered on 10/19/18 08:28; Admin Dose 25 MG; Start 10/15/18 at 08:00 Diagnostic Test (Pha) (Accu-Chek) 1 ea 02 XX Last administered on 10/16/18 02:15; Admin Dose 1 EA; Start 10/15/18 at 02:00 Linagliptin (Tradjenta) 5 mg DAILY PO Last administered on 10/19/18 09:22; Admin Dose 5 MG; Start 10/15/18 at 09:00 Spironolactone (Aldactone) 25 mg DAILY PO Last administered on 10/19/18 09:25; Admin Dose 25 MG; Start 10/16/18 at 12:30 Furosemide (Lasix) 40 mg DAILY IV Last administered on 10/19/18 09:25; Admin Dose 40 MG; Start 10/19/18 at 09:00 Insulin Aspart (Novolog Insulin Pen) 20 unit WITH MEALS SC Last administered on 10/19/18 12:08; Admin Dose 20 UNIT; Start 10/18/18 at 17:35 Insulin Glargine (Lantus) 40 units DAILY@2000 SC Last administered on 7/2/19at 20:23; Admin Dose 40 UNITS; Start 10/18/18 at 20:00 Caspofungin 50 mg/ Sodium Chloride 250 ml @ 250 mls/hr Q24H IVPB ; Start 10/20/18 at 13:00 Nystatin (Nystatin Susp) 5 ml QID PO Last administered on 10/19/18at 13:08; Admin Dose 5 ML; Start 10/19/18 at 13:00 Rocael Poole DO Oct 19, 2018 15:53
--- NOTE | 2018-10-19 17:51 | CONS ---
Assessment/Plan Assessment/Plan Problems: (1) Type 2 diabetes mellitus without complications Status: Chronic Comment: Excellent glycemic control on current insulin doses and oral meds. Will continue. Qualifiers: Diabetes mellitus intermission coordinator insulin use: without long-term use Qualified Codes: E11.9 - Type 2 diabetes mellitus without complications Consultation Date/Type/Reason Admit Date/Time Oct 12, 2018 at 06:16 Initial Consult Date 10/14/18 Type of Consult Endocrinology Reason for Consultation T2DM management Requesting Provider: ROEL ALBA Date/Time of Note DATE: 10/19/18 TIME: 17:49 24 HR Interval Summary Constitutional: no complaints, improved, requiring O2 (flow has decreased) Detailed Summary Respiratory: no complaints Cardiovascular: no complaints Gastrointestinal: no complaints Genitourinary: no complaints Musculoskeletal: no complaints Neurologic: no complaints Exam/Review of Systems Exam Vitals VS - Last 72 Hours, by Label Date Temp Pulse Resp B/P (MAP) Pulse Ox O2 O2 Flow FiO2 Time Delivery Rate 10/19/18 93 50 17:29 10/19/18 99 15 93 25.0 50 17:29 10/19/18 110 16:00 10/19/18 101 16:00 10/19/18 95 55 15:20 10/19/18 94 60 13:02 10/19/18 110 17 94 25.0 60 13:02 10/19/18 95 12:00 10/19/18 99 12:00 10/19/18 108 24 80/69 (73) 88 11:00 10/19/18 93 18 120/81 89 High Flow 10:00 (94) 10/19/18 112 23 85/61 (69) 88 High Flow 09:00 10/19/18 91 65 08:30 10/19/18 97 18 91 25.0 65 08:30 10/19/18 89 20 100/75 91 High Flow 08:00 (83) 10/19/18 97 08:00 10/19/18 Vapotherm 08:00 10/19/18 94 20 111/78 90 High Flow 07:00 (89) 10/19/18 84 17 116/82 90 High Flow 06:00 (93) 10/19/18 84 17 116/82 90 06:00 (93) 10/19/18 87 18 94 65 05:43 10/19/18 92 18 110/80 90 High Flow 05:00 (90) 10/19/18 98.0 87 13 117/76 91 High Flow 04:00 (90) 10/19/18 89 04:00 10/19/18 87 13 117/76 91 04:00 (90) 10/19/18 96 24 115/82 92 High Flow 03:00 (93) 10/19/18 96 24 115/82 92 High Flow 03:00 (93) 10/19/18 92 65 02:01 10/19/18 83 19 110/75 92 High Flow 02:00 (87) 10/19/18 93 17 117/76 86 High Flow 01:00 (90) 10/19/18 91 65 00:48 10/19/18 92 65 00:48 10/19/18 101 00:00 10/19/18 Vapotherm 00:00 10/19/18 98.2 100 17 107/73 88 High Flow 00:00 (84) 10/18/18 91 17 94/54 (67) 89 High Flow 23:00 10/18/18 102 21 116/73 95 High Flow 22:00 (87) 10/18/18 97 18 120/76 93 High Flow 21:00 (91) 10/18/18 96 16 93 65 20:40 10/18/18 65 20:40 10/18/18 Vapotherm 20:00 10/18/18 101 20:00 10/18/18 98.4 100 20 110/71 90 High Flow 20:00 (84) 10/18/18 109 22 115/75 95 High Flow 19:00 (88) 10/18/18 111 19 107/78 90 High Flow 18:00 (88) 10/18/18 65 17:48 10/18/18 99 17 113/83 92 High Flow 17:00 (93) 10/18/18 93 70 16:43 10/18/18 99 16:00 10/18/18 98.5 95 18 111/74 93 High Flow 16:00 (86) 10/18/18 95 19 101/65 95 High Flow 15:00 (77) 10/18/18 109 18 117/77 95 High Flow 14:00 (90) 10/18/18 109 18 117/77 95 14:00 (90) 10/18/18 96 75 13:48 10/18/18 101 25 107/93 97 High Flow 13:00 (98) 10/18/18 97.3 109 21 116/83 96 High Flow 12:00 (94) 10/18/18 111 12:00 10/18/18 108 20 110/91 96 High Flow 11:00 (97) 10/18/18 121 21 105/76 94 10:00 (86) 10/18/18 121 21 105/76 94 High Flow 10:00 (86) 10/18/18 94 75 09:17 10/18/18 110 26 108/54 96 High Flow 09:00 (72) 10/18/18 97.1 112 24 110/55 91 High Flow 08:00 (73) 10/18/18 Vapotherm 08:00 10/18/18 99 08:00 10/18/18 101 15 100/74 90 High Flow 07:00 (83) 10/18/18 99 23 119/88 88 High Flow 06:00 (98) 10/18/18 90 12 102/71 93 High Flow 05:00 (81) 10/18/18 93 75 04:53 10/18/18 92 20 93 75 04:53 10/18/18 97.8 90 18 102/71 93 High Flow 04:00 (81) 10/18/18 91 04:00 10/18/18 99 15 101/65 91 High Flow 03:00 (77) 10/18/18 91 19 109/70 90 High Flow 02:00 (83) 10/18/18 100 17 106/69 87 High Flow 01:00 (81) 10/18/18 90 75 00:55 10/18/18 101 17 90 75 00:55 10/18/18 94 00:00 10/18/18 97.8 98 18 95/81 (86) 88 High Flow 00:00 10/17/18 102 19 103/69 90 High Flow 23:00 (80) 10/17/18 83 16 97/65 (76) 90 High Flow 22:00 10/17/18 86 75 21:06 10/17/18 103 21 108/67 86 High Flow 21:00 (81) 10/17/18 113 20 94 75 20:50 10/17/18 94 75 20:50 10/17/18 97.8 100 19 111/68 93 High Flow 20:00 (82) 10/17/18 102 20:00 10/17/18 100 20 103/84 91 High Flow 19:00 (90) 10/17/18 102 20 107/80 89 High Flow 18:00 (89) 10/17/18 97 75 17:06 10/17/18 106 20 97 Nasal 75 17:05 Cannula 10/17/18 103 12 117/83 95 High Flow 17:00 (94) 10/17/18 100 16:00 10/17/18 105 15 118/74 94 16:00 (89) 10/17/18 98.3 105 15 118/74 94 High Flow 16:00 (89) 10/17/18 99 18 106/69 94 High Flow 15:00 (81) 10/17/18 94 85 14:54 10/17/18 104 22 94/71 (79) 95 High Flow 14:00 10/17/18 94 19 96 Nasal 90 13:24 Cannula 10/17/18 94 90 13:23 10/17/18 100 18 96/78 (84) 93 High Flow 13:00 10/17/18 131 12:00 10/17/18 98.0 124 28 85/71 (76) 96 High Flow 12:00 10/17/18 91 90 11:29 10/17/18 110 18 89/52 (64) 91 High Flow 11:00 10/17/18 113 21 96/68 (77) 92 High Flow 10:00 10/17/18 91 90 09:05 10/17/18 99 14 112/76 88 High Flow 09:00 (88) 10/17/18 98.9 94 17 112/81 91 High Flow 08:00 (91) 10/17/18 Vapotherm 08:00 10/17/18 102 16 91 Nasal 90 08:00 Cannula 10/17/18 98 08:00 10/17/18 90 90 07:55 10/17/18 87 18 103/68 88 High Flow 07:00 (80) 10/17/18 98.0 90 16 108/75 93 High Flow 06:00 (86) 10/17/18 88 18 93 90 05:02 10/17/18 93 90 05:02 10/17/18 83 18 110/80 90 High Flow 05:00 (90) 10/17/18 95 16 103/65 84 High Flow 04:00 (78) 10/17/18 91 04:00 10/17/18 84 15 99/65 (76) 92 High Flow 03:00 10/17/18 98.0 95 18 100/68 92 High Flow 02:00 (79) 10/17/18 90 19 91 90 01:03 10/17/18 91 90 01:03 10/17/18 88 18 105/73 90 High Flow 01:00 (84) 10/17/18 93 11 102/74 90 High Flow 00:00 (83) 10/17/18 88 00:00 10/16/18 89 16 103/68 91 High Flow 23:00 (80) 10/16/18 96 18 102/61 90 High Flow 22:00 (75) 10/16/18 146 21:09 10/16/18 107 11 104/75 90 High Flow 21:00 (85) 10/16/18 102 18 92 90 20:56 10/16/18 92 90 20:56 10/16/18 98.0 97 18 108/70 92 High Flow 20:00 (83) 10/16/18 94 20:00 10/16/18 92 90 19:45 10/16/18 96 20 99/67 (78) 94 High Flow 18:00 Vital Signs Date Temp Pulse Resp B/P (MAP) Pulse Ox O2 O2 Flow FiO2 Time Delivery Rate 10/19/18 93 50 17:29 10/19/18 99 15 25.0 17:29 10/19/18 80/69 (73) 11:00 10/19/18 High Flow 10:00 10/19/18 98.0 04:00 Intake and Output 10/18/18 10/18/18 10/19/18 1515:00 23:00 07:00 IntakeIntake Total 410 ml 520 ml 300 ml OutputOutput Total 950 ml 1290 ml 1100 ml BalanceBalance -540 ml -770 ml -800 ml Constitutional: alert, oriented, obese Respiratory: crackles/rales, wheezing Cardiovascular: regular rate and rhythm, nl pulses; No edema, No murmurs/extra sounds, No rub Gastrointestinal: soft, nl liver, spleen, non-tender, bowel sounds; No mass, No rebound or guarding Musculoskeletal: nl extremities to inspection Extremities: normal pulses; No cyanosis, No clubbing, No edema 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: POST PARTUM NURSE II-XII 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, nl mental status, nl speech, nl strength Additional Comments Bedside Glucose - 72 Hours Test 10/16/18 20:33 10/17/18 08:21 10/17/18 12:32 10/17/18 17:59 Bedside 172 173 167 158 Glucose mg/dL (70-220) mg/dL (70-220) mg/dL (70-220) mg/dL (70-220) Test 10/17/18 20:52 10/18/18 01:44 10/18/18 05:28 10/18/18 08:05 Bedside 228 171 181 173 Glucose mg/dL (70-220) mg/dL (70-220) mg/dL (70-220) mg/dL (70-220) H Test 10/18/18 13:02 10/18/18 17:36 10/18/18 20:30 10/19/18 01:54 Bedside 161 121 185 240 Glucose mg/dL (70-220) mg/dL (70-220) mg/dL (70-220) mg/dL (70-220) H Test 10/19/18 08:18 10/19/18 11:52 10/19/18 17:21 Bedside 168 152 133 Glucose mg/dL (70-220) mg/dL (70-220) mg/dL (70-220) Results Result Diagram: 10/18/1844110/18/182 Results 24hrs Laboratory Tests Test 10/18/18 20:30 10/19/18 01:54 10/19/18 08:18 10/19/18 11:52 Bedside Glucose 185 240 H 168 152 Test 10/19/18 13:08 10/19/18 17:21 HIV (1&2) Antibody NEGATIVE Bedside Glucose 133 Medications Medication Current Medications Albuterol/ Ipratropium (Duoneb) 3 ml Q4 HHN Last administered on 10/19/18at 17:29; Admin Dose 3 ML; Start 10/11/18 at 21:00 Insulin Aspart (Novolog Insulin Pen) NOVOLOG *MODERATE* ALGORITHM WITH MEALS BEDTIME SC Last administered on 10/19/18at 12:02; Admin Dose 22 UNIT; Start 10/11/18 at 21:00 Zolpidem Tartrate (Ambien) 5 mg HS MAY REPEAT X 1 PRN PO INSOMNIA; Start 10/11/18 at 20:30 Ondansetron HCl (Zofran Inj) 4 mg Q4 PRN IV nausea; Start 10/11/18 at 20:30 Miscellaneous Information 1 ea NOTE XX ; Start 10/11/18 at 21:00 Glucose (Glutose) 15 gm Q15M PRN PO DECREASED GLUCOSE; Start 10/11/18 at 21:00 Glucose (Glutose) 22.5 gm Q15M PRN PO DECREASED GLUCOSE; Start 10/11/18 at 21:00 Dextrose (D50w Syringe) 25 ml Q15M PRN IV DECREASED GLUCOSE; Start 10/11/18 at 21:00 Dextrose (D50w Syringe) 50 ml Q15M PRN IV DECREASED GLUCOSE; Start 10/11/18 at 21:00 Glucagon (Glucagen) 1 mg Q15M PRN IM DECREASED GLUCOSE; Start 10/11/18 at 21:00 Glucose (Glutose) 15 gm Q15M PRN BUCCAL DECREASED GLUCOSE; Start 10/11/18 at 21:00 Promethazine HCl/ Dextromethorphan (Phenergan-Dm) 5 ml Q6 PRN PO COUGH; Start 10/11/18 at 21:00 Digoxin (Digoxin) 0.25 mg DAILY PO Last administered on 10/19/18 09:22; Admin Dose 0.25 MG; Start 10/12/18 at 09:00 Atorvastatin Calcium (Lipitor) 20 mg DAILY@21 PO Last administered on 10/18/18 21:10; Admin Dose 20 MG; Start 10/11/18 at 22:30 Apixaban (Eliquis) 5 mg BID PO Last administered on 10/19/18 09:21; Admin Dose 5 MG; Start 10/12/18 at 12:30 Metoprolol Succinate (Toprol Xl) 50 mg BID PO Last administered on 10/19/18 09:26; Admin Dose 50 MG; Start 10/12/18 at 21:00 Methylprednisolone Sodium Succinate (Solu-Medrol) 60 mg Q6 IV Last administered on 10/19/18 12:03; Admin Dose 60 MG; Start 10/13/18 at 12:00 Cefepime HCl 50 ml @ 100 mls/hr Q8 IVPB Last administered on 10/19/18 14:11; Admin Dose 100 MLS/HR; Start 10/13/18 at 10:00 Patient Own Medication 6 ea AM PO Last administered on 10/19/18 09:35; Admin Dose 6 EA; Start 10/13/18 at 13:00 Acetazolamide (Diamox) 250 mg BID PO Last administered on 10/19/18 09:35; Admin Dose 250 MG; Start 10/13/18 at 21:00 Metformin HCl (Glucophage Xr) 1,000 mg BID PO Last administered on 10/19/18 09:21; Admin Dose 1,000 MG; Start 10/14/18 at 21:00 Empaglifozin (Jardiance) 25 mg DAILY@08 PO Last administered on 10/19/18 08:28; Admin Dose 25 MG; Start 10/15/18 at 08:00 Diagnostic Test (Pha) (Accu-Chek) 1 ea 02 XX Last administered on 10/16/18 02:15; Admin Dose 1 EA; Start 10/15/18 at 02:00 Linagliptin (Tradjenta) 5 mg DAILY PO Last administered on 10/19/18 09:22; Admin Dose 5 MG; Start 10/15/18 at 09:00 Spironolactone (Aldactone) 25 mg DAILY PO Last administered on 10/19/18 09:25; Admin Dose 25 MG; Start 10/16/18 at 12:30 Furosemide (Lasix) 40 mg DAILY IV Last administered on 10/19/18 09:25; Admin Dose 40 MG; Start 10/19/18 at 09:00 Insulin Aspart (Novolog Insulin Pen) 20 unit WITH MEALS SC Last administered on 10/19/18 17:28; Admin Dose 20 UNIT; Start 10/18/18 at 17:35 Insulin Glargine (Lantus) 40 units DAILY@2000 SC Last administered on 10/18/18 20:23; Admin Dose 40 UNITS; Start 10/18/18 at 20:00 Caspofungin 50 mg/ Sodium Chloride 250 ml @ 250 mls/hr Q24H IVPB ; Start 10/20/18 at 13:00 Nystatin (Nystatin Susp) 5 ml QID PO Last administered on 10/19/18 17:29; Admin Dose 5 ML; Start 10/19/18 at 13:00 KAYLA BUCK MD Oct 19, 2018 17:51
[2018-10-19] MEDS: ATORVASTATIN 20 MG TAB PO SCH (20:46)
[2018-10-19] MEDS: INSULIN GLARGINE [LANTus] (100 UNITS/ML) SYG SC SCH (20:59)
[2018-10-20] VITALS (18 sets, daily range): BP systolic 74–119; BP diastolic 53–85; PULSE 86–169; RESP 12–30
[2018-10-20] MEDS: METHYLPREDNISOLONE 125 MG INJ IV SCH ×4 (00:17→18:13)
[2018-10-20] MEDS: ALBUTEROL/IPRATROPIUM (NEB) 3 ML AMP HHN SCH ×6 (00:19→20:51)
[2018-10-20] MEDS: ACCU-CHEK XX SCH (02:00)
[2018-10-20] MEDS: CEFEPIME 2GM/50 ML (PMX) 50 ML IVPB SCH (05:21)
[2018-10-20] MEDS: INSULIN ASPART [NOVOLOG] 3 ML PEN SC SCH ×7 (08:24→22:06)
[2018-10-20] MEDS: FUROSEMIDE 40 MG INJ IV SCH (08:44)
[2018-10-20] MEDS: EMPAGLIFLOZIN 10 MG TABLET PO SCH (08:44)
[2018-10-20] MEDS: SPIRONOLACTONE 25 MG TAB PO SCH (08:45)
[2018-10-20] MEDS: DIGOXIN 0.25 MG TAB PO SCH (08:46)
[2018-10-20] MEDS: APIXABAN 5 MG TABLET PO SCH ×2 (08:46→22:00)
[2018-10-20] MEDS: metFORMIN (XR) 500 MG TAB PO SCH ×2 (08:47→22:01)
[2018-10-20] MEDS: NYSTATIN SUSP 5 ML CUP PO SCH ×4 (08:47→22:03)
[2018-10-20] MEDS: LINAGLIPTIN 5 MG TABLET PO SCH (08:48)
[2018-10-20] MEDS: METOPROLOL (XL) 25 MG TAB PO SCH ×2 (08:49→22:08)
[2018-10-20] MEDS: CYCLOSET PO SCH (08:56)
--- NOTE | 2018-10-20 08:58 | CONS ---
Assessment/Plan Assessment/Plan Hospital Course (Demo Recall) ID PROGRESS NOTE CURRENT ABX: DAY # =>Cefepime + Cancidas 24H INTERVAL SUMMARY * Awake, alert, on high flow supplemental O2 - ambulatory to bedside commode and OOB-> Chair * No fevers, mild tachycardia, voiding DIAGNOSTIC IMAGING * 10/20/18 CXR: IMPRESSION:1. Prominent pulmonary vascular markings, at least partially related to low lung volumes. Mild pulmonary vascular congestion is not excluded. No significant interval change. 2. Bilateral basilar atelectasis. 3. Aortic atherosclerosis. MICRO * BCx(-); (-) Urine Cx * 10/17/18 Sputum (+) C.Albicans PHYSICAL EXAMINATION: GENERAL: VSS, NAD HEENT: AT, NC, NECK: Supple, CHEST: Rise symmetrical -- supplemental O2 high flow HEART: Pulse RRR ABDOMEN: Benign EXTREMITIES: Warm, dry SKIN: No rash, no diaphoresis ID ASSESSMENT 62 yo M admit with: 1. Acute hypoxemic respiratory failure 2. Right lower lobe pneumonia * HIV(-); Legionella (-) 3. Oral thrush 4. Atrial fibrillation, chronic 5. Bilateral lower extremities chronic venous stasis 6. CHF 7. Diabetes (-)MRSA Nares ABX ALLERGIES: KNDA INVASIVES: PIV CURRENT ABX: DAY # =>Cefepime + Cancidas ID RECOMMENDATIONS/PLAN: 1. ABX D/W Dr. Reyna -- Community Aquired PNA in a patient who has hx of travel * Recommend covering with Doxycycline and will change Cefepime to Ceftriaxone - Taper Steroids 2. Aspergillus & Cocci serology pending . . Consultation Date/Type/Reason Admit Date/Time Oct 12, 2018 at 06:16 Initial Consult Date 10/14/18 Requesting Provider: ROEL ALBA Date/Time of Note DATE: 10/20/18 TIME: 08:58 Exam/Review of Systems Exam Vitals Vital Signs Date Temp Pulse Resp B/P (MAP) Pulse Ox O2 O2 Flow FiO2 Time Delivery Rate 10/20/18 89 50 04:30 10/20/18 95 20 25.0 04:30 10/20/18 97.8 101/67 High Flow 04:00 (78) Nasal Cannula Intake and Output 10/19/18 10/19/18 10/20/18 1515:00 23:00 07:00 IntakeIntake Total 410 ml 900 ml 180 ml OutputOutput Total 1000 ml 1100 ml 600 ml BalanceBalance -590 ml -200 ml -420 ml Results Result Diagram: 10/18/18 0442 10/18/18 0442 Results 24hrs Laboratory Tests Test 10/19/18 11:52 10/19/18 13:08 10/19/18 17:21 10/19/18 20:51 Bedside Glucose 152 133 216 HIV (1&2) Antibody NEGATIVE Test 10/20/18 03:07 10/20/18 08:01 Bedside Glucose 155 168 Medications Medication Current Medications Albuterol/ Ipratropium (Duoneb) 3 ml Q4 HHN Last administered on 10/20/18at 04:30; Admin Dose 3 ML; Start 10/11/18 at 21:00 Insulin Aspart (Novolog Insulin Pen) NOVOLOG *MODERATE* ALGORITHM WITH MEALS BEDTIME SC Last administered on 10/20/18at 08:24; Admin Dose 2 UNIT; Start 10/11/18 at 21:00 Zolpidem Tartrate (Ambien) 5 mg HS MAY REPEAT X 1 PRN PO INSOMNIA; Start 10/11/18 at 20:30 Ondansetron HCl (Zofran Inj) 4 mg Q4 PRN IV nausea; Start 10/11/18 at 20:30 Miscellaneous Information 1 ea NOTE XX ; Start 10/11/18 at 21:00 Glucose (Glutose) 15 gm Q15M PRN PO DECREASED GLUCOSE; Start 10/11/18 at 21:00 Glucose (Glutose) 22.5 gm Q15M PRN PO DECREASED GLUCOSE; Start 10/11/18 at 21:00 Dextrose (D50w Syringe) 25 ml Q15M PRN IV DECREASED GLUCOSE; Start 10/11/18 at 21:00 Dextrose (D50w Syringe) 50 ml Q15M PRN IV DECREASED GLUCOSE; Start 10/11/18 at 21:00 Glucagon (Glucagen) 1 mg Q15M PRN IM DECREASED GLUCOSE; Start 10/11/18 at 21:00 Glucose (Glutose) 15 gm Q15M PRN BUCCAL DECREASED GLUCOSE; Start 10/11/18 at 21:00 Promethazine HCl/ Dextromethorphan (Phenergan-Dm) 5 ml Q6 PRN PO COUGH; Start 10/11/18 at 21:00 Digoxin (Digoxin) 0.25 mg DAILY PO Last administered on 10/20/18 08:46; Admin Dose 0.25 MG; Start 10/12/18 at 09:00 Atorvastatin Calcium (Lipitor) 20 mg DAILY@21 PO Last administered on 10/19/18 20:46; Admin Dose 20 MG; Start 10/11/18 at 22:30 Apixaban (Eliquis) 5 mg BID PO Last administered on 10/20/18 08:46; Admin Dose 5 MG; Start 10/12/18 at 12:30 Metoprolol Succinate (Toprol Xl) 50 mg BID PO Last administered on 10/19/18 09:26; Admin Dose 50 MG; Start 10/12/18 at 21:00 Methylprednisolone Sodium Succinate (Solu-Medrol) 60 mg Q6 IV Last administered on 10/20/18 05:20; Admin Dose 60 MG; Start 10/13/18 at 12:00 Cefepime HCl 50 ml @ 100 mls/hr Q8 IVPB Last administered on 10/20/18 05:21; Admin Dose 100 MLS/HR; Start 10/13/18 at 10:00 Patient Own Medication 6 ea AM PO Last administered on 10/20/18 08:56; Admin Dose 6 EA; Start 10/13/18 at 13:00 Acetazolamide (Diamox) 250 mg BID PO Last administered on 10/19/18 21:05; Admin Dose 250 MG; Start 10/13/18 at 21:00 Metformin HCl (Glucophage Xr) 1,000 mg BID PO Last administered on 10/20/18 08:47; Admin Dose 1,000 MG; Start 10/14/18 at 21:00 Empaglifozin (Jardiance) 25 mg DAILY@08 PO Last administered on 10/20/18 08:44; Admin Dose 25 MG; Start 10/15/18 at 08:00 Diagnostic Test (Pha) (Accu-Chek) 1 ea 02 XX Last administered on 10/16/18 02:15; Admin Dose 1 EA; Start 10/15/18 at 02:00 Linagliptin (Tradjenta) 5 mg DAILY PO Last administered on 10/20/18 08:48; Admin Dose 5 MG; Start 10/15/18 at 09:00 Spironolactone (Aldactone) 25 mg DAILY PO Last administered on 10/20/18 08:45; Admin Dose 25 MG; Start 10/16/18 at 12:30 Furosemide (Lasix) 40 mg DAILY IV Last administered on 10/20/18 08:44; Admin Dose 40 MG; Start 10/19/18 at 09:00 Insulin Aspart (Novolog Insulin Pen) 20 unit WITH MEALS SC Last administered on 10/20/18 08:43; Admin Dose 20 UNIT; Start 10/18/18 at 17:35 Insulin Glargine (Lantus) 40 units DAILY@2000 SC Last administered on 10/19/18at 20:59; Admin Dose 40 UNITS; Start 10/18/18 at 20:00 Caspofungin 50 mg/ Sodium Chloride 250 ml @ 250 mls/hr Q24H IVPB ; Start 10/20/18 at 13:00 Nystatin (Nystatin Susp) 5 ml QID PO Last administered on 10/20/18 08:47; Admin Dose 5 ML; Start 10/19/18 at 13:00 BRETT KWONG TRAIN RESERVATION CLERK Oct 20, 2018 08:58
[2018-10-20] MEDS: ACETAZOLAMIDE 250 MG TAB PO SCH ×2 (09:06→22:03)
--- NOTE | 2018-10-20 10:39 | CONS ---
Assessment/Plan Assessment/Plan Assessment/Plan (Daily) 1. Metabolic alkalosis on Acetazolamide 250mg BID , HCO3 27, BUN/Cr 31/0.95, WBC 15 1. Acute Hypoxic respiratory failure, likely secondary to reactive airway and pneumonia, patient seems to be euvolemic for now.- on IV abx cefepime and vancomycin< renally dose all abx and monitor electrolytes 2. Atrial fibrillation, chronic, rate controlled. 3. Congestive heart failure, diastolic dysfunction, chronic, currently euvolemic. Echocardiogram with EF of 55%.- on lasix 40mg pO BID Continue current medication, patient on oral Lasix daily. 4. Diabetes mellitus Type II with acute hyperglycemia 5. Hypertension Consultation Date/Type/Reason Admit Date/Time Oct 12, 2018 at 06:16 Initial Consult Date 10/14/18 Type of Consult NEPHROLOGY Requesting Provider: ROEL ALBA Date/Time of Note DATE: 10/20/18 TIME: 10:39 Exam/Review of Systems Exam Vitals Vital Signs Date Temp Pulse Resp B/P (MAP) Pulse Ox O2 O2 Flow FiO2 Time Delivery Rate 10/20/18 105 08:00 10/20/18 89 50 04:30 10/20/18 20 25.0 04:30 10/20/18 97.8 101/67 High Flow 04:00 (78) Nasal Cannula Intake and Output 10/19/18 10/19/18 10/20/18 1515:00 23:00 07:00 IntakeIntake Total 410 ml 900 ml 180 ml OutputOutput Total 1000 ml 1100 ml 600 ml BalanceBalance -590 ml -200 ml -420 ml Exam Constitutional: awake, alert, no acute distress Respiratory: congested cough, crackles/rales, diminished breath sounds Cardiovascular: regular rate and rhythm, nl pulses Gastrointestinal: soft, nl liver, spleen, non-tender, other (obese) Musculoskeletal: nl extremities to inspection, nl gait and stance, swelling (1- 2+ pitting edema ) 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, nl mental status, nl speech Results Result Diagram: 10/18/1844110/18/18441 Results 24hrs Laboratory Tests Test 10/19/18 11:52 10/19/18 13:08 10/19/18 17:21 10/19/18 20:51 Bedside Glucose 152 133 216 HIV (1&2) Antibody NEGATIVE Test 10/20/18 03:07 10/20/18 07:00 10/20/18 08:01 Bedside Glucose 155 168 Blood Gas Specimen Blood arterial Source Arterial Blood 10/20/2018 9:23:33 Date Drawn AM Arterial Blood pH 7.387 (Temp corrected) Arterial Blood 38.6 pCO2 (Temp correct) Arterial Blood pO2 62.6 L (Temp corrected) Arterial Blood 22.7 HCO3 Arterial Blood -2.0 Base Excess Arterial Blood 90.6 L Oxygen Saturation David Test ACCEPTAB Arterial Blood Gas Right Radial Puncture Site Arterial 0.9 Blood Carboxyhemog lobin Arterial Blood 0.3 Methemoglobin Blood Gas A-a O2 250.5 H Differential Oxyhemoglobin 89.5 L Percent Blood Gas 37.0 Temperature Blood Gas Modality HFNC FiO2 50.0 Blood Gas Notified DT Whom Blood Gas Notified 10/20/2018 9:45:17 Time AM Medications Medication Current Medications Albuterol/ Ipratropium (Duoneb) 3 ml Q4 HHN Last administered on 10/20/18at 09:34; Admin Dose 3 ML; Start 10/11/18 at 21:00 Insulin Aspart (Novolog Insulin Pen) NOVOLOG *MODERATE* ALGORITHM WITH MEALS BEDTIME SC Last administered on 10/20/18at 08:24; Admin Dose 2 UNIT; Start 10/11/18 at 21:00 Zolpidem Tartrate (Ambien) 5 mg HS MAY REPEAT X 1 PRN PO INSOMNIA; Start 10/11/18 at 20:30 Ondansetron HCl (Zofran Inj) 4 mg Q4 PRN IV nausea; Start 10/11/18 at 20:30 Miscellaneous Information 1 ea NOTE XX ; Start 10/11/18 at 21:00 Glucose (Glutose) 15 gm Q15M PRN PO DECREASED GLUCOSE; Start 10/11/18 at 21:00 Glucose (Glutose) 22.5 gm Q15M PRN PO DECREASED GLUCOSE; Start 10/11/18 at 21:00 Dextrose (D50w Syringe) 25 ml Q15M PRN IV DECREASED GLUCOSE; Start 10/11/18 at 21:00 Dextrose (D50w Syringe) 50 ml Q15M PRN IV DECREASED GLUCOSE; Start 10/11/18 at 21:00 Glucagon (Glucagen) 1 mg Q15M PRN IM DECREASED GLUCOSE; Start 10/11/18 at 21:00 Glucose (Glutose) 15 gm Q15M PRN BUCCAL DECREASED GLUCOSE; Start 10/11/18 at 21:00 Promethazine HCl/ Dextromethorphan (Phenergan-Dm) 5 ml Q6 PRN PO COUGH; Start 10/11/18 at 21:00 Digoxin (Digoxin) 0.25 mg DAILY PO Last administered on 10/20/18 08:46; Admin Dose 0.25 MG; Start 10/12/18 at 09:00 Atorvastatin Calcium (Lipitor) 20 mg DAILY@21 PO Last administered on 10/19/18 20:46; Admin Dose 20 MG; Start 10/11/18 at 22:30 Apixaban (Eliquis) 5 mg BID PO Last administered on 10/20/18 08:46; Admin Dose 5 MG; Start 10/12/18 at 12:30 Metoprolol Succinate (Toprol Xl) 50 mg BID PO Last administered on 10/19/18 09:26; Admin Dose 50 MG; Start 10/12/18 at 21:00 Methylprednisolone Sodium Succinate (Solu-Medrol) 60 mg Q6 IV Last administered on 10/20/18 05:20; Admin Dose 60 MG; Start 10/13/18 at 12:00 Cefepime HCl 50 ml @ 100 mls/hr Q8 IVPB Last administered on 10/20/18 05:21; Admin Dose 100 MLS/HR; Start 10/13/18 at 10:00 Patient Own Medication 6 ea AM PO Last administered on 10/20/18 08:56; Admin Dose 6 EA; Start 10/13/18 at 13:00 Acetazolamide (Diamox) 250 mg BID PO Last administered on 10/20/18 09:06; Admin Dose 250 MG; Start 10/13/18 at 21:00 Metformin HCl (Glucophage Xr) 1,000 mg BID PO Last administered on 10/20/18 08:47; Admin Dose 1,000 MG; Start 10/14/18 at 21:00 Empaglifozin (Jardiance) 25 mg DAILY@08 PO Last administered on 10/20/18 08:44; Admin Dose 25 MG; Start 10/15/18 at 08:00 Diagnostic Test (Pha) (Accu-Chek) 1 ea 02 XX Last administered on 10/16/18at 02:15; Admin Dose 1 EA; Start 10/15/18 at 02:00 Linagliptin (Tradjenta) 5 mg DAILY PO Last administered on 10/20/18 08:48; Admin Dose 5 MG; Start 10/15/18 at 09:00 Spironolactone (Aldactone) 25 mg DAILY PO Last administered on 10/20/18 08:45; Admin Dose 25 MG; Start 10/16/18 at 12:30 Furosemide (Lasix) 40 mg DAILY IV Last administered on 10/20/18 08:44; Admin Dose 40 MG; Start 10/19/18 at 09:00 Insulin Aspart (Novolog Insulin Pen) 20 unit WITH MEALS SC Last administered on 10/20/18 08:43; Admin Dose 20 UNIT; Start 10/18/18 at 17:35 Insulin Glargine (Lantus) 40 units DAILY@2000 SC Last administered on 10/19/18at 20:59; Admin Dose 40 UNITS; Start 10/18/18 at 20:00 Caspofungin 50 mg/ Sodium Chloride 250 ml @ 250 mls/hr Q24H IVPB ; Start 10/20/18 at 13:00 Nystatin (Nystatin Susp) 5 ml QID PO Last administered on 10/20/18 08:47; Admin Dose 5 ML; Start 10/19/18 at 13:00 NEDA STAHL MD Oct 20, 2018 10:39
[2018-10-20] MEDS ORDERED: BISACODYL 10 MG SUPP PR ONE (11:00)
--- NOTE | 2018-10-20 11:17 | PN ---
Date/Time of Note Date/Time of Note DATE: 10/20/18 TIME: 11:15 Subjective Reports feeling better. Slept quite well Objective Vitals Vital Signs Date Temp Pulse Resp B/P (MAP) Pulse Ox O2 O2 Flow FiO2 Time Delivery Rate 10/20/18 105 08:00 10/20/18 89 50 04:30 10/20/18 20 25.0 04:30 10/20/18 97.8 101/67 High Flow 04:00 (78) Nasal Cannula Intake and Output 10/19/18 10/19/18 10/20/18 1515:00 23:00 07:00 IntakeIntake Total 410 ml 900 ml 420 ml OutputOutput Total 1000 ml 1100 ml 850 ml BalanceBalance -590 ml -200 ml -430 ml Bilateral rhonchi Regular rate and rhythm Soft nontender nondistended normoactive bowel sounds No edema Nonfocal Results Result Diagram: 10/18/1844110/18/18 0442 Medications Medications Current Medications Albuterol/ Ipratropium (Duoneb) 3 ml Q4 HHN Last administered on 10/20/18at 09:34; Admin Dose 3 ML; Start 10/11/18 at 21:00 Insulin Aspart (Novolog Insulin Pen) NOVOLOG *MODERATE* ALGORITHM WITH MEALS BEDTIME SC Last administered on 10/20/18at 08:24; Admin Dose 2 UNIT; Start 10/11/18 at 21:00 Zolpidem Tartrate (Ambien) 5 mg HS MAY REPEAT X 1 PRN PO INSOMNIA; Start 10/11/18 at 20:30 Ondansetron HCl (Zofran Inj) 4 mg Q4 PRN IV nausea; Start 10/11/18 at 20:30 Miscellaneous Information 1 ea NOTE XX ; Start 10/11/18 at 21:00 Glucose (Glutose) 15 gm Q15M PRN PO DECREASED GLUCOSE; Start 10/11/18 at 21:00 Glucose (Glutose) 22.5 gm Q15M PRN PO DECREASED GLUCOSE; Start 10/11/18 at 21:00 Dextrose (D50w Syringe) 25 ml Q15M PRN IV DECREASED GLUCOSE; Start 10/11/18 at 21:00 Dextrose (D50w Syringe) 50 ml Q15M PRN IV DECREASED GLUCOSE; Start 10/11/18 at 21:00 Glucagon (Glucagen) 1 mg Q15M PRN IM DECREASED GLUCOSE; Start 10/11/18 at 21:00 Glucose (Glutose) 15 gm Q15M PRN BUCCAL DECREASED GLUCOSE; Start 10/11/18 at 21:00 Promethazine HCl/ Dextromethorphan (Phenergan-Dm) 5 ml Q6 PRN PO COUGH; Start 10/11/18 at 21:00 Digoxin (Digoxin) 0.25 mg DAILY PO Last administered on 10/20/18 08:46; Admin Dose 0.25 MG; Start 10/12/18 at 09:00 Atorvastatin Calcium (Lipitor) 20 mg DAILY@21 PO Last administered on 10/19/18 20:46; Admin Dose 20 MG; Start 10/11/18 at 22:30 Apixaban (Eliquis) 5 mg BID PO Last administered on 10/20/18 08:46; Admin Dose 5 MG; Start 10/12/18 at 12:30 Metoprolol Succinate (Toprol Xl) 50 mg BID PO Last administered on 10/19/18 09:26; Admin Dose 50 MG; Start 10/12/18 at 21:00 Methylprednisolone Sodium Succinate (Solu-Medrol) 60 mg Q6 IV Last administered on 10/20/18 05:20; Admin Dose 60 MG; Start 10/13/18 at 12:00 Cefepime HCl 50 ml @ 100 mls/hr Q8 IVPB Last administered on 10/20/18 05:21; Admin Dose 100 MLS/HR; Start 10/13/18 at 10:00 Patient Own Medication 6 ea AM PO Last administered on 10/20/18 08:56; Admin Dose 6 EA; Start 10/13/18 at 13:00 Acetazolamide (Diamox) 250 mg BID PO Last administered on 10/20/18 09:06; Admin Dose 250 MG; Start 10/13/18 at 21:00 Metformin HCl (Glucophage Xr) 1,000 mg BID PO Last administered on 10/20/18 08:47; Admin Dose 1,000 MG; Start 10/14/18 at 21:00 Empaglifozin (Jardiance) 25 mg DAILY@08 PO Last administered on 10/20/18 08:44; Admin Dose 25 MG; Start 10/15/18 at 08:00 Diagnostic Test (Pha) (Accu-Chek) 1 ea 02 XX Last administered on 10/16/18at 02:15; Admin Dose 1 EA; Start 10/15/18 at 02:00 Linagliptin (Tradjenta) 5 mg DAILY PO Last administered on 10/20/18at 08:48; Admin Dose 5 MG; Start 10/15/18 at 09:00 Spironolactone (Aldactone) 25 mg DAILY PO Last administered on 10/20/18 08:45; Admin Dose 25 MG; Start 10/16/18 at 12:30 Furosemide (Lasix) 40 mg DAILY IV Last administered on 10/20/18 08:44; Admin Dose 40 MG; Start 10/19/18 at 09:00 Insulin Aspart (Novolog Insulin Pen) 20 unit WITH MEALS SC Last administered on 10/20/18 08:43; Admin Dose 20 UNIT; Start 10/18/18 at 17:35 Insulin Glargine (Lantus) 40 units DAILY@2000 SC Last administered on 10/19/18at 20:59; Admin Dose 40 UNITS; Start 10/18/18 at 20:00 Caspofungin 50 mg/ Sodium Chloride 250 ml @ 250 mls/hr Q24H IVPB ; Start 10/20/18 at 13:00 Nystatin (Nystatin Susp) 5 ml QID PO Last administered on 10/20/18at 08:47; Admin Dose 5 ML; Start 10/19/18 at 13:00 Docusate Sodium (Colace) 200 mg BID PO ; Start 10/20/18 at 11:00 Polyethylene Glycol (Miralax) 17 gm BID PO ; Start 10/20/18 at 11:00 VTE Prophylaxis Risk score (from Nsg)>0 risk: 3 SCD applied (from Nsg): No SCD contraindication: low risk/ambulating Lines/Catheters IV Catheter Type: Saline Lock [place] in Place: No Assessment/Plan Assessment/Plan 62-year-old male with acute hypoxemic respiratory failure, slowly improving Community-acquired pneumonia Pulmonary hypertension Moderate obesity Continue current therapy Transfer to telemetry Pulmonary and ID follow-up ELI YARBROUGH MD Oct 20, 2018 11:16
--- NOTE | 2018-10-20 12:02 | CONS ---
Assessment/Plan Assessment/Plan Problems: (1) Type 2 diabetes mellitus with hyperglycemia Status: Acute Comment: Presently despite steroids his blood sugar control is actually holding quite nicely. I would continue the same protocol. Regarding the work-up for the pulmonary status evaluation for atypicals and consideration of adding adding a drug such as doxycycline is as per infectious disease Qualifiers: Diabetes mellitus shelter insulin use: without shelter use Qualified Codes: E11.65 - Type 2 diabetes mellitus with hyperglycemia Consultation Date/Type/Reason Admit Date/Time Oct 12, 2018 at 06:16 Initial Consult Date 10/14/18 Type of Consult Endocrinology Reason for Consultation Diabetes mellitus type 2 on steroids for respiratory failure Requesting Provider: ROEL ALBA Date/Time of Note DATE: 10/20/18 TIME: 12:00 24 HR Interval Summary Free Text/Dictation Patient reports that his breathing has slowly improved. No endocrine review of systems abnormalities. No fevers chills or sweats Constitutional: no complaints Detailed Summary Respiratory: no complaints Cardiovascular: no complaints Gastrointestinal: no complaints Exam/Review of Systems Exam Vitals Vital Signs Date Temp Pulse Resp B/P (MAP) Pulse Ox O2 O2 Flow FiO2 Time Delivery Rate 10/20/18 169 30 119/72 89 High Flow 25.0 11:00 (88) 10/20/18 97.7 08:00 10/20/18 50 04:30 Intake and Output 10/19/18 10/19/18 10/20/18 1515:00 23:00 07:00 IntakeIntake Total 410 ml 900 ml 420 ml OutputOutput Total 1000 ml 1100 ml 850 ml BalanceBalance -590 ml -200 ml -430 ml Constitutional: alert, oriented Neck: supple, non-tender Respiratory: clear to auscultation, normal air movement Gastrointestinal: soft, nl liver, spleen, non-tender Results Result Diagram: 10/18/18 0442 10/18/18 0442 Results 24hrs Laboratory Tests Test 10/19/18 13:08 10/19/18 17:21 10/19/18 20:51 10/20/18 03:07 HIV (1&2) Antibody NEGATIVE Bedside Glucose 133 216 155 Test 10/20/18 07:00 10/20/18 08:01 Blood Gas Specimen Blood arterial Source Arterial Blood 10/20/2018 9:23:33 Date Drawn AM Arterial Blood pH 7.387 (Temp corrected) Arterial Blood 38.6 pCO2 (Temp correct) Arterial Blood pO2 62.6 L (Temp corrected) Arterial Blood 22.7 HCO3 Arterial Blood -2.0 Base Excess Arterial Blood 90.6 L Oxygen Saturation David Test ACCEPTAB Arterial Blood Gas Right Radial Puncture Site Arterial 0.9 Blood Carboxyhemog lobin Arterial Blood 0.3 Methemoglobin Blood Gas A-a O2 250.5 H Differential Oxyhemoglobin 89.5 L Percent Blood Gas 37.0 Temperature Blood Gas Modality HFNC FiO2 50.0 Blood Gas Notified DT Whom Blood Gas Notified 10/20/2018 9:45:17 Time AM Bedside Glucose 168 Medications Medication Current Medications Albuterol/ Ipratropium (Duoneb) 3 ml Q4 HHN Last administered on 10/20/18at 09:34; Admin Dose 3 ML; Start 10/11/18 at 21:00 Insulin Aspart (Novolog Insulin Pen) NOVOLOG *MODERATE* ALGORITHM WITH MEALS BEDTIME SC Last administered on 10/20/18 08:24; Admin Dose 2 UNIT; Start 10/11/18 at 21:00 Zolpidem Tartrate (Ambien) 5 mg HS MAY REPEAT X 1 PRN PO INSOMNIA; Start 10/11/18 at 20:30 Ondansetron HCl (Zofran Inj) 4 mg Q4 PRN IV nausea; Start 10/11/18 at 20:30 Miscellaneous Information 1 ea NOTE XX ; Start 10/11/18 at 21:00 Glucose (Glutose) 15 gm Q15M PRN PO DECREASED GLUCOSE; Start 10/11/18 at 21:00 Glucose (Glutose) 22.5 gm Q15M PRN PO DECREASED GLUCOSE; Start 10/11/18 at 21:00 Dextrose (D50w Syringe) 25 ml Q15M PRN IV DECREASED GLUCOSE; Start 10/11/18 at 21:00 Dextrose (D50w Syringe) 50 ml Q15M PRN IV DECREASED GLUCOSE; Start 10/11/18 at 21:00 Glucagon (Glucagen) 1 mg Q15M PRN IM DECREASED GLUCOSE; Start 10/11/18 at 21:00 Glucose (Glutose) 15 gm Q15M PRN BUCCAL DECREASED GLUCOSE; Start 10/11/18 at 21:00 Promethazine HCl/ Dextromethorphan (Phenergan-Dm) 5 ml Q6 PRN PO COUGH; Start 10/11/18 at 21:00 Digoxin (Digoxin) 0.25 mg DAILY PO Last administered on 10/20/18 08:46; Admin Dose 0.25 MG; Start 10/12/18 at 09:00 Atorvastatin Calcium (Lipitor) 20 mg DAILY@21 PO Last administered on 10/19/18 20:46; Admin Dose 20 MG; Start 10/11/18 at 22:30 Apixaban (Eliquis) 5 mg BID PO Last administered on 10/20/18 08:46; Admin Dose 5 MG; Start 10/12/18 at 12:30 Metoprolol Succinate (Toprol Xl) 50 mg BID PO Last administered on 10/19/18 09:26; Admin Dose 50 MG; Start 10/12/18 at 21:00 Methylprednisolone Sodium Succinate (Solu-Medrol) 60 mg Q6 IV Last administered on 10/20/18 05:20; Admin Dose 60 MG; Start 10/13/18 at 12:00 Cefepime HCl 50 ml @ 100 mls/hr Q8 IVPB Last administered on 10/20/18 05:21; Admin Dose 100 MLS/HR; Start 10/13/18 at 10:00 Patient Own Medication 6 ea AM PO Last administered on 10/20/18 08:56; Admin Dose 6 EA; Start 10/13/18 at 13:00 Acetazolamide (Diamox) 250 mg BID PO Last administered on 10/20/18 09:06; Admin Dose 250 MG; Start 10/13/18 at 21:00 Metformin HCl (Glucophage Xr) 1,000 mg BID PO Last administered on 10/20/18 08:47; Admin Dose 1,000 MG; Start 10/14/18 at 21:00 Empaglifozin (Jardiance) 25 mg DAILY@08 PO Last administered on 10/20/18 08:44; Admin Dose 25 MG; Start 10/15/18 at 08:00 Diagnostic Test (Pha) (Accu-Chek) 1 ea 02 XX Last administered on 10/16/18 02:15; Admin Dose 1 EA; Start 10/15/18 at 02:00 Linagliptin (Tradjenta) 5 mg DAILY PO Last administered on 10/20/18 08:48; Admin Dose 5 MG; Start 10/15/18 at 09:00 Spironolactone (Aldactone) 25 mg DAILY PO Last administered on 10/20/18 08:45; Admin Dose 25 MG; Start 10/16/18 at 12:30 Furosemide (Lasix) 40 mg DAILY IV Last administered on 10/20/18at 08:44; Admin Dose 40 MG; Start 10/19/18 at 09:00 Insulin Aspart (Novolog Insulin Pen) 20 unit WITH MEALS SC Last administered on 10/20/18at 08:43; Admin Dose 20 UNIT; Start 10/18/18 at 17:35 Insulin Glargine (Lantus) 40 units DAILY@2000 SC Last administered on 10/19/18at 20:59; Admin Dose 40 UNITS; Start 10/18/18 at 20:00 Caspofungin 50 mg/ Sodium Chloride 250 ml @ 250 mls/hr Q24H IVPB ; Start 10/20/18 at 13:00 Nystatin (Nystatin Susp) 5 ml QID PO Last administered on 10/20/18at 08:47; Admin Dose 5 ML; Start 10/19/18 at 13:00 Docusate Sodium (Colace) 200 mg BID PO ; Start 10/20/18 at 11:00 Polyethylene Glycol (Miralax) 17 gm BID PO ; Start 10/20/18 at 11:00 JEFFERSON BARKSDALE MD Oct 20, 2018 12:02
--- NOTE | 2018-10-20 12:07 | CONS ---
Consult Date/Type/Reason Admit Date/Time Oct 12, 2018 at 06:16 Initial Consult Date 10/14/18 Type of Consultation: Pulm/CCM Requesting Provider: ROEL ALBA Date/Time of Note DATE: 10/20/18 TIME: 12:02 Subjective No events. Remain on high FiO2. Objective Vitals Vital Signs Date Temp Pulse Resp B/P (MAP) Pulse Ox O2 O2 Flow FiO2 Time Delivery Rate 10/20/18 169 30 119/72 89 High Flow 25.0 11:00 (88) 10/20/18 97.7 08:00 10/20/18 50 04:30 Intake and Output 10/19/18 10/19/18 10/20/18 1515:00 23:00 07:00 IntakeIntake Total 410 ml 900 ml 420 ml OutputOutput Total 1000 ml 1100 ml 850 ml BalanceBalance -590 ml -200 ml -430 ml Exam HEENT: Neck supple; no JVD; no LAD CVS: RRR, S1 and S2 CHEST: ++ rhonchi B/L ABD: Soft, NT, + BS EXT: No c/c; + edema Results/Medications Result Diagram: 10/18/18 0442 10/18/18 0442 Results 24 hrs Laboratory Tests Test 10/19/18 13:08 10/19/18 17:21 10/19/18 20:51 10/20/18 03:07 HIV (1&2) Antibody NEGATIVE Bedside Glucose 133 216 155 Test 10/20/18 07:00 10/20/18 08:01 Blood Gas Specimen Blood arterial Source Arterial Blood 10/20/2018 9:23:33 Date Drawn AM Arterial Blood pH 7.387 (Temp corrected) Arterial Blood 38.6 pCO2 (Temp correct) Arterial Blood pO2 62.6 L (Temp corrected) Arterial Blood 22.7 HCO3 Arterial Blood -2.0 Base Excess Arterial Blood 90.6 L Oxygen Saturation David Test ACCEPTAB Arterial Blood Gas Right Radial Puncture Site Arterial 0.9 Blood Carboxyhemog lobin Arterial Blood 0.3 Methemoglobin Blood Gas A-a O2 250.5 H Differential Oxyhemoglobin 89.5 L Percent Blood Gas 37.0 Temperature Blood Gas Modality HFNC FiO2 50.0 Blood Gas Notified DT Whom Blood Gas Notified 10/20/2018 9:45:17 Time AM Bedside Glucose 168 Home Meds Reported Medications Dextromethorphan Hb-Promethazine Hcl* (Promethazine DM* Syrup) 473 Ml Syrup, 5 ML PO Q6 PRN for COUGH, ML 10/11/18 Simvastatin* (Zocor*) 40 Mg Tablet, 40 MG PO QHS, #30 TAB 10/11/18 Empagliflozin (Jardiance) 10 Mg Tablet, 10 MG PO DAILY, TAB 10/11/18 Acetazolamide* (Acetazolamide*) 250 Mg Tablet, 250 MG PO BID, #60 TAB 10/11/18 Furosemide* (Furosemide*) 40 Mg Tablet, 40 MG PO BID, TAB 10/11/18 Apixaban* (Eliquis*) 5 Mg Tablet, 5 MG PO BID, TAB 10/11/18 Digoxin* (Digox*) 250 Mcg Tablet, 0.25 MG PO DAILY, TAB 10/11/18 Carvedilol* (Coreg*) 25 Mg Tablet, 25 MG PO BID, #60 TAB 10/11/18 Sildenafil Citrate* (Sildenafil Citrate*) 20 Mg Tablet, 20 MG PO NEEDED, TAB TAKE 3-5 TABS BEFORE SEXUAL ACTIVITY. 10/11/18 Bromocriptine Mesylate (CYCLOSET) 0.8 Mg Tablet, 4.8 MG PO QAM, TAB 10/11/18 Glimepiride* (Glimepiride*) 4 Mg Tablet, 4 MG PO WITH BREAKFAST DINNE, TAB 10/11/18 Metformin Hcl* (Metformin Hcl*) 1,000 Mg Tablet, 1000 MG PO WITH BREAKFAST DIN NE, #60 TAB 10/11/18 Ergocalciferol (Vitamin D2) (VITAMIN D2) 50,000 Unit Capsule, 59042 UNIT PO Q7D, CAP 10/11/18 Medications Current Medications Albuterol/ Ipratropium (Duoneb) 3 ml Q4 HHN Last administered on 10/20/18at 09:34; Admin Dose 3 ML; Start 10/11/18 at 21:00 Insulin Aspart (Novolog Insulin Pen) NOVOLOG *MODERATE* ALGORITHM WITH MEALS BEDTIME SC Last administered on 10/20/18at 08:24; Admin Dose 2 UNIT; Start 10/11/18 at 21:00 Zolpidem Tartrate (Ambien) 5 mg HS MAY REPEAT X 1 PRN PO INSOMNIA; Start 10/11/18 at 20:30 Ondansetron HCl (Zofran Inj) 4 mg Q4 PRN IV nausea; Start 10/11/18 at 20:30 Miscellaneous Information 1 ea NOTE XX ; Start 10/11/18 at 21:00 Glucose (Glutose) 15 gm Q15M PRN PO DECREASED GLUCOSE; Start 10/11/18 at 21:00 Glucose (Glutose) 22.5 gm Q15M PRN PO DECREASED GLUCOSE; Start 10/11/18 at 21:00 Dextrose (D50w Syringe) 25 ml Q15M PRN IV DECREASED GLUCOSE; Start 10/11/18 at 21:00 Dextrose (D50w Syringe) 50 ml Q15M PRN IV DECREASED GLUCOSE; Start 10/11/18 at 21:00 Glucagon (Glucagen) 1 mg Q15M PRN IM DECREASED GLUCOSE; Start 10/11/18 at 21:00 Glucose (Glutose) 15 gm Q15M PRN BUCCAL DECREASED GLUCOSE; Start 10/11/18 at 21:00 Promethazine HCl/ Dextromethorphan (Phenergan-Dm) 5 ml Q6 PRN PO COUGH; Start 10/11/18 at 21:00 Digoxin (Digoxin) 0.25 mg DAILY PO Last administered on 10/20/18 08:46; Admin Dose 0.25 MG; Start 10/12/18 at 09:00 Atorvastatin Calcium (Lipitor) 20 mg DAILY@21 PO Last administered on 10/19/18at 20:46; Admin Dose 20 MG; Start 10/11/18 at 22:30 Apixaban (Eliquis) 5 mg BID PO Last administered on 10/20/18 08:46; Admin Dose 5 MG; Start 10/12/18 at 12:30 Metoprolol Succinate (Toprol Xl) 50 mg BID PO Last administered on 10/19/18 09:26; Admin Dose 50 MG; Start 10/12/18 at 21:00 Methylprednisolone Sodium Succinate (Solu-Medrol) 60 mg Q6 IV Last administered on 10/20/18 05:20; Admin Dose 60 MG; Start 10/13/18 at 12:00 Cefepime HCl 50 ml @ 100 mls/hr Q8 IVPB Last administered on 10/20/18 05:21; Admin Dose 100 MLS/HR; Start 10/13/18 at 10:00 Patient Own Medication 6 ea AM PO Last administered on 10/20/18 08:56; Admin Dose 6 EA; Start 10/13/18 at 13:00 Acetazolamide (Diamox) 250 mg BID PO Last administered on 10/20/18 09:06; Admin Dose 250 MG; Start 10/13/18 at 21:00 Metformin HCl (Glucophage Xr) 1,000 mg BID PO Last administered on 10/20/18 08:47; Admin Dose 1,000 MG; Start 10/14/18 at 21:00 Empaglifozin (Jardiance) 25 mg DAILY@08 PO Last administered on 10/20/18 08:44; Admin Dose 25 MG; Start 10/15/18 at 08:00 Diagnostic Test (Pha) (Accu-Chek) 1 ea 02 XX Last administered on 10/16/18 02:15; Admin Dose 1 EA; Start 10/15/18 at 02:00 Linagliptin (Tradjenta) 5 mg DAILY PO Last administered on 10/20/18 08:48; Admin Dose 5 MG; Start 10/15/18 at 09:00 Spironolactone (Aldactone) 25 mg DAILY PO Last administered on 10/20/18 08:45; Admin Dose 25 MG; Start 10/16/18 at 12:30 Furosemide (Lasix) 40 mg DAILY IV Last administered on 10/20/18 08:44; Admin Dose 40 MG; Start 10/19/18 at 09:00 Insulin Aspart (Novolog Insulin Pen) 20 unit WITH MEALS SC Last administered on 10/20/18 08:43; Admin Dose 20 UNIT; Start 10/18/18 at 17:35 Insulin Glargine (Lantus) 40 units DAILY@2000 SC Last administered on 10/19/18 20:59; Admin Dose 40 UNITS; Start 10/18/18 at 20:00 Caspofungin 50 mg/ Sodium Chloride 250 ml @ 250 mls/hr Q24H IVPB ; Start 10/20/18 at 13:00 Nystatin (Nystatin Susp) 5 ml QID PO Last administered on 10/20/18 08:47; Admin Dose 5 ML; Start 10/19/18 at 13:00 Docusate Sodium (Colace) 200 mg BID PO ; Start 10/20/18 at 11:00 Polyethylene Glycol (Miralax) 17 gm BID PO ; Start 10/20/18 at 11:00 Assessment/Plan Assessment/Plan (Daily) IMP: 1. Hypoxemic Resp Failure 2. RLL pneumonia with hilar and mediastinal adenopathy--s/p recent travel to [facility]. Query tularemia vs. other atypical infection 3. Afib with RVR 4. HTN heart Disease 5. DM RECS: 1. Suggest adding doxycycline (discussed with ID) 2. D/C micafungin 3. Would repeat CT chest with IV contrast to determine progression/regression of RLL pna and mediastinal/hilar nodes 4. Obtain serum LDH and ferritin 5. Based on repeat CT findings may consider bronchoscopy with TBBx/LN FNA, though would likely require intubation for procedure 40 min cc time FLOR KAISER MD Oct 20, 2018 12:07
[2018-10-20] MEDS: DOCUSATE SODIUM 100 MG CAP PO SCH ×2 (12:59→22:00)
[2018-10-20] MEDS: POLYETHYLENE GLYCOL 17 GM PACKET PO SCH ×2 (12:59→22:02)
[2018-10-20] MEDS ORDERED: SOD CHLORIDE 0.9% 100 ML ONE (13:18)
[2018-10-20] MEDS ORDERED: IOHEXOL 300MG/ML 150 ML BTL ONE (13:18)
[2018-10-20] MEDS: DOXYCYCLINE 100 MG TAB PO SCH ×2 (14:13→22:01)
[2018-10-20] MEDS: CEFTRIAXONE 2 GM/50 ML (PMX) 50 ML IVPB SCH (14:14)
--- NOTE | 2018-10-20 14:40 | CONS ---
Assessment/Plan Assessment/Plan Hospital Course (Demo Recall) Respiratory failure with hypoxia-improving PNA Acute decompensated systolic and diastolic congestive heart failure History of cardiomyopathy, current left ventricular ejection fraction 50-55% Pulmonary hypertension Chronic Atrial Fibrillation DM Patient with less shortness of breath, O2 requirements decreasing HR labile, elevated today during BM (constipated)-Cont BB as tolerated Check chemistry, would consider decreasing lasix Repeat echocardiogram with negative bubble study. PA pressures were in the high 60s. Antibiotics as per infectious disease Continue beta-dana as heart rate and blood pressure permits Cont Eliquis if no contraindication Consultation Date/Type/Reason Admit Date/Time Oct 12, 2018 at 06:16 Initial Consult Date Type of Consult Cardiology Requesting Provider: ROEL ALBA Date/Time of Note DATE: 10/20/18 TIME: 14:39 24 HR Interval Summary Free Text/Dictation Shortness of breath is slightly better. Denies palpitations, chest pain Exam/Review of Systems Vital Signs Vitals Vital Signs Date Temp Pulse Resp B/P (MAP) Pulse Ox O2 O2 Flow FiO2 Time Delivery Rate 10/20/18 118 12:00 10/20/18 30 119/72 89 High Flow 25.0 11:00 (88) 10/20/18 97.7 08:00 10/20/18 50 04:30 Intake and Output 10/19/18 10/19/18 10/20/18 1515:00 23:00 07:00 IntakeIntake Total 410 ml 900 ml 470 ml OutputOutput Total 1000 ml 1100 ml 850 ml BalanceBalance -590 ml -200 ml -380 ml Exam Constitutional: alert, oriented (Sitting in chair, no apparent distress) Head: normocephalic Respiratory: wheezing, other (Coarse breath sounds bilaterally, mild scattered rhonchi) Cardiovascular: irregular rhythm (S1-S2 heard) Gastrointestinal: soft, non-tender, bowel sounds Extremities: edema Labs Result Diagram: 10/18/18 0442 10/18/18 0442 Results 24hrs Laboratory Tests Test 10/19/18 17:21 10/19/18 20:51 10/20/18 03:07 10/20/18 07:00 Bedside Glucose 133 216 155 Blood Gas Specimen Blood arterial Source Arterial Blood 10/20/2018 9:23:33 Date Drawn AM Arterial Blood pH 7.387 (Temp corrected) Arterial Blood 38.6 pCO2 (Temp correct) Arterial Blood pO2 62.6 L (Temp corrected) Arterial Blood 22.7 HCO3 Arterial Blood -2.0 Base Excess Arterial Blood 90.6 L Oxygen Saturation David Test ACCEPTAB Arterial Blood Gas Right Radial Puncture Site Arterial 0.9 Blood Carboxyhemog lobin Arterial Blood 0.3 Methemoglobin Blood Gas A-a O2 250.5 H Differential Oxyhemoglobin 89.5 L Percent Blood Gas 37.0 Temperature Blood Gas Modality HFNC FiO2 50.0 Blood Gas Notified DT Whom Blood Gas Notified 10/20/2018 9:45:17 Time AM Test 10/20/18 08:01 10/20/18 12:48 Bedside Glucose 168 144 Medications Medications Current Medications Albuterol/ Ipratropium (Duoneb) 3 ml Q4 HHN Last administered on 10/20/18at 13:56; Admin Dose 3 ML; Start 10/11/18 at 21:00 Insulin Aspart (Novolog Insulin Pen) NOVOLOG *MODERATE* ALGORITHM WITH MEALS BEDTIME SC Last administered on 10/20/18at 12:54; Admin Dose 2 UNIT; Start 10/11/18 at 21:00 Zolpidem Tartrate (Ambien) 5 mg HS MAY REPEAT X 1 PRN PO INSOMNIA; Start 10/11/18 at 20:30 Ondansetron HCl (Zofran Inj) 4 mg Q4 PRN IV nausea; Start 10/11/18 at 20:30 Miscellaneous Information 1 ea NOTE XX ; Start 10/11/18 at 21:00 Glucose (Glutose) 15 gm Q15M PRN PO DECREASED GLUCOSE; Start 10/11/18 at 21:00 Glucose (Glutose) 22.5 gm Q15M PRN PO DECREASED GLUCOSE; Start 10/11/18 at 21:00 Dextrose (D50w Syringe) 25 ml Q15M PRN IV DECREASED GLUCOSE; Start 10/11/18 at 21:00 Dextrose (D50w Syringe) 50 ml Q15M PRN IV DECREASED GLUCOSE; Start 10/11/18 at 21:00 Glucagon (Glucagen) 1 mg Q15M PRN IM DECREASED GLUCOSE; Start 10/11/18 at 21:00 Glucose (Glutose) 15 gm Q15M PRN BUCCAL DECREASED GLUCOSE; Start 10/11/18 at 21:00 Promethazine HCl/ Dextromethorphan (Phenergan-Dm) 5 ml Q6 PRN PO COUGH; Start 10/11/18 at 21:00 Digoxin (Digoxin) 0.25 mg DAILY PO Last administered on 10/20/18 08:46; Admin Dose 0.25 MG; Start 10/12/18 at 09:00 Atorvastatin Calcium (Lipitor) 20 mg DAILY@21 PO Last administered on 10/19/18 20:46; Admin Dose 20 MG; Start 10/11/18 at 22:30 Apixaban (Eliquis) 5 mg BID PO Last administered on 10/20/18 08:46; Admin Dose 5 MG; Start 10/12/18 at 12:30 Metoprolol Succinate (Toprol Xl) 50 mg BID PO Last administered on 10/19/18 09:26; Admin Dose 50 MG; Start 10/12/18 at 21:00 Methylprednisolone Sodium Succinate (Solu-Medrol) 60 mg Q6 IV Last administered on 10/20/18 13:00; Admin Dose 60 MG; Start 10/13/18 at 12:00 Patient Own Medication 6 ea AM PO Last administered on 10/20/18 08:56; Admin Dose 6 EA; Start 10/13/18 at 13:00 Acetazolamide (Diamox) 250 mg BID PO Last administered on 10/20/18 09:06; Admin Dose 250 MG; Start 10/13/18 at 21:00 Metformin HCl (Glucophage Xr) 1,000 mg BID PO Last administered on 10/20/18 08:47; Admin Dose 1,000 MG; Start 10/14/18 at 21:00 Empaglifozin (Jardiance) 25 mg DAILY@08 PO Last administered on 10/20/18 08:44; Admin Dose 25 MG; Start 10/15/18 at 08:00 Diagnostic Test (Pha) (Accu-Chek) 1 ea 02 XX Last administered on 10/16/18 02:15; Admin Dose 1 EA; Start 10/15/18 at 02:00 Linagliptin (Tradjenta) 5 mg DAILY PO Last administered on 10/20/18 08:48; Admin Dose 5 MG; Start 10/15/18 at 09:00 Spironolactone (Aldactone) 25 mg DAILY PO Last administered on 10/20/18 08:45; Admin Dose 25 MG; Start 10/16/18 at 12:30 Furosemide (Lasix) 40 mg DAILY IV Last administered on 10/20/18 08:44; Admin Dose 40 MG; Start 10/19/18 at 09:00 Insulin Aspart (Novolog Insulin Pen) 20 unit WITH MEALS SC Last administered on 10/20/18 12:55; Admin Dose 20 UNIT; Start 10/18/18 at 17:35 Insulin Glargine (Lantus) 40 units DAILY@2000 SC Last administered on 10/19/18 20:59; Admin Dose 40 UNITS; Start 10/18/18 at 20:00 Caspofungin 50 mg/ Sodium Chloride 250 ml @ 250 mls/hr Q24H IVPB ; Start 10/20/18 at 13:00 Nystatin (Nystatin Susp) 5 ml QID PO Last administered on 10/20/18 13:00; Admin Dose 5 ML; Start 10/19/18 at 13:00 Docusate Sodium (Colace) 200 mg BID PO Last administered on 10/20/18 12:59; Admin Dose 200 MG; Start 10/20/18 at 11:00 Polyethylene Glycol (Miralax) 17 gm BID PO Last administered on 10/20/18 12:59; Admin Dose 17 GM; Start 10/20/18 at 11:00 Doxycycline Hyclate (Vibramycin) 100 mg BID PO Last administered on 10/20/18 14:13; Admin Dose 100 MG; Start 10/20/18 at 13:30 Ceftriaxone Sodium 50 ml @ 100 mls/hr Q24H IVPB Last administered on 10/20/18 14:14; Admin Dose 100 MLS/HR; Start 10/20/18 at 13:30 Rocael Poole DO Oct 20, 2018 14:40
[2018-10-20] MEDS: CASPOFUNGIN 50 MG in SOD CHLORIDE 0.9% 250 ML IVPB SCH (16:04)
[2018-10-20] MEDS: ATORVASTATIN 20 MG TAB PO SCH (22:01)
[2018-10-20] MEDS: INSULIN GLARGINE [LANTus] (100 UNITS/ML) SYG SC SCH (22:17)
[2018-10-21] VITALS: BP 95/65; PULSE 91; RESP 18
[2018-10-21] MEDS: ALBUTEROL/IPRATROPIUM (NEB) 3 ML AMP HHN SCH ×6 (00:52→20:05)
[2018-10-21] MEDS: ACCU-CHEK XX SCH (01:13)
[2018-10-21] MEDS: METHYLPREDNISOLONE 125 MG INJ IV SCH ×2 (01:21→06:23)
[2018-10-21 04:00] VITALS: BP 113/65; PULSE 90; RESP 18
[2018-10-21 07:35] VITALS: BP 107/68; PULSE 112; RESP 22
[2018-10-21] MEDS: INSULIN ASPART [NOVOLOG] 3 ML PEN SC SCH ×6 (08:00→21:47)
[2018-10-21] MEDS: POLYETHYLENE GLYCOL 17 GM PACKET PO SCH ×2 (08:23→21:20)
[2018-10-21] MEDS: NYSTATIN SUSP 5 ML CUP PO SCH ×4 (08:24→21:23)
[2018-10-21] MEDS: metFORMIN (XR) 500 MG TAB PO SCH ×2 (08:25→21:22)
[2018-10-21] MEDS: EMPAGLIFLOZIN 10 MG TABLET PO SCH (08:25)
[2018-10-21] MEDS: APIXABAN 5 MG TABLET PO SCH ×2 (08:26→21:23)
[2018-10-21] MEDS: DOXYCYCLINE 100 MG TAB PO SCH ×2 (08:26→21:21)
[2018-10-21] MEDS: METOPROLOL (XL) 25 MG TAB PO SCH ×3 (08:27→21:22)
[2018-10-21] MEDS: DOCUSATE SODIUM 100 MG CAP PO SCH ×2 (08:27→21:21)
[2018-10-21] MEDS: ACETAZOLAMIDE 250 MG TAB PO SCH ×2 (08:28→21:26)
[2018-10-21] MEDS: LINAGLIPTIN 5 MG TABLET PO SCH (08:29)
[2018-10-21] MEDS: SPIRONOLACTONE 25 MG TAB PO SCH (08:29)
[2018-10-21] MEDS: CYCLOSET PO SCH (08:29)
[2018-10-21] MEDS: FUROSEMIDE 40 MG INJ IV SCH (09:00)
--- NOTE | 2018-10-21 09:58 | CONS ---
Assessment/Plan Assessment/Plan Hospital Course (Demo Recall) ID PROGRESS NOTE CURRENT ABX: DAY # =>Cancidas + Doxycycline + Ceftriaxone 2gm s/p Cefepime 10/21/18 0504 10/21/18 0504 24H INTERVAL SUMMARY * Stable for TNS out of ICU yesterday -- Awake, alert, on high flow supplemental O2 - ambulatory to bedside commode and OOB-> Chair * No fevers, mild tachycardia H 102-110, voiding * CT w/extensive mucous plugging * WBC up slightly -- patient on Steroids DIAGNOSTIC IMAGING * 10/20/18 CT Chest: IMPRESSION: * 1. Dense confluent atelectasis in the inferior aspect of the right middle lobe with central mucous plugging, causing partial collapse of the right middle lobe. * 2. Dense severe confluent atelectasis in the extreme right posterior lung base adjacent to the right hemidiaphragm, also with central mucous plugging. * 3. Less severe minor subsegmental atelectasis in the left lingula and left lung base, with endobronchial partial mucous plugging in the left lower l obe bronchi. * 4. Hazy ground-glass infiltration and presumed pneumonia within the aspect of the right upper lobe. * 5. Several tiny micronodules along the lateral periphery of the upper lobes bilaterally, too small to characterize. These are likely benign and inflammatory nature. Follow-up imaging is not required and is optional at 1 year (Raimundo 2017). * 6. Cardiomegaly with multi-chamber enlargement and dilatation, with abundant atherosclerotic vascular calcifications. * 7. Numerous scattered diffuse extensive mild benign reactive adenopathy throughout the mediastinum and hilar cassi stations. * 8. Scattered benign chronic senescent changes seen elsewhere throughout the remainder of the study. * 10/20/18 CXR: IMPRESSION:1. Prominent pulmonary vascular markings, at least partially related to low lung volumes. Mild pulmonary vascular congestion is not excluded. No significant interval change. 2. Bilateral basilar atelectasis. 3. Aortic atherosclerosis. MICRO * BCx(-); (-) Urine Cx * 10/17/18 Sputum (+) C.Albicans PHYSICAL EXAMINATION: GENERAL: VSS, NAD HEENT: AT, NC, NECK: Supple, CHEST: Rise symmetrical -- supplemental O2 high flow HEART: Pulse RRR ABDOMEN: Benign EXTREMITIES: Warm, dry SKIN: No rash, no diaphoresis ID ASSESSMENT 62 yo M admit with: 1. Acute hypoxemic respiratory failure 2. Multi-lobar lobe pneumonia w/bilateral mucous plugging * HIV(-); Legionella (-) * Aspergillus, Cocci, Mycoplasma serology pending 3. Oral thrush 4. Atrial fibrillation, chronic 5. Bilateral lower extremities chronic venous stasis 6. CHF 7. Diabetes (-)MRSA Nares ABX ALLERGIES: KNDA INVASIVES: PIV CURRENT ABX: DAY # =>Cancidas + Doxycycline + Ceftriaxone 2gm s/p Cefepime ID RECOMMENDATIONS/PLAN: 1. ABX D/W Dr. Reyna -- Community Aquired PNA in a patient who has hx of travel * Recommend covering with Doxycycline and will change Cefepime to Ceftriaxone - Taper Steroids * CT revealing extensive mucous plugging ? would he benefit from bronch? 2. Aspergillus & Cocci & Mycoplasma serology pending . . Consultation Date/Type/Reason Admit Date/Time Oct 12, 2018 at 06:16 Initial Consult Date 10/14/18 Requesting Provider: ROEL ALBA Date/Time of Note DATE: 10/21/18 TIME: 09:53 Exam/Review of Systems Exam Vitals Vital Signs Date Temp Pulse Resp B/P (MAP) Pulse Ox O2 O2 Flow FiO2 Time Delivery Rate 10/21/18 89 21 90 25.0 50 09:02 10/21/18 97.8 107/68 High Flow 07:35 (81) Intake and Output 10/20/18 10/20/18 10/21/18 1515:00 23:00 07:00 IntakeIntake Total 1570 ml 880 ml OutputOutput Total 4750 ml 800 ml 750 ml BalanceBalance -3180 ml 80 ml -750 ml Results Result Diagram: 10/21/18 0504 10/21/18 0504 Results 24hrs Laboratory Tests Test 10/20/18 12:48 10/20/18 14:45 10/20/18 17:46 10/20/18 22:05 Bedside Glucose 144 169 128 Sodium Level 137 Potassium Level 4.3 Chloride Level 96 L Carbon Dioxide 27 Level Anion Gap 14 H Blood Urea 31 H Nitrogen Creatinine 0.95 Est Glomerular > 60 Filtrat Rate mL/min Glucose Level 158 Calcium Level 9.3 Phosphorus Level 3.6 Magnesium Level 2.3 Test 10/21/18 05:00 10/21/18 05:04 10/21/18 08:20 Blood Gas Specimen Blood arterial Source Arterial Blood 10/21/2018 4:50:45 Date Drawn AM Arterial Blood pH 7.443 (Temp corrected) Arterial Blood 41.3 pCO2 (Temp correct) Arterial Blood pO2 52.9 *L (Temp corrected) Arterial Blood 27.6 H HCO3 Arterial Blood 3.2 H Base Excess Arterial Blood 88.1 L Oxygen Saturation David Test ACCEPTAB Arterial Blood Gas Right Radial Puncture Site Arterial 1.4 Blood Carboxyhemog lobin Arterial Blood 0 Methemoglobin Blood Gas A-a O2 221.0 H Differential Oxyhemoglobin 86.9 L Percent Blood Gas 37.0 Temperature Blood Gas Modality HFNC FiO2 45.0 Blood Gas Critical BREE RN Value Read Back Blood Gas Notified MA Whom Blood Gas Notified 10/21/2018 5:05:35 Time AM White Blood Count 16.8 H Red Blood Count 5.65 Hemoglobin 14.3 Hematocrit 46.7 Mean Corpuscular 82.7 Volume Mean Corpuscular 25.3 L Hemoglobin Mean Corpuscular 30.6 L Hemoglobin Concent Red Cell 17.2 H Distribution Width Platelet Count 177 Mean Platelet 11.2 H Volume Immature 1.500 H Granulocytes % Neutrophils % 89.5 H Lymphocytes % 4.3 L Monocytes % 4.3 Eosinophils % 0.2 Basophils % 0.2 Nucleated Red 0.0 Blood Cells % Immature 0.250 H Granulocytes # Neutrophils # 15.1 H Lymphocytes # 0.7 L Monocytes # 0.7 Eosinophils # 0.0 Basophils # 0.0 Nucleated Red 0.0 Blood Cells # Sodium Level 138 Potassium Level 4.5 Chloride Level 99 Carbon Dioxide 27 Level Anion Gap 12 Blood Urea 31 H Nitrogen Creatinine 0.79 Est Glomerular > 60 Filtrat Rate mL/min Glucose Level 128 Calcium Level 9.7 Total Bilirubin 0.7 Direct Bilirubin 0.00 Indirect Bilirubin 0.7 Aspartate Amino 33 Transf (AST/SGOT) Alanine 64 Aminotransferase ( ALT/SGPT) Alkaline 64 Phosphatase B-Type Natriuretic 451 H Peptide Total Protein 5.9 L Albumin 3.3 Globulin 2.60 Albumin/Globulin 1.26 Ratio Bedside Glucose 133 Medications Medication Current Medications Albuterol/ Ipratropium (Duoneb) 3 ml Q4 HHN Last administered on 10/21/18at 09:02; Admin Dose 3 ML; Start 10/11/18 at 21:00 Insulin Aspart (Novolog Insulin Pen) NOVOLOG *MODERATE* ALGORITHM WITH MEALS BEDTIME SC Last administered on 10/20/18 18:15; Admin Dose 2 UNIT; Start 10/11/18 at 21:00 Zolpidem Tartrate (Ambien) 5 mg HS MAY REPEAT X 1 PRN PO INSOMNIA; Start 10/11/18 at 20:30 Ondansetron HCl (Zofran Inj) 4 mg Q4 PRN IV nausea; Start 10/11/18 at 20:30 Miscellaneous Information 1 ea NOTE XX ; Start 10/11/18 at 21:00 Glucose (Glutose) 15 gm Q15M PRN PO DECREASED GLUCOSE; Start 10/11/18 at 21:00 Glucose (Glutose) 22.5 gm Q15M PRN PO DECREASED GLUCOSE; Start 10/11/18 at 21:00 Dextrose (D50w Syringe) 25 ml Q15M PRN IV DECREASED GLUCOSE; Start 10/11/18 at 21:00 Dextrose (D50w Syringe) 50 ml Q15M PRN IV DECREASED GLUCOSE; Start 10/11/18 at 21:00 Glucagon (Glucagen) 1 mg Q15M PRN IM DECREASED GLUCOSE; Start 10/11/18 at 21:00 Glucose (Glutose) 15 gm Q15M PRN BUCCAL DECREASED GLUCOSE; Start 10/11/18 at 21:00 Promethazine HCl/ Dextromethorphan (Phenergan-Dm) 5 ml Q6 PRN PO COUGH; Start 10/11/18 at 21:00 Digoxin (Digoxin) 0.25 mg DAILY PO Last administered on 10/20/18at 08:46; Admin Dose 0.25 MG; Start 10/12/18 at 09:00 Atorvastatin Calcium (Lipitor) 20 mg DAILY@21 PO Last administered on 10/20/18 22:01; Admin Dose 20 MG; Start 10/11/18 at 22:30 Apixaban (Eliquis) 5 mg BID PO Last administered on 10/21/18 08:26; Admin Dose 5 MG; Start 10/12/18 at 12:30 Metoprolol Succinate (Toprol Xl) 50 mg BID PO Last administered on 10/19/18 09:26; Admin Dose 50 MG; Start 10/12/18 at 21:00 Methylprednisolone Sodium Succinate (Solu-Medrol) 60 mg Q6 IV Last administered on 10/21/18 06:23; Admin Dose 60 MG; Start 10/13/18 at 12:00 Patient Own Medication 6 ea AM PO Last administered on 10/21/18 08:29; Admin Dose 6 EA; Start 10/13/18 at 13:00 Acetazolamide (Diamox) 250 mg BID PO Last administered on 10/21/18 08:28; Admin Dose 250 MG; Start 10/13/18 at 21:00 Metformin HCl (Glucophage Xr) 1,000 mg BID PO Last administered on 10/21/18 08:25; Admin Dose 1,000 MG; Start 10/14/18 at 21:00 Empaglifozin (Jardiance) 25 mg DAILY@08 PO Last administered on 10/21/18 08:25; Admin Dose 25 MG; Start 10/15/18 at 08:00 Diagnostic Test (Pha) (Accu-Chek) 1 ea 02 XX Last administered on 10/16/18 02:15; Admin Dose 1 EA; Start 10/15/18 at 02:00 Linagliptin (Tradjenta) 5 mg DAILY PO Last administered on 10/21/18 08:29; Admin Dose 5 MG; Start 10/15/18 at 09:00 Spironolactone (Aldactone) 25 mg DAILY PO Last administered on 10/21/18 08:29; Admin Dose 25 MG; Start 10/16/18 at 12:30 Furosemide (Lasix) 40 mg DAILY IV Last administered on 10/20/18 08:44; Admin Dose 40 MG; Start 10/19/18 at 09:00 Insulin Aspart (Novolog Insulin Pen) 20 unit WITH MEALS SC Last administered on 10/21/18 08:46; Admin Dose 20 UNIT; Start 10/18/18 at 17:35 Insulin Glargine (Lantus) 40 units DAILY@2000 SC Last administered on 10/20/18 22:17; Admin Dose 40 UNITS; Start 10/18/18 at 20:00 Caspofungin 50 mg/ Sodium Chloride 250 ml @ 250 mls/hr Q24H IVPB Last administered on 10/20/18 16:04; Admin Dose 250 MLS/HR; Start 10/20/18 at 13:00 Nystatin (Nystatin Susp) 5 ml QID PO Last administered on 10/21/18 08:24; Admin Dose 5 ML; Start 10/19/18 at 13:00 Docusate Sodium (Colace) 200 mg BID PO Last administered on 10/21/18 08:27; Admin Dose 200 MG; Start 10/20/18 at 11:00 Polyethylene Glycol (Miralax) 17 gm BID PO Last administered on 10/21/18 08:23; Admin Dose 17 GM; Start 10/20/18 at 11:00 Doxycycline Hyclate (Vibramycin) 100 mg BID PO Last administered on 10/21/18 08:26; Admin Dose 100 MG; Start 10/20/18 at 13:30 Ceftriaxone Sodium 50 ml @ 100 mls/hr Q24H IVPB Last administered on 10/20/18 14:14; Admin Dose 100 MLS/HR; Start 10/20/18 at 13:30 BRETT KWONG NP Oct 21, 2018 09:58
--- NOTE | 2018-10-21 10:25 | CONS ---
Assessment/Plan Assessment/Plan Assessment/Plan (Daily) 1. Metabolic alkalosis on Acetazolamide 250mg BID , HCO3 27, BUN/Cr 31/0.95, WBC 15 1. Acute Hypoxic respiratory failure, likely secondary to reactive airway and pneumonia, patient seems to be euvolemic for now.- on IV abx cefepime and vancomycin< renally dose all abx and monitor electrolytes 2. Atrial fibrillation, chronic, rate controlled. 3. Congestive heart failure, diastolic dysfunction, chronic, currently euvolemic. Echocardiogram with EF of 55%.- on lasix 40mg pO BID Continue current medication, patient on oral Lasix daily. 4. Diabetes mellitus Type II with acute hyperglycemia 5. Hypertension Consultation Date/Type/Reason Admit Date/Time Oct 12, 2018 at 06:16 Initial Consult Date 10/14/18 Type of Consult NEPHROLOGY Requesting Provider: ROEL ALBA Date/Time of Note DATE: 10/21/18 TIME: 10:25 Exam/Review of Systems Exam Vitals Vital Signs Date Temp Pulse Resp B/P (MAP) Pulse Ox O2 O2 Flow FiO2 Time Delivery Rate 10/21/18 89 21 90 25.0 50 09:02 10/21/18 97.8 107/68 High Flow 07:35 (81) Intake and Output 10/20/18 10/20/18 10/21/18 1414:59 22:59 06:59 IntakeIntake Total 1610 ml 1130 ml OutputOutput Total 4850 ml 950 ml 750 ml BalanceBalance -3240 ml 180 ml -750 ml Results Result Diagram: 10/21/18 0504 10/21/18 0504 Results 24hrs Laboratory Tests Test 10/20/18 12:48 10/20/18 14:45 10/20/18 17:46 10/20/18 22:05 Bedside Glucose 144 169 128 Sodium Level 137 Potassium Level 4.3 Chloride Level 96 L Carbon Dioxide 27 Level Anion Gap 14 H Blood Urea 31 H Nitrogen Creatinine 0.95 Est Glomerular > 60 Filtrat Rate mL/min Glucose Level 158 Calcium Level 9.3 Phosphorus Level 3.6 Magnesium Level 2.3 Test 10/21/18 05:00 10/21/18 05:04 10/21/18 08:20 Blood Gas Specimen Blood arterial Source Arterial Blood 10/21/2018 4:50:45 Date Drawn AM Arterial Blood pH 7.443 (Temp corrected) Arterial Blood 41.3 pCO2 (Temp correct) Arterial Blood pO2 52.9 *L (Temp corrected) Arterial Blood 27.6 H HCO3 Arterial Blood 3.2 H Base Excess Arterial Blood 88.1 L Oxygen Saturation David Test ACCEPTAB Arterial Blood Gas Right Radial Puncture Site Arterial 1.4 Blood Carboxyhemog lobin Arterial Blood 0 Methemoglobin Blood Gas A-a O2 221.0 H Differential Oxyhemoglobin 86.9 L Percent Blood Gas 37.0 Temperature Blood Gas Modality HFNC FiO2 45.0 Blood Gas Critical KSALVADOR RN Value Read Back Blood Gas Notified MA Whom Blood Gas Notified 10/21/2018 5:05:35 Time AM White Blood Count 16.8 H Red Blood Count 5.65 Hemoglobin 14.3 Hematocrit 46.7 Mean Corpuscular 82.7 Volume Mean Corpuscular 25.3 L Hemoglobin Mean Corpuscular 30.6 L Hemoglobin Concent Red Cell 17.2 H Distribution Width Platelet Count 177 Mean Platelet 11.2 H Volume Immature 1.500 H Granulocytes % Neutrophils % 89.5 H Lymphocytes % 4.3 L Monocytes % 4.3 Eosinophils % 0.2 Basophils % 0.2 Nucleated Red 0.0 Blood Cells % Immature 0.250 H Granulocytes # Neutrophils # 15.1 H Lymphocytes # 0.7 L Monocytes # 0.7 Eosinophils # 0.0 Basophils # 0.0 Nucleated Red 0.0 Blood Cells # Sodium Level 138 Potassium Level 4.5 Chloride Level 99 Carbon Dioxide 27 Level Anion Gap 12 Blood Urea 31 H Nitrogen Creatinine 0.79 Est Glomerular > 60 Filtrat Rate mL/min Glucose Level 128 Calcium Level 9.7 Total Bilirubin 0.7 Direct Bilirubin 0.00 Indirect Bilirubin 0.7 Aspartate Amino 33 Transf (AST/SGOT) Alanine 64 Aminotransferase ( ALT/SGPT) Alkaline 64 Phosphatase B-Type Natriuretic 451 H Peptide Total Protein 5.9 L Albumin 3.3 Globulin 2.60 Albumin/Globulin 1.26 Ratio Bedside Glucose 133 Medications Medication Current Medications Albuterol/ Ipratropium (Duoneb) 3 ml Q4 HHN Last administered on 10/21/18at 09:02; Admin Dose 3 ML; Start 10/11/18 at 21:00 Insulin Aspart (Novolog Insulin Pen) NOVOLOG *MODERATE* ALGORITHM WITH MEALS BEDTIME SC Last administered on 10/20/18at 18:15; Admin Dose 2 UNIT; Start 10/11/18 at 21:00 Zolpidem Tartrate (Ambien) 5 mg HS MAY REPEAT X 1 PRN PO INSOMNIA; Start 10/11/18 at 20:30 Ondansetron HCl (Zofran Inj) 4 mg Q4 PRN IV nausea; Start 10/11/18 at 20:30 Miscellaneous Information 1 ea NOTE XX ; Start 10/11/18 at 21:00 Glucose (Glutose) 15 gm Q15M PRN PO DECREASED GLUCOSE; Start 10/11/18 at 21:00 Glucose (Glutose) 22.5 gm Q15M PRN PO DECREASED GLUCOSE; Start 10/11/18 at 21:00 Dextrose (D50w Syringe) 25 ml Q15M PRN IV DECREASED GLUCOSE; Start 10/11/18 at 21:00 Dextrose (D50w Syringe) 50 ml Q15M PRN IV DECREASED GLUCOSE; Start 10/11/18 at 21:00 Glucagon (Glucagen) 1 mg Q15M PRN IM DECREASED GLUCOSE; Start 10/11/18 at 21:00 Glucose (Glutose) 15 gm Q15M PRN BUCCAL DECREASED GLUCOSE; Start 10/11/18 at 21:00 Promethazine HCl/ Dextromethorphan (Phenergan-Dm) 5 ml Q6 PRN PO COUGH; Start 10/11/18 at 21:00 Digoxin (Digoxin) 0.25 mg DAILY PO Last administered on 10/20/18at 08:46; Admin Dose 0.25 MG; Start 10/12/18 at 09:00 Atorvastatin Calcium (Lipitor) 20 mg DAILY@21 PO Last administered on 10/20/18at 22:01; Admin Dose 20 MG; Start 10/11/18 at 22:30 Apixaban (Eliquis) 5 mg BID PO Last administered on 10/21/18 08:26; Admin Dose 5 MG; Start 10/12/18 at 12:30 Metoprolol Succinate (Toprol Xl) 50 mg BID PO Last administered on 10/19/18 09:26; Admin Dose 50 MG; Start 10/12/18 at 21:00 Methylprednisolone Sodium Succinate (Solu-Medrol) 60 mg Q6 IV Last administered on 10/21/18 06:23; Admin Dose 60 MG; Start 10/13/18 at 12:00 Patient Own Medication 6 ea AM PO Last administered on 10/21/18 08:29; Admin Dose 6 EA; Start 10/13/18 at 13:00 Acetazolamide (Diamox) 250 mg BID PO Last administered on 10/21/18 08:28; Admin Dose 250 MG; Start 10/13/18 at 21:00 Metformin HCl (Glucophage Xr) 1,000 mg BID PO Last administered on 10/21/18 08:25; Admin Dose 1,000 MG; Start 10/14/18 at 21:00 Empaglifozin (Jardiance) 25 mg DAILY@08 PO Last administered on 10/21/18 08:25; Admin Dose 25 MG; Start 10/15/18 at 08:00 Diagnostic Test (Pha) (Accu-Chek) 1 ea 02 XX Last administered on 10/16/18 02:15; Admin Dose 1 EA; Start 10/15/18 at 02:00 Linagliptin (Tradjenta) 5 mg DAILY PO Last administered on 10/21/18 08:29; Admin Dose 5 MG; Start 10/15/18 at 09:00 Spironolactone (Aldactone) 25 mg DAILY PO Last administered on 10/21/18 08:29; Admin Dose 25 MG; Start 10/16/18 at 12:30 Furosemide (Lasix) 40 mg DAILY IV Last administered on 10/20/18 08:44; Admin Dose 40 MG; Start 10/19/18 at 09:00 Insulin Aspart (Novolog Insulin Pen) 20 unit WITH MEALS SC Last administered on 10/21/18 08:46; Admin Dose 20 UNIT; Start 10/18/18 at 17:35 Insulin Glargine (Lantus) 40 units DAILY@2000 SC Last administered on 10/20/18 22:17; Admin Dose 40 UNITS; Start 10/18/18 at 20:00 Caspofungin 50 mg/ Sodium Chloride 250 ml @ 250 mls/hr Q24H IVPB Last administered on 10/20/18 16:04; Admin Dose 250 MLS/HR; Start 10/20/18 at 13:00 Nystatin (Nystatin Susp) 5 ml QID PO Last administered on 10/21/18 08:24; Admin Dose 5 ML; Start 10/19/18 at 13:00 Docusate Sodium (Colace) 200 mg BID PO Last administered on 10/21/18 08:27; Admin Dose 200 MG; Start 10/20/18 at 11:00 Polyethylene Glycol (Miralax) 17 gm BID PO Last administered on 10/21/18 08:23; Admin Dose 17 GM; Start 10/20/18 at 11:00 Doxycycline Hyclate (Vibramycin) 100 mg BID PO Last administered on 10/21/18 08:26; Admin Dose 100 MG; Start 10/20/18 at 13:30 Ceftriaxone Sodium 50 ml @ 100 mls/hr Q24H IVPB Last administered on 10/20/18 14:14; Admin Dose 100 MLS/HR; Start 10/20/18 at 13:30 NEDA STAHL MD Oct 21, 2018 10:25
[2018-10-21 11:29] VITALS: BP 112/56; PULSE 74; RESP 21
--- NOTE | 2018-10-21 11:34 | PN ---
Date/Time of Note Date/Time of Note DATE: 10/21/18 TIME: 11:32 Subjective Sitting in chair. Feeling better. No shortness of breath. Objective Vitals Vital Signs Date Temp Pulse Resp B/P (MAP) Pulse Ox O2 O2 Flow FiO2 Time Delivery Rate 10/21/18 98.0 74 21 112/56 95 High Flow 11:29 (74) 10/21/18 25.0 50 09:02 Intake and Output 10/20/18 10/20/18 10/21/18 1414:59 22:59 06:59 IntakeIntake Total 1610 ml 1130 ml OutputOutput Total 4850 ml 950 ml 750 ml BalanceBalance -3240 ml 180 ml -750 ml Clear to auscultation bilaterally Regular rate and rhythm Soft nontender nondistended normoactive bowel sounds Mild edema Nonfocal Results Result Diagram: 10/21/18 0504 10/21/18 0504 Medications Medications Current Medications Albuterol/ Ipratropium (Duoneb) 3 ml Q4 HHN Last administered on 10/21/18at 09:02; Admin Dose 3 ML; Start 10/11/18 at 21:00 Insulin Aspart (Novolog Insulin Pen) NOVOLOG *MODERATE* ALGORITHM WITH MEALS BEDTIME SC Last administered on 10/20/18at 18:15; Admin Dose 2 UNIT; Start 10/11/18 at 21:00 Zolpidem Tartrate (Ambien) 5 mg HS MAY REPEAT X 1 PRN PO INSOMNIA; Start 10/11/18 at 20:30 Ondansetron HCl (Zofran Inj) 4 mg Q4 PRN IV nausea; Start 10/11/18 at 20:30 Miscellaneous Information 1 ea NOTE XX ; Start 10/11/18 at 21:00 Glucose (Glutose) 15 gm Q15M PRN PO DECREASED GLUCOSE; Start 10/11/18 at 21:00 Glucose (Glutose) 22.5 gm Q15M PRN PO DECREASED GLUCOSE; Start 10/11/18 at 21:00 Dextrose (D50w Syringe) 25 ml Q15M PRN IV DECREASED GLUCOSE; Start 10/11/18 at 21:00 Dextrose (D50w Syringe) 50 ml Q15M PRN IV DECREASED GLUCOSE; Start 10/11/18 at 21:00 Glucagon (Glucagen) 1 mg Q15M PRN IM DECREASED GLUCOSE; Start 10/11/18 at 21:00 Glucose (Glutose) 15 gm Q15M PRN BUCCAL DECREASED GLUCOSE; Start 10/11/18 at 21:00 Promethazine HCl/ Dextromethorphan (Phenergan-Dm) 5 ml Q6 PRN PO COUGH; Start 10/11/18 at 21:00 Digoxin (Digoxin) 0.25 mg DAILY PO Last administered on 10/20/18 08:46; Admin Dose 0.25 MG; Start 10/12/18 at 09:00 Atorvastatin Calcium (Lipitor) 20 mg DAILY@21 PO Last administered on 10/20/18 22:01; Admin Dose 20 MG; Start 10/11/18 at 22:30 Apixaban (Eliquis) 5 mg BID PO Last administered on 10/21/18 08:26; Admin Dose 5 MG; Start 10/12/18 at 12:30 Metoprolol Succinate (Toprol Xl) 50 mg BID PO Last administered on 10/19/18 09:26; Admin Dose 50 MG; Start 10/12/18 at 21:00 Methylprednisolone Sodium Succinate (Solu-Medrol) 60 mg Q6 IV Last administered on 10/21/18 06:23; Admin Dose 60 MG; Start 10/13/18 at 12:00 Patient Own Medication 6 ea AM PO Last administered on 10/21/18 08:29; Admin Dose 6 EA; Start 10/13/18 at 13:00 Acetazolamide (Diamox) 250 mg BID PO Last administered on 10/21/18 08:28; Admin Dose 250 MG; Start 10/13/18 at 21:00 Metformin HCl (Glucophage Xr) 1,000 mg BID PO Last administered on 10/21/18 08:25; Admin Dose 1,000 MG; Start 10/14/18 at 21:00 Empaglifozin (Jardiance) 25 mg DAILY@08 PO Last administered on 10/21/18 08:25; Admin Dose 25 MG; Start 10/15/18 at 08:00 Diagnostic Test (Pha) (Accu-Chek) 1 ea 02 XX Last administered on 10/16/18 02:15; Admin Dose 1 EA; Start 10/15/18 at 02:00 Linagliptin (Tradjenta) 5 mg DAILY PO Last administered on 10/21/18 08:29; Admin Dose 5 MG; Start 10/15/18 at 09:00 Spironolactone (Aldactone) 25 mg DAILY PO Last administered on 10/21/18 08:29; Admin Dose 25 MG; Start 10/16/18 at 12:30 Furosemide (Lasix) 40 mg DAILY IV Last administered on 10/20/18 08:44; Admin Dose 40 MG; Start 10/19/18 at 09:00 Insulin Aspart (Novolog Insulin Pen) 20 unit WITH MEALS SC Last administered on 10/21/18 08:46; Admin Dose 20 UNIT; Start 10/18/18 at 17:35 Insulin Glargine (Lantus) 40 units DAILY@2000 SC Last administered on 10/20/18 22:17; Admin Dose 40 UNITS; Start 10/18/18 at 20:00 Caspofungin 50 mg/ Sodium Chloride 250 ml @ 250 mls/hr Q24H IVPB Last administered on 10/20/18 16:04; Admin Dose 250 MLS/HR; Start 10/20/18 at 13:00 Nystatin (Nystatin Susp) 5 ml QID PO Last administered on 10/21/18 08:24; Admin Dose 5 ML; Start 10/19/18 at 13:00 Docusate Sodium (Colace) 200 mg BID PO Last administered on 10/21/18 08:27; Admin Dose 200 MG; Start 10/20/18 at 11:00 Polyethylene Glycol (Miralax) 17 gm BID PO Last administered on 10/21/18 08:23; Admin Dose 17 GM; Start 10/20/18 at 11:00 Doxycycline Hyclate (Vibramycin) 100 mg BID PO Last administered on 10/21/18 08:26; Admin Dose 100 MG; Start 10/20/18 at 13:30 Ceftriaxone Sodium 50 ml @ 100 mls/hr Q24H IVPB Last administered on 10/20/18 14:14; Admin Dose 100 MLS/HR; Start 10/20/18 at 13:30 VTE Prophylaxis Risk score (from Nsg)>0 risk: 3 SCD applied (from Nsg): No SCD contraindication: other Pharmacological prophylaxis: apixaban Lines/Catheters IV Catheter Type: Saline Lock [place] in Place: No Assessment/Plan Assessment/Plan 62-year-old male with acute hypoxemic respiratory failure, on 50% high flow to Community-acquired pneumonia, slowly improving Type 2 diabetes mellitus Moderate obesity Continue current therapy Wean off high flow to Physical therapy ID and pulmonary follow-up Plan of care was discussed with patient and at the bedside ELI YARBROUGH MD Oct 21, 2018 11:34
--- NOTE | 2018-10-21 12:47 | CONS ---
Assessment/Plan Assessment/Plan Hospital Course (Demo Recall) Respiratory failure with hypoxia-improving PNA Acute decompensated systolic and diastolic congestive heart failure History of cardiomyopathy, current left ventricular ejection fraction 50-55% Pulmonary hypertension Chronic Atrial Fibrillation DM We will give extra dose of IV digoxin Has not received beta-dana because of blood pressure lower side, would adjust holding parameters Repeat echocardiogram with negative bubble study. PA pressures were in the high 60s. Antibiotics as per infectious disease Continue beta-dana as heart rate and blood pressure permits Cont Eliquis if no contraindication Consultation Date/Type/Reason Admit Date/Time Oct 12, 2018 at 06:16 Initial Consult Date Type of Consult Cardiology Requesting Provider: ROEL ALBA Date/Time of Note DATE: 10/21/18 TIME: 12:35 24 HR Interval Summary Free Text/Dictation Still with shortness of breath, minimal improvement. Denies palpitations or chest pain Exam/Review of Systems Vital Signs Vitals Vital Signs Date Temp Pulse Resp B/P (MAP) Pulse Ox O2 O2 Flow FiO2 Time Delivery Rate 10/21/18 98.0 74 21 112/56 95 High Flow 11:29 (74) 10/21/18 25.0 50 09:02 Intake and Output 10/20/18 10/20/18 10/21/18 1414:59 22:59 06:59 IntakeIntake Total 1610 ml 1130 ml OutputOutput Total 4850 ml 950 ml 750 ml BalanceBalance -3240 ml 180 ml -750 ml Exam Constitutional: alert, oriented (Sitting in chair, mild dyspnea with speaking) Head: normocephalic Respiratory: other (Coarse breath sounds bilaterally, no wheezing) Cardiovascular: irregular rhythm (S1-S2 heard) Gastrointestinal: soft, non-tender, bowel sounds Extremities: edema Labs Result Diagram: 10/21/18 0504 10/21/18 0504 Results 24hrs Laboratory Tests Test 10/20/18 12:48 10/20/18 14:45 10/20/18 17:46 10/20/18 22:05 Bedside Glucose 144 169 128 Sodium Level 137 Potassium Level 4.3 Chloride Level 96 L Carbon Dioxide 27 Level Anion Gap 14 H Blood Urea 31 H Nitrogen Creatinine 0.95 Est Glomerular > 60 Filtrat Rate mL/min Glucose Level 158 Calcium Level 9.3 Phosphorus Level 3.6 Magnesium Level 2.3 Test 10/21/18 05:00 10/21/18 05:04 10/21/18 08:20 Blood Gas Specimen Blood arterial Source Arterial Blood 10/21/2018 4:50:45 Date Drawn AM Arterial Blood pH 7.443 (Temp corrected) Arterial Blood 41.3 pCO2 (Temp correct) Arterial Blood pO2 52.9 *L (Temp corrected) Arterial Blood 27.6 H HCO3 Arterial Blood 3.2 H Base Excess Arterial Blood 88.1 L Oxygen Saturation David Test ACCEPTAB Arterial Blood Gas Right Radial Puncture Site Arterial 1.4 Blood Carboxyhemog lobin Arterial Blood 0 Methemoglobin Blood Gas A-a O2 221.0 H Differential Oxyhemoglobin 86.9 L Percent Blood Gas 37.0 Temperature Blood Gas Modality HFNC FiO2 45.0 Blood Gas Critical ROMMELALMADALYN RN Value Read Back Blood Gas Notified MA Whom Blood Gas Notified 10/21/2018 5:05:35 Time AM White Blood Count 16.8 H Red Blood Count 5.65 Hemoglobin 14.3 Hematocrit 46.7 Mean Corpuscular 82.7 Volume Mean Corpuscular 25.3 L Hemoglobin Mean Corpuscular 30.6 L Hemoglobin Concent Red Cell 17.2 H Distribution Width Platelet Count 177 Mean Platelet 11.2 H Volume Immature 1.500 H Granulocytes % Neutrophils % 89.5 H Lymphocytes % 4.3 L Monocytes % 4.3 Eosinophils % 0.2 Basophils % 0.2 Nucleated Red 0.0 Blood Cells % Immature 0.250 H Granulocytes # Neutrophils # 15.1 H Lymphocytes # 0.7 L Monocytes # 0.7 Eosinophils # 0.0 Basophils # 0.0 Nucleated Red 0.0 Blood Cells # Sodium Level 138 Potassium Level 4.5 Chloride Level 99 Carbon Dioxide 27 Level Anion Gap 12 Blood Urea 31 H Nitrogen Creatinine 0.79 Est Glomerular > 60 Filtrat Rate mL/min Glucose Level 128 Calcium Level 9.7 Total Bilirubin 0.7 Direct Bilirubin 0.00 Indirect Bilirubin 0.7 Aspartate Amino 33 Transf (AST/SGOT) Alanine 64 Aminotransferase ( ALT/SGPT) Alkaline 64 Phosphatase B-Type Natriuretic 451 H Peptide Total Protein 5.9 L Albumin 3.3 Globulin 2.60 Albumin/Globulin 1.26 Ratio Bedside Glucose 133 Medications Medications Current Medications Albuterol/ Ipratropium (Duoneb) 3 ml Q4 HHN Last administered on 10/21/18at 09:02; Admin Dose 3 ML; Start 10/11/18 at 21:00 Insulin Aspart (Novolog Insulin Pen) NOVOLOG *MODERATE* ALGORITHM WITH MEALS BEDTIME SC Last administered on 10/20/18 18:15; Admin Dose 2 UNIT; Start 10/11/18 at 21:00 Zolpidem Tartrate (Ambien) 5 mg HS MAY REPEAT X 1 PRN PO INSOMNIA; Start 10/11/18 at 20:30 Ondansetron HCl (Zofran Inj) 4 mg Q4 PRN IV nausea; Start 10/11/18 at 20:30 Miscellaneous Information 1 ea NOTE XX ; Start 10/11/18 at 21:00 Glucose (Glutose) 15 gm Q15M PRN PO DECREASED GLUCOSE; Start 10/11/18 at 21:00 Glucose (Glutose) 22.5 gm Q15M PRN PO DECREASED GLUCOSE; Start 10/11/18 at 21:00 Dextrose (D50w Syringe) 25 ml Q15M PRN IV DECREASED GLUCOSE; Start 10/11/18 at 21:00 Dextrose (D50w Syringe) 50 ml Q15M PRN IV DECREASED GLUCOSE; Start 10/11/18 at 21:00 Glucagon (Glucagen) 1 mg Q15M PRN IM DECREASED GLUCOSE; Start 10/11/18 at 21:00 Glucose (Glutose) 15 gm Q15M PRN BUCCAL DECREASED GLUCOSE; Start 10/11/18 at 21:00 Promethazine HCl/ Dextromethorphan (Phenergan-Dm) 5 ml Q6 PRN PO COUGH; Start 10/11/18 at 21:00 Digoxin (Digoxin) 0.25 mg DAILY PO Last administered on 10/20/18at 08:46; Admin Dose 0.25 MG; Start 10/12/18 at 09:00 Atorvastatin Calcium (Lipitor) 20 mg DAILY@21 PO Last administered on 10/20/18 22:01; Admin Dose 20 MG; Start 10/11/18 at 22:30 Apixaban (Eliquis) 5 mg BID PO Last administered on 10/21/18 08:26; Admin Dose 5 MG; Start 10/12/18 at 12:30 Metoprolol Succinate (Toprol Xl) 50 mg BID PO Last administered on 10/19/18 09:26; Admin Dose 50 MG; Start 10/12/18 at 21:00 Patient Own Medication 6 ea AM PO Last administered on 10/21/18 08:29; Admin Dose 6 EA; Start 10/13/18 at 13:00 Acetazolamide (Diamox) 250 mg BID PO Last administered on 10/21/18 08:28; Admin Dose 250 MG; Start 10/13/18 at 21:00 Metformin HCl (Glucophage Xr) 1,000 mg BID PO Last administered on 10/21/18 08:25; Admin Dose 1,000 MG; Start 10/14/18 at 21:00 Empaglifozin (Jardiance) 25 mg DAILY@08 PO Last administered on 10/21/18 08:25; Admin Dose 25 MG; Start 10/15/18 at 08:00 Diagnostic Test (Pha) (Accu-Chek) 1 ea 02 XX Last administered on 10/16/18 02:15; Admin Dose 1 EA; Start 10/15/18 at 02:00 Linagliptin (Tradjenta) 5 mg DAILY PO Last administered on 10/21/18 08:29; Admin Dose 5 MG; Start 10/15/18 at 09:00 Spironolactone (Aldactone) 25 mg DAILY PO Last administered on 10/21/18 08:29; Admin Dose 25 MG; Start 10/16/18 at 12:30 Furosemide (Lasix) 40 mg DAILY IV Last administered on 10/20/18 08:44; Admin Dose 40 MG; Start 10/19/18 at 09:00 Insulin Aspart (Novolog Insulin Pen) 20 unit WITH MEALS SC Last administered on 10/21/18 12:28; Admin Dose 20 UNIT; Start 10/18/18 at 17:35 Insulin Glargine (Lantus) 40 units DAILY@2000 SC Last administered on 10/20/18 22:17; Admin Dose 40 UNITS; Start 10/18/18 at 20:00 Caspofungin 50 mg/ Sodium Chloride 250 ml @ 250 mls/hr Q24H IVPB Last administered on 10/20/18 16:04; Admin Dose 250 MLS/HR; Start 10/20/18 at 13:00 Nystatin (Nystatin Susp) 5 ml QID PO Last administered on 10/21/18 08:24; Admin Dose 5 ML; Start 10/19/18 at 13:00 Docusate Sodium (Colace) 200 mg BID PO Last administered on 10/21/18 08:27; Admin Dose 200 MG; Start 10/20/18 at 11:00 Polyethylene Glycol (Miralax) 17 gm BID PO Last administered on 10/21/18at 08:23; Admin Dose 17 GM; Start 10/20/18 at 11:00 Doxycycline Hyclate (Vibramycin) 100 mg BID PO Last administered on 10/21/18at 08:26; Admin Dose 100 MG; Start 10/20/18 at 13:30 Ceftriaxone Sodium 50 ml @ 100 mls/hr Q24H IVPB Last administered on 10/20/18at 14:14; Admin Dose 100 MLS/HR; Start 10/20/18 at 13:30 Prednisone (Prednisone) 30 mg DAILY PO ; Start 10/22/18 at 09:00 Rocael Poole DO Oct 21, 2018 12:45
--- NOTE | 2018-10-21 13:30 | CONS ---
Consult Date/Type/Reason Admit Date/Time Oct 12, 2018 at 06:16 Initial Consult Date Type of Consult Pulmonary Requesting Provider: ROEL ALBA Date/Time of Note DATE: 10/21/18 TIME: 13:28 Subjective Continues to slowly improve. Less shortness of breath today. Bringing up thick mucus clots. Objective Vital Signs Date Temp Pulse Resp B/P (MAP) Pulse Ox O2 O2 Flow FiO2 Time Delivery Rate 10/21/18 88 22 93 25.0 50 13:13 10/21/18 98.0 112/56 High Flow 11:29 (74) Intake and Output 10/20/18 10/20/18 10/21/18 1515:00 23:00 07:00 IntakeIntake Total 1570 ml 880 ml OutputOutput Total 4750 ml 800 ml 750 ml BalanceBalance -3180 ml 80 ml -750 ml Exam GENERAL: Well-nourished well-developed gentleman comfortable at rest VITAL SIGNS: per chart NECK: Supple. No JVD or lymphadenopathy. CARDIAC EXAM: S1, S2. No added sounds or murmurs. CHEST: Diminished air entry bilaterally ABDOMEN: Soft, nontender. No guarding or rebound. EXTREMITIES: No cyanosis, clubbing or edema. NEUROLOGIC: Generalized weakness. No focal deficits. Vent Setting Fraction of Inspired Oxygen pe: 50 Results/Medications Result Diagram: 10/21/18 0504 10/21/18 0504 Results 24 hrs Laboratory Tests Test 10/20/18 14:45 10/20/18 17:46 10/20/18 22:05 10/21/18 05:00 Sodium Level 137 Potassium Level 4.3 Chloride Level 96 L Carbon Dioxide 27 Level Anion Gap 14 H Blood Urea 31 H Nitrogen Creatinine 0.95 Est Glomerular > 60 Filtrat Rate mL/min Glucose Level 158 Calcium Level 9.3 Phosphorus Level 3.6 Magnesium Level 2.3 Bedside Glucose 169 128 Blood Gas Specimen Blood arterial Source Arterial Blood 10/21/2018 4:50:45 Date Drawn AM Arterial Blood pH 7.443 (Temp corrected) Arterial Blood 41.3 pCO2 (Temp correct) Arterial Blood pO2 52.9 *L (Temp corrected) Arterial Blood 27.6 H HCO3 Arterial Blood 3.2 H Base Excess Arterial Blood 88.1 L Oxygen Saturation David Test ACCEPTAB Arterial Blood Gas Right Radial Puncture Site Arterial 1.4 Blood Carboxyhemog lobin Arterial Blood 0 Methemoglobin Blood Gas A-a O2 221.0 H Differential Oxyhemoglobin 86.9 L Percent Blood Gas 37.0 Temperature Blood Gas Modality HFNC FiO2 45.0 Blood Gas Critical BREE RN Value Read Back Blood Gas Notified ITZ Whom Blood Gas Notified 10/21/2018 5:05:35 Time AM Test 10/21/18 05:04 10/21/18 08:20 10/21/18 12:22 White Blood Count 16.8 H Red Blood Count 5.65 Hemoglobin 14.3 Hematocrit 46.7 Mean Corpuscular 82.7 Volume Mean Corpuscular 25.3 L Hemoglobin Mean Corpuscular 30.6 L Hemoglobin Concent Red Cell 17.2 H Distribution Width Platelet Count 177 Mean Platelet 11.2 H Volume Immature 1.500 H Granulocytes % Neutrophils % 89.5 H Lymphocytes % 4.3 L Monocytes % 4.3 Eosinophils % 0.2 Basophils % 0.2 Nucleated Red 0.0 Blood Cells % Immature 0.250 H Granulocytes # Neutrophils # 15.1 H Lymphocytes # 0.7 L Monocytes # 0.7 Eosinophils # 0.0 Basophils # 0.0 Nucleated Red 0.0 Blood Cells # Sodium Level 138 Potassium Level 4.5 Chloride Level 99 Carbon Dioxide 27 Level Anion Gap 12 Blood Urea 31 H Nitrogen Creatinine 0.79 Est Glomerular > 60 Filtrat Rate mL/min Glucose Level 128 Calcium Level 9.7 Total Bilirubin 0.7 Direct Bilirubin 0.00 Indirect Bilirubin 0.7 Aspartate Amino 33 Transf (AST/SGOT) Alanine 64 Aminotransferase ( ALT/SGPT) Alkaline 64 Phosphatase B-Type Natriuretic 451 H Peptide Total Protein 5.9 L Albumin 3.3 Globulin 2.60 Albumin/Globulin 1.26 Ratio Bedside Glucose 133 118 Medications Current Medications Albuterol/ Ipratropium (Duoneb) 3 ml Q4 HHN Last administered on 10/21/18at 13:13; Admin Dose 3 ML; Start 10/11/18 at 21:00 Insulin Aspart (Novolog Insulin Pen) NOVOLOG *MODERATE* ALGORITHM WITH MEALS BEDTIME SC Last administered on 10/20/18at 18:15; Admin Dose 2 UNIT; Start 10/11/18 at 21:00 Zolpidem Tartrate (Ambien) 5 mg HS MAY REPEAT X 1 PRN PO INSOMNIA; Start 09/18 09/04 at 20:30 Ondansetron HCl (Zofran Inj) 4 mg Q4 PRN IV nausea; Start 10/11/18 at 20:30 Miscellaneous Information 1 ea NOTE XX ; Start 10/11/18 at 21:00 Glucose (Glutose) 15 gm Q15M PRN PO DECREASED GLUCOSE; Start 10/11/18 at 21:00 Glucose (Glutose) 22.5 gm Q15M PRN PO DECREASED GLUCOSE; Start 10/11/18 at 21:00 Dextrose (D50w Syringe) 25 ml Q15M PRN IV DECREASED GLUCOSE; Start 10/11/18 at 21:00 Dextrose (D50w Syringe) 50 ml Q15M PRN IV DECREASED GLUCOSE; Start 10/11/18 at 21:00 Glucagon (Glucagen) 1 mg Q15M PRN IM DECREASED GLUCOSE; Start 10/11/18 at 21:00 Glucose (Glutose) 15 gm Q15M PRN BUCCAL DECREASED GLUCOSE; Start 10/11/18 at 21:00 Promethazine HCl/ Dextromethorphan (Phenergan-Dm) 5 ml Q6 PRN PO COUGH; Start 10/11/18 at 21:00 Digoxin (Digoxin) 0.25 mg DAILY PO Last administered on 10/20/18at 08:46; Admin Dose 0.25 MG; Start 10/12/18 at 09:00 Atorvastatin Calcium (Lipitor) 20 mg DAILY@21 PO Last administered on 10/20/18at 22:01; Admin Dose 20 MG; Start 10/11/18 at 22:30 Apixaban (Eliquis) 5 mg BID PO Last administered on 10/21/18 08:26; Admin Dose 5 MG; Start 10/12/18 at 12:30 Metoprolol Succinate (Toprol Xl) 50 mg BID PO Last administered on 10/19/18 09:26; Admin Dose 50 MG; Start 10/12/18 at 21:00 Patient Own Medication 6 ea AM PO Last administered on 10/21/18at 08:29; Admin Dose 6 EA; Start 10/13/18 at 13:00 Acetazolamide (Diamox) 250 mg BID PO Last administered on 10/21/18 08:28; Admin Dose 250 MG; Start 10/13/18 at 21:00 Metformin HCl (Glucophage Xr) 1,000 mg BID PO Last administered on 10/21/18 08:25; Admin Dose 1,000 MG; Start 10/14/18 at 21:00 Empaglifozin (Jardiance) 25 mg DAILY@08 PO Last administered on 10/21/18 08:25; Admin Dose 25 MG; Start 10/15/18 at 08:00 Diagnostic Test (Pha) (Accu-Chek) 1 ea 02 XX Last administered on 10/16/18 02:15; Admin Dose 1 EA; Start 10/15/18 at 02:00 Linagliptin (Tradjenta) 5 mg DAILY PO Last administered on 10/21/18 08:29; Admin Dose 5 MG; Start 10/15/18 at 09:00 Spironolactone (Aldactone) 25 mg DAILY PO Last administered on 10/21/18 08:29; Admin Dose 25 MG; Start 10/16/18 at 12:30 Furosemide (Lasix) 40 mg DAILY IV Last administered on 10/20/18 08:44; Admin Dose 40 MG; Start 10/19/18 at 09:00 Insulin Aspart (Novolog Insulin Pen) 20 unit WITH MEALS SC Last administered on 10/21/18 12:28; Admin Dose 20 UNIT; Start 10/18/18 at 17:35 Insulin Glargine (Lantus) 40 units DAILY@2000 SC Last administered on 10/20/18 22:17; Admin Dose 40 UNITS; Start 10/18/18 at 20:00 Caspofungin 50 mg/ Sodium Chloride 250 ml @ 250 mls/hr Q24H IVPB Last administered on 10/20/18 16:04; Admin Dose 250 MLS/HR; Start 10/20/18 at 13:00 Nystatin (Nystatin Susp) 5 ml QID PO Last administered on 10/21/18 08:24; Admin Dose 5 ML; Start 10/19/18 at 13:00 Docusate Sodium (Colace) 200 mg BID PO Last administered on 10/21/18 08:27; Admin Dose 200 MG; Start 10/20/18 at 11:00 Polyethylene Glycol (Miralax) 17 gm BID PO Last administered on 10/21/18 08:23; Admin Dose 17 GM; Start 10/20/18 at 11:00 Doxycycline Hyclate (Vibramycin) 100 mg BID PO Last administered on 10/21/18at 08:26; Admin Dose 100 MG; Start 10/20/18 at 13:30 Ceftriaxone Sodium 50 ml @ 100 mls/hr Q24H IVPB Last administered on 10/20/18at 14:14; Admin Dose 100 MLS/HR; Start 10/20/18 at 13:30 Prednisone (Prednisone) 30 mg DAILY PO ; Start 10/22/18 at 09:00 Assessment/Plan Hospital Course (Demo Recall) IMP: 1. Hypoxemic Resp Failure 2. RLL pneumonia with hilar and mediastinal adenopathy--s/p recent travel to [facility]. Query tularemia vs. other atypical infection 3. Afib with RVR 4. HTN heart Disease 5. DM RECS: 1. Suggest adding doxycycline (discussed with ID) 2. D/C micafungin 3. Repeat CT noted with mucous plugging and atelectasis 4. Obtain serum LDH and ferritin 5. Add Mucomyst to improve secretion clearance 6. Chest PT 4 times a day 7. Repeat chest x-ray in [facility] Holland MD, [facility] Oct 21, 2018 13:29
[2018-10-21] MEDS: ACETYLCYSTEINE 20% 4 ML VIAL NEB SCH ×2 (14:00→20:05)
[2018-10-21 15:38] VITALS: BP 106/67; PULSE 104; RESP 22
[2018-10-21] MEDS: CASPOFUNGIN 50 MG in SOD CHLORIDE 0.9% 250 ML IVPB SCH (15:55)
[2018-10-21] MEDS: CEFTRIAXONE 2 GM/50 ML (PMX) 50 ML IVPB SCH (15:55)
[2018-10-21] MEDS: DIGOXIN 0.25 MG TAB PO SCH (16:11)
--- NOTE | 2018-10-21 17:24 | CONS ---
Assessment/Plan Assessment/Plan Problems: (1) Type 2 diabetes mellitus without complications Status: Chronic Comment: Excellent glycemic control. However, tomorrow, primary team is planning to stop solu-medrol 60 mg IV q6 and start prednisone 30 mg daily Will d/c current insulin regimen and start NPH 30 units qam. Cont. current oral diabetes regimen and monitor to see if this continues to provide good glycemic control. 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: without [facility] use Qualified Codes: E11.9 - Type 2 diabetes mellitus without complications Consultation Date/Type/Reason Admit Date/Time Oct 12, 2018 at 06:16 Initial Consult Date 10/14/18 Type of Consult Endocrinology Reason for Consultation T2DM management Requesting Provider: ROEL ALBA Date/Time of Note DATE: 10/21/18 TIME: 17:21 24 HR Interval Summary Constitutional: no complaints, improved, requiring O2 Detailed Summary Respiratory: no complaints Cardiovascular: no complaints Gastrointestinal: no complaints Genitourinary: no complaints Musculoskeletal: no complaints Neurologic: no complaints Exam/Review of Systems Exam Vitals VS - Last 72 Hours, by Label Date Temp Pulse Resp B/P (MAP) Pulse Ox O2 O2 Flow FiO2 Time Delivery Rate 10/21/18 93 50 16:45 10/21/18 91 22 97 25.0 50 16:45 10/21/18 98.0 104 22 106/67 96 High Flow 15:38 (80) 10/21/18 88 22 93 25.0 50 13:13 10/21/18 93 50 13:13 10/21/18 98.0 74 21 112/56 95 High Flow 11:29 (74) 10/21/18 89 21 90 25.0 50 09:02 10/21/18 90 50 09:02 10/21/18 Vapotherm 08:33 10/21/18 97.8 112 22 107/68 96 High Flow 07:35 (81) 10/21/18 50 05:20 10/21/18 106 20 91 25.0 45 04:17 10/21/18 91 45 04:17 10/21/18 98.3 90 18 113/65 94 04:00 (81) 10/21/18 88 20 90 25.0 45 00:52 10/21/18 90 45 00:52 10/21/18 98.2 91 18 95/65 (75) 93 00:00 10/20/18 102 22 90 25.0 45 20:51 10/20/18 90 45 20:51 10/20/18 Vapotherm 20:01 10/20/18 97.7 93 18 108/65 91 20:00 (79) 10/20/18 92 13 95/77 (83) 91 High Flow 18:00 10/20/18 93 45 17:12 10/20/18 96 22 92 45 17:11 10/20/18 89 13 88/65 (73) 93 17:00 10/20/18 97.3 97 23 104/73 96 High Flow 16:00 (83) 10/20/18 95 16:00 10/20/18 94 18 83/54 (64) 98 15:00 10/20/18 101 18 108/70 94 High Flow 14:00 (83) 10/20/18 117 23 93/79 (84) 95 13:00 10/20/18 96 20 86 25.0 50 13:00 10/20/18 118 12:00 10/20/18 97.8 123 30 82/53 (63) 90 High Flow 12:00 10/20/18 97 50 11:12 10/20/18 169 30 119/72 89 11:00 (88) 10/20/18 169 30 119/72 89 High Flow 25.0 11:00 (88) 10/20/18 116 12 111/82 88 10:00 (92) 10/20/18 116 12 111/82 88 High Flow 25.0 10:00 (92) 10/20/18 97 20 88 25.0 50 09:51 10/20/18 112 22 74/53 (60) 85 09:00 10/20/18 112 22 74/53 (60) 85 High Flow 25.0 09:00 10/20/18 97 50 08:44 10/20/18 97.7 100 28 111/85 93 High Flow 25.0 08:00 (94) 10/20/18 Vapotherm 08:00 10/20/18 97.7 100 28 111/85 93 08:00 (94) 10/20/18 105 08:00 10/20/18 102 25 110/67 89 07:00 (81) 10/20/18 102 25 110/67 89 High Flow 25.0 07:00 (81) 10/20/18 89 50 04:30 10/20/18 95 20 89 25.0 50 04:30 10/20/18 111 04:00 10/20/18 97.8 97 20 101/67 90 High Flow 04:00 (78) Nasal Cannula 10/20/18 86 20 91/66 (74) 92 High Flow 25.0 03:00 Nasal Cannula 10/20/18 98.6 112 19 106/76 91 High Flow 25.0 02:00 (86) Nasal Cannula 10/20/18 100 20 103/70 93 High Flow 25.0 01:00 (81) Nasal Cannula 10/20/18 101 20 94 25.0 50 00:19 10/20/18 94 50 00:19 10/20/18 97.9 99 17 102/66 93 High Flow 25.0 00:00 (78) Nasal Cannula 10/20/18 98 00:00 10/19/18 106 18 99/69 (79) 95 High Flow 25.0 23:00 Nasal Cannula 10/19/18 98.7 101 26 100/65 92 High Flow 25.0 22:00 (77) Nasal Cannula 10/19/18 117 16 109/73 90 High Flow 25.0 21:00 (85) Nasal Cannula 10/19/18 90 50 20:13 10/19/18 108 21 90 25.0 50 20:13 10/19/18 Vapotherm 20:00 10/19/18 110 20:00 10/19/18 98.6 102 20 104/70 89 High Flow 25.0 20:00 (81) Nasal Cannula 10/19/18 126 22 97/78 (84) 90 High Flow 25.0 19:00 Nasal Cannula 10/19/18 122 19 104/61 92 18:00 (75) 10/19/18 93 50 17:29 10/19/18 99 15 93 25.0 50 17:29 10/19/18 105 24 90/76 (81) 96 17:00 10/19/18 106 20 91 16:00 10/19/18 110 16:00 10/19/18 101 16:00 10/19/18 95 55 15:20 10/19/18 121 22 102/79 91 15:00 (87) 10/19/18 114 19 99/90 (93) 91 14:00 10/19/18 94 60 13:02 10/19/18 110 17 94 25.0 60 13:02 10/19/18 112 21 108/70 94 13:00 (83) 10/19/18 103 24 105/81 94 12:00 (89) 10/19/18 95 12:00 10/19/18 99 12:00 10/19/18 108 24 80/69 (73) 88 11:00 10/19/18 93 18 120/81 89 High Flow 10:00 (94) 10/19/18 112 23 85/61 (69) 88 High Flow 09:00 10/19/18 91 65 08:30 10/19/18 97 18 91 25.0 65 08:30 10/19/18 89 20 100/75 91 High Flow 08:00 (83) 10/19/18 97 08:00 10/19/18 Vapotherm 08:00 10/19/18 94 20 111/78 90 High Flow 07:00 (89) 10/19/18 84 17 116/82 90 High Flow 06:00 (93) 10/19/18 84 17 116/82 90 06:00 (93) 10/19/18 87 18 94 65 05:43 10/19/18 92 18 110/80 90 High Flow 05:00 (90) 10/19/18 98.0 87 13 117/76 91 High Flow 04:00 (90) 10/19/18 89 04:00 10/19/18 87 13 117/76 91 04:00 (90) 10/19/18 96 24 115/82 92 High Flow 03:00 (93) 10/19/18 96 24 115/82 92 High Flow 03:00 (93) 10/19/18 92 65 02:01 10/19/18 83 19 110/75 92 High Flow 02:00 (87) 10/19/18 93 17 117/76 86 High Flow 01:00 (90) 10/19/18 91 65 00:48 10/19/18 92 65 00:48 10/19/18 101 00:00 10/19/18 Vapotherm 00:00 10/19/18 98.2 100 17 107/73 88 High Flow 00:00 (84) 10/18/18 91 17 94/54 (67) 89 High Flow 23:00 10/18/18 102 21 116/73 95 High Flow 22:00 (87) 10/18/18 97 18 120/76 93 High Flow 21:00 (91) 10/18/18 96 16 93 65 20:40 10/18/18 65 20:40 10/18/18 Vapotherm 20:00 10/18/18 101 20:00 10/18/18 98.4 100 20 110/71 90 High Flow 20:00 (84) 10/18/18 109 22 115/75 95 High Flow 19:00 (88) 10/18/18 111 19 107/78 90 High Flow 18:00 (88) 10/18/18 65 17:48 Vital Signs Date Temp Pulse Resp B/P (MAP) Pulse Ox O2 O2 Flow FiO2 Time Delivery Rate 10/21/18 93 50 16:45 10/21/18 91 22 25.0 16:45 10/21/18 98.0 106/67 High Flow 15:38 (80) Intake and Output 10/20/18 10/20/18 10/21/18 1515:00 23:00 07:00 IntakeIntake Total 1570 ml 880 ml OutputOutput Total 4750 ml 800 ml 750 ml BalanceBalance -3180 ml 80 ml -750 ml Constitutional: alert, oriented, obese Psych: no complaints, nl mood/affect Respiratory: wheezing Cardiovascular: regular rate and rhythm, nl pulses; No edema, No murmurs/extra sounds, No rub Gastrointestinal: soft, nl liver, spleen, non-tender, bowel sounds; No mass, No rebound or guarding Musculoskeletal: nl extremities to inspection Extremities: normal pulses; No cyanosis, No clubbing, No edema 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, nl mental status, nl speech, nl strength Additional Comments Bedside Glucose - 72 Hours Test 10/18/18 17:36 10/18/18 20:30 10/19/18 01:54 10/19/18 08:18 Bedside 121 185 240 168 Glucose mg/dL (70-220) mg/dL (70-220) mg/dL (70-220) mg/dL (70-220) H Test 10/19/18 11:52 10/19/18 17:21 10/19/18 20:51 10/20/18 03:07 Bedside 152 133 216 155 Glucose mg/dL (70-220) mg/dL (70-220) mg/dL (70-220) mg/dL (70-220) Test 10/20/18 08:01 10/20/18 12:48 10/20/18 17:46 10/20/18 22:05 Bedside 168 144 169 128 Glucose mg/dL (70-220) mg/dL (70-220) mg/dL (70-220) mg/dL (70-220) Test 10/21/18 08:20 10/21/18 12:22 Bedside 133 118 Glucose mg/dL (70-220) mg/dL (70-220) Results Result Diagram: 10/21/18 0504 10/21/18 0504 Results 24hrs Laboratory Tests Test 10/20/18 17:46 10/20/18 22:05 10/21/18 05:00 10/21/18 05:04 Bedside Glucose 169 128 Blood Gas Specimen Blood arterial Source Arterial Blood 10/21/2018 4:50:45 Date Drawn AM Arterial Blood pH 7.443 (Temp corrected) Arterial Blood 41.3 pCO2 (Temp correct) Arterial Blood pO2 52.9 *L (Temp corrected) Arterial Blood 27.6 H HCO3 Arterial Blood 3.2 H Base Excess Arterial Blood 88.1 L Oxygen Saturation David Test ACCEPTAB Arterial Blood Gas Right Radial Puncture Site Arterial 1.4 Blood Carboxyhemog lobin Arterial Blood 0 Methemoglobin Blood Gas A-a O2 221.0 H Differential Oxyhemoglobin 86.9 L Percent Blood Gas 37.0 Temperature Blood Gas Modality HFNC FiO2 45.0 Blood Gas Critical KSALVADOR RN Value Read Back Blood Gas Notified MA Whom Blood Gas Notified 10/21/2018 5:05:35 Time AM White Blood Count 16.8 H Red Blood Count 5.65 Hemoglobin 14.3 Hematocrit 46.7 Mean Corpuscular 82.7 Volume Mean Corpuscular 25.3 L Hemoglobin Mean Corpuscular 30.6 L Hemoglobin Concent Red Cell 17.2 H Distribution Width Platelet Count 177 Mean Platelet 11.2 H Volume Immature 1.500 H Granulocytes % Neutrophils % 89.5 H Lymphocytes % 4.3 L Monocytes % 4.3 Eosinophils % 0.2 Basophils % 0.2 Nucleated Red 0.0 Blood Cells % Immature 0.250 H Granulocytes # Neutrophils # 15.1 H Lymphocytes # 0.7 L Monocytes # 0.7 Eosinophils # 0.0 Basophils # 0.0 Nucleated Red 0.0 Blood Cells # Sodium Level 138 Potassium Level 4.5 Chloride Level 99 Carbon Dioxide 27 Level Anion Gap 12 Blood Urea 31 H Nitrogen Creatinine 0.79 Est Glomerular > 60 Filtrat Rate mL/min Glucose Level 128 Calcium Level 9.7 Total Bilirubin 0.7 Direct Bilirubin 0.00 Indirect Bilirubin 0.7 Aspartate Amino 33 Transf (AST/SGOT) Alanine 64 Aminotransferase ( ALT/SGPT) Alkaline 64 Phosphatase B-Type Natriuretic 451 H Peptide Total Protein 5.9 L Albumin 3.3 Globulin 2.60 Albumin/Globulin 1.26 Ratio Test 10/21/18 08:20 10/21/18 12:22 Bedside Glucose 133 118 Medications Medication Current Medications Albuterol/ Ipratropium (Duoneb) 3 ml Q4 HHN Last administered on 10/21/18at 16:44; Admin Dose 3 ML; Start 10/11/18 at 21:00 Insulin Aspart (Novolog Insulin Pen) NOVOLOG *MODERATE* ALGORITHM WITH MEALS BEDTIME SC Last administered on 10/20/18at 18:15; Admin Dose 2 UNIT; Start 10/11/18 at 21:00 Zolpidem Tartrate (Ambien) 5 mg HS MAY REPEAT X 1 PRN PO INSOMNIA; Start 10/11/18 at 20:30 Ondansetron HCl (Zofran Inj) 4 mg Q4 PRN IV nausea; Start 10/11/18 at 20:30 Miscellaneous Information 1 ea NOTE XX ; Start 10/11/18 at 21:00 Glucose (Glutose) 15 gm Q15M PRN PO DECREASED GLUCOSE; Start 10/11/18 at 21:00 Glucose (Glutose) 22.5 gm Q15M PRN PO DECREASED GLUCOSE; Start 10/11/18 at 21:00 Dextrose (D50w Syringe) 25 ml Q15M PRN IV DECREASED GLUCOSE; Start 10/11/18 at 21:00 Dextrose (D50w Syringe) 50 ml Q15M PRN IV DECREASED GLUCOSE; Start 10/11/18 at 21:00 Glucagon (Glucagen) 1 mg Q15M PRN IM DECREASED GLUCOSE; Start 10/11/18 at 21:00 Glucose (Glutose) 15 gm Q15M PRN BUCCAL DECREASED GLUCOSE; Start 10/11/18 at 21:00 Promethazine HCl/ Dextromethorphan (Phenergan-Dm) 5 ml Q6 PRN PO COUGH; Start 10/11/18 at 21:00 Digoxin (Digoxin) 0.25 mg DAILY PO Last administered on 10/21/18 16:11; Admin Dose 0.25 MG; Start 10/12/18 at 09:00 Atorvastatin Calcium (Lipitor) 20 mg DAILY@21 PO Last administered on 10/20/18 22:01; Admin Dose 20 MG; Start 10/11/18 at 22:30 Apixaban (Eliquis) 5 mg BID PO Last administered on 10/21/18 08:26; Admin Dose 5 MG; Start 10/12/18 at 12:30 Metoprolol Succinate (Toprol Xl) 50 mg BID PO Last administered on 10/19/18 09:26; Admin Dose 50 MG; Start 10/12/18 at 21:00 Patient Own Medication 6 ea AM PO Last administered on 10/21/18 08:29; Admin Dose 6 EA; Start 10/13/18 at 13:00 Acetazolamide (Diamox) 250 mg BID PO Last administered on 10/21/18 08:28; Admin Dose 250 MG; Start 10/13/18 at 21:00 Metformin HCl (Glucophage Xr) 1,000 mg BID PO Last administered on 10/21/18 08:25; Admin Dose 1,000 MG; Start 10/14/18 at 21:00 Empaglifozin (Jardiance) 25 mg DAILY@08 PO Last administered on 10/21/18 08:25; Admin Dose 25 MG; Start 10/15/18 at 08:00 Diagnostic Test (Pha) (Accu-Chek) 1 ea 02 XX Last administered on 10/16/18 02:15; Admin Dose 1 EA; Start 10/15/18 at 02:00 Linagliptin (Tradjenta) 5 mg DAILY PO Last administered on 10/21/18 08:29; Admin Dose 5 MG; Start 10/15/18 at 09:00 Spironolactone (Aldactone) 25 mg DAILY PO Last administered on 10/21/18 08:29; Admin Dose 25 MG; Start 10/16/18 at 12:30 Furosemide (Lasix) 40 mg DAILY IV Last administered on 10/20/18 08:44; Admin Dose 40 MG; Start 10/19/18 at 09:00 Insulin Aspart (Novolog Insulin Pen) 20 unit WITH MEALS SC Last administered on 10/21/18 12:28; Admin Dose 20 UNIT; Start 10/18/18 at 17:35 Insulin Glargine (Lantus) 40 units DAILY@2000 SC Last administered on 10/20/18 22:17; Admin Dose 40 UNITS; Start 10/18/18 at 20:00 Caspofungin 50 mg/ Sodium Chloride 250 ml @ 250 mls/hr Q24H IVPB Last administered on 10/21/18 15:55; Admin Dose 250 MLS/HR; Start 10/20/18 at 13:00 Nystatin (Nystatin Susp) 5 ml QID PO Last administered on 10/21/18 15:55; Admin Dose 5 ML; Start 10/19/18 at 13:00 Docusate Sodium (Colace) 200 mg BID PO Last administered on 10/21/18 08:27; Admin Dose 200 MG; Start 10/20/18 at 11:00 Polyethylene Glycol (Miralax) 17 gm BID PO Last administered on 10/21/18 08:23; Admin Dose 17 GM; Start 10/20/18 at 11:00 Doxycycline Hyclate (Vibramycin) 100 mg BID PO Last administered on 10/21/18 08:26; Admin Dose 100 MG; Start 10/20/18 at 13:30 Ceftriaxone Sodium 50 ml @ 100 mls/hr Q24H IVPB Last administered on 10/21/18 15:55; Admin Dose 100 MLS/HR; Start 10/20/18 at 13:30 Prednisone (Prednisone) 30 mg DAILY PO ; Start 10/22/18 at 09:00 Acetylcysteine (Mucomyst) 2 ml Q6H RESP THERAPY NEB ; Start 10/21/18 at 14:00 KAYLA BUCK MD Oct 21, 2018 17:24
[2018-10-21] MEDS: ATORVASTATIN 20 MG TAB PO SCH (21:23)
[2018-10-22] VITALS: BP 106/72; PULSE 104; RESP 18
[2018-10-22] MEDS: ACETYLCYSTEINE 20% 4 ML VIAL NEB SCH ×4 (01:36→20:15)
[2018-10-22] MEDS: ALBUTEROL/IPRATROPIUM (NEB) 3 ML AMP HHN SCH ×6 (01:36→20:15)
[2018-10-22] MEDS: ACCU-CHEK XX SCH (02:09)
[2018-10-22 04:00] VITALS: BP 102/66; PULSE 80
[2018-10-22] MEDS: INSULIN ASPART [NOVOLOG] 3 ML PEN SC SCH ×4 (07:23→21:11)
[2018-10-22 07:33] VITALS: BP 101/65; PULSE 104; RESP 20
[2018-10-22] MEDS: POLYETHYLENE GLYCOL 17 GM PACKET PO SCH ×2 (08:16→21:03)
[2018-10-22] MEDS: CYCLOSET PO SCH (08:17)
[2018-10-22] MEDS: FUROSEMIDE 40 MG INJ IV SCH (08:18)
[2018-10-22] MEDS: NYSTATIN SUSP 5 ML CUP PO SCH ×4 (08:18→21:03)
[2018-10-22] MEDS: DOXYCYCLINE 100 MG TAB PO SCH ×2 (08:19→21:01)
[2018-10-22] MEDS: DOCUSATE SODIUM 100 MG CAP PO SCH ×2 (08:19→21:02)
[2018-10-22] MEDS: DIGOXIN 0.25 MG TAB PO SCH (08:19)
[2018-10-22] MEDS: metFORMIN (XR) 500 MG TAB PO SCH ×2 (08:19→21:03)
[2018-10-22] MEDS: predniSONE 10 MG TAB PO SCH (08:20)
[2018-10-22] MEDS: SPIRONOLACTONE 25 MG TAB PO SCH (08:20)
[2018-10-22] MEDS: APIXABAN 5 MG TABLET PO SCH ×2 (08:20→21:02)
[2018-10-22] MEDS: EMPAGLIFLOZIN 10 MG TABLET PO SCH (08:21)
[2018-10-22] MEDS: LINAGLIPTIN 5 MG TABLET PO SCH (08:24)
[2018-10-22] MEDS: METOPROLOL (XL) 25 MG TAB PO SCH ×2 (08:27→21:00)
[2018-10-22] MEDS: ACETAZOLAMIDE 250 MG TAB PO SCH ×2 (08:29→21:02)
[2018-10-22] MEDS ORDERED: NPH, HUMAN INSULIN ISOPHANE 3ML VIAL SC SCH (09:00)
--- NOTE | 2018-10-22 09:59 | CONS ---
Assessment/Plan Assessment/Plan Problems: (1) Type 2 diabetes mellitus without complications Status: Chronic Comment: Excellent glycemic control. Medrol changed to prednisone 30 mg qam. Stopped lantus and mealtime Novolog and BG has remained in goal. Giving NPH 30 units in am w/ prednisone 30 mg. Continue all oral DM meds. Will monitor glucose levels in afternoon and evening tonight and decide what to do w/ NPH dose tomorrow. 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 Qualified Codes: E11.9 - Type 2 diabetes mellitus without complications Consultation Date/Type/Reason Admit Date/Time Oct 12, 2018 at 06:16 Initial Consult Date 10/14/18 Type of Consult Endocrinology Reason for Consultation T2DM management Requesting Provider: ROEL ALBA Date/Time of Note DATE: 10/22/18 TIME: 09:47 24 HR Interval Summary Constitutional: no complaints, improved, requiring O2 Detailed Summary Respiratory: wheezing Cardiovascular: no complaints Gastrointestinal: no complaints Genitourinary: no complaints Musculoskeletal: no complaints Neurologic: no complaints Exam/Review of Systems Exam Vitals VS - Last 72 Hours, by Label Date Temp Pulse Resp B/P (MAP) Pulse Ox O2 O2 Flow FiO2 Time Delivery Rate 10/22/18 Vapotherm 07:53 10/22/18 98.0 104 20 101/65 95 07:33 (77) 10/22/18 88 50 07:30 10/22/18 97 18 96 25.0 50 04:11 10/22/18 97.1 80 102/66 95 04:00 (78) 10/22/18 95 50 01:36 10/22/18 104 18 95 25.0 50 01:36 10/22/18 98.1 104 18 106/72 96 00:00 (83) 10/21/18 107 18 94 25.0 50 20:05 10/21/18 94 50 20:05 10/21/18 Vapotherm 20:00 10/21/18 93 50 16:45 10/21/18 91 22 97 25.0 50 16:45 10/21/18 98.0 104 22 106/67 96 High Flow 15:38 (80) 10/21/18 88 22 93 25.0 50 13:13 10/21/18 93 50 13:13 10/21/18 98.0 74 21 112/56 95 High Flow 11:29 (74) 10/21/18 89 21 90 25.0 50 09:02 10/21/18 90 50 09:02 10/21/18 Vapotherm 08:33 10/21/18 97.8 112 22 107/68 96 High Flow 07:35 (81) 10/21/18 50 05:20 10/21/18 106 20 91 25.0 45 04:17 10/21/18 91 45 04:17 10/21/18 98.3 90 18 113/65 94 04:00 (81) 10/21/18 88 20 90 25.0 45 00:52 10/21/18 90 45 00:52 10/21/18 98.2 91 18 95/65 (75) 93 00:00 10/20/18 102 22 90 25.0 45 20:51 10/20/18 90 45 20:51 10/20/18 Vapotherm 20:01 10/20/18 97.7 93 18 108/65 91 20:00 (79) 10/20/18 92 13 95/77 (83) 91 High Flow 18:00 10/20/18 93 45 17:12 10/20/18 96 22 92 45 17:11 10/20/18 89 13 88/65 (73) 93 17:00 10/20/18 97.3 97 23 104/73 96 High Flow 16:00 (83) 10/20/18 95 16:00 10/20/18 94 18 83/54 (64) 98 15:00 10/20/18 101 18 108/70 94 High Flow 14:00 (83) 10/20/18 117 23 93/79 (84) 95 13:00 10/20/18 96 20 86 25.0 50 13:00 10/20/18 118 12:00 10/20/18 97.8 123 30 82/53 (63) 90 High Flow 12:00 10/20/18 97 50 11:12 10/20/18 169 30 119/72 89 11:00 (88) 10/20/18 169 30 119/72 89 High Flow 25.0 11:00 (88) 10/20/18 116 12 111/82 88 10:00 (92) 10/20/18 116 12 111/82 88 High Flow 25.0 10:00 (92) 10/20/18 97 20 88 25.0 50 09:51 10/20/18 112 22 74/53 (60) 85 09:00 10/20/18 112 22 74/53 (60) 85 High Flow 25.0 09:00 10/20/18 97 50 08:44 10/20/18 97.7 100 28 111/85 93 High Flow 25.0 08:00 (94) 10/20/18 Vapotherm 08:00 10/20/18 97.7 100 28 111/85 93 08:00 (94) 10/20/18 105 08:00 10/20/18 102 25 110/67 89 07:00 (81) 10/20/18 102 25 110/67 89 High Flow 25.0 07:00 (81) 10/20/18 89 50 04:30 10/20/18 95 20 89 25.0 50 04:30 10/20/18 111 04:00 10/20/18 97.8 97 20 101/67 90 High Flow 04:00 (78) Nasal Cannula 10/20/18 86 20 91/66 (74) 92 High Flow 25.0 03:00 Nasal Cannula 10/20/18 98.6 112 19 106/76 91 High Flow 25.0 02:00 (86) Nasal Cannula 10/20/18 100 20 103/70 93 High Flow 25.0 01:00 (81) Nasal Cannula 10/20/18 101 20 94 25.0 50 00:19 10/20/18 94 50 00:19 10/20/18 97.9 99 17 102/66 93 High Flow 25.0 00:00 (78) Nasal Cannula 10/20/18 98 00:00 10/19/18 106 18 99/69 (79) 95 High Flow 25.0 23:00 Nasal Cannula 10/19/18 98.7 101 26 100/65 92 High Flow 25.0 22:00 (77) Nasal Cannula 10/19/18 117 16 109/73 90 High Flow 25.0 21:00 (85) Nasal Cannula 10/19/18 90 50 20:13 10/19/18 108 21 90 25.0 50 20:13 10/19/18 Vapotherm 20:00 10/19/18 110 20:00 10/19/18 98.6 102 20 104/70 89 High Flow 25.0 20:00 (81) Nasal Cannula 10/19/18 126 22 97/78 (84) 90 High Flow 25.0 19:00 Nasal Cannula 10/19/18 122 19 104/61 92 18:00 (75) 10/19/18 93 50 17:29 10/19/18 99 15 93 25.0 50 17:29 10/19/18 105 24 90/76 (81) 96 17:00 10/19/18 106 20 91 16:00 10/19/18 110 16:00 10/19/18 101 16:00 10/19/18 95 55 15:20 10/19/18 121 22 102/79 91 15:00 (87) 10/19/18 114 19 99/90 (93) 91 14:00 10/19/18 94 60 13:02 10/19/18 110 17 94 25.0 60 13:02 10/19/18 112 21 108/70 94 13:00 (83) 10/19/18 103 24 105/81 94 12:00 (89) 10/19/18 95 12:00 10/19/18 99 12:00 10/19/18 108 24 80/69 (73) 88 11:00 10/19/18 93 18 120/81 89 High Flow 10:00 (94) Vital Signs Date Temp Pulse Resp B/P (MAP) Pulse Ox O2 O2 Flow FiO2 Time Delivery Rate 10/22/18 Vapotherm 07:53 10/22/18 98.0 104 20 101/65 95 07:33 (77) 10/22/18 50 07:30 10/22/18 25.0 04:11 Intake and Output 10/21/18 10/21/18 10/22/18 1515:00 23:00 07:00 IntakeIntake Total 570 ml 1300 ml 2180 ml OutputOutput Total 1600 ml 800 ml 600 ml BalanceBalance -1030 ml 500 ml 1580 ml Constitutional: alert, oriented, obese Psych: no complaints, nl mood/affect Respiratory: wheezing Cardiovascular: regular rate and rhythm, nl pulses; No edema, No murmurs/extra sounds, No rub Gastrointestinal: soft, nl liver, spleen, non-tender, bowel sounds; No mass, No rebound or guarding Musculoskeletal: nl extremities to inspection Extremities: normal pulses; No cyanosis, No clubbing, No edema 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: ED TECH II-XII intact, nl mental status, nl speech, nl strength Additional Comments Bedside Glucose - 72 Hours Test 10/19/18 11:52 10/19/18 17:21 10/19/18 20:51 10/20/18 03:07 Bedside 152 133 216 155 Glucose mg/dL (70-220) mg/dL (70-220) mg/dL (70-220) mg/dL (70-220) Test 10/20/18 08:01 10/20/18 12:48 10/20/18 17:46 10/20/18 22:05 Bedside 168 144 169 128 Glucose mg/dL (70-220) mg/dL (70-220) mg/dL (70-220) mg/dL (70-220) Test 10/21/18 08:20 10/21/18 12:22 10/21/18 17:46 10/21/18 21:30 Bedside 133 118 84 180 Glucose mg/dL (70-220) mg/dL (70-220) mg/dL (70-220) mg/dL (70-220) Test 10/22/18 02:04 10/22/18 07:21 Bedside 119 116 Glucose mg/dL (70-220) mg/dL (70-220) Results Result Diagram: 10/21/18 0504 10/21/18 0504 Results 24hrs Laboratory Tests Test 10/21/18 12:22 10/21/18 17:46 10/21/18 21:30 10/22/18 02:04 Bedside Glucose 118 84 180 119 Test 10/22/18 07:21 Bedside Glucose 116 Medications Medication Current Medications Albuterol/ Ipratropium (Duoneb) 3 ml Q4 HHN Last administered on 10/22/18at 08:15; Admin Dose 3 ML; Start 10/11/18 at 21:00 Insulin Aspart (Novolog Insulin Pen) NOVOLOG *MODERATE* ALGORITHM WITH MEALS BEDTIME SC Last administered on 10/21/18at 21:47; Admin Dose 2 UNIT; Start 10/11/18 at 21:00 Zolpidem Tartrate (Ambien) 5 mg HS MAY REPEAT X 1 PRN PO INSOMNIA; Start 10/11/18 at 20:30 Ondansetron HCl (Zofran Inj) 4 mg Q4 PRN IV nausea; Start 10/11/18 at 20:30 Miscellaneous Information 1 ea NOTE XX ; Start 10/11/18 at 21:00 Glucose (Glutose) 15 gm Q15M PRN PO DECREASED GLUCOSE; Start 10/11/18 at 21:00 Glucose (Glutose) 22.5 gm Q15M PRN PO DECREASED GLUCOSE; Start 10/11/18 at 21:00 Dextrose (D50w Syringe) 25 ml Q15M PRN IV DECREASED GLUCOSE; Start 10/11/18 at 21:00 Dextrose (D50w Syringe) 50 ml Q15M PRN IV DECREASED GLUCOSE; Start 10/11/18 at 21:00 Glucagon (Glucagen) 1 mg Q15M PRN IM DECREASED GLUCOSE; Start 10/11/18 at 21:00 Glucose (Glutose) 15 gm Q15M PRN BUCCAL DECREASED GLUCOSE; Start 10/11/18 at 21:00 Promethazine HCl/ Dextromethorphan (Phenergan-Dm) 5 ml Q6 PRN PO COUGH; Start 10/11/18 at 21:00 Digoxin (Digoxin) 0.25 mg DAILY PO Last administered on 10/22/18 08:19; Admin Dose 0.25 MG; Start 10/12/18 at 09:00 Atorvastatin Calcium (Lipitor) 20 mg DAILY@21 PO Last administered on 10/21/18 21:23; Admin Dose 20 MG; Start 10/11/18 at 22:30 Apixaban (Eliquis) 5 mg BID PO Last administered on 10/22/18 08:20; Admin Dose 5 MG; Start 10/12/18 at 12:30 Metoprolol Succinate (Toprol Xl) 50 mg BID PO Last administered on 10/21/18 21:22; Admin Dose 50 MG; Start 10/12/18 at 21:00 Patient Own Medication 6 ea AM PO Last administered on 10/22/18 08:17; Admin Dose 6 EA; Start 10/13/18 at 13:00 Acetazolamide (Diamox) 250 mg BID PO Last administered on 10/22/18 08:29; Admin Dose 250 MG; Start 10/13/18 at 21:00 Metformin HCl (Glucophage Xr) 1,000 mg BID PO Last administered on 10/22/18 08:19; Admin Dose 1,000 MG; Start 10/14/18 at 21:00 Empaglifozin (Jardiance) 25 mg DAILY@08 PO Last administered on 10/22/18 08:21; Admin Dose 25 MG; Start 10/15/18 at 08:00 Diagnostic Test (Pha) (Accu-Chek) 1 ea 02 XX Last administered on 10/22/18 02:09; Admin Dose 1 EA; Start 10/15/18 at 02:00 Linagliptin (Tradjenta) 5 mg DAILY PO Last administered on 10/22/18 08:24; Admin Dose 5 MG; Start 10/15/18 at 09:00 Spironolactone (Aldactone) 25 mg DAILY PO Last administered on 10/22/18 08:20; Admin Dose 25 MG; Start 10/16/18 at 12:30 Furosemide (Lasix) 40 mg DAILY IV Last administered on 10/22/18 08:18; Admin Dose 40 MG; Start 10/19/18 at 09:00 Caspofungin 50 mg/ Sodium Chloride 250 ml @ 250 mls/hr Q24H IVPB Last administered on 10/21/18 15:55; Admin Dose 250 MLS/HR; Start 10/20/18 at 13:00 Nystatin (Nystatin Susp) 5 ml QID PO Last administered on 10/22/18 08:18; Admin Dose 5 ML; Start 10/19/18 at 13:00 Docusate Sodium (Colace) 200 mg BID PO Last administered on 10/22/18 08:19; Admin Dose 200 MG; Start 10/20/18 at 11:00 Polyethylene Glycol (Miralax) 17 gm BID PO Last administered on 10/22/18 08:16; Admin Dose 17 GM; Start 10/20/18 at 11:00 Doxycycline Hyclate (Vibramycin) 100 mg BID PO Last administered on 10/22/18 08:19; Admin Dose 100 MG; Start 10/20/18 at 13:30 Ceftriaxone Sodium 50 ml @ 100 mls/hr Q24H IVPB Last administered on 10/21/18 15:55; Admin Dose 100 MLS/HR; Start 10/20/18 at 13:30 Prednisone (Prednisone) 30 mg DAILY PO Last administered on 10/22/18 08:20; Admin Dose 30 MG; Start 10/22/18 at 09:00; Stop 10/23/18 at 09:01 Acetylcysteine (Mucomyst) 2 ml Q6H RESP THERAPY NEB Last administered on 10/22/18at 08:15; Admin Dose 2 ML; Start 10/21/18 at 14:00 Insulin Human NPH (Humulin N) 30 unit DAILY@0900 SC Last administered on 10/22/18at 08:24; Admin Dose 30 UNIT; Start 10/22/18 at 09:00 Prednisone (Prednisone) 20 mg DAILY PO ; Start 10/24/18 at 09:00; Stop 10/25/18 at 09:01 Prednisone (Prednisone) 10 mg DAILY PO ; Start 10/26/18 at 09:00; Stop 10/27/18 at 09:01 KAYLA BUCK MD Oct 22, 2018 09:59
--- NOTE | 2018-10-22 10:28 | PN ---
Date/Time of Note Date/Time of Note DATE: 10/22/18 TIME: 10:19 Subjective Reports feeling better. No new complaints Objective Vitals Vital Signs Date Temp Pulse Resp B/P (MAP) Pulse Ox O2 O2 Flow FiO2 Time Delivery Rate 10/22/18 100 40 09:45 10/22/18 Vapotherm 07:53 10/22/18 98.0 104 20 101/65 07:33 (77) 10/22/18 25.0 04:11 Intake and Output 10/21/18 10/21/18 10/22/18 1515:00 23:00 07:00 IntakeIntake Total 570 ml 1300 ml 2180 ml OutputOutput Total 1600 ml 800 ml 600 ml BalanceBalance -1030 ml 500 ml 1580 ml Clear to auscultation bilaterally Regular rate and rhythm no murmurs or gallops Soft nontender nondistended normoactive bowel sounds No edema Nonfocal Results Result Diagram: 10/21/18 0504 10/22/18 0526 Medications Medications Current Medications Albuterol/ Ipratropium (Duoneb) 3 ml Q4 HHN Last administered on 10/22/18at 08:15; Admin Dose 3 ML; Start 10/11/18 at 21:00 Insulin Aspart (Novolog Insulin Pen) NOVOLOG *MODERATE* ALGORITHM WITH MEALS BEDTIME SC Last administered on 10/21/18at 21:47; Admin Dose 2 UNIT; Start 10/11/18 at 21:00 Zolpidem Tartrate (Ambien) 5 mg HS MAY REPEAT X 1 PRN PO INSOMNIA; Start 10/11/18 at 20:30 Ondansetron HCl (Zofran Inj) 4 mg Q4 PRN IV nausea; Start 10/11/18 at 20:30 Miscellaneous Information 1 ea NOTE XX ; Start 10/11/18 at 21:00 Glucose (Glutose) 15 gm Q15M PRN PO DECREASED GLUCOSE; Start 10/11/18 at 21:00 Glucose (Glutose) 22.5 gm Q15M PRN PO DECREASED GLUCOSE; Start 10/11/18 at 21:00 Dextrose (D50w Syringe) 25 ml Q15M PRN IV DECREASED GLUCOSE; Start 10/11/18 at 21:00 Dextrose (D50w Syringe) 50 ml Q15M PRN IV DECREASED GLUCOSE; Start 10/11/18 at 21:00 Glucagon (Glucagen) 1 mg Q15M PRN IM DECREASED GLUCOSE; Start 10/11/18 at 21:00 Glucose (Glutose) 15 gm Q15M PRN BUCCAL DECREASED GLUCOSE; Start 10/11/18 at 21:00 Promethazine HCl/ Dextromethorphan (Phenergan-Dm) 5 ml Q6 PRN PO COUGH; Start 10/11/18 at 21:00 Digoxin (Digoxin) 0.25 mg DAILY PO Last administered on 10/22/18 08:19; Admin Dose 0.25 MG; Start 10/12/18 at 09:00 Atorvastatin Calcium (Lipitor) 20 mg DAILY@21 PO Last administered on 10/21/18 21:23; Admin Dose 20 MG; Start 10/11/18 at 22:30 Apixaban (Eliquis) 5 mg BID PO Last administered on 10/22/18 08:20; Admin Dose 5 MG; Start 10/12/18 at 12:30 Metoprolol Succinate (Toprol Xl) 50 mg BID PO Last administered on 10/21/18 21:22; Admin Dose 50 MG; Start 10/12/18 at 21:00 Patient Own Medication 6 ea AM PO Last administered on 10/22/18 08:17; Admin Dose 6 EA; Start 10/13/18 at 13:00 Acetazolamide (Diamox) 250 mg BID PO Last administered on 10/22/18 08:29; Admin Dose 250 MG; Start 10/13/18 at 21:00 Metformin HCl (Glucophage Xr) 1,000 mg BID PO Last administered on 10/22/18 08:19; Admin Dose 1,000 MG; Start 10/14/18 at 21:00 Empaglifozin (Jardiance) 25 mg DAILY@08 PO Last administered on 10/22/18 08:21; Admin Dose 25 MG; Start 10/15/18 at 08:00 Diagnostic Test (Pha) (Accu-Chek) 1 ea 02 XX Last administered on 10/22/18 02:09; Admin Dose 1 EA; Start 10/15/18 at 02:00 Linagliptin (Tradjenta) 5 mg DAILY PO Last administered on 10/22/18 08:24; Admin Dose 5 MG; Start 10/15/18 at 09:00 Spironolactone (Aldactone) 25 mg DAILY PO Last administered on 10/22/18 08:20; Admin Dose 25 MG; Start 10/16/18 at 12:30 Furosemide (Lasix) 40 mg DAILY IV Last administered on 10/22/18 08:18; Admin Dose 40 MG; Start 10/19/18 at 09:00 Caspofungin 50 mg/ Sodium Chloride 250 ml @ 250 mls/hr Q24H IVPB Last administered on 10/21/18 15:55; Admin Dose 250 MLS/HR; Start 10/20/18 at 13:00 Nystatin (Nystatin Susp) 5 ml QID PO Last administered on 10/22/18 08:18; Admin Dose 5 ML; Start 10/19/18 at 13:00 Docusate Sodium (Colace) 200 mg BID PO Last administered on 10/22/18 08:19; Admin Dose 200 MG; Start 10/20/18 at 11:00 Polyethylene Glycol (Miralax) 17 gm BID PO Last administered on 10/22/18 08:16; Admin Dose 17 GM; Start 10/20/18 at 11:00 Doxycycline Hyclate (Vibramycin) 100 mg BID PO Last administered on 10/22/18 08:19; Admin Dose 100 MG; Start 10/20/18 at 13:30 Ceftriaxone Sodium 50 ml @ 100 mls/hr Q24H IVPB Last administered on 10/21/18 15:55; Admin Dose 100 MLS/HR; Start 10/20/18 at 13:30 Prednisone (Prednisone) 30 mg DAILY PO Last administered on 10/22/18 08:20; Admin Dose 30 MG; Start 10/22/18 at 09:00; Stop 10/23/18 at 09:01 Acetylcysteine (Mucomyst) 2 ml Q6H RESP THERAPY NEB Last administered on 10/22/18 08:15; Admin Dose 2 ML; Start 10/21/18 at 14:00 Insulin Human NPH (Humulin N) 30 unit DAILY@0900 SC Last administered on 10/22/18 08:24; Admin Dose 30 UNIT; Start 10/22/18 at 09:00 Prednisone (Prednisone) 20 mg DAILY PO ; Start 10/24/18 at 09:00; Stop 10/25/18 at 09:01 Prednisone (Prednisone) 10 mg DAILY PO ; Start 10/26/18 at 09:00; Stop 10/27/18 at 09:01 VTE Prophylaxis Risk score (from Ns)>0 risk: 3 SCD applied (from Ns): No SCD contraindication: other Pharmacological prophylaxis: apixaban Lines/Catheters IV Catheter Type: Saline Lock Norton in Place: No Assessment/Plan Assessment/Plan Acute hypoxemic respiratory failure Community-acquired pneumonia Mucous plugs Continue current therapy Mucomyst Wean off high flow to, now on 40% Pulmonary and ID follow-up ELI YARBROUGH MD Oct 22, 2018 10:28
--- NOTE | 2018-10-22 10:36 | CONS ---
Consult Date/Type/Reason Admit Date/Time Oct 12, 2018 at 06:16 Initial Consult Date Type of Consult Pulmonary Requesting Provider: ROEL ALBA Date/Time of Note DATE: 10/22/18 TIME: 10:35 Subjective Patient continues to slowly improve. Objective Vital Signs Date Temp Pulse Resp B/P (MAP) Pulse Ox O2 O2 Flow FiO2 Time Delivery Rate 10/22/18 100 40 09:45 10/22/18 Vapotherm 07:53 10/22/18 98.0 104 20 101/65 07:33 (77) 10/22/18 25.0 04:11 Intake and Output 10/21/18 10/21/18 10/22/18 1414:59 22:59 06:59 IntakeIntake Total 570 ml 1300 ml 2180 ml OutputOutput Total 1600 ml 800 ml 600 ml BalanceBalance -1030 ml 500 ml 1580 ml Exam GENERAL: Well-nourished well-developed gentleman comfortable at rest VITAL SIGNS: per chart NECK: Supple. No JVD or lymphadenopathy. CARDIAC EXAM: S1, S2. No added sounds or murmurs. CHEST: Diminished air entry bilaterally ABDOMEN: Soft, nontender. No guarding or rebound. EXTREMITIES: No cyanosis, clubbing or edema. NEUROLOGIC: Generalized weakness. No focal deficits. Vent Setting Fraction of Inspired Oxygen pe: 40 Results/Medications Result Diagram: 10/21/18 0504 10/22/18 0526 Results 24 hrs Laboratory Tests Test 10/21/18 12:22 10/21/18 17:46 10/21/18 21:30 10/22/18 02:04 Bedside Glucose 118 84 180 119 Test 10/22/18 05:26 10/22/18 07:21 Sodium Level 138 Potassium Level 4.4 Chloride Level 102 Carbon Dioxide Level 29 Anion Gap 7 Blood Urea Nitrogen 31 H Creatinine 0.83 Est Glomerular Filtrat > 60 Rate mL/min Glucose Level 94 Calcium Level 9.5 Bedside Glucose 116 Medications Current Medications Albuterol/ Ipratropium (Duoneb) 3 ml Q4 HHN Last administered on 10/22/18at 08:15; Admin Dose 3 ML; Start 10/11/18 at 21:00 Insulin Aspart (Novolog Insulin Pen) NOVOLOG *MODERATE* ALGORITHM WITH MEALS BEDTIME SC Last administered on 10/21/18at 21:47; Admin Dose 2 UNIT; Start 10/11/18 at 21:00 Zolpidem Tartrate (Ambien) 5 mg HS MAY REPEAT X 1 PRN PO INSOMNIA; Start 10/11/18 at 20:30 Ondansetron HCl (Zofran Inj) 4 mg Q4 PRN IV nausea; Start 10/11/18 at 20:30 Miscellaneous Information 1 ea NOTE XX ; Start 10/11/18 at 21:00 Glucose (Glutose) 15 gm Q15M PRN PO DECREASED GLUCOSE; Start 10/11/18 at 21:00 Glucose (Glutose) 22.5 gm Q15M PRN PO DECREASED GLUCOSE; Start 10/11/18 at 21:00 Dextrose (D50w Syringe) 25 ml Q15M PRN IV DECREASED GLUCOSE; Start 10/11/18 at 21:00 Dextrose (D50w Syringe) 50 ml Q15M PRN IV DECREASED GLUCOSE; Start 10/11/18 at 21:00 Glucagon (Glucagen) 1 mg Q15M PRN IM DECREASED GLUCOSE; Start 10/11/18 at 21:00 Glucose (Glutose) 15 gm Q15M PRN BUCCAL DECREASED GLUCOSE; Start 10/11/18 at 21:00 Promethazine HCl/ Dextromethorphan (Phenergan-Dm) 5 ml Q6 PRN PO COUGH; Start 10/11/18 at 21:00 Digoxin (Digoxin) 0.25 mg DAILY PO Last administered on 10/22/18at 08:19; Admin Dose 0.25 MG; Start 10/12/18 at 09:00 Atorvastatin Calcium (Lipitor) 20 mg DAILY@21 PO Last administered on 10/21/18at 21:23; Admin Dose 20 MG; Start 10/11/18 at 22:30 Apixaban (Eliquis) 5 mg BID PO Last administered on 10/22/18 08:20; Admin Dose 5 MG; Start 10/12/18 at 12:30 Metoprolol Succinate (Toprol Xl) 50 mg BID PO Last administered on 10/21/18 21:22; Admin Dose 50 MG; Start 10/12/18 at 21:00 Patient Own Medication 6 ea AM PO Last administered on 10/22/18at 08:17; Admin Dose 6 EA; Start 10/13/18 at 13:00 Acetazolamide (Diamox) 250 mg BID PO Last administered on 10/22/18 08:29; Admin Dose 250 MG; Start 10/13/18 at 21:00 Metformin HCl (Glucophage Xr) 1,000 mg BID PO Last administered on 10/22/18 08:19; Admin Dose 1,000 MG; Start 10/14/18 at 21:00 Empaglifozin (Jardiance) 25 mg DAILY@08 PO Last administered on 10/22/18 08:21; Admin Dose 25 MG; Start 10/15/18 at 08:00 Diagnostic Test (Pha) (Accu-Chek) 1 ea 02 XX Last administered on 10/22/18 02:09; Admin Dose 1 EA; Start 10/15/18 at 02:00 Linagliptin (Tradjenta) 5 mg DAILY PO Last administered on 10/22/18 08:24; Admin Dose 5 MG; Start 10/15/18 at 09:00 Spironolactone (Aldactone) 25 mg DAILY PO Last administered on 10/22/18 08:20; Admin Dose 25 MG; Start 10/16/18 at 12:30 Furosemide (Lasix) 40 mg DAILY IV Last administered on 10/22/18 08:18; Admin Dose 40 MG; Start 10/19/18 at 09:00 Caspofungin 50 mg/ Sodium Chloride 250 ml @ 250 mls/hr Q24H IVPB Last administered on 10/21/18 15:55; Admin Dose 250 MLS/HR; Start 10/20/18 at 13:00 Nystatin (Nystatin Susp) 5 ml QID PO Last administered on 10/22/18 08:18; Admin Dose 5 ML; Start 10/19/18 at 13:00 Docusate Sodium (Colace) 200 mg BID PO Last administered on 10/22/18 08:19; Admin Dose 200 MG; Start 10/20/18 at 11:00 Polyethylene Glycol (Miralax) 17 gm BID PO Last administered on 10/22/18 08:16; Admin Dose 17 GM; Start 10/20/18 at 11:00 Doxycycline Hyclate (Vibramycin) 100 mg BID PO Last administered on 10/22/18 08:19; Admin Dose 100 MG; Start 10/20/18 at 13:30 Ceftriaxone Sodium 50 ml @ 100 mls/hr Q24H IVPB Last administered on 10/21/18at 15:55; Admin Dose 100 MLS/HR; Start 10/20/18 at 13:30 Prednisone (Prednisone) 30 mg DAILY PO Last administered on 10/22/18at 08:20; Admin Dose 30 MG; Start 10/22/18 at 09:00; Stop 10/23/18 at 09:01 Acetylcysteine (Mucomyst) 2 ml Q6H RESP THERAPY NEB Last administered on 10/22/18at 08:15; Admin Dose 2 ML; Start 10/21/18 at 14:00 Insulin Human NPH (Humulin N) 30 unit DAILY@0900 SC Last administered on 10/22/18at 08:24; Admin Dose 30 UNIT; Start 10/22/18 at 09:00 Prednisone (Prednisone) 20 mg DAILY PO ; Start 10/24/18 at 09:00; Stop 10/25/18 at 09:01 Prednisone (Prednisone) 10 mg DAILY PO ; Start 10/26/18 at 09:00; Stop 10/27/18 at 09:01 Assessment/Plan Hospital Course (Demo Recall) IMP: 1. Hypoxemic Resp Failure, chest x-ray shows ongoing atelectasis possible mild pulmonary edema discussed with family at length 2. RLL pneumonia with hilar and mediastinal adenopathy--s/p recent travel to [facility]. Query tularemia vs. other atypical infection 3. Afib with RVR 4. HTN heart Disease 5. DM RECS: 1. Continue doxycycline 2. D/C micafungin 3. Repeat CT noted with mucous plugging and atelectasis 4. Obtain serum LDH and ferritin 5. Continue Mucomyst and incentive spirometry 6. Chest PT 4 times a day Discussed with family at length TELMA CAI MD, FCCP Oct 22, 2018 10:36
--- NOTE | 2018-10-22 10:51 | CONS ---
Consultation Date/Type/Reason Admit Date/Time Oct 12, 2018 at 06:16 Initial Consult Date 10/14/18 Type of Consult Cardiology Requesting Provider: ROEL ALBA Date/Time of Note DATE: 10/22/18 TIME: 10:50 24 HR Interval Summary Free Text/Dictation Respiratory failure with hypoxia-improving PNA Acute decompensated systolic and diastolic congestive heart failure History of cardiomyopathy, current left ventricular ejection fraction 50-55% Pulmonary hypertension Chronic Atrial Fibrillation DM continue cv meds Repeat echocardiogram with negative bubble study. PA pressures were in the high 60s. Antibiotics as per infectious disease Continue beta-dana as heart rate and blood pressure permits Cont Eliquis if no contraindication Exam/Review of Systems Vital Signs Vitals Vital Signs Date Temp Pulse Resp B/P (MAP) Pulse Ox O2 O2 Flow FiO2 Time Delivery Rate 10/22/18 100 40 09:45 10/22/18 Vapotherm 07:53 10/22/18 98.0 104 20 101/65 07:33 (77) 10/22/18 25.0 04:11 Intake and Output 10/21/18 10/21/18 10/22/18 1515:00 23:00 07:00 IntakeIntake Total 570 ml 1300 ml 2180 ml OutputOutput Total 1600 ml 800 ml 600 ml BalanceBalance -1030 ml 500 ml 1580 ml Labs Result Diagram: 10/21/18 0504 10/22/18 0526 Results 24hrs Laboratory Tests Test 10/21/18 12:22 10/21/18 17:46 10/21/18 21:30 10/22/18 02:04 Bedside Glucose 118 84 180 119 Test 10/22/18 05:26 10/22/18 07:21 Sodium Level 138 Potassium Level 4.4 Chloride Level 102 Carbon Dioxide Level 29 Anion Gap 7 Blood Urea Nitrogen 31 H Creatinine 0.83 Est Glomerular Filtrat > 60 Rate mL/min Glucose Level 94 Calcium Level 9.5 Bedside Glucose 116 Medications Medications Current Medications Albuterol/ Ipratropium (Duoneb) 3 ml Q4 HHN Last administered on 10/22/18at 08:15; Admin Dose 3 ML; Start 10/11/18 at 21:00 Insulin Aspart (Novolog Insulin Pen) NOVOLOG *MODERATE* ALGORITHM WITH MEALS BEDTIME SC Last administered on 10/21/18at 21:47; Admin Dose 2 UNIT; Start 10/11/18 at 21:00 Zolpidem Tartrate (Ambien) 5 mg HS MAY REPEAT X 1 PRN PO INSOMNIA; Start 10/11/18 at 20:30 Ondansetron HCl (Zofran Inj) 4 mg Q4 PRN IV nausea; Start 10/11/18 at 20:30 Miscellaneous Information 1 ea NOTE XX ; Start 10/11/18 at 21:00 Glucose (Glutose) 15 gm Q15M PRN PO DECREASED GLUCOSE; Start 10/11/18 at 21:00 Glucose (Glutose) 22.5 gm Q15M PRN PO DECREASED GLUCOSE; Start 10/11/18 at 21:00 Dextrose (D50w Syringe) 25 ml Q15M PRN IV DECREASED GLUCOSE; Start 10/11/18 at 21:00 Dextrose (D50w Syringe) 50 ml Q15M PRN IV DECREASED GLUCOSE; Start 10/11/18 at 21:00 Glucagon (Glucagen) 1 mg Q15M PRN IM DECREASED GLUCOSE; Start 10/11/18 at 21:00 Glucose (Glutose) 15 gm Q15M PRN BUCCAL DECREASED GLUCOSE; Start 10/11/18 at 21:00 Promethazine HCl/ Dextromethorphan (Phenergan-Dm) 5 ml Q6 PRN PO COUGH; Start 10/11/18 at 21:00 Digoxin (Digoxin) 0.25 mg DAILY PO Last administered on 10/22/18at 08:19; Admin Dose 0.25 MG; Start 10/12/18 at 09:00 Atorvastatin Calcium (Lipitor) 20 mg DAILY@21 PO Last administered on 10/21/18at 21:23; Admin Dose 20 MG; Start 10/11/18 at 22:30 Apixaban (Eliquis) 5 mg BID PO Last administered on 10/22/18 08:20; Admin Dose 5 MG; Start 10/12/18 at 12:30 Metoprolol Succinate (Toprol Xl) 50 mg BID PO Last administered on 10/21/18 21:22; Admin Dose 50 MG; Start 10/12/18 at 21:00 Patient Own Medication 6 ea AM PO Last administered on 10/22/18at 08:17; Admin Dose 6 EA; Start 10/13/18 at 13:00 Acetazolamide (Diamox) 250 mg BID PO Last administered on 10/22/18 08:29; Admin Dose 250 MG; Start 10/13/18 at 21:00 Metformin HCl (Glucophage Xr) 1,000 mg BID PO Last administered on 10/22/18 08:19; Admin Dose 1,000 MG; Start 10/14/18 at 21:00 Empaglifozin (Jardiance) 25 mg DAILY@08 PO Last administered on 10/22/18 08:21; Admin Dose 25 MG; Start 10/15/18 at 08:00 Diagnostic Test (Pha) (Accu-Chek) 1 ea 02 XX Last administered on 10/22/18 02:09; Admin Dose 1 EA; Start 10/15/18 at 02:00 Linagliptin (Tradjenta) 5 mg DAILY PO Last administered on 10/22/18 08:24; Adm in Dose 5 MG; Start 10/15/18 at 09:00 Spironolactone (Aldactone) 25 mg DAILY PO Last administered on 10/22/18 08:20; Admin Dose 25 MG; Start 10/16/18 at 12:30 Furosemide (Lasix) 40 mg DAILY IV Last administered on 10/22/18 08:18; Admin Dose 40 MG; Start 10/19/18 at 09:00 Caspofungin 50 mg/ Sodium Chloride 250 ml @ 250 mls/hr Q24H IVPB Last administered on 10/21/18 15:55; Admin Dose 250 MLS/HR; Start 10/20/18 at 13:00 Nystatin (Nystatin Susp) 5 ml QID PO Last administered on 10/22/18 08:18; Admin Dose 5 ML; Start 10/19/18 at 13:00 Docusate Sodium (Colace) 200 mg BID PO Last administered on 10/22/18 08:19; Admin Dose 200 MG; Start 10/20/18 at 11:00 Polyethylene Glycol (Miralax) 17 gm BID PO Last administered on 10/22/18 08:16; Admin Dose 17 GM; Start 10/20/18 at 11:00 Doxycycline Hyclate (Vibramycin) 100 mg BID PO Last administered on 10/22/18 08:19; Admin Dose 100 MG; Start 10/20/18 at 13:30 Ceftriaxone Sodium 50 ml @ 100 mls/hr Q24H IVPB Last administered on 10/21/18at 15:55; Admin Dose 100 MLS/HR; Start 10/20/18 at 13:30 Prednisone (Prednisone) 30 mg DAILY PO Last administered on 10/22/18at 08:20; Admin Dose 30 MG; Start 10/22/18 at 09:00; Stop 10/23/18 at 09:01 Acetylcysteine (Mucomyst) 2 ml Q6H RESP THERAPY NEB Last administered on 10/22/18at 08:15; Admin Dose 2 ML; Start 10/21/18 at 14:00 Insulin Human NPH (Humulin N) 30 unit DAILY@0900 SC Last administered on 10/22/18at 08:24; Admin Dose 30 UNIT; Start 10/22/18 at 09:00 Prednisone (Prednisone) 20 mg DAILY PO ; Start 10/24/18 at 09:00; Stop 10/25/18 at 09:01 Prednisone (Prednisone) 10 mg DAILY PO ; Start 10/26/18 at 09:00; Stop 10/27/18 at 09:01 JAS AGUSTIN MD Oct 22, 2018 10:51
--- NOTE | 2018-10-22 11:24 | CONS ---
Assessment/Plan Assessment/Plan Assessment/Plan (Daily) 1. Metabolic alkalosis on Acetazolamide 250mg BID , 1. Acute Hypoxic respiratory failure, likely secondary to reactive airway and pneumonia, patient seems to be euvolemic for now.- on IV abx cefepime , cancidas and Doxycyline< renally dose all abx and monitor electrolytes , o lasix 40mg IV daily , monitor electrolytes and replace as needed , pt is on tapering dose of Prednisone 2. Atrial fibrillation, chronic, rate controlled. 3. Congestive heart failure, diastolic dysfunction, chronic, currently euvolemic. Echocardiogram with EF of 55%.- on lasix 40mg pO BID Continue current medication, patient on oral Lasix daily. 4. Diabetes mellitus Type II with acute hyperglycemia 5. Hypertension Consultation Date/Type/Reason Admit Date/Time Oct 12, 2018 at 06:16 Initial Consult Date 10/14/18 Type of Consult NEPHROLOGY Requesting Provider: ROEL ALBA Date/Time of Note DATE: 10/22/18 TIME: 11:24 Exam/Review of Systems Exam Vitals Vital Signs Date Temp Pulse Resp B/P (MAP) Pulse Ox O2 O2 Flow FiO2 Time Delivery Rate 10/22/18 92 40 11:00 10/22/18 Vapotherm 07:53 10/22/18 98.0 104 20 101/65 07:33 (77) 10/22/18 25.0 04:11 Intake and Output 10/21/18 10/21/18 10/22/18 1515:00 23:00 07:00 IntakeIntake Total 570 ml 1300 ml 2180 ml OutputOutput Total 1600 ml 800 ml 600 ml BalanceBalance -1030 ml 500 ml 1580 ml Exam GENERAL: alert, awake no acute distress NECK: Supple. No JVD or lymphadenopathy. CARDIAC EXAM: S1, S2. No added sounds or murmurs. CHEST: Diminished air entry bilaterally ABDOMEN: Soft, nontender. No guarding or rebound. EXTREMITIES: No cyanosis, clubbing or edema. NEUROLOGIC: Non focal, alert, awake Results Result Diagram: 10/21/18 0504 10/22/18 0526 Results 24hrs Laboratory Tests Test 10/21/18 12:22 10/21/18 17:46 10/21/18 21:30 10/22/18 02:04 Bedside Glucose 118 84 180 119 Test 10/22/18 05:26 10/22/18 07:21 10/22/18 11:11 Sodium Level 138 Potassium Level 4.4 Chloride Level 102 Carbon Dioxide Level 29 Anion Gap 7 Blood Urea Nitrogen 31 H Creatinine 0.83 Est Glomerular Filtrat > 60 Rate mL/min Glucose Level 94 Calcium Level 9.5 Bedside Glucose 116 152 Medications Medication Current Medications Albuterol/ Ipratropium (Duoneb) 3 ml Q4 HHN Last administered on 10/22/18at 08:15; Admin Dose 3 ML; Start 10/11/18 at 21:00 Insulin Aspart (Novolog Insulin Pen) NOVOLOG *MODERATE* ALGORITHM WITH MEALS BEDTIME SC Last administered on 10/22/18at 11:14; Admin Dose 2 UNIT; Start 10/11/18 at 21:00 Zolpidem Tartrate (Ambien) 5 mg HS MAY REPEAT X 1 PRN PO INSOMNIA; Start 10/11/18 at 20:30 Ondansetron HCl (Zofran Inj) 4 mg Q4 PRN IV nausea; Start 10/11/18 at 20:30 Miscellaneous Information 1 ea NOTE XX ; Start 10/11/18 at 21:00 Glucose (Glutose) 15 gm Q15M PRN PO DECREASED GLUCOSE; Start 10/11/18 at 21:00 Glucose (Glutose) 22.5 gm Q15M PRN PO DECREASED GLUCOSE; Start 10/11/18 at 21:00 Dextrose (D50w Syringe) 25 ml Q15M PRN IV DECREASED GLUCOSE; Start 10/11/18 at 21:00 Dextrose (D50w Syringe) 50 ml Q15M PRN IV DECREASED GLUCOSE; Start 10/11/18 at 21:00 Glucagon (Glucagen) 1 mg Q15M PRN IM DECREASED GLUCOSE; Start 10/11/18 at 21:00 Glucose (Glutose) 15 gm Q15M PRN BUCCAL DECREASED GLUCOSE; Start 10/11/18 at 21:00 Promethazine HCl/ Dextromethorphan (Phenergan-Dm) 5 ml Q6 PRN PO COUGH; Start 10/11/18 at 21:00 Digoxin (Digoxin) 0.25 mg DAILY PO Last administered on 10/22/18at 08:19; Admin Dose 0.25 MG; Start 10/12/18 at 09:00 Atorvastatin Calcium (Lipitor) 20 mg DAILY@21 PO Last administered on 10/21/18 21:23; Admin Dose 20 MG; Start 10/11/18 at 22:30 Apixaban (Eliquis) 5 mg BID PO Last administered on 10/22/18 08:20; Admin Dose 5 MG; Start 10/12/18 at 12:30 Metoprolol Succinate (Toprol Xl) 50 mg BID PO Last administered on 10/21/18 21:22; Admin Dose 50 MG; Start 10/12/18 at 21:00 Patient Own Medication 6 ea AM PO Last administered on 10/22/18 08:17; Admin Dose 6 EA; Start 10/13/18 at 13:00 Acetazolamide (Diamox) 250 mg BID PO Last administered on 10/22/18 08:29; Admin Dose 250 MG; Start 10/13/18 at 21:00 Metformin HCl (Glucophage Xr) 1,000 mg BID PO Last administered on 10/22/18 08:19; Admin Dose 1,000 MG; Start 10/14/18 at 21:00 Empaglifozin (Jardiance) 25 mg DAILY@08 PO Last administered on 10/22/18 08:21; Admin Dose 25 MG; Start 10/15/18 at 08:00 Diagnostic Test (Pha) (Accu-Chek) 1 ea 02 XX Last administered on 10/22/18 02:09; Admin Dose 1 EA; Start 10/15/18 at 02:00 Linagliptin (Tradjenta) 5 mg DAILY PO Last administered on 10/22/18 08:24; Admin Dose 5 MG; Start 10/15/18 at 09:00 Spironolactone (Aldactone) 25 mg DAILY PO Last administered on 10/22/18 08:20; Admin Dose 25 MG; Start 10/16/18 at 12:30 Furosemide (Lasix) 40 mg DAILY IV Last administered on 10/22/18 08:18; Admin Dose 40 MG; Start 10/19/18 at 09:00 Caspofungin 50 mg/ Sodium Chloride 250 ml @ 250 mls/hr Q24H IVPB Last administered on 10/21/18 15:55; Admin Dose 250 MLS/HR; Start 10/20/18 at 13:00 Nystatin (Nystatin Susp) 5 ml QID PO Last administered on 10/22/18 08:18; Admin Dose 5 ML; Start 10/19/18 at 13:00 Docusate Sodium (Colace) 200 mg BID PO Last administered on 10/22/18 08:19; Admin Dose 200 MG; Start 10/20/18 at 11:00 Polyethylene Glycol (Miralax) 17 gm BID PO Last administered on 10/22/18 08:16; Admin Dose 17 GM; Start 10/20/18 at 11:00 Doxycycline Hyclate (Vibramycin) 100 mg BID PO Last administered on 10/22/18 08:19; Admin Dose 100 MG; Start 10/20/18 at 13:30 Ceftriaxone Sodium 50 ml @ 100 mls/hr Q24H IVPB Last administered on 10/21/18at 15:55; Admin Dose 100 MLS/HR; Start 10/20/18 at 13:30 Prednisone (Prednisone) 30 mg DAILY PO Last administered on 10/22/18 08:20; Admin Dose 30 MG; Start 10/22/18 at 09:00; Stop 10/23/18 at 09:01 Acetylcysteine (Mucomyst) 2 ml Q6H RESP THERAPY NEB Last administered on 10/22/18 08:15; Admin Dose 2 ML; Start 10/21/18 at 14:00 Insulin Human NPH (Humulin N) 30 unit DAILY@0900 SC Last administered on 10/22/18 08:24; Admin Dose 30 UNIT; Start 10/22/18 at 09:00 Prednisone (Prednisone) 20 mg DAILY PO ; Start 10/24/18 at 09:00; Stop 10/25/18 at 09:01 Prednisone (Prednisone) 10 mg DAILY PO ; Start 10/26/18 at 09:00; Stop 10/27/18 at 09:01 NEDA STAHL MD Oct 22, 2018 11:24
[2018-10-22 11:36] VITALS: BP 89/63; PULSE 75; RESP 20
[2018-10-22] MEDS: CASPOFUNGIN 50 MG in SOD CHLORIDE 0.9% 250 ML IVPB SCH (12:28)
[2018-10-22] MEDS: CEFTRIAXONE 2 GM/50 ML (PMX) 50 ML IVPB SCH (14:01)
--- NOTE | 2018-10-22 15:46 | CONS ---
Assessment/Plan Assessment/Plan Hospital Course (Demo Recall) ID PROGRESS NOTE CURRENT ABX: DAY # =>Cancidas + Doxycycline + Ceftriaxone 2gm s/p Cefepime 24H INTERVAL SUMMARY * Still on supplemental O2 via NC, now on mucolytics and chest percussive tx, using Incentive Spirometer * No fevers, VSS, NAD * CT w/extensive mucous plugging * 10/22/18 SPUTUM CX: pending GRAM STAIN Final POLYMORPH. LEUKOCYTE 1+ GRAM POS COCCI IN CLUSTER 1+ * WBC up slightly -- Steroids taper DIAGNOSTIC IMAGING * 10/22/18 CXR: 1. Stable dense atelectasis involving the right middle lobe, left lingula, and lower lungs bilaterally. The appearances are grossly stable compared to the prior studies. * 10/20/18 CT Chest: IMPRESSION: * 1. Dense confluent atelectasis in the inferior aspect of the right middle lobe with central mucous plugging, causing partial collapse of the right middle lobe. * 2. Dense severe confluent atelectasis in the extreme right posterior lung base adjacent to the right hemidiaphragm, also with central mucous plugging. * 3. Less severe minor subsegmental atelectasis in the left lingula and left lung base, with endobronchial partial mucous plugging in the left lower lobe bronchi. * 4. Hazy ground-glass infiltration and presumed pneumonia within the aspect of the right upper lobe. * 5. Several tiny micronodules along the lateral periphery of the upper lobes bilaterally, too small to characterize. These are likely benign and inflammatory nature. Follow-up imaging is not required and is optional at 1 year (Raimundo 2017). * 6. Cardiomegaly with multi-chamber enlargement and dilatation, with abundant atherosclerotic vascular calcifications. * 7. Numerous scattered diffuse extensive mild benign reactive adenopathy throughout the mediastinum and hilar cassi stations. * 8. Scattered benign chronic senescent changes seen elsewhere throughout the remainder of the study. * 10/20/18 CXR: IMPRESSION:1. Prominent pulmonary vascular markings, at least partially related to low lung volumes. Mild pulmonary vascular congestion is not excluded. No significant interval change. 2. Bilateral basilar atelectasis. 3. Aortic atherosclerosis. MICRO * BCx(-); (-) Urine Cx * 10/17/18 Sputum (+) C.Albicans PHYSICAL EXAMINATION: GENERAL: VSS, NAD HEENT: AT, NC, NECK: Supple, CHEST: Rise symmetrical -- supplemental O2 high flow HEART: Pulse RRR ABDOMEN: Benign EXTREMITIES: Warm, dry SKIN: No rash, no diaphoresis ID ASSESSMENT 62 yo M admit with: 1. Acute hypoxemic respiratory failure 2. Multi-lobar lobe pneumonia w/bilateral mucous plugging * HIV(-); Legionella (-) * Aspergillus, Cocci, Mycoplasma serology pending 3. Oral thrush 4. Atrial fibrillation, chronic 5. Bilateral lower extremities chronic venous stasis 6. CHF 7. Diabetes (-)MRSA Nares ABX ALLERGIES: KNDA INVASIVES: PIV CURRENT ABX: DAY # =>Cancidas + Doxycycline + Ceftriaxone 2gm s/p Cefepime ID RECOMMENDATIONS/PLAN: 1. ABX D/W Dr. Reyna -- Community Acquired PNA in a patient who has hx of travel * Recommend covering with Doxycycline and will change Cefepime to Ceftriaxone - Taper Steroids * CT revealing extensive mucous plugging 2. Aspergillus & Cocci & Mycoplasma serology pending . . Consultation Date/Type/Reason Admit Date/Time Oct 12, 2018 at 06:16 Initial Consult Date 10/14/18 Requesting Provider: ROEL ALBA Date/Time of Note DATE: 10/22/18 TIME: 15:41 Exam/Review of Systems Exam Vitals Vital Signs Date Temp Pulse Resp B/P (MAP) Pulse Ox O2 O2 Flow FiO2 Time Delivery Rate 10/22/18 94 30 15:37 10/22/18 106 20 20.0 12:57 10/22/18 97.9 89/63 (72) 11:36 10/22/18 Vapotherm 07:53 Intake and Output 10/21/18 10/21/18 10/22/18 1515:00 23:00 07:00 IntakeIntake Total 570 ml 1300 ml 2180 ml OutputOutput Total 1600 ml 800 ml 600 ml BalanceBalance -1030 ml 500 ml 1580 ml Results Result Diagram: 10/21/18 0504 10/22/18 0526 Results 24hrs Laboratory Tests Test 10/21/18 17:46 10/21/18 21:30 10/22/18 02:04 10/22/18 05:26 Bedside Glucose 84 180 119 Sodium Level 138 Potassium Level 4.4 Chloride Level 102 Carbon Dioxide Level 29 Anion Gap 7 Blood Urea Nitrogen 31 H Creatinine 0.83 Est Glomerular Filtrat > 60 Rate mL/min Glucose Level 94 Calcium Level 9.5 Test 10/22/18 07:21 10/22/18 11:11 Bedside Glucose 116 152 Medications Medication Current Medications Albuterol/ Ipratropium (Duoneb) 3 ml Q4 HHN Last administered on 10/22/18at 12:56; Admin Dose 3 ML; Start 10/11/18 at 21:00 Insulin Aspart (Novolog Insulin Pen) NOVOLOG *MODERATE* ALGORITHM WITH MEALS BEDTIME SC Last administered on 10/22/18at 11:14; Admin Dose 2 UNIT; Start 10/11/18 at 21:00 Zolpidem Tartrate (Ambien) 5 mg HS MAY REPEAT X 1 PRN PO INSOMNIA; Start 10/11/18 at 20:30 Ondansetron HCl (Zofran Inj) 4 mg Q4 PRN IV nausea; Start 10/11/18 at 20:30 Miscellaneous Information 1 ea NOTE XX ; Start 10/11/18 at 21:00 Glucose (Glutose) 15 gm Q15M PRN PO DECREASED GLUCOSE; Start 10/11/18 at 21:00 Glucose (Glutose) 22.5 gm Q15M PRN PO DECREASED GLUCOSE; Start 10/11/18 at 21:00 Dextrose (D50w Syringe) 25 ml Q15M PRN IV DECREASED GLUCOSE; Start 10/11/18 at 21:00 Dextrose (D50w Syringe) 50 ml Q15M PRN IV DECREASED GLUCOSE; Start 10/11/18 at 21:00 Glucagon (Glucagen) 1 mg Q15M PRN IM DECREASED GLUCOSE; Start 10/11/18 at 21:00 Glucose (Glutose) 15 gm Q15M PRN BUCCAL DECREASED GLUCOSE; Start 10/11/18 at 21:00 Promethazine HCl/ Dextromethorphan (Phenergan-Dm) 5 ml Q6 PRN PO COUGH; Start 10/11/18 at 21:00 Digoxin (Digoxin) 0.25 mg DAILY PO Last administered on 10/22/18at 08:19; Admin Dose 0.25 MG; Start 10/12/18 at 09:00 Atorvastatin Calcium (Lipitor) 20 mg DAILY@21 PO Last administered on 10/21/18at 21:23; Admin Dose 20 MG; Start 10/11/18 at 22:30 Apixaban (Eliquis) 5 mg BID PO Last administered on 10/22/18 08:20; Admin Dose 5 MG; Start 10/12/18 at 12:30 Metoprolol Succinate (Toprol Xl) 50 mg BID PO Last administered on 10/21/18 21:22; Admin Dose 50 MG; Start 10/12/18 at 21:00 Patient Own Medication 6 ea AM PO Last administered on 10/22/18 08:17; Admin Dose 6 EA; Start 10/13/18 at 13:00 Acetazolamide (Diamox) 250 mg BID PO Last administered on 10/22/18 08:29; Admin Dose 250 MG; Start 10/13/18 at 21:00 Metformin HCl (Glucophage Xr) 1,000 mg BID PO Last administered on 10/22/18 08:19; Admin Dose 1,000 MG; Start 10/14/18 at 21:00 Empaglifozin (Jardiance) 25 mg DAILY@08 PO Last administered on 10/22/18 08:21; Admin Dose 25 MG; Start 10/15/18 at 08:00 Diagnostic Test (Pha) (Accu-Chek) 1 ea 02 XX Last administered on 10/22/18 02:09; Admin Dose 1 EA; Start 10/15/18 at 02:00 Linagliptin (Tradjenta) 5 mg DAILY PO Last administered on 10/22/18 08:24; Admin Dose 5 MG; Start 10/15/18 at 09:00 Spironolactone (Aldactone) 25 mg DAILY PO Last administered on 10/22/18 08:20; Admin Dose 25 MG; Start 10/16/18 at 12:30 Furosemide (Lasix) 40 mg DAILY IV Last administered on 10/22/18 08:18; Admin Dose 40 MG; Start 10/19/18 at 09:00 Caspofungin 50 mg/ Sodium Chloride 250 ml @ 250 mls/hr Q24H IVPB Last administered on 10/22/18 12:28; Admin Dose 250 MLS/HR; Start 10/20/18 at 13:00 Nystatin (Nystatin Susp) 5 ml QID PO Last administered on 10/22/18 12:28; Admin Dose 5 ML; Start 10/19/18 at 13:00 Docusate Sodium (Colace) 200 mg BID PO Last administered on 10/22/18at 08:19; Admin Dose 200 MG; Start 10/20/18 at 11:00 Polyethylene Glycol (Miralax) 17 gm BID PO Last administered on 10/22/18at 08:16; Admin Dose 17 GM; Start 10/20/18 at 11:00 Doxycycline Hyclate (Vibramycin) 100 mg BID PO Last administered on 10/22/18at 08:19; Admin Dose 100 MG; Start 10/20/18 at 13:30 Ceftriaxone Sodium 50 ml @ 100 mls/hr Q24H IVPB Last administered on 10/22/18at 14:01; Admin Dose 100 MLS/HR; Start 10/20/18 at 13:30 Prednisone (Prednisone) 30 mg DAILY PO Last administered on 10/22/18at 08:20; Admin Dose 30 MG; Start 10/22/18 at 09:00; Stop 10/23/18 at 09:01 Acetylcysteine (Mucomyst) 2 ml Q6H RESP THERAPY NEB Last administered on 10/22/18at 12:56; Admin Dose 2 ML; Start 10/21/18 at 14:00 Insulin Human NPH (Humulin N) 30 unit DAILY@0900 SC Last administered on 10/22/18at 08:24; Admin Dose 30 UNIT; Start 10/22/18 at 09:00 Prednisone (Prednisone) 20 mg DAILY PO ; Start 10/24/18 at 09:00; Stop 10/25/18 at 09:01 Prednisone (Prednisone) 10 mg DAILY PO ; Start 10/26/18 at 09:00; Stop 10/27/18 at 09:01 BRETT KWONG NP Oct 22, 2018 15:46
[2018-10-22 15:48] VITALS: BP 104/59; PULSE 99; RESP 20
[2018-10-22 20:00] VITALS: BP 93/58; PULSE 107; RESP 20
[2018-10-22] MEDS: ATORVASTATIN 20 MG TAB PO SCH (21:02)
[2018-10-23] VITALS (7 sets, daily range): BP systolic 91–142; BP diastolic 54–67; PULSE 87–124; RESP 20
[2018-10-23] MEDS: ALBUTEROL/IPRATROPIUM (NEB) 3 ML AMP HHN SCH ×6 (01:27→20:21)
[2018-10-23] MEDS: ACETYLCYSTEINE 20% 4 ML VIAL NEB SCH ×4 (01:27→20:20)
[2018-10-23] MEDS: ACCU-CHEK XX SCH (02:00)
[2018-10-23] MEDS: INSULIN ASPART [NOVOLOG] 3 ML PEN SC SCH ×4 (07:25→21:00)
[2018-10-23] MEDS: METOPROLOL (XL) 25 MG TAB PO SCH ×3 (08:01→21:06)
--- NOTE | 2018-10-23 08:09 | CONS ---
Assessment/Plan Assessment/Plan Problems: (1) Type 2 diabetes mellitus without complications Status: Chronic Comment: Mild hyperglycemia last night when prednisone peaking. NPH dose of 30 units not sufficient to counteract 30 mg prednisone. Will give 36 units this am but decrease to 24 units tomorrow when pt. to get 20 mg prednisone. Oral meds effective o/w and pt. has not required basal insulin to maintain glucose. Qualifiers: Diabetes mellitus retirement insulin use: without retirement use Qualified Codes: E11.9 - Type 2 diabetes mellitus without complications Consultation Date/Type/Reason Admit Date/Time Oct 12, 2018 at 06:16 Initial Consult Date 10/14/18 Type of Consult Endocrinology Reason for Consultation T2DM management Requesting Provider: ROEL ALBA Date/Time of Note DATE: 10/23/18 TIME: 08:06 24 HR Interval Summary Constitutional: no complaints, improved, requiring O2 (but reduced from high- flow NC) Detailed Summary Respiratory: no complaints Cardiovascular: no complaints Gastrointestinal: no complaints Genitourinary: no complaints Musculoskeletal: no complaints Neurologic: no complaints Exam/Review of Systems Exam Vitals VS - Last 72 Hours, by Label Date Temp Pulse Resp B/P (MAP) Pulse Ox O2 O2 Flow FiO2 Time Delivery Rate 10/23/18 97.8 87 20 96/54 (68) 97 07:53 10/23/18 Nasal 3.0 07:40 Cannula 10/23/18 104 20 97 4.0 33 05:00 10/23/18 97 4.0 33 04:52 10/23/18 98.2 93 20 91/62 (72) 96 Nasal 04:00 Cannula 10/23/18 102 18 96 4.0 33 01:50 10/23/18 98.0 102 20 107/63 97 High Flow 00:00 (78) 10/22/18 106 20 97 6.0 20:25 10/22/18 97.4 107 20 93/58 (70) 97 20:00 10/22/18 Nasal 20:00 Cannula 10/22/18 95 5.0 19:24 10/22/18 15.0 50 16:40 10/22/18 122 22 94 20.0 30 16:38 10/22/18 98.2 99 20 104/59 93 15:48 (74) 10/22/18 94 30 15:37 10/22/18 35 13:06 10/22/18 106 20 96 20.0 40 12:57 10/22/18 97.9 75 20 89/63 (72) 94 11:36 10/22/18 92 40 11:00 10/22/18 100 40 09:45 10/22/18 Vapotherm 07:53 10/22/18 98.0 104 20 101/65 95 07:33 (77) 10/22/18 88 50 07:30 10/22/18 97 18 96 25.0 50 04:11 10/22/18 97.1 80 102/66 95 04:00 (78) 10/22/18 95 50 01:36 10/22/18 104 18 95 25.0 50 01:36 10/22/18 98.1 104 18 106/72 96 00:00 (83) 10/21/18 107 18 94 25.0 50 20:05 10/21/18 94 50 20:05 10/21/18 Vapotherm 20:00 10/21/18 93 50 16:45 10/21/18 91 22 97 25.0 50 16:45 10/21/18 98.0 104 22 106/67 96 High Flow 15:38 (80) 10/21/18 88 22 93 25.0 50 13:13 10/21/18 93 50 13:13 10/21/18 98.0 74 21 112/56 95 High Flow 11:29 (74) 10/21/18 89 21 90 25.0 50 09:02 10/21/18 90 50 09:02 10/21/18 Vapotherm 08:33 10/21/18 97.8 112 22 107/68 96 High Flow 07:35 (81) 10/21/18 50 05:20 10/21/18 106 20 91 25.0 45 04:17 10/21/18 91 45 04:17 10/21/18 98.3 90 18 113/65 94 04:00 (81) 10/21/18 88 20 90 25.0 45 00:52 10/21/18 90 45 00:52 10/21/18 98.2 91 18 95/65 (75) 93 00:00 10/20/18 102 22 90 25.0 45 20:51 10/20/18 90 45 20:51 10/20/18 Vapotherm 20:01 10/20/18 97.7 93 18 108/65 91 20:00 (79) 10/20/18 92 13 95/77 (83) 91 High Flow 18:00 10/20/18 93 45 17:12 10/20/18 96 22 92 45 17:11 10/20/18 89 13 88/65 (73) 93 17:00 10/20/18 97.3 97 23 104/73 96 High Flow 16:00 (83) 10/20/18 95 16:00 10/20/18 94 18 83/54 (64) 98 15:00 10/20/18 101 18 108/70 94 High Flow 14:00 (83) 10/20/18 117 23 93/79 (84) 95 13:00 10/20/18 96 20 86 25.0 50 13:00 10/20/18 118 12:00 10/20/18 97.8 123 30 82/53 (63) 90 High Flow 12:00 10/20/18 97 50 11:12 10/20/18 169 30 119/72 89 11:00 (88) 10/20/18 169 30 119/72 89 High Flow 25.0 11:00 (88) 10/20/18 116 12 111/82 88 10:00 (92) 10/20/18 116 12 111/82 88 High Flow 25.0 10:00 (92) 10/20/18 97 20 88 25.0 50 09:51 10/20/18 112 22 74/53 (60) 85 09:00 10/20/18 112 22 74/53 (60) 85 High Flow 25.0 09:00 10/20/18 97 50 08:44 Vital Signs Date Temp Pulse Resp B/P (MAP) Pulse Ox O2 O2 Flow FiO2 Time Delivery Rate 10/23/18 97.8 87 20 96/54 (68) 97 07:53 10/23/18 Nasal 3.0 07:40 Cannula 10/23/18 33 05:00 Intake and Output 10/22/18 10/22/18 10/23/18 1414:59 22:59 06:59 IntakeIntake Total 250 ml 1680 ml 340 ml OutputOutput Total 1450 ml 2550 ml 700 ml BalanceBalance -1200 ml -870 ml -360 ml Constitutional: alert, oriented, obese Psych: no complaints, nl mood/affect Respiratory: congested cough, wheezing Cardiovascular: regular rate and rhythm, nl pulses, other (venous congestion BLE); No edema, No murmurs/extra sounds, No rub Gastrointestinal: soft, nl liver, spleen, non-tender, bowel sounds; No mass, No rebound or guarding Musculoskeletal: nl extremities to inspection Extremities: normal pulses; No cyanosis, No clubbing, No edema 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: [employer] II-XII intact, nl mental status, nl speech, nl strength Additional Comments Bedside Glucose - 72 Hours Test 10/20/18 12:48 10/20/18 17:46 10/20/18 22:05 10/21/18 08:20 Bedside 144 169 128 133 Glucose mg/dL (70-220) mg/dL (70-220) mg/dL (70-220) mg/dL (70-220) Test 10/21/18 12:22 10/21/18 17:46 10/21/18 21:30 10/22/18 02:04 Bedside 118 84 180 119 Glucose mg/dL (70-220) mg/dL (70-220) mg/dL (70-220) mg/dL (70-220) Test 10/22/18 07:21 10/22/18 11:11 10/22/18 17:14 10/22/18 20:59 Bedside 116 152 220 224 Glucose mg/dL (70-220) mg/dL (70-220) mg/dL (70-220) mg/dL (70-220) H Test 10/23/18 03:22 10/23/18 07:24 Bedside 104 129 Glucose mg/dL (70-220) mg/dL (70-220) Results Result Diagram: 10/21/18 0504 10/22/18 0526 Results 24hrs Laboratory Tests Test 10/22/18 11:11 10/22/18 17:14 10/22/18 20:59 10/23/18 03:22 Bedside Glucose 152 220 224 H 104 Test 10/23/18 07:24 Bedside Glucose 129 Medications Medication Current Medications Albuterol/ Ipratropium (Duoneb) 3 ml Q4 HHN Last administered on 10/23/18at 04:49; Admin Dose 3 ML; Start 10/11/18 at 21:00 Insulin Aspart (Novolog Insulin Pen) NOVOLOG *MODERATE* ALGORITHM WITH MEALS BEDTIME SC Last administered on 10/22/18 21:11; Admin Dose 2 UNIT; Start 10/11/18 at 21:00 Zolpidem Tartrate (Ambien) 5 mg HS MAY REPEAT X 1 PRN PO INSOMNIA; Start 10/11/18 at 20:30 Ondansetron HCl (Zofran Inj) 4 mg Q4 PRN IV nausea; Start 10/11/18 at 20:30 Miscellaneous Information 1 ea NOTE XX ; Start 10/11/18 at 21:00 Glucose (Glutose) 15 gm Q15M PRN PO DECREASED GLUCOSE; Start 10/11/18 at 21:00 Glucose (Glutose) 22.5 gm Q15M PRN PO DECREASED GLUCOSE; Start 10/11/18 at 21:00 Dextrose (D50w Syringe) 25 ml Q15M PRN IV DECREASED GLUCOSE; Start 10/11/18 at 21:00 Dextrose (D50w Syringe) 50 ml Q15M PRN IV DECREASED GLUCOSE; Start 10/11/18 at 21:00 Glucagon (Glucagen) 1 mg Q15M PRN IM DECREASED GLUCOSE; Start 10/11/18 at 21:00 Glucose (Glutose) 15 gm Q15M PRN BUCCAL DECREASED GLUCOSE; Start 10/11/18 at 21:00 Promethazine HCl/ Dextromethorphan (Phenergan-Dm) 5 ml Q6 PRN PO COUGH; Start 10/11/18 at 21:00 Digoxin (Digoxin) 0.25 mg DAILY PO Last administered on 10/22/18at 08:19; Admin Dose 0.25 MG; Start 10/12/18 at 09:00 Atorvastatin Calcium (Lipitor) 20 mg DAILY@21 PO Last administered on 10/22/18 21:02; Admin Dose 20 MG; Start 10/11/18 at 22:30 Apixaban (Eliquis) 5 mg BID PO Last administered on 10/22/18 21:02; Admin Dose 5 MG; Start 10/12/18 at 12:30 Metoprolol Succinate (Toprol Xl) 50 mg BID PO Last administered on 10/21/18 21:22; Admin Dose 50 MG; Start 10/12/18 at 21:00 Patient Own Medication 6 ea AM PO Last administered on 10/22/18at 08:17; Admin Dose 6 EA; Start 10/13/18 at 13:00 Acetazolamide (Diamox) 250 mg BID PO Last administered on 10/22/18 21:02; Admin Dose 250 MG; Start 10/13/18 at 21:00 Metformin HCl (Glucophage Xr) 1,000 mg BID PO Last administered on 10/22/18 21:03; Admin Dose 1,000 MG; Start 10/14/18 at 21:00 Empaglifozin (Jardiance) 25 mg DAILY@08 PO Last administered on 10/22/18 08:21; Admin Dose 25 MG; Start 10/15/18 at 08:00 Diagnostic Test (Pha) (Accu-Chek) 1 ea 02 XX Last administered on 10/23/18 02:00; Admin Dose 1 EA; Start 10/15/18 at 02:00 Linagliptin (Tradjenta) 5 mg DAILY PO Last administered on 10/22/18 08:24; Admin Dose 5 MG; Start 10/15/18 at 09:00 Spironolactone (Aldactone) 25 mg DAILY PO Last administered on 10/22/18 08:20; Admin Dose 25 MG; Start 10/16/18 at 12:30 Furosemide (Lasix) 40 mg DAILY IV Last administered on 10/22/18 08:18; Admin Dose 40 MG; Start 10/19/18 at 09:00 Caspofungin 50 mg/ Sodium Chloride 250 ml @ 250 mls/hr Q24H IVPB Last administered on 10/22/18 12:28; Admin Dose 250 MLS/HR; Start 10/20/18 at 13:00 Nystatin (Nystatin Susp) 5 ml QID PO Last administered on 10/22/18 21:03; Admin Dose 5 ML; Start 10/19/18 at 13:00 Docusate Sodium (Colace) 200 mg BID PO Last administered on 10/22/18 21:02; Admin Dose 200 MG; Start 10/20/18 at 11:00 Polyethylene Glycol (Miralax) 17 gm BID PO Last administered on 10/22/18 21:03; Admin Dose 17 GM; Start 10/20/18 at 11:00 Doxycycline Hyclate (Vibramycin) 100 mg BID PO Last administered on 10/22/18 21:01; Admin Dose 100 MG; Start 10/20/18 at 13:30 Ceftriaxone Sodium 50 ml @ 100 mls/hr Q24H IVPB Last administered on 10/22/18at 14:01; Admin Dose 100 MLS/HR; Start 10/20/18 at 13:30 Prednisone (Prednisone) 30 mg DAILY PO Last administered on 10/22/18at 08:20; Admin Dose 30 MG; Start 10/22/18 at 09:00; Stop 10/23/18 at 09:01 Acetylcysteine (Mucomyst) 2 ml Q6H RESP THERAPY NEB Last administered on 10/23/18at 01:27; Admin Dose 2 ML; Start 10/21/18 at 14:00 Prednisone (Prednisone) 20 mg DAILY PO ; Start 10/24/18 at 09:00; Stop 10/25/18 at 09:01 Prednisone (Prednisone) 10 mg DAILY PO ; Start 10/26/18 at 09:00; Stop 10/27/18 at 09:01 Insulin Human NPH (Humulin N) 36 unit DAILY@0900 SC ; Start 10/23/18 at 09:00 KAYLA BUCK MD Oct 23, 2018 08:09
[2018-10-23] MEDS: DOCUSATE SODIUM 100 MG CAP PO SCH ×2 (08:41→21:00)
[2018-10-23] MEDS: DOXYCYCLINE 100 MG TAB PO SCH ×2 (08:41→21:01)
[2018-10-23] MEDS: ACETAZOLAMIDE 250 MG TAB PO SCH ×2 (08:41→21:02)
[2018-10-23] MEDS: APIXABAN 5 MG TABLET PO SCH ×2 (08:41→21:01)
[2018-10-23] MEDS: POLYETHYLENE GLYCOL 17 GM PACKET PO SCH ×2 (08:41→21:03)
[2018-10-23] MEDS: NYSTATIN SUSP 5 ML CUP PO SCH ×4 (08:41→21:02)
[2018-10-23] MEDS: DIGOXIN 0.25 MG TAB PO SCH (08:42)
[2018-10-23] MEDS: predniSONE 10 MG TAB PO SCH (08:42)
[2018-10-23] MEDS: LINAGLIPTIN 5 MG TABLET PO SCH (08:42)
[2018-10-23] MEDS: SPIRONOLACTONE 25 MG TAB PO SCH (08:43)
[2018-10-23] MEDS: EMPAGLIFLOZIN 10 MG TABLET PO SCH (08:43)
[2018-10-23] MEDS: metFORMIN (XR) 500 MG TAB PO SCH ×2 (08:43→21:07)
[2018-10-23] MEDS: CYCLOSET PO SCH (08:43)
[2018-10-23] MEDS: NPH, HUMAN INSULIN ISOPHANE 3ML VIAL SC SCH (08:45)
[2018-10-23] MEDS: FUROSEMIDE 40 MG INJ IV SCH (09:00)
--- NOTE | 2018-10-23 10:56 | PN ---
Date/Time of Note Date/Time of Note DATE: 10/23/18 TIME: 10:54 Subjective Feels much better. Continues to have a productive cough. Objective Vitals Vital Signs Date Temp Pulse Resp B/P (MAP) Pulse Ox O2 O2 Flow FiO2 Time Delivery Rate 10/23/18 4.0 08:17 10/23/18 111 18 92 08:16 10/23/18 97.8 96/54 (68) 07:53 10/23/18 Nasal 07:40 Cannula 10/23/18 33 05:00 Intake and Output 10/22/18 10/22/18 10/23/18 1414:59 22:59 06:59 IntakeIntake Total 250 ml 1680 ml 340 ml OutputOutput Total 1450 ml 2550 ml 700 ml BalanceBalance -1200 ml -870 ml -360 ml Diffuse rhonchi and rales Tachycardia Soft nontender nondistended normoactive bowel sounds No edema Nonfocal Results Result Diagram: 10/21/18 0504 10/22/18 0526 Medications Medications Current Medications Albuterol/ Ipratropium (Duoneb) 3 ml Q4 HHN Last administered on 10/23/18at 08:15; Admin Dose 3 ML; Start 10/11/18 at 21:00 Insulin Aspart (Novolog Insulin Pen) NOVOLOG *MODERATE* ALGORITHM WITH MEALS BEDTIME SC Last administered on 10/22/18at 21:11; Admin Dose 2 UNIT; Start 10/11/18 at 21:00 Zolpidem Tartrate (Ambien) 5 mg HS MAY REPEAT X 1 PRN PO INSOMNIA; Start 10/11/18 at 20:30 Ondansetron HCl (Zofran Inj) 4 mg Q4 PRN IV nausea; Start 10/11/18 at 20:30 Miscellaneous Information 1 ea NOTE XX ; Start 10/11/18 at 21:00 Glucose (Glutose) 15 gm Q15M PRN PO DECREASED GLUCOSE; Start 10/11/18 at 21:00 Glucose (Glutose) 22.5 gm Q15M PRN PO DECREASED GLUCOSE; Start 10/11/18 at 21:00 Dextrose (D50w Syringe) 25 ml Q15M PRN IV DECREASED GLUCOSE; Start 10/11/18 at 21:00 Dextrose (D50w Syringe) 50 ml Q15M PRN IV DECREASED GLUCOSE; Start 10/11/18 at 21:00 Glucagon (Glucagen) 1 mg Q15M PRN IM DECREASED GLUCOSE; Start 10/11/18 at 21:00 Glucose (Glutose) 15 gm Q15M PRN BUCCAL DECREASED GLUCOSE; Start 10/11/18 at 21:00 Promethazine HCl/ Dextromethorphan (Phenergan-Dm) 5 ml Q6 PRN PO COUGH; Start 10/11/18 at 21:00 Digoxin (Digoxin) 0.25 mg DAILY PO Last administered on 10/23/18 08:42; Admin Dose 0.25 MG; Start 10/12/18 at 09:00 Atorvastatin Calcium (Lipitor) 20 mg DAILY@21 PO Last administered on 10/22/18 21:02; Admin Dose 20 MG; Start 10/11/18 at 22:30 Apixaban (Eliquis) 5 mg BID PO Last administered on 10/23/18 08:41; Admin Dose 5 MG; Start 10/12/18 at 12:30 Metoprolol Succinate (Toprol Xl) 50 mg BID PO Last administered on 10/21/18 21:22; Admin Dose 50 MG; Start 10/12/18 at 21:00 Patient Own Medication 6 ea AM PO Last administered on 10/23/18 08:43; Admin Dose 6 EA; Start 10/13/18 at 13:00 Acetazolamide (Diamox) 250 mg BID PO Last administered on 10/23/18 08:41; Admin Dose 250 MG; Start 10/13/18 at 21:00 Metformin HCl (Glucophage Xr) 1,000 mg BID PO Last administered on 10/23/18 08:43; Admin Dose 1,000 MG; Start 10/14/18 at 21:00 Empaglifozin (Jardiance) 25 mg DAILY@08 PO Last administered on 10/23/18 08:43; Admin Dose 25 MG; Start 10/15/18 at 08:00 Diagnostic Test (Pha) (Accu-Chek) 1 ea 02 XX Last administered on 10/23/18 02:00; Admin Dose 1 EA; Start 10/15/18 at 02:00 Linagliptin (Tradjenta) 5 mg DAILY PO Last administered on 10/23/18 08:42; Admin Dose 5 MG; Start 10/15/18 at 09:00 Spironolactone (Aldactone) 25 mg DAILY PO Last administered on 10/23/18 08:43; Admin Dose 25 MG; Start 10/16/18 at 12:30 Furosemide (Lasix) 40 mg DAILY IV Last administered on 10/22/18 08:18; Admin Dose 40 MG; Start 10/19/18 at 09:00 Caspofungin 50 mg/ Sodium Chloride 250 ml @ 250 mls/hr Q24H IVPB Last administered on 10/22/18 12:28; Admin Dose 250 MLS/HR; Start 10/20/18 at 13:00 Nystatin (Nystatin Susp) 5 ml QID PO Last administered on 10/23/18 08:41; Admin Dose 5 ML; Start 10/19/18 at 13:00 Docusate Sodium (Colace) 200 mg BID PO Last administered on 10/23/18 08:41; Admin Dose 200 MG; Start 10/20/18 at 11:00 Polyethylene Glycol (Miralax) 17 gm BID PO Last administered on 10/23/18 08:41; Admin Dose 17 GM; Start 10/20/18 at 11:00 Doxycycline Hyclate (Vibramycin) 100 mg BID PO Last administered on 10/23/18 08:41; Admin Dose 100 MG; Start 10/20/18 at 13:30 Ceftriaxone Sodium 50 ml @ 100 mls/hr Q24H IVPB Last administered on 10/22/18 14:01; Admin Dose 100 MLS/HR; Start 10/20/18 at 13:30 Acetylcysteine (Mucomyst) 2 ml Q6H RESP THERAPY NEB Last administered on 10/23/18 08:16; Admin Dose 2 ML; Start 10/21/18 at 14:00 Prednisone (Prednisone) 20 mg DAILY PO ; Start 10/24/18 at 09:00; Stop 10/25/18 at 09:01 Prednisone (Prednisone) 10 mg DAILY PO ; Start 10/26/18 at 09:00; Stop 10/27/18 at 09:01 Insulin Human NPH (Humulin N) 36 unit DAILY@0900 SC Last administered on 08:45; Admin Dose 36 UNIT; Start 10/23/18 at 09:00; Stop 10/24/18 at 10:00 Insulin Human NPH (Humulin N) 24 unit DAILY@0900 SC ; Start 10/24/18 at 09:00 VTE Prophylaxis Risk score (from Ns)>0 risk: 3 SCD applied (from [facility] [place]): No SCD contraindication: other Pharmacological prophylaxis: apixaban Lines/Catheters IV Catheter Type: Saline Lock [place] in Place: No Assessment/Plan Assessment/Plan 63-year-old male with acute hypoxemic respiratory failure, slowly improving, now on 4 L of O2 Community-acquired pneumonia Mucous plugs Paroxysmal atrial fibrillation Moderate obesity Continue current therapy Pulmonary follow-up Discharge planning ELI Gomez MD Oct 23, 2018 10:56
--- NOTE | 2018-10-23 11:16 | CONS ---
Consult Date/Type/Reason Admit Date/Time Oct 12, 2018 at 06:16 Initial Consult Date Type of Consult Pulmonary Requesting Provider: ROEL ALBA Date/Time of Note DATE: 10/23/18 TIME: 11:15 Subjective Patient comfortable no distress. Now on 4 L nasal cannula. Objective Vital Signs Date Temp Pulse Resp B/P (MAP) Pulse Ox O2 O2 Flow FiO2 Time Delivery Rate 10/23/18 4.0 08:17 10/23/18 111 18 92 08:16 10/23/18 97.8 96/54 (68) 07:53 10/23/18 Nasal 07:40 Cannula 10/23/18 33 05:00 Intake and Output 10/22/18 10/22/18 10/23/18 1515:00 23:00 07:00 IntakeIntake Total 250 ml 1680 ml 340 ml OutputOutput Total 1450 ml 2550 ml 700 ml BalanceBalance -1200 ml -870 ml -360 ml Exam GENERAL: Well-nourished well-developed gentleman comfortable at rest VITAL SIGNS: per chart NECK: Supple. No JVD or lymphadenopathy. CARDIAC EXAM: S1, S2. No added sounds or murmurs. CHEST: Diminished air entry bilaterally ABDOMEN: Soft, nontender. No guarding or rebound. EXTREMITIES: No cyanosis, clubbing or edema. NEUROLOGIC: Generalized weakness. No focal deficits. Vent Setting Fraction of Inspired Oxygen pe: 33 Results/Medications Result Diagram: 10/21/18 0504 10/22/18 0526 Results 24 hrs Laboratory Tests Test 10/22/18 17:14 10/22/18 20:59 10/23/18 03:22 10/23/18 07:24 Bedside Glucose 220 224 H 104 129 Medications Current Medications Albuterol/ Ipratropium (Duoneb) 3 ml Q4 HHN Last administered on 10/23/18at 08:15; Admin Dose 3 ML; Start 10/11/18 at 21:00 Insulin Aspart (Novolog Insulin Pen) NOVOLOG *MODERATE* ALGORITHM WITH MEALS BEDTIME SC Last administered on 10/22/18at 21:11; Admin Dose 2 UNIT; Start 10/11/18 at 21:00 Zolpidem Tartrate (Ambien) 5 mg HS MAY REPEAT X 1 PRN PO INSOMNIA; Start at 20:30 Ondansetron HCl (Zofran Inj) 4 mg Q4 PRN IV nausea; Start 10/11/18 at 20:30 Miscellaneous Information 1 ea NOTE XX ; Start 10/11/18 at 21:00 Glucose (Glutose) 15 gm Q15M PRN PO DECREASED GLUCOSE; Start 10/11/18 at 21:00 Glucose (Glutose) 22.5 gm Q15M PRN PO DECREASED GLUCOSE; Start 10/11/18 at 21:00 Dextrose (D50w Syringe) 25 ml Q15M PRN IV DECREASED GLUCOSE; Start 10/11/18 at 21:00 Dextrose (D50w Syringe) 50 ml Q15M PRN IV DECREASED GLUCOSE; Start 10/11/18 at 21:00 Glucagon (Glucagen) 1 mg Q15M PRN IM DECREASED GLUCOSE; Start 10/11/18 at 21:00 Glucose (Glutose) 15 gm Q15M PRN BUCCAL DECREASED GLUCOSE; Start 10/11/18 at 21:00 Promethazine HCl/ Dextromethorphan (Phenergan-Dm) 5 ml Q6 PRN PO COUGH; Start 10/11/18 at 21:00 Digoxin (Digoxin) 0.25 mg DAILY PO Last administered on 10/23/18 08:42; Admin Dose 0.25 MG; Start 10/12/18 at 09:00 Atorvastatin Calcium (Lipitor) 20 mg DAILY@21 PO Last administered on 10/22/18 21:02; Admin Dose 20 MG; Start 10/11/18 at 22:30 Apixaban (Eliquis) 5 mg BID PO Last administered on 10/23/18 08:41; Admin Dose 5 MG; Start 10/12/18 at 12:30 Metoprolol Succinate (Toprol Xl) 50 mg BID PO Last administered on 10/23/18 10:59; Admin Dose 50 MG; Start 10/12/18 at 21:00 Patient Own Medication 6 ea AM PO Last administered on 10/23/18 08:43; Admin Dose 6 EA; Start 10/13/18 at 13:00 Acetazolamide (Diamox) 250 mg BID PO Last administered on 10/23/18 08:41; Admin Dose 250 MG; Start 10/13/18 at 21:00 Metformin HCl (Glucophage Xr) 1,000 mg BID PO Last administered on 10/23/18 08:43; Admin Dose 1,000 MG; Start 10/14/18 at 21:00 Empaglifozin (Jardiance) 25 mg DAILY@08 PO Last administered on 10/23/18 08:43; Admin Dose 25 MG; Start 10/15/18 at 08:00 Diagnostic Test (Pha) (Accu-Chek) 1 ea 02 XX Last administered on 10/23/18 02:00; Admin Dose 1 EA; Start 10/15/18 at 02:00 Linagliptin (Tradjenta) 5 mg DAILY PO Last administered on 10/23/18 08:42; Admin Dose 5 MG; Start 10/15/18 at 09:00 Spironolactone (Aldactone) 25 mg DAILY PO Last administered on 10/23/18 08:43; Admin Dose 25 MG; Start 10/16/18 at 12:30 Furosemide (Lasix) 40 mg DAILY IV Last administered on 10/22/18 08:18; Admin Dose 40 MG; Start 10/19/18 at 09:00 Caspofungin 50 mg/ Sodium Chloride 250 ml @ 250 mls/hr Q24H IVPB Last administered on 10/22/18 12:28; Admin Dose 250 MLS/HR; Start 10/20/18 at 13:00 Nystatin (Nystatin Susp) 5 ml QID PO Last administered on 10/23/18 08:41; Admin Dose 5 ML; Start 10/19/18 at 13:00 Docusate Sodium (Colace) 200 mg BID PO Last administered on 10/23/18 08:41; Admin Dose 200 MG; Start 10/20/18 at 11:00 Polyethylene Glycol (Miralax) 17 gm BID PO Last administered on 10/23/18 08:41; Admin Dose 17 GM; Start 10/20/18 at 11:00 Doxycycline Hyclate (Vibramycin) 100 mg BID PO Last administered on 10/23/18 08:41; Admin Dose 100 MG; Start 10/20/18 at 13:30 Ceftriaxone Sodium 50 ml @ 100 mls/hr Q24H IVPB Last administered on 10/22/18 14:01; Admin Dose 100 MLS/HR; Start 10/20/18 at 13:30 Acetylcysteine (Mucomyst) 2 ml Q6H RESP THERAPY NEB Last administered on 10/23/18at 08:16; Admin Dose 2 ML; Start 10/21/18 at 14:00 Prednisone (Prednisone) 20 mg DAILY PO ; Start 10/24/18 at 09:00; Stop 10/25/18 at 09:01 Prednisone (Prednisone) 10 mg DAILY PO ; Start 10/26/18 at 09:00; Stop 10/27/18 at 09:01 Insulin Human NPH (Humulin N) 36 unit DAILY@0900 SC Last administered on 10/23/18at 08:45; Admin Dose 36 UNIT; Start 10/23/18 at 09:00; Stop 10/24/18 at 10:00 Insulin Human NPH (Humulin N) 24 unit DAILY@0900 SC ; Start 10/24/18 at 09:00 Assessment/Plan Hospital Course (Demo Recall) IMP: 1. Hypoxemic Resp Failure, chest x-ray shows ongoing atelectasis possible mild pulmonary edema discussed with family at length 2. RLL pneumonia with hilar and mediastinal adenopathy--s/p recent travel to [facility]. Query tularemia vs. other atypical infection 3. Afib with RVR 4. HTN heart Disease 5. DM RECS: 1. Continue doxycycline 2. PT eval encourage ambulation 3. Repeat CT noted with mucous plugging and atelectasis 4. Decrease steroids. 5. Continue Mucomyst and incentive spirometry 6. Chest PT 4 times a day Discussed with family at length TELMA CAI MD, [facility] Oct 23, 2018 11:16
--- NOTE | 2018-10-23 11:18 | CONS ---
Assessment/Plan Assessment/Plan Assessment/Plan (Daily) 1. Metabolic alkalosis on Acetazolamide 250mg BID , 1. Acute Hypoxic respiratory failure, likely secondary to reactive airway and pneumonia, patient seems to be euvolemic for now.- on IV abx cefepime , cancidas and Doxycyline< renally dose all abx and monitor electrolytes , o lasix 40mg IV daily , monitor electrolytes and replace as needed , pt is on tapering dose of Prednisone 2. Atrial fibrillation, chronic, rate controlled. 3. Congestive heart failure, diastolic dysfunction, chronic, currently euvolemic. Echocardiogram with EF of 55%.- on lasix 40mg pO BID Continue current medication, patient on oral Lasix daily. 4. Diabetes mellitus Type II with acute hyperglycemia 5. Hypertension Consultation Date/Type/Reason Admit Date/Time Oct 12, 2018 at 06:16 Initial Consult Date 10/14/18 Type of Consult NEPHROLOGY Requesting Provider: ROEL ALBA Date/Time of Note DATE: 10/23/18 TIME: 11:18 Exam/Review of Systems Exam Vitals Vital Signs Date Temp Pulse Resp B/P (MAP) Pulse Ox O2 O2 Flow FiO2 Time Delivery Rate 10/23/18 97.6 124 20 107/67 93 11:14 (80) 10/23/18 4.0 08:17 10/23/18 Nasal 07:40 Cannula 10/23/18 33 05:00 Intake and Output 10/22/18 10/22/18 10/23/18 1515:00 23:00 07:00 IntakeIntake Total 250 ml 1680 ml 340 ml OutputOutput Total 1450 ml 2550 ml 700 ml BalanceBalance -1200 ml -870 ml -360 ml Exam Constitutional: awake, alert, no acute distress Respiratory: decreased BS at bases, no wheezing Cardiovascular: regular rate and rhythm, nl pulses Gastrointestinal: soft, nl liver, spleen, non-tender, other (obese) Musculoskeletal: nl extremities to inspection, nl gait and stance, swelling (1- 2+ pitting edema ) 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: [employer] REPRESENTATIVE II-XII intact, nl mental status, nl speech Results Result Diagram: 10/21/18 0504 10/22/18 0526 Results 24hrs Laboratory Tests Test 10/22/18 17:14 10/22/18 20:59 10/23/18 03:22 10/23/18 07:24 Bedside Glucose 220 224 H 104 129 Medications Medication Current Medications Albuterol/ Ipratropium (Duoneb) 3 ml Q4 HHN Last administered on 10/23/18at 08:15; Admin Dose 3 ML; Start 10/11/18 at 21:00 Insulin Aspart (Novolog Insulin Pen) NOVOLOG *MODERATE* ALGORITHM WITH MEALS BEDTIME SC Last administered on 10/22/18at 21:11; Admin Dose 2 UNIT; Start 10/11/18 at 21:00 Zolpidem Tartrate (Ambien) 5 mg HS MAY REPEAT X 1 PRN PO INSOMNIA; Start 10/11/18 at 20:30 Ondansetron HCl (Zofran Inj) 4 mg Q4 PRN IV nausea; Start 10/11/18 at 20:30 Miscellaneous Information 1 ea NOTE XX ; Start 10/11/18 at 21:00 Glucose (Glutose) 15 gm Q15M PRN PO DECREASED GLUCOSE; Start 10/11/18 at 21:00 Glucose (Glutose) 22.5 gm Q15M PRN PO DECREASED GLUCOSE; Start 10/11/18 at 21:00 Dextrose (D50w Syringe) 25 ml Q15M PRN IV DECREASED GLUCOSE; Start 10/11/18 at 21:00 Dextrose (D50w Syringe) 50 ml Q15M PRN IV DECREASED GLUCOSE; Start 10/11/18 at 21:00 Glucagon (Glucagen) 1 mg Q15M PRN IM DECREASED GLUCOSE; Start 10/11/18 at 21:00 Glucose (Glutose) 15 gm Q15M PRN BUCCAL DECREASED GLUCOSE; Start 10/11/18 at 21:00 Promethazine HCl/ Dextromethorphan (Phenergan-Dm) 5 ml Q6 PRN PO COUGH; Start 10/11/18 at 21:00 Digoxin (Digoxin) 0.25 mg DAILY PO Last administered on 10/23/18at 08:42; Admin Dose 0.25 MG; Start 10/12/18 at 09:00 Atorvastatin Calcium (Lipitor) 20 mg DAILY@21 PO Last administered on 10/22/18at 21:02; Admin Dose 20 MG; Start 10/11/18 at 22:30 Apixaban (Eliquis) 5 mg BID PO Last administered on 10/23/18at 08:41; Admin Dose 5 MG; Start 10/12/18 at 12:30 Metoprolol Succinate (Toprol Xl) 50 mg BID PO Last administered on 10/23/18 10:59; Admin Dose 50 MG; Start 10/12/18 at 21:00 Patient Own Medication 6 ea AM PO Last administered on 10/23/18 08:43; Admin Dose 6 EA; Start 10/13/18 at 13:00 Acetazolamide (Diamox) 250 mg BID PO Last administered on 10/23/18 08:41; Admin Dose 250 MG; Start 10/13/18 at 21:00 Metformin HCl (Glucophage Xr) 1,000 mg BID PO Last administered on 10/23/18 08:43; Admin Dose 1,000 MG; Start 10/14/18 at 21:00 Empaglifozin (Jardiance) 25 mg DAILY@08 PO Last administered on 10/23/18 08:43; Admin Dose 25 MG; Start 10/15/18 at 08:00 Diagnostic Test (Pha) (Accu-Chek) 1 ea 02 XX Last administered on 10/23/18 02:00; Admin Dose 1 EA; Start 10/15/18 at 02:00 Linagliptin (Tradjenta) 5 mg DAILY PO Last administered on 10/23/18 08:42; Admin Dose 5 MG; Start 10/15/18 at 09:00 Spironolactone (Aldactone) 25 mg DAILY PO Last administered on 10/23/18 08:43; Admin Dose 25 MG; Start 10/16/18 at 12:30 Furosemide (Lasix) 40 mg DAILY IV Last administered on 10/22/18 08:18; Admin Dose 40 MG; Start 10/19/18 at 09:00 Caspofungin 50 mg/ Sodium Chloride 250 ml @ 250 mls/hr Q24H IVPB Last administered on 10/22/18 12:28; Admin Dose 250 MLS/HR; Start 10/20/18 at 13:00 Nystatin (Nystatin Susp) 5 ml QID PO Last administered on 10/23/18 08:41; Admin Dose 5 ML; Start 10/19/18 at 13:00 Docusate Sodium (Colace) 200 mg BID PO Last administered on 10/23/18 08:41; Admin Dose 200 MG; Start 10/20/18 at 11:00 Polyethylene Glycol (Miralax) 17 gm BID PO Last administered on 10/23/18 08:41; Admin Dose 17 GM; Start 10/20/18 at 11:00 Doxycycline Hyclate (Vibramycin) 100 mg BID PO Last administered on 10/23/18 08:41; Admin Dose 100 MG; Start 10/20/18 at 13:30 Ceftriaxone Sodium 50 ml @ 100 mls/hr Q24H IVPB Last administered on 10/22/18at 14:01; Admin Dose 100 MLS/HR; Start 10/20/18 at 13:30 Acetylcysteine (Mucomyst) 2 ml Q6H RESP THERAPY NEB Last administered on 10/23/18 08:16; Admin Dose 2 ML; Start 10/21/18 at 14:00 Prednisone (Prednisone) 20 mg DAILY PO ; Start 10/24/18 at 09:00; Stop 10/25/18 at 09:01 Prednisone (Prednisone) 10 mg DAILY PO ; Start 10/26/18 at 09:00; Stop 10/27/18 at 09:01 Insulin Human NPH (Humulin N) 36 unit DAILY@0900 SC Last administered on 10/23/18 08:45; Admin Dose 36 UNIT; Start 10/23/18 at 09:00; Stop 10/24/18 at 10:00 Insulin Human NPH (Humulin N) 24 unit DAILY@0900 SC ; Start 10/24/18 at 09:00 NEDA STAHL MD Oct 23, 2018 11:18
[2018-10-23] MEDS: CASPOFUNGIN 50 MG in SOD CHLORIDE 0.9% 250 ML IVPB SCH (12:31)
[2018-10-23] MEDS: CEFTRIAXONE 2 GM/50 ML (PMX) 50 ML IVPB SCH (13:31)
--- NOTE | 2018-10-23 14:57 | CONS ---
Assessment/Plan Assessment/Plan Hospital Course (Demo Recall) ID PROGRESS NOTE CURRENT ABX: DAY # =>Cancidas + Doxycycline + Ceftriaxone 2gm s/p Cefepime 24H INTERVAL SUMMARY * O2 increased to 4L with mild rise WBC -- NO FEVERS -- (-) Aspergillus * Now on mucolytics and chest percussive tx, using Incentive Spirometer * CT w/extensive mucous plugging * 10/22/18 SPUTUM CX: RESPIRATORY CULTURE Preliminary Organism 1 NORMAL RESPIRATORY ETHAN QUANTITY 2+ * WBC up slightly -- Steroids taper DIAGNOSTIC IMAGING * 10/22/18 CXR: 1. Stable dense atelectasis involving the right middle lobe, left lingula, and lower lungs bilaterally. The appearances are grossly stable compared to the prior studies. * 10/20/18 CT Chest: IMPRESSION: * 1. Dense confluent atelectasis in the inferior aspect of the right middle lobe with central mucous plugging, causing partial collapse of the right middle lobe. * 2. Dense severe confluent atelectasis in the extreme right posterior lung base adjacent to the right hemidiaphragm, also with central mucous plug ging. * 3. Less severe minor subsegmental atelectasis in the left lingula and left lung base, with endobronchial partial mucous plugging in the left lower lobe bronchi. * 4. Hazy ground-glass infiltration and presumed pneumonia within the aspect of the right upper lobe. * 5. Several tiny micronodules along the lateral periphery of the upper lobes bilaterally, too small to characterize. These are likely benign and inflammatory nature. Follow-up imaging is not required and is optional at 1 year (Raimundo 2017). * 6. Cardiomegaly with multi-chamber enlargement and dilatation, with abundant atherosclerotic vascular calcifications. * 7. Numerous scattered diffuse extensive mild benign reactive adenopathy throughout the mediastinum and hilar cassi stations. * 8. Scattered benign chronic senescent changes seen elsewhere throughout the remainder of the study. * 10/20/18 CXR: IMPRESSION:1. Prominent pulmonary vascular markings, at least partially related to low lung volumes. Mild pulmonary vascular congestion is not excluded. No significant interval change. 2. Bilateral basilar atelectasis. 3. Aortic atherosclerosis. MICRO * BCx(-); (-) Urine Cx * 10/17/18 Sputum (+) C.Albicans PHYSICAL EXAMINATION: GENERAL: VSS, NAD HEENT: AT, NC, NECK: Supple, CHEST: Rise symmetrical -- supplemental O2 high flow HEART: Pulse RRR ABDOMEN: Benign EXTREMITIES: Warm, dry SKIN: No rash, no diaphoresis ID ASSESSMENT 62 yo M admit with: 1. Acute hypoxemic respiratory failure 2. Multi-lobar lobe pneumonia w/bilateral mucous plugging * HIV(-); Legionella (-) ; (-) Aspergillus * Aspergillus, Cocci, Mycoplasma serology pending 3. Oral thrush 4. Atrial fibrillation, chronic 5. Bilateral lower extremities chronic venous stasis 6. CHF 7. Diabetes (-)MRSA Nares ABX ALLERGIES: KNDA INVASIVES: PIV CURRENT ABX: DAY # =>Cancidas + Doxycycline + Ceftriaxone 2gm s/p Cefepime ID RECOMMENDATIONS/PLAN: 1. ABX D/W Dr. Reyna -- Community Acquired PNA in a patient who has hx of travel * Continue current ABX 2. Cocci & Mycoplasma serology pending . . Consultation Date/Type/Reason Admit Date/Time Oct 12, 2018 at 06:16 Initial Consult Date 10/14/18 Requesting Provider: ROEL ALBA Date/Time of Note DATE: 10/23/18 TIME: 14:53 Exam/Review of Systems Exam Vitals Vital Signs Date Temp Pulse Resp B/P (MAP) Pulse Ox O2 O2 Flow FiO2 Time Delivery Rate 10/23/18 98 20 93 Nasal 4.0 13:27 Cannula 10/23/18 97.6 107/67 11:14 (80) 10/23/18 33 05:00 Intake and Output 10/22/18 10/22/18 10/23/18 1515:00 23:00 07:00 IntakeIntake Total 250 ml 1680 ml 340 ml OutputOutput Total 1450 ml 2550 ml 700 ml BalanceBalance -1200 ml -870 ml -360 ml Results Result Diagram: 10/21/18 0504 10/22/18 0526 Results 24hrs Laboratory Tests Test 10/22/18 17:14 10/22/18 20:59 10/23/18 03:22 10/23/18 07:24 Bedside Glucose 220 224 H 104 129 Test 10/23/18 11:40 10/23/18 13:23 Bedside Glucose 205 Lab Scanned Report REFERENCE LAB Medications Medication Current Medications Albuterol/ Ipratropium (Duoneb) 3 ml Q4 HHN Last administered on 10/23/18at 13:26; Admin Dose 3 ML; Start 10/11/18 at 21:00 Insulin Aspart (Novolog Insulin Pen) NOVOLOG *MODERATE* ALGORITHM WITH MEALS BEDTIME SC Last administered on 10/23/18at 11:47; Admin Dose 4 UNIT; Start 10/11/18 at 21:00 Zolpidem Tartrate (Ambien) 5 mg HS MAY REPEAT X 1 PRN PO INSOMNIA; Start 10/11/18 at 20:30 Ondansetron HCl (Zofran Inj) 4 mg Q4 PRN IV nausea; Start 10/11/18 at 20:30 Miscellaneous Information 1 ea NOTE XX ; Start 10/11/18 at 21:00 Glucose (Glutose) 15 gm Q15M PRN PO DECREASED GLUCOSE; Start 10/11/18 at 21:00 Glucose (Glutose) 22.5 gm Q15M PRN PO DECREASED GLUCOSE; Start 10/11/18 at 21:00 Dextrose (D50w Syringe) 25 ml Q15M PRN IV DECREASED GLUCOSE; Start 10/11/18 at 21:00 Dextrose (D50w Syringe) 50 ml Q15M PRN IV DECREASED GLUCOSE; Start 10/11/18 at 21:00 Glucagon (Glucagen) 1 mg Q15M PRN IM DECREASED GLUCOSE; Start 10/11/18 at 21:00 Glucose (Glutose) 15 gm Q15M PRN BUCCAL DECREASED GLUCOSE; Start 10/11/18 at 21:00 Promethazine HCl/ Dextromethorphan (Phenergan-Dm) 5 ml Q6 PRN PO COUGH; Start 10/11/18 at 21:00 Digoxin (Digoxin) 0.25 mg DAILY PO Last administered on 10/23/18at 08:42; Admin Dose 0.25 MG; Start 10/12/18 at 09:00 Atorvastatin Calcium (Lipitor) 20 mg DAILY@21 PO Last administered on 10/22/18at 21:02; Admin Dose 20 MG; Start 10/11/18 at 22:30 Apixaban (Eliquis) 5 mg BID PO Last administered on 10/23/18at 08:41; Admin Dose 5 MG; Start 10/12/18 at 12:30 Metoprolol Succinate (Toprol Xl) 50 mg BID PO Last administered on 10/23/18 10:59; Admin Dose 50 MG; Start 10/12/18 at 21:00 Patient Own Medication 6 ea AM PO Last administered on 10/23/18 08:43; Admin Dose 6 EA; Start 10/13/18 at 13:00 Acetazolamide (Diamox) 250 mg BID PO Last administered on 10/23/18 08:41; Admin Dose 250 MG; Start 10/13/18 at 21:00 Metformin HCl (Glucophage Xr) 1,000 mg BID PO Last administered on 10/23/18 08:43; Admin Dose 1,000 MG; Start 10/14/18 at 21:00 Empaglifozin (Jardiance) 25 mg DAILY@08 PO Last administered on 10/23/18 08:43; Admin Dose 25 MG; Start 10/15/18 at 08:00 Diagnostic Test (Pha) (Accu-Chek) 1 ea 02 XX Last administered on 10/23/18 02:00; Admin Dose 1 EA; Start 10/15/18 at 02:00 Linagliptin (Tradjenta) 5 mg DAILY PO Last administered on 10/23/18 08:42; Admin Dose 5 MG; Start 10/15/18 at 09:00 Spironolactone (Aldactone) 25 mg DAILY PO Last administered on 10/23/18 08:43; Admin Dose 25 MG; Start 10/16/18 at 12:30 Furosemide (Lasix) 40 mg DAILY IV Last administered on 10/22/18 08:18; Admin Dose 40 MG; Start 10/19/18 at 09:00 Caspofungin 50 mg/ Sodium Chloride 250 ml @ 250 mls/hr Q24H IVPB Last administered on 10/23/18 12:31; Admin Dose 250 MLS/HR; Start 10/20/18 at 13:00 Nystatin (Nystatin Susp) 5 ml QID PO Last administered on 10/23/18 13:31; Admin Dose 5 ML; Start 10/19/18 at 13:00 Docusate Sodium (Colace) 200 mg BID PO Last administered on 10/23/18 08:41; Admin Dose 200 MG; Start 10/20/18 at 11:00 Polyethylene Glycol (Miralax) 17 gm BID PO Last administered on 10/23/18 08:41; Admin Dose 17 GM; Start 10/20/18 at 11:00 Doxycycline Hyclate (Vibramycin) 100 mg BID PO Last administered on 10/23/18 08:41; Admin Dose 100 MG; Start 10/20/18 at 13:30 Ceftriaxone Sodium 50 ml @ 100 mls/hr Q24H IVPB Last administered on 10/23/18 13:31; Admin Dose 100 MLS/HR; Start 10/20/18 at 13:30 Acetylcysteine (Mucomyst) 2 ml Q6H RESP THERAPY NEB Last administered on 10/23/18 13:26; Admin Dose 2 ML; Start 10/21/18 at 14:00 Prednisone (Prednisone) 20 mg DAILY PO ; Start 10/24/18 at 09:00; Stop 10/25/18 at 09:01 Prednisone (Prednisone) 10 mg DAILY PO ; Start 10/26/18 at 09:00; Stop 10/27/18 at 09:01 Insulin Human NPH (Humulin N) 36 unit DAILY@0900 SC Last administered on 10/23/18 08:45; Admin Dose 36 UNIT; Start 10/23/18 at 09:00; Stop 10/24/18 at 10:00 Insulin Human NPH (Humulin N) 24 unit DAILY@0900 SC ; Start 10/24/18 at 09:00 BRETT KWONG NP Oct 23, 2018 14:57
--- NOTE | 2018-10-23 15:50 | CONS ---
Assessment/Plan Assessment/Plan Hospital Course (Demo Recall) Respiratory failure with hypoxia-improving PNA Acute decompensated systolic and diastolic congestive heart failure History of cardiomyopathy, current left ventricular ejection fraction 50-55% Pulmonary hypertension Chronic Atrial Fibrillation DM Respiratory status continues to improve and currently on nasal cannula Antibiotics as per infectious disease Continue beta-dana as heart rate and blood pressure permits Cont Eliquis if no contraindication Diuretics as per nephrology Consultation Date/Type/Reason Admit Date/Time Oct 12, 2018 at 06:16 Initial Consult Date Type of Consult Cardiology Requesting Provider: ROEL ALBA Date/Time of Note DATE: 10/23/18 TIME: 15:49 24 HR Interval Summary Free Text/Dictation Shortness of breath continues to improve. Denies palpitations, chest pain Exam/Review of Systems Vital Signs Vitals Vital Signs Date Temp Pulse Resp B/P (MAP) Pulse Ox O2 O2 Flow FiO2 Time Delivery Rate 10/23/18 97.8 97 20 104/66 94 15:30 (79) 10/23/18 Nasal 4.0 13:27 Cannula 10/23/18 33 05:00 Intake and Output 10/22/18 10/22/18 10/23/18 1515:00 23:00 07:00 IntakeIntake Total 250 ml 1680 ml 340 ml OutputOutput Total 1450 ml 2550 ml 700 ml BalanceBalance -1200 ml -870 ml -360 ml Exam Constitutional: alert, oriented (Sitting in chair, no apparent distress) Head: normocephalic Respiratory: other (Coarse breath sounds bilaterally, no wheezing) Cardiovascular: irregular rhythm (S1-S2 heard) Gastrointestinal: soft, non-tender, bowel sounds Extremities: edema (Trace) Labs Result Diagram: 10/21/18 0504 10/22/18 0526 Results 24hrs Laboratory Tests Test 10/22/18 17:14 10/22/18 20:59 10/23/18 03:22 10/23/18 07:24 Bedside Glucose 220 224 H 104 129 Test 10/23/18 11:40 10/23/18 13:23 Bedside Glucose 205 Lab Scanned Report REFERENCE LAB Medications Medications Current Medications Albuterol/ Ipratropium (Duoneb) 3 ml Q4 HHN Last administered on 10/23/18at 13:26; Admin Dose 3 ML; Start 10/11/18 at 21:00 Insulin Aspart (Novolog Insulin Pen) NOVOLOG *MODERATE* ALGORITHM WITH MEALS BEDTIME SC Last administered on 10/23/18 11:47; Admin Dose 4 UNIT; Start 10/11/18 at 21:00 Zolpidem Tartrate (Ambien) 5 mg HS MAY REPEAT X 1 PRN PO INSOMNIA; Start 10/11/18 at 20:30 Ondansetron HCl (Zofran Inj) 4 mg Q4 PRN IV nausea; Start 10/11/18 at 20:30 Miscellaneous Information 1 ea NOTE XX ; Start 10/11/18 at 21:00 Glucose (Glutose) 15 gm Q15M PRN PO DECREASED GLUCOSE; Start 10/11/18 at 21:00 Glucose (Glutose) 22.5 gm Q15M PRN PO DECREASED GLUCOSE; Start 10/11/18 at 21:00 Dextrose (D50w Syringe) 25 ml Q15M PRN IV DECREASED GLUCOSE; Start 10/11/18 at 21:00 Dextrose (D50w Syringe) 50 ml Q15M PRN IV DECREASED GLUCOSE; Start 10/11/18 at 21:00 Glucagon (Glucagen) 1 mg Q15M PRN IM DECREASED GLUCOSE; Start 10/11/18 at 21:00 Glucose (Glutose) 15 gm Q15M PRN BUCCAL DECREASED GLUCOSE; Start 10/11/18 at 21:00 Promethazine HCl/ Dextromethorphan (Phenergan-Dm) 5 ml Q6 PRN PO COUGH; Start 10/11/18 at 21:00 Digoxin (Digoxin) 0.25 mg DAILY PO Last administered on 10/23/18 08:42; Admin Dose 0.25 MG; Start 10/12/18 at 09:00 Atorvastatin Calcium (Lipitor) 20 mg DAILY@21 PO Last administered on 10/22/18 21:02; Admin Dose 20 MG; Start 10/11/18 at 22:30 Apixaban (Eliquis) 5 mg BID PO Last administered on 10/23/18 08:41; Admin Dose 5 MG; Start 10/12/18 at 12:30 Metoprolol Succinate (Toprol Xl) 50 mg BID PO Last administered on 10/23/18 10:59; Admin Dose 50 MG; Start 10/12/18 at 21:00 Patient Own Medication 6 ea AM PO Last administered on 10/23/18 08:43; Admin Dose 6 EA; Start 10/13/18 at 13:00 Acetazolamide (Diamox) 250 mg BID PO Last administered on 10/23/18 08:41; Admin Dose 250 MG; Start 10/13/18 at 21:00 Metformin HCl (Glucophage Xr) 1,000 mg BID PO Last administered on 10/23/18 08:43; Admin Dose 1,000 MG; Start 10/14/18 at 21:00 Empaglifozin (Jardiance) 25 mg DAILY@08 PO Last administered on 10/23/18 08:43; Admin Dose 25 MG; Start 10/15/18 at 08:00 Diagnostic Test (Pha) (Accu-Chek) 1 ea 02 XX Last administered on 10/23/18 02:00; Admin Dose 1 EA; Start 10/15/18 at 02:00 Linagliptin (Tradjenta) 5 mg DAILY PO Last administered on 10/23/18 08:42; Admin Dose 5 MG; Start 10/15/18 at 09:00 Spironolactone (Aldactone) 25 mg DAILY PO Last administered on 10/23/18 08:43; Admin Dose 25 MG; Start 10/16/18 at 12:30 Furosemide (Lasix) 40 mg DAILY IV Last administered on 10/22/18 08:18; Admin Dose 40 MG; Start 10/19/18 at 09:00 Caspofungin 50 mg/ Sodium Chloride 250 ml @ 250 mls/hr Q24H IVPB Last administered on 10/23/18 12:31; Admin Dose 250 MLS/HR; Start 10/20/18 at 13:00 Nystatin (Nystatin Susp) 5 ml QID PO Last administered on 10/23/18 13:31; Admin Dose 5 ML; Start 10/19/18 at 13:00 Docusate Sodium (Colace) 200 mg BID PO Last administered on 10/23/18 08:41; Admin Dose 200 MG; Start 10/20/18 at 11:00 Polyethylene Glycol (Miralax) 17 gm BID PO Last administered on 10/23/18 08:41; Admin Dose 17 GM; Start 10/20/18 at 11:00 Doxycycline Hyclate (Vibramycin) 100 mg BID PO Last administered on 7/7/19at 08:41; Admin Dose 100 MG; Start 10/20/18 at 13:30 Ceftriaxone Sodium 50 ml @ 100 mls/hr Q24H IVPB Last administered on 10/23/18 13:31; Admin Dose 100 MLS/HR; Start 10/20/18 at 13:30 Acetylcysteine (Mucomyst) 2 ml Q6H RESP THERAPY NEB Last administered on 10/23/18 13:26; Admin Dose 2 ML; Start 10/21/18 at 14:00 Prednisone (Prednisone) 20 mg DAILY PO ; Start 10/24/18 at 09:00; Stop 10/25/18 at 09:01 Prednisone (Prednisone) 10 mg DAILY PO ; Start 10/26/18 at 09:00; Stop 10/27/18 at 09:01 Insulin Human NPH (Humulin N) 36 unit DAILY@0900 SC Last administered on 10/23/18at 08:45; Admin Dose 36 UNIT; Start 10/23/18 at 09:00; Stop 10/24/18 at 10:00 Insulin Human NPH (Humulin N) 24 unit DAILY@0900 SC ; Start 10/24/18 at 09:00 Rocael Poole DO Oct 23, 2018 15:50
[2018-10-23] MEDS: ATORVASTATIN 20 MG TAB PO SCH (21:01)
[2018-10-23] MEDS ORDERED: PROMETHAZINE/DM (CUP) PO PRN (21:19)
[2018-10-24] VITALS (7 sets, daily range): BP systolic 90–123; BP diastolic 52–68; PULSE 66–107; RESP 19–21
[2018-10-24] MEDS: ACETYLCYSTEINE 20% 4 ML VIAL NEB SCH ×4 (01:25→20:02)
[2018-10-24] MEDS: ALBUTEROL/IPRATROPIUM (NEB) 3 ML AMP HHN SCH ×6 (01:25→20:02)
[2018-10-24] MEDS: ACCU-CHEK XX SCH (02:00)
[2018-10-24] MEDS: INSULIN ASPART [NOVOLOG] 3 ML PEN SC SCH ×4 (07:29→21:03)
[2018-10-24] MEDS: POLYETHYLENE GLYCOL 17 GM PACKET PO SCH ×2 (08:56→20:44)
[2018-10-24] MEDS: NYSTATIN SUSP 5 ML CUP PO SCH ×4 (08:58→20:44)
[2018-10-24] MEDS: CYCLOSET PO SCH (08:59)
[2018-10-24] MEDS ORDERED: NPH, HUMAN INSULIN ISOPHANE 3ML VIAL SC SCH (09:00)
[2018-10-24] MEDS: METOPROLOL (XL) 25 MG TAB PO SCH ×2 (09:00→20:46)
[2018-10-24] MEDS: NPH, HUMAN INSULIN ISOPHANE 3ML VIAL SC SCH (09:00)
[2018-10-24] MEDS: metFORMIN (XR) 500 MG TAB PO SCH ×2 (09:00→20:44)
[2018-10-24] MEDS: APIXABAN 5 MG TABLET PO SCH ×2 (09:00→20:43)
[2018-10-24] MEDS: predniSONE 20 MG TAB PO SCH (09:00)
[2018-10-24] MEDS: ACETAZOLAMIDE 250 MG TAB PO SCH ×2 (09:00→20:43)
[2018-10-24] MEDS: DOXYCYCLINE 100 MG TAB PO SCH (09:01)
[2018-10-24] MEDS: LINAGLIPTIN 5 MG TABLET PO SCH (09:02)
[2018-10-24] MEDS: DOCUSATE SODIUM 100 MG CAP PO SCH ×2 (09:02→20:43)
[2018-10-24] MEDS: DIGOXIN 0.25 MG TAB PO SCH (09:02)
[2018-10-24] MEDS: EMPAGLIFLOZIN 10 MG TABLET PO SCH (09:02)
[2018-10-24] MEDS: FUROSEMIDE 40 MG INJ IV SCH (09:03)
[2018-10-24] MEDS: SPIRONOLACTONE 25 MG TAB PO SCH (09:03)
--- NOTE | 2018-10-24 10:02 | PN ---
Date/Time of Note Date/Time of Note DATE: 10/24/18 TIME: 10:00 Subjective Feels much better. No new complaints. Objective Vitals Vital Signs Date Temp Pulse Resp B/P (MAP) Pulse Ox O2 O2 Flow FiO2 Time Delivery Rate 10/24/18 98.1 101 20 90/65 (73) 95 Nasal 07:38 Cannula 10/24/18 3.0 31 06:02 Intake and Output 10/23/18 10/23/18 10/24/18 1515:00 23:00 07:00 IntakeIntake Total 650 ml 670 ml 920 ml OutputOutput Total 700 ml 1950 ml 2150 ml BalanceBalance -50 ml -1280 ml -1230 ml Clear to auscultation bilaterally Regular rate and rhythm Soft nontender nondistended normoactive bowel sounds No edema Nonfocal Results Result Diagram: 10/24/18 0516 10/22/18 0526 Medications Medications Current Medications Albuterol/ Ipratropium (Duoneb) 3 ml Q4 HHN Last administered on 10/24/18at 09:29; Admin Dose 3 ML; Start 10/11/18 at 21:00 Insulin Aspart (Novolog Insulin Pen) NOVOLOG *MODERATE* ALGORITHM WITH MEALS BEDTIME SC Last administered on 10/24/18at 07:29; Admin Dose 2 UNIT; Start 10/11/18 at 21:00 Zolpidem Tartrate (Ambien) 5 mg HS MAY REPEAT X 1 PRN PO INSOMNIA; Start 10/11/18 at 20:30 Ondansetron HCl (Zofran Inj) 4 mg Q4 PRN IV nausea; Start 10/11/18 at 20:30 Miscellaneous Information 1 ea NOTE XX ; Start 10/11/18 at 21:00 Glucose (Glutose) 15 gm Q15M PRN PO DECREASED GLUCOSE; Start 10/11/18 at 21:00 Glucose (Glutose) 22.5 gm Q15M PRN PO DECREASED GLUCOSE; Start 10/11/18 at 21:00 Dextrose (D50w Syringe) 25 ml Q15M PRN IV DECREASED GLUCOSE; Start 10/11/18 at 21:00 Dextrose (D50w Syringe) 50 ml Q15M PRN IV DECREASED GLUCOSE; Start 10/11/18 at 21:00 Glucagon (Glucagen) 1 mg Q15M PRN IM DECREASED GLUCOSE; Start 10/11/18 at 21:00 Glucose (Glutose) 15 gm Q15M PRN BUCCAL DECREASED GLUCOSE; Start 10/11/18 at 21:00 Digoxin (Digoxin) 0.25 mg DAILY PO Last administered on 10/24/18 09:02; Admin Dose 0.25 MG; Start 10/12/18 at 09:00 Atorvastatin Calcium (Lipitor) 20 mg DAILY@21 PO Last administered on 10/23/18 21:01; Admin Dose 20 MG; Start 10/11/18 at 22:30 Apixaban (Eliquis) 5 mg BID PO Last administered on 10/24/18 09:00; Admin Dose 5 MG; Start 10/12/18 at 12:30 Metoprolol Succinate (Toprol Xl) 50 mg BID PO Last administered on 10/23/18 21:06; Admin Dose 50 MG; Start 10/12/18 at 21:00 Patient Own Medication 6 ea AM PO Last administered on 10/24/18 08:59; Admin Dose 6 EA; Start 10/13/18 at 13:00 Acetazolamide (Diamox) 250 mg BID PO Last administered on 10/24/18 09:00; Admin Dose 250 MG; Start 10/13/18 at 21:00 Metformin HCl (Glucophage Xr) 1,000 mg BID PO Last administered on 10/24/18 09:00; Admin Dose 1,000 MG; Start 10/14/18 at 21:00 Empaglifozin (Jardiance) 25 mg DAILY@08 PO Last administered on 10/24/18 09:02; Admin Dose 25 MG; Start 10/15/18 at 08:00 Diagnostic Test (Pha) (Accu-Chek) 1 ea 02 XX Last administered on 10/23/18 02:00; Admin Dose 1 EA; Start 10/15/18 at 02:00 Linagliptin (Tradjenta) 5 mg DAILY PO Last administered on 10/24/18 09:02; Admin Dose 5 MG; Start 10/15/18 at 09:00 Spironolactone (Aldactone) 25 mg DAILY PO Last administered on 10/24/18 09:03; Admin Dose 25 MG; Start 10/16/18 at 12:30 Furosemide (Lasix) 40 mg DAILY IV Last administered on 10/24/18 09:03; Admin Dose 40 MG; Start 10/19/18 at 09:00 Nystatin (Nystatin Susp) 5 ml QID PO Last administered on 10/24/18 08:58; Admin Dose 5 ML; Start 10/19/18 at 13:00 Docusate Sodium (Colace) 200 mg BID PO Last administered on 10/24/18 09:02; Admin Dose 200 MG; Start 10/20/18 at 11:00 Polyethylene Glycol (Miralax) 17 gm BID PO Last administered on 10/24/18 08:56; Admin Dose 17 GM; Start 10/20/18 at 11:00 Acetylcysteine (Mucomyst) 2 ml Q6H RESP THERAPY NEB Last administered on 10/24/18 08:00; Admin Dose 2 ML; Start 10/21/18 at 14:00 Prednisone (Prednisone) 20 mg DAILY PO Last administered on 10/24/18 09:00; Admin Dose 20 MG; Start 10/24/18 at 09:00; Stop 10/25/18 at 09:01 Prednisone (Prednisone) 10 mg DAILY PO ; Start 10/26/18 at 09:00; Stop 10/27/18 at 09:01 Insulin Human NPH (Humulin N) 36 unit DAILY@0900 SC Last administered on 10/23/18 08:45; Admin Dose 36 UNIT; Start 10/23/18 at 09:00; Stop 10/24/18 at 10:00 Insulin Human NPH (Humulin N) 24 unit DAILY@0900 SC Last administered on 10/24/18 09:14; Admin Dose 24 UNIT; Start 10/24/18 at 09:00 Promethazine HCl/ Dextromethorphan (Phenergan-Dm) 5 ml Q6 PRN PO COUGH Last administered on 10/24/18 00:47; Admin Dose 5 ML; Start 10/23/18 at 21:19 VTE Prophylaxis Risk score (from Nsg)>0 risk: 4 SCD applied (from Nsg): No SCD contraindication: other Pharmacological prophylaxis: apixaban Lines/Catheters IV Catheter Type: Saline Lock [place] in Place: No Assessment/Plan Assessment/Plan Community-acquired pneumonia, resolved Acute hypoxemic respiratory failure due to mucous plug, significantly improved Moderate obesity Type 2 diabetes mellitus Continue current therapy Physical therapy Discontinue antibiotics and antifungal Pulmonary and ID follow-up Discharge planning home in a.m. with home O2 if needed ELI YARBROUGH MD Oct 24, 2018 10:02
--- NOTE | 2018-10-24 12:17 | CONS ---
Assessment/Plan Assessment/Plan Assessment/Plan (Daily) 1. Metabolic alkalosis on Acetazolamide 250mg BID , 1. Acute Hypoxic respiratory failure, likely secondary to reactive airway and pneumonia, patient seems to be euvolemic for now.- on IV abx cefepime and cancidas stopped, Currently on PO Doxycyline< renally dose all abx and monitor electrolytes , o lasix 40mg IV daily , monitor electrolytes and replace as needed , pt is on tapering dose of Prednisone 2. Atrial fibrillation, chronic, rate controlled. 3. Congestive heart failure, diastolic dysfunction, chronic, currently euvolemic. Echocardiogram with EF of 55%.- on lasix 40mg pO BID Continue current medication, patient on oral Lasix daily. 4. Diabetes mellitus Type II with acute hyperglycemia 5. Hypertension Consultation Date/Type/Reason Admit Date/Time Oct 12, 2018 at 06:16 Initial Consult Date 10/14/18 Type of Consult NEPHROLOGY Requesting Provider: ROEL ALBA Date/Time of Note DATE: 10/24/18 TIME: 12:17 Exam/Review of Systems Exam Vitals Vital Signs Date Temp Pulse Resp B/P (MAP) Pulse Ox O2 O2 Flow FiO2 Time Delivery Rate 10/24/18 98.5 66 21 100/55 91 Nasal 11:30 (70) Cannula 10/24/18 3.0 09:00 10/24/18 31 06:02 Intake and Output 10/23/18 10/23/18 10/24/18 1515:00 23:00 07:00 IntakeIntake Total 650 ml 670 ml 920 ml OutputOutput Total 700 ml 1950 ml 2150 ml BalanceBalance -50 ml -1280 ml -1230 ml Results Result Diagram: 10/24/18 0516 10/22/18 0526 Results 24hrs Laboratory Tests Test 10/23/18 13:23 10/23/18 17:15 10/23/18 20:30 10/23/18 20:59 Lab Scanned REFERENCE LAB Report Bedside Glucose 241 H 165 Blood Gas Blood arterial Specimen Source Arterial Blood 10/23/2018 10:16:2 Date Drawn 9 PM Arterial Blood pH 7.398 (Temp corrected) Arterial Blood 43.6 pCO2 (Temp correct) Arterial Blood 63.4 L pO2 (Temp corrected) Arterial Blood 26.3 H HCO3 Arterial Blood 1.1 Base Excess Arterial Blood 90.7 L Oxygen Saturation David Test ACCEPTAB Arterial Blood Right Radial Gas Puncture Site Arterial 1.0 Blood Carboxyhemo globin Arterial Blood 0.3 Methemoglobin Blood Gas A-a O2 121.0 H Differential Oxyhemoglobin 89.5 L Percent Blood Gas 37.0 Temperature Blood Gas Actual 22 Respiration Rate Blood Gas NASAL CANNULA Modality FiO2 33.0 Blood Gas KEVIN POWESR Notified Whom Blood Gas 10/23/2018 10:27:3 Notified Time 5 PM Test 10/24/18 05:16 10/24/18 07:26 10/24/18 11:25 White Blood Count 12.6 #H Red Blood Count 5.09 Hemoglobin 13.1 L Hematocrit 43.1 Mean Corpuscular 84.7 Volume Mean Corpuscular 25.7 L Hemoglobin Mean Corpuscular 30.4 L Hemoglobin Concen t Red Cell 16.9 H Distribution Width Platelet Count 155 Mean Platelet 11.5 H Volume Immature 2.200 H Granulocytes % Neutrophils % 74.7 Lymphocytes % 15.3 Monocytes % 5.9 Eosinophils % 1.5 Basophils % 0.4 Nucleated Red 0.0 Blood Cells % Immature 0.280 H Granulocytes # Neutrophils # 9.4 H Lymphocytes # 1.9 Monocytes # 0.7 Eosinophils # 0.2 Basophils # 0.1 Nucleated Red 0.0 Blood Cells # Bedside Glucose 161 157 Medications Medication Current Medications Albuterol/ Ipratropium (Duoneb) 3 ml Q4 HHN Last administered on 10/24/18at 09 :29; Admin Dose 3 ML; Start 10/11/18 at 21:00 Insulin Aspart (Novolog Insulin Pen) NOVOLOG *MODERATE* ALGORITHM WITH MEALS BEDTIME SC Last administered on 10/24/18at 11:28; Admin Dose 2 UNIT; Start at 21:00 Zolpidem Tartrate (Ambien) 5 mg HS MAY REPEAT X 1 PRN PO INSOMNIA; Start 10/11/18 at 20:30 Ondansetron HCl (Zofran Inj) 4 mg Q4 PRN IV nausea; Start 10/11/18 at 20:30 Miscellaneous Information 1 ea NOTE XX ; Start 10/11/18 at 21:00 Glucose (Glutose) 15 gm Q15M PRN PO DECREASED GLUCOSE; Start 10/11/18 at 21:00 Glucose (Glutose) 22.5 gm Q15M PRN PO DECREASED GLUCOSE; Start 10/11/18 at 21:00 Dextrose (D50w Syringe) 25 ml Q15M PRN IV DECREASED GLUCOSE; Start 10/11/18 at 21:00 Dextrose (D50w Syringe) 50 ml Q15M PRN IV DECREASED GLUCOSE; Start 10/11/18 at 21:00 Glucagon (Glucagen) 1 mg Q15M PRN IM DECREASED GLUCOSE; Start 10/11/18 at 21:00 Glucose (Glutose) 15 gm Q15M PRN BUCCAL DECREASED GLUCOSE; Start 10/11/18 at 21:00 Digoxin (Digoxin) 0.25 mg DAILY PO Last administered on 10/24/18 09:02; Admin Dose 0.25 MG; Start 10/12/18 at 09:00 Atorvastatin Calcium (Lipitor) 20 mg DAILY@21 PO Last administered on 10/23/18 21:01; Admin Dose 20 MG; Start 10/11/18 at 22:30 Apixaban (Eliquis) 5 mg BID PO Last administered on 10/24/18 09:00; Admin Dose 5 MG; Start 10/12/18 at 12:30 Metoprolol Succinate (Toprol Xl) 50 mg BID PO Last administered on 10/23/18 21:06; Admin Dose 50 MG; Start 10/12/18 at 21:00 Patient Own Medication 6 ea AM PO Last administered on 10/24/18 08:59; Admin Dose 6 EA; Start 10/13/18 at 13:00 Acetazolamide (Diamox) 250 mg BID PO Last administered on 10/24/18 09:00; Admin Dose 250 MG; Start 10/13/18 at 21:00 Metformin HCl (Glucophage Xr) 1,000 mg BID PO Last administered on 10/24/18 09:00; Admin Dose 1,000 MG; Start 10/14/18 at 21:00 Empaglifozin (Jardiance) 25 mg DAILY@08 PO Last administered on 10/24/18 09:02; Admin Dose 25 MG; Start 10/15/18 at 08:00 Diagnostic Test (Pha) (Accu-Chek) 1 ea 02 XX Last administered on 10/23/18 02:00; Admin Dose 1 EA; Start 10/15/18 at 02:00 Linagliptin (Tradjenta) 5 mg DAILY PO Last administered on 10/24/18 09:02; Admin Dose 5 MG; Start 10/15/18 at 09:00 Spironolactone (Aldactone) 25 mg DAILY PO Last administered on 10/24/18 09:03; Admin Dose 25 MG; Start 10/16/18 at 12:30 Furosemide (Lasix) 40 mg DAILY IV Last administered on 10/24/18 09:03; Admin Dose 40 MG; Start 10/19/18 at 09:00 Nystatin (Nystatin Susp) 5 ml QID PO Last administered on 10/24/18 08:58; Admin Dose 5 ML; Start 10/19/18 at 13:00 Docusate Sodium (Colace) 200 mg BID PO Last administered on 10/24/18 09:02; Admin Dose 200 MG; Start 10/20/18 at 11:00 Polyethylene Glycol (Miralax) 17 gm BID PO Last administered on 10/24/18 08:56; Admin Dose 17 GM; Start 10/20/18 at 11:00 Acetylcysteine (Mucomyst) 2 ml Q6H RESP THERAPY NEB Last administered on 10/24/18 08:00; Admin Dose 2 ML; Start 10/21/18 at 14:00 Prednisone (Prednisone) 20 mg DAILY PO Last administered on 10/24/18 09:00; Admin Dose 20 MG; Start 10/24/18 at 09:00; Stop 10/25/18 at 09:01 Prednisone (Prednisone) 10 mg DAILY PO ; Start 10/26/18 at 09:00; Stop 10/27/18 at 09:01 Insulin Human NPH (Humulin N) 24 unit DAILY@0900 SC Last administered on 10/24/18 09:14; Admin Dose 24 UNIT; Start 10/24/18 at 09:00 Promethazine HCl/ Dextromethorphan (Phenergan-Dm) 5 ml Q6 PRN PO COUGH Last administered on 10/24/18 00:47; Admin Dose 5 ML; Start 10/23/18 at 21:19 NEDA STAHL MD Oct 24, 2018 12:17
--- NOTE | 2018-10-24 12:27 | CONS ---
Consult Date/Type/Reason Admit Date/Time Oct 12, 2018 at 06:16 Initial Consult Date Type of Consult Pulmonary Requesting Provider: ROEL ALBA Date/Time of Note DATE: 10/24/18 TIME: 12:26 Subjective Continues to improve. Objective Vital Signs Date Temp Pulse Resp B/P (MAP) Pulse Ox O2 O2 Flow FiO2 Time Delivery Rate 10/24/18 98.5 66 21 100/55 91 Nasal 11:30 (70) Cannula 10/24/18 3.0 09:00 10/24/18 31 06:02 Intake and Output 10/23/18 10/23/18 10/24/18 1515:00 23:00 07:00 IntakeIntake Total 650 ml 670 ml 920 ml OutputOutput Total 700 ml 1950 ml 2150 ml BalanceBalance -50 ml -1280 ml -1230 ml Exam GENERAL: Well-nourished well-developed gentleman comfortable at rest VITAL SIGNS: per chart NECK: Supple. No JVD or lymphadenopathy. CARDIAC EXAM: S1, S2. No added sounds or murmurs. CHEST: Diminished air entry bilaterally ABDOMEN: Soft, nontender. No guarding or rebound. EXTREMITIES: No cyanosis, clubbing or edema. NEUROLOGIC: Generalized weakness. No focal deficits. Vent Setting Fraction of Inspired Oxygen pe: 31 Results/Medications Result Diagram: 10/24/18 0516 10/22/18 0526 Results 24 hrs Laboratory Tests Test 10/23/18 13:23 10/23/18 17:15 10/23/18 20:30 10/23/18 20:59 Lab Scanned REFERENCE LAB Report Bedside Glucose 241 H 165 Blood Gas Blood arterial Specimen Source Arterial Blood 10/23/2018 10:16:2 Date Drawn 9 PM Arterial Blood pH 7.398 (Temp corrected) Arterial Blood 43.6 pCO2 (Temp correct) Arterial Blood 63.4 L pO2 (Temp corrected) Arterial Blood 26.3 H HCO3 Arterial Blood 1.1 Base Excess Arterial Blood 90.7 L Oxygen Saturation David Test ACCEPTAB Arterial Blood Right Radial Gas Puncture Site Arterial 1.0 Blood Carboxyhemo globin Arterial Blood 0.3 Methemoglobin Blood Gas A-a O2 121.0 H Differential Oxyhemoglobin 89.5 L Percent Blood Gas 37.0 Temperature Blood Gas Actual 22 Respiration Rate Blood Gas NASAL CANNULA Modality FiO2 33.0 Blood Gas KEVIN POWERS Notified Whom Blood Gas 10/23/2018 10:27:3 Notified Time 5 PM Test 10/24/18 05:16 10/24/18 07:26 10/24/18 11:25 White Blood Count 12.6 #H Red Blood Count 5.09 Hemoglobin 13.1 L Hematocrit 43.1 Mean Corpuscular 84.7 Volume Mean Corpuscular 25.7 L Hemoglobin Mean Corpuscular 30.4 L Hemoglobin Concen t Red Cell 16.9 H Distribution Width Platelet Count 155 Mean Platelet 11.5 H Volume Immature 2.200 H Granulocytes % Neutrophils % 74.7 Lymphocytes % 15.3 Monocytes % 5.9 Eosinophils % 1.5 Basophils % 0.4 Nucleated Red 0.0 Blood Cells % Immature 0.280 H Granulocytes # Neutrophils # 9.4 H Lymphocytes # 1.9 Monocytes # 0.7 Eosinophils # 0.2 Basophils # 0.1 Nucleated Red 0.0 Blood Cells # Bedside Glucose 161 157 Medications Current Medications Albuterol/ Ipratropium (Duoneb) 3 ml Q4 HHN Last administered on 10/24/18at 09:29; Admin Dose 3 ML; Start 10/11/18 at 21:00 Insulin Aspart (Novolog Insulin Pen) NOVOLOG *MODERATE* ALGORITHM WITH MEALS BEDTIME SC Last administered on 10/24/18at 11:28; Admin Dose 2 UNIT; Start 10/11/18 at 21:00 Zolpidem Tartrate (Ambien) 5 mg HS MAY REPEAT X 1 PRN PO INSOMNIA; Start 10/11/18 at 20:30 Ondansetron HCl (Zofran Inj) 4 mg Q4 PRN IV nausea; Start 10/11/18 at 20:30 Miscellaneous Information 1 ea NOTE XX ; Start 10/11/18 at 21:00 Glucose (Glutose) 15 gm Q15M PRN PO DECREASED GLUCOSE; Start 10/11/18 at 21:00 Glucose (Glutose) 22.5 gm Q15M PRN PO DECREASED GLUCOSE; Start 10/11/18 at 21:00 Dextrose (D50w Syringe) 25 ml Q15M PRN IV DECREASED GLUCOSE; Start 10/11/18 at 21:00 Dextrose (D50w Syringe) 50 ml Q15M PRN IV DECREASED GLUCOSE; Start 10/11/18 at 21:00 Glucagon (Glucagen) 1 mg Q15M PRN IM DECREASED GLUCOSE; Start 10/11/18 at 21:00 Glucose (Glutose) 15 gm Q15M PRN BUCCAL DECREASED GLUCOSE; Start 10/11/18 at 21:00 Digoxin (Digoxin) 0.25 mg DAILY PO Last administered on 10/24/18 09:02; Admin Dose 0.25 MG; Start 10/12/18 at 09:00 Atorvastatin Calcium (Lipitor) 20 mg DAILY@21 PO Last administered on 10/23/18 21:01; Admin Dose 20 MG; Start 10/11/18 at 22:30 Apixaban (Eliquis) 5 mg BID PO Last administered on 10/24/18 09:00; Admin Dose 5 MG; Start 10/12/18 at 12:30 Metoprolol Succinate (Toprol Xl) 50 mg BID PO Last administered on 10/23/18 21:06; Admin Dose 50 MG; Start 10/12/18 at 21:00 Patient Own Medication 6 ea AM PO Last administered on 10/24/18 08:59; Admin Dose 6 EA; Start 10/13/18 at 13:00 Acetazolamide (Diamox) 250 mg BID PO Last administered on 10/24/18 09:00; Admin Dose 250 MG; Start 10/13/18 at 21:00 Metformin HCl (Glucophage Xr) 1,000 mg BID PO Last administered on 10/24/18 09:00; Admin Dose 1,000 MG; Start 10/14/18 at 21:00 Empaglifozin (Jardiance) 25 mg DAILY@08 PO Last administered on 10/24/18 09:02; Admin Dose 25 MG; Start 10/15/18 at 08:00 Diagnostic Test (Pha) (Accu-Chek) 1 ea 02 XX Last administered on 10/23/18 02:00; Admin Dose 1 EA; Start 10/15/18 at 02:00 Linagliptin (Tradjenta) 5 mg DAILY PO Last administered on 10/24/18 09:02; Admin Dose 5 MG; Start 10/15/18 at 09:00 Spironolactone (Aldactone) 25 mg DAILY PO Last administered on 10/24/18 09:03; Admin Dose 25 MG; Start 10/16/18 at 12:30 Furosemide (Lasix) 40 mg DAILY IV Last administered on 10/24/18 09:03; Admin Dose 40 MG; Start 10/19/18 at 09:00 Nystatin (Nystatin Susp) 5 ml QID PO Last administered on 10/24/18 08:58; Admin Dose 5 ML; Start 10/19/18 at 13:00 Docusate Sodium (Colace) 200 mg BID PO Last administered on 10/24/18 09:02; Admin Dose 200 MG; Start 10/20/18 at 11:00 Polyethylene Glycol (Miralax) 17 gm BID PO Last administered on 10/24/18 08:56; Admin Dose 17 GM; Start 10/20/18 at 11:00 Acetylcysteine (Mucomyst) 2 ml Q6H RESP THERAPY NEB Last administered on 10/24/18 08:00; Admin Dose 2 ML; Start 10/21/18 at 14:00 Prednisone (Prednisone) 20 mg DAILY PO Last administered on 10/24/18 09:00; Admin Dose 20 MG; Start 10/24/18 at 09:00; Stop 10/25/18 at 09:01 Prednisone (Prednisone) 10 mg DAILY PO ; Start 10/26/18 at 09:00; Stop 10/27/18 at 09:01 Insulin Human NPH (Humulin N) 24 unit DAILY@0900 SC Last administered on 10/24/18 09:14; Admin Dose 24 UNIT; Start 10/24/18 at 09:00 Promethazine HCl/ Dextromethorphan (Phenergan-Dm) 5 ml Q6 PRN PO COUGH Last administered on 10/24/18 00:47; Admin Dose 5 ML; Start 10/23/18 at 21:19 Assessment/Plan Hospital Course (Demo Recall) IMP: 1. Hypoxemic Resp Failure, chest x-ray shows ongoing atelectasis possible mild pulmonary edema discussed with family at length 2. RLL pneumonia with hilar and mediastinal adenopathy--s/p recent travel to [facility]. Query tularemia vs. other atypical infection 3. Afib with RVR 4. HTN heart Disease 5. DM RECS: 1. Continue doxycycline 2. PT eval 3. Repeat CT noted with mucous plugging and atelectasis 4. Decrease steroids. 5. Continue Mucomyst and incentive spirometry 6. Chest PT 4 times a day Discussed with family at length anticipate discharge next few days. TELMA CAI MD, [facility] Oct 24, 2018 12:27
--- NOTE | 2018-10-24 17:04 | CONS ---
Assessment/Plan Assessment/Plan Hospital Course (Demo Recall) ID PROGRESS NOTE CURRENT ABX: DAY # =>ABX DC'D TODAY Cancidas + Doxycycline + Ceftriaxone 2gm s/p Cefepime 24H INTERVAL SUMMARY * Overall he is feeling much better -- started on antitussive/mucolytics -- for mucous plugging * Now on mucolytics and chest percussive tx, using Incentive Spirometer * WBC trending down now OFF steroids * CT w/extensive mucous plugging * 10/22/18 SPUTUM CX: RESPIRATORY CULTURE Preliminary Organism 1 NORMAL RESPIRATORY ETHAN QUANTITY 2+ DIAGNOSTIC IMAGING * 10/22/18 CXR: 1. Stable dense atelectasis involving the right middle lobe, left lingula, and lower lungs bilaterally. The appearances are grossly stable compared to the prior studies. * 10/20/18 CT Chest: IMPRESSION: * 1. Dense confluent atelectasis in the inferior aspect of the right middle lobe with central mucous plugging, causing partial collapse of the right middle lobe. * 2. Dense severe confluent atelectasis in the extreme right posterior lung base adjacent to the right hemidiaphragm, also with central mucous plugging. * 3. Less severe minor subsegmental atelectasis in the left lingula and left lung base, with endobronchial partial mucous plugging in the left lower lo be bronchi. * 4. Hazy ground-glass infiltration and presumed pneumonia within the aspect of the right upper lobe. * 5. Several tiny micronodules along the lateral periphery of the upper lobes bilaterally, too small to characterize. These are likely benign and inflammatory nature. Follow-up imaging is not required and is optional at 1 year (Raimundo 2017). * 6. Cardiomegaly with multi-chamber enlargement and dilatation, with abundant atherosclerotic vascular calcifications. * 7. Numerous scattered diffuse extensive mild benign reactive adenopathy throughout the mediastinum and hilar cassi stations. * 8. Scattered benign chronic senescent changes seen elsewhere throughout the remainder of the study. * 10/20/18 CXR: IMPRESSION:1. Prominent pulmonary vascular markings, at least partially related to low lung volumes. Mild pulmonary vascular congestion is not excluded. No significant interval change. 2. Bilateral basilar atelectasis. 3. Aortic atherosclerosis. MICRO * BCx(-); (-) Urine Cx * 10/17/18 Sputum (+) C.Albicans PHYSICAL EXAMINATION: GENERAL: VSS, NAD HEENT: AT, NC, NECK: Supple, CHEST: Rise symmetrical -- supplemental O2 high flow HEART: Pulse RRR ABDOMEN: Benign EXTREMITIES: Warm, dry SKIN: No rash, no diaphoresis ID ASSESSMENT 62 yo M admit with: 1. Acute hypoxemic respiratory failure 2. Multi-lobar lobe pneumonia w/bilateral mucous plugging * HIV(-); Legionella (-) ; (-) Aspergillus * Aspergillus, Cocci, Mycoplasma serology pending 3. Oral thrush 4. Atrial fibrillation, chronic 5. Bilateral lower extremities chronic venous stasis 6. CHF 7. Diabetes (-)MRSA Nares ABX ALLERGIES: KNDA INVASIVES: PIV CURRENT ABX: DAY # => OFF ABX DAY #1 s/p Cancidas + Doxycycline + Ceftriaxone 2gm s/p Cefepime ID RECOMMENDATIONS/PLAN: 1. WBC trending down, afebrile, has received . . Consultation Date/Type/Reason Admit Date/Time Oct 12, 2018 at 06:16 Initial Consult Date 10/14/18 Requesting Provider: ROEL ALBA Date/Time of Note DATE: 10/24/18 TIME: 17:01 Exam/Review of Systems Exam Vitals Vital Signs Date Temp Pulse Resp B/P (MAP) Pulse Ox O2 O2 Flow FiO2 Time Delivery Rate 10/24/18 97.9 86 19 96/52 (67) 93 Nasal 15:30 Cannula 10/24/18 3.0 33 13:44 Intake and Output 10/23/18 10/23/18 10/24/18 1515:00 23:00 07:00 IntakeIntake Total 650 ml 670 ml 920 ml OutputOutput Total 700 ml 1950 ml 2150 ml BalanceBalance -50 ml -1280 ml -1230 ml Results Result Diagram: 10/24/18 0516 10/22/18 0526 Results 24hrs Laboratory Tests Test 10/23/18 17:15 10/23/18 20:30 10/23/18 20:59 10/24/18 05:16 Bedside Glucose 241 H 165 Blood Gas Specimen Blood arterial Source Arterial Blood 10/23/2018 10:16:29 Date Drawn PM Arterial Blood pH 7.398 (Temp corrected) Arterial Blood 43.6 pCO2 (Temp correct) Arterial Blood pO2 63.4 L (Temp corrected) Arterial Blood 26.3 H HCO3 Arterial Blood 1.1 Base Excess Arterial Blood 90.7 L Oxygen Saturation David Test ACCEPTAB Arterial Blood Gas Right Radial Puncture Site Arterial 1.0 Blood Carboxyhemog lobin Arterial Blood 0.3 Methemoglobin Blood Gas A-a O2 121.0 H Differential Oxyhemoglobin 89.5 L Percent Blood Gas 37.0 Temperature Blood Gas Actual 22 Respiration Rate Blood Gas Modality NASAL CANNULA FiO2 33.0 Blood Gas Notified KEVIN POWERS Whom Blood Gas Notified 10/23/2018 10:27:35 Time PM White Blood Count 12.6 #H Red Blood Count 5.09 Hemoglobin 13.1 L Hematocrit 43.1 Mean Corpuscular 84.7 Volume Mean Corpuscular 25.7 L Hemoglobin Mean Corpuscular 30.4 L Hemoglobin Concent Red Cell 16.9 H Distribution Width Platelet Count 155 Mean Platelet 11.5 H Volume Immature 2.200 H Granulocytes % Neutrophils % 74.7 Lymphocytes % 15.3 Monocytes % 5.9 Eosinophils % 1.5 Basophils % 0.4 Nucleated Red 0.0 Blood Cells % Immature 0.280 H Granulocytes # Neutrophils # 9.4 H Lymphocytes # 1.9 Monocytes # 0.7 Eosinophils # 0.2 Basophils # 0.1 Nucleated Red 0.0 Blood Cells # Test 10/24/18 07:26 10/24/18 11:25 Bedside Glucose 161 157 Medications Medication Current Medications Albuterol/ Ipratropium (Duoneb) 3 ml Q4 HHN Last administered on 10/24/18at 16:55; Admin Dose 3 ML; Start 10/11/18 at 21:00 Insulin Aspart (Novolog Insulin Pen) NOVOLOG *MODERATE* ALGORITHM WITH MEALS BE DTIME SC Last administered on 10/24/18at 11:28; Admin Dose 2 UNIT; Start 10/11/18 at 21:00 Zolpidem Tartrate (Ambien) 5 mg HS MAY REPEAT X 1 PRN PO INSOMNIA; Start 10/11/18 at 20:30 Ondansetron HCl (Zofran Inj) 4 mg Q4 PRN IV nausea; Start 10/11/18 at 20:30 Miscellaneous Information 1 ea NOTE XX ; Start 10/11/18 at 21:00 Glucose (Glutose) 15 gm Q15M PRN PO DECREASED GLUCOSE; Start 10/11/18 at 21:00 Glucose (Glutose) 22.5 gm Q15M PRN PO DECREASED GLUCOSE; Start 10/11/18 at 21:00 Dextrose (D50w Syringe) 25 ml Q15M PRN IV DECREASED GLUCOSE; Start 10/11/18 at 21:00 Dextrose (D50w Syringe) 50 ml Q15M PRN IV DECREASED GLUCOSE; Start 10/11/18 at 21:00 Glucagon (Glucagen) 1 mg Q15M PRN IM DECREASED GLUCOSE; Start 10/11/18 at 21:00 Glucose (Glutose) 15 gm Q15M PRN BUCCAL DECREASED GLUCOSE; Start 10/11/18 at 21:00 Digoxin (Digoxin) 0.25 mg DAILY PO Last administered on 10/24/18 09:02; Admin Dose 0.25 MG; Start 10/12/18 at 09:00 Atorvastatin Calcium (Lipitor) 20 mg DAILY@21 PO Last administered on 10/23/18 21:01; Admin Dose 20 MG; Start 10/11/18 at 22:30 Apixaban (Eliquis) 5 mg BID PO Last administered on 10/24/18 09:00; Admin Dose 5 MG; Start 10/12/18 at 12:30 Metoprolol Succinate (Toprol Xl) 50 mg BID PO Last administered on 10/23/18 21:06; Admin Dose 50 MG; Start 10/12/18 at 21:00 Patient Own Medication 6 ea AM PO Last administered on 10/24/18 08:59; Admin Dose 6 EA; Start 10/13/18 at 13:00 Acetazolamide (Diamox) 250 mg BID PO Last administered on 10/24/18 09:00; Admin Dose 250 MG; Start 10/13/18 at 21:00 Metformin HCl (Glucophage Xr) 1,000 mg BID PO Last administered on 10/24/18 09:00; Admin Dose 1,000 MG; Start 10/14/18 at 21:00 Empaglifozin (Jardiance) 25 mg DAILY@08 PO Last administered on 10/24/18 09:02; Admin Dose 25 MG; Start 10/15/18 at 08:00 Diagnostic Test (Pha) (Accu-Chek) 1 ea 02 XX Last administered on 10/23/18 02:00; Admin Dose 1 EA; Start 10/15/18 at 02:00 Linagliptin (Tradjenta) 5 mg DAILY PO Last administered on 10/24/18 09:02; Admin Dose 5 MG; Start 10/15/18 at 09:00 Spironolactone (Aldactone) 25 mg DAILY PO Last administered on 10/24/18 09:03; Admin Dose 25 MG; Start 10/16/18 at 12:30 Furosemide (Lasix) 40 mg DAILY IV Last administered on 10/24/18 09:03; Admin Dose 40 MG; Start 10/19/18 at 09:00 Nystatin (Nystatin Susp) 5 ml QID PO Last administered on 10/24/18 14:12; Admin Dose 5 ML; Start 10/19/18 at 13:00 Docusate Sodium (Colace) 200 mg BID PO Last administered on 10/24/18 09:02; Admin Dose 200 MG; Start 10/20/18 at 11:00 Polyethylene Glycol (Miralax) 17 gm BID PO Last administered on 10/24/18 08:56; Admin Dose 17 GM; Start 10/20/18 at 11:00 Acetylcysteine (Mucomyst) 2 ml Q6H RESP THERAPY NEB Last administered on 9at 13:37; Admin Dose 2 ML; Start 10/21/18 at 14:00 Prednisone (Prednisone) 20 mg DAILY PO Last administered on 10/24/18 09:00; Admin Dose 20 MG; Start 10/24/18 at 09:00; Stop 10/25/18 at 09:01 Prednisone (Prednisone) 10 mg DAILY PO ; Start 10/26/18 at 09:00; Stop 10/27/18 at 09:01 Insulin Human NPH (Humulin N) 24 unit DAILY@0900 SC Last administered on 10/24/18 09:14; Admin Dose 24 UNIT; Start 10/24/18 at 09:00 Promethazine HCl/ Dextromethorphan (Phenergan-Dm) 5 ml Q6 PRN PO COUGH Last administered on 10/24/18 00:47; Admin Dose 5 ML; Start 10/23/18 at 21:19 BRETT KWONG NP Oct 24, 2018 17:04
--- NOTE | 2018-10-24 18:19 | CONS ---
Assessment/Plan Assessment/Plan Hospital Course (Demo Recall) Respiratory failure with hypoxia-improving PNA Acute decompensated systolic and diastolic congestive heart failure History of cardiomyopathy, current left ventricular ejection fraction 50-55% Pulmonary hypertension Chronic Atrial Fibrillation DM Respiratory status continues to improve and currently on nasal cannula Antibiotics as per infectious disease Continue beta-dana as heart rate and blood pressure permits Cont Eliquis if no contraindication Diuretics as per nephrology Consultation Date/Type/Reason Admit Date/Time Oct 12, 2018 at 06:16 Initial Consult Date Type of Consult Cardiology Requesting Provider: ROEL ALBA Date/Time of Note DATE: 10/24/18 TIME: 18:18 24 HR Interval Summary Free Text/Dictation Shortness of breath continues to improve. Denies palpitations or dizziness Exam/Review of Systems Vital Signs Vitals Vital Signs Date Temp Pulse Resp B/P (MAP) Pulse Ox O2 O2 Flow FiO2 Time Delivery Rate 10/24/18 99 20 94 3.0 33 17:03 10/24/18 97.9 96/52 (67) Nasal 15:30 Cannula Intake and Output 10/23/18 10/23/18 10/24/18 1515:00 23:00 07:00 IntakeIntake Total 650 ml 670 ml 920 ml OutputOutput Total 700 ml 1950 ml 2150 ml BalanceBalance -50 ml -1280 ml -1230 ml Exam Constitutional: alert, oriented (Sitting in chair) Head: normocephalic Respiratory: crackles/rales, wheezing Cardiovascular: irregular rhythm (S1-S2 heard) Gastrointestinal: soft, non-tender, bowel sounds Extremities: edema Labs Result Diagram: 10/24/18 0516 10/22/18 0526 Results 24hrs Laboratory Tests Test 10/23/18 20:30 10/23/18 20:59 10/24/18 05:16 10/24/18 07:26 Blood Gas Specimen Blood arterial Source Arterial Blood 10/23/2018 10:16:29 Date Drawn PM Arterial Blood pH 7.398 (Temp corrected) Arterial Blood 43.6 pCO2 (Temp correct) Arterial Blood pO2 63.4 L (Temp corrected) Arterial Blood 26.3 H HCO3 Arterial Blood 1.1 Base Excess Arterial Blood 90.7 L Oxygen Saturation David Test ACCEPTAB Arterial Blood Gas Right Radial Puncture Site Arterial 1.0 Blood Carboxyhemog lobin Arterial Blood 0.3 Methemoglobin Blood Gas A-a O2 121.0 H Differential Oxyhemoglobin 89.5 L Percent Blood Gas 37.0 Temperature Blood Gas Actual 22 Respiration Rate Blood Gas Modality NASAL CANNULA FiO2 33.0 Blood Gas Notified KEVIN POWERS Whom Blood Gas Notified 10/23/2018 10:27:35 Time PM Bedside Glucose 165 161 White Blood Count 12.6 #H Red Blood Count 5.09 Hemoglobin 13.1 L Hematocrit 43.1 Mean Corpuscular 84.7 Volume Mean Corpuscular 25.7 L Hemoglobin Mean Corpuscular 30.4 L Hemoglobin Concent Red Cell 16.9 H Distribution Width Platelet Count 155 Mean Platelet 11.5 H Volume Immature 2.200 H Granulocytes % Neutrophils % 74.7 Lymphocytes % 15.3 Monocytes % 5.9 Eosinophils % 1.5 Basophils % 0.4 Nucleated Red 0.0 Blood Cells % Immature 0.280 H Granulocytes # Neutrophils # 9.4 H Lymphocytes # 1.9 Monocytes # 0.7 Eosinophils # 0.2 Basophils # 0.1 Nucleated Red 0.0 Blood Cells # Test 10/24/18 11:25 10/24/18 17:11 Bedside Glucose 157 256 H Medications Medications Current Medications Albuterol/ Ipratropium (Duoneb) 3 ml Q4 HHN Last administered on 10/24/18at 16:55; Admin Dose 3 ML; Start 10/11/18 at 21:00 Insulin Aspart (Novolog Insulin Pen) NOVOLOG *MODERATE* ALGORITHM WITH MEALS BEDTIME SC Last administered on 10/24/18at 17:17; Admin Dose 6 UNIT; Start 10/11/18 at 21:00 Zolpidem Tartrate (Ambien) 5 mg HS MAY REPEAT X 1 PRN PO INSOMNIA; Start 10/11/18 at 20:30 Ondansetron HCl (Zofran Inj) 4 mg Q4 PRN IV nausea; Start 10/11/18 at 20:30 Miscellaneous Information 1 ea NOTE XX ; Start 10/11/18 at 21:00 Glucose (Glutose) 15 gm Q15M PRN PO DECREASED GLUCOSE; Start 10/11/18 at 21:00 Glucose (Glutose) 22.5 gm Q15M PRN PO DECREASED GLUCOSE; Start 10/11/18 at 21:00 Dextrose (D50w Syringe) 25 ml Q15M PRN IV DECREASED GLUCOSE; Start 10/11/18 at 21:00 Dextrose (D50w Syringe) 50 ml Q15M PRN IV DECREASED GLUCOSE; Start 10/11/18 at 21:00 Glucagon (Glucagen) 1 mg Q15M PRN IM DECREASED GLUCOSE; Start 10/11/18 at 21:00 Glucose (Glutose) 15 gm Q15M PRN BUCCAL DECREASED GLUCOSE; Start 10/11/18 at 21:00 Digoxin (Digoxin) 0.25 mg DAILY PO Last administered on 10/24/18 09:02; Admin Dose 0.25 MG; Start 10/12/18 at 09:00 Atorvastatin Calcium (Lipitor) 20 mg DAILY@21 PO Last administered on 10/23/18 21:01; Admin Dose 20 MG; Start 10/11/18 at 22:30 Apixaban (Eliquis) 5 mg BID PO Last administered on 10/24/18 09:00; Admin Dose 5 MG; Start 10/12/18 at 12:30 Metoprolol Succinate (Toprol Xl) 50 mg BID PO Last administered on 10/23/18 21:06; Admin Dose 50 MG; Start 10/12/18 at 21:00 Patient Own Medication 6 ea AM PO Last administered on 10/24/18 08:59; Admin Dose 6 EA; Start 10/13/18 at 13:00 Acetazolamide (Diamox) 250 mg BID PO Last administered on 10/24/18 09:00; Admin Dose 250 MG; Start 10/13/18 at 21:00 Metformin HCl (Glucophage Xr) 1,000 mg BID PO Last administered on 10/24/18 09:00; Admin Dose 1,000 MG; Start 10/14/18 at 21:00 Empaglifozin (Jardiance) 25 mg DAILY@08 PO Last administered on 10/24/18 09:02; Admin Dose 25 MG; Start 10/15/18 at 08:00 Diagnostic Test (Pha) (Accu-Chek) 1 ea 02 XX Last administered on 10/23/18 02:00; Admin Dose 1 EA; Start 10/15/18 at 02:00 Linagliptin (Tradjenta) 5 mg DAILY PO Last administered on 10/24/18 09:02; Admin Dose 5 MG; Start 10/15/18 at 09:00 Spironolactone (Aldactone) 25 mg DAILY PO Last administered on 10/24/18 09:03; Admin Dose 25 MG; Start 10/16/18 at 12:30 Furosemide (Lasix) 40 mg DAILY IV Last administered on 10/24/18 09:03; Admin Dose 40 MG; Start 10/19/18 at 09:00 Nystatin (Nystatin Susp) 5 ml QID PO Last administered on 10/24/18 17:12; Admin Dose 5 ML; Start 10/19/18 at 13:00 Docusate Sodium (Colace) 200 mg BID PO Last administered on 10/24/18 09:02; Admin Dose 200 MG; Start 10/20/18 at 11:00 Polyethylene Glycol (Miralax) 17 gm BID PO Last administered on 10/24/18 08:56; Admin Dose 17 GM; Start 10/20/18 at 11:00 Acetylcysteine (Mucomyst) 2 ml Q6H RESP THERAPY NEB Last administered on 10/24/18 13:37; Admin Dose 2 ML; Start 10/21/18 at 14:00 Prednisone (Prednisone) 20 mg DAILY PO Last administered on 10/24/18 09:00; Admin Dose 20 MG; Start 10/24/18 at 09:00; Stop 10/25/18 at 09:01 Prednisone (Prednisone) 10 mg DAILY PO ; Start 10/26/18 at 09:00; Stop 10/27/18 at 09:01 Insulin Human NPH (Humulin N) 24 unit DAILY@0900 SC Last administered on 10/24/18 09:14; Admin Dose 24 UNIT; Start 10/24/18 at 09:00 Promethazine HCl/ Dextromethorphan (Phenergan-Dm) 5 ml Q6 PRN PO COUGH Last administered on 10/24/18 00:47; Admin Dose 5 ML; Start 10/23/18 at 21:19 Rocael Poole DO Oct 24, 2018 18:18
[2018-10-24] MEDS: ATORVASTATIN 20 MG TAB PO SCH (20:44)
--- NOTE | 2018-10-24 22:53 | CONS ---
Assessment/Plan Assessment/Plan Problems: (1) Type 2 diabetes mellitus without complications Status: Chronic Comment: Still hyperglycemic in the evenings when prednisone in full effect. 24 units NPH ineffective against 20 units prednisone. Will increase to 28 units tomorrow and reeval. Qualifiers: Diabetes mellitus senior care insulin use: without senior care use Qualified Codes: E11.9 - Type 2 diabetes mellitus without complications Consultation Date/Type/Reason Admit Date/Time Oct 12, 2018 at 06:16 Initial Consult Date 10/14/18 Type of Consult Endocrinology Reason for Consultation T2DM management Requesting Provider: ROEL ALBA Date/Time of Note DATE: 10/24/18 TIME: 22:49 24 HR Interval Summary Constitutional: no complaints, improved, requiring O2 (but only 2 L by NC) Detailed Summary Respiratory: no complaints Cardiovascular: no complaints Gastrointestinal: no complaints Genitourinary: no complaints Musculoskeletal: no complaints Neurologic: no complaints Exam/Review of Systems Exam Vitals VS - Last 72 Hours, by Label Date Temp Pulse Resp B/P (MAP) Pulse Ox O2 O2 Flow FiO2 Time Delivery Rate 10/24/18 2.0 20:02 10/24/18 120 20 94 3.0 20:02 10/24/18 98.0 105 20 117/58 95 Nasal 20:00 (77) Cannula 10/24/18 99 20 94 3.0 33 17:03 10/24/18 97.9 86 19 96/52 (67) 93 Nasal 15:30 Cannula 10/24/18 110 18 93 3.0 33 13:44 10/24/18 95 4.0 31 13:44 10/24/18 98.5 66 21 100/55 91 Nasal 11:30 (70) Cannula 10/24/18 98 24 94 3.0 31 09:30 10/24/18 107/66 09:00 (80) 10/24/18 Nasal 3.0 09:00 Cannula 10/24/18 98.1 101 20 90/65 (73) 95 Nasal 07:38 Cannula 10/24/18 93 3.0 31 06:02 10/24/18 100 22 93 3.0 31 05:35 10/24/18 98.0 96 20 123/66 96 Nasal 3.0 04:00 (85) Cannula 10/24/18 96 20 96 3.0 31 01:45 10/24/18 97.8 107 20 104/68 97 Room Air 00:00 (80) 10/23/18 96 20 95 3.0 31 20:45 10/23/18 97.9 104 20 142/66 98 20:00 (91) 10/23/18 96 4.0 33 19:56 10/23/18 Nasal 3.0 19:43 Cannula 10/23/18 99 19 96 Nasal 4.0 17:07 Cannula 10/23/18 97.8 97 20 104/66 94 15:30 (79) 10/23/18 98 20 93 Nasal 4.0 13:27 Cannula 10/23/18 97.6 124 20 107/67 93 11:14 (80) 10/23/18 117/56 11:00 (76) 10/23/18 4.0 08:17 10/23/18 3.0 08:16 10/23/18 111 18 92 3.0 08:16 10/23/18 97.8 87 20 96/54 (68) 97 07:53 10/23/18 Nasal 3.0 07:40 Cannula 10/23/18 104 20 97 4.0 33 05:00 10/23/18 97 4.0 33 04:52 10/23/18 98.2 93 20 91/62 (72) 96 Nasal 04:00 Cannula 10/23/18 102 18 96 4.0 33 01:50 10/23/18 98.0 102 20 107/63 97 High Flow 00:00 (78) 10/22/18 106 20 97 6.0 20:25 10/22/18 97.4 107 20 93/58 (70) 97 20:00 10/22/18 Nasal 20:00 Cannula 10/22/18 95 5.0 19:24 10/22/18 15.0 50 16:40 10/22/18 122 22 94 20.0 30 16:38 10/22/18 98.2 99 20 104/59 93 15:48 (74) 10/22/18 94 30 15:37 10/22/18 35 13:06 10/22/18 106 20 96 20.0 40 12:57 10/22/18 97.9 75 20 89/63 (72) 94 11:36 10/22/18 92 40 11:00 10/22/18 100 40 09:45 10/22/18 Vapotherm 07:53 10/22/18 98.0 104 20 101/65 95 07:33 (77) 10/22/18 88 50 07:30 10/22/18 97 18 96 25.0 50 04:11 10/22/18 97.1 80 102/66 95 04:00 (78) 10/22/18 95 50 01:36 10/22/18 104 18 95 25.0 50 01:36 10/22/18 98.1 104 18 106/72 96 00:00 (83) Vital Signs Date Temp Pulse Resp B/P (MAP) Pulse Ox O2 O2 Flow FiO2 Time Delivery Rate 10/24/18 2.0 20:02 10/24/18 120 20 94 20:02 10/24/18 98.0 117/58 Nasal 20:00 (77) Cannula 10/24/18 33 17:03 Intake and Output 10/23/18 10/23/18 10/24/18 1515:00 23:00 07:00 IntakeIntake Total 650 ml 670 ml 920 ml OutputOutput Total 700 ml 1950 ml 2150 ml BalanceBalance -50 ml -1280 ml -1230 ml Constitutional: alert, oriented, obese Respiratory: wheezing Cardiovascular: regular rate and rhythm; No edema, No murmurs/extra sounds, No rub Gastrointestinal: soft, nl liver, spleen, non-tender, bowel sounds; No mass, No rebound or guarding Musculoskeletal: nl extremities to inspection Extremities: normal pulses; No cyanosis, No clubbing, No edema 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, nl mental status, nl speech, nl strength Additional Comments Bedside Glucose - 72 Hours Test 10/22/18 02:04 10/22/18 07:21 10/22/18 11:11 10/22/18 17:14 Bedside 119 116 152 220 Glucose mg/dL (70-220) mg/dL (70-220) mg/dL (70-220) mg/dL (70-220) Test 10/22/18 20:59 10/23/18 03:22 10/23/18 07:24 10/23/18 11:40 Bedside 224 104 129 205 Glucose mg/dL (70-220) mg/dL (70-220) mg/dL (70-220) mg/dL (70-220) H Test 10/23/18 17:15 10/23/18 20:59 10/24/18 07:26 10/24/18 11:25 Bedside 241 165 161 157 Glucose mg/dL (70-220) mg/dL (70-220) mg/dL (70-220) mg/dL (70-220) H Test 10/24/18 17:11 10/24/18 20:40 Bedside 256 204 Glucose mg/dL (70-220) mg/dL (70-220) H Results Result Diagram: 10/24/18 0516 10/22/18 0526 Results 24hrs Laboratory Tests Test 10/24/18 05:16 10/24/18 07:26 10/24/18 11:25 10/24/18 17:11 White Blood Count 12.6 #H Red Blood Count 5.09 Hemoglobin 13.1 L Hematocrit 43.1 Mean Corpuscular Volume 84.7 Mean Corpuscular 25.7 L Hemoglobin Mean Corpuscular 30.4 L Hemoglobin Concent Red Cell Distribution 16.9 H Width Platelet Count 155 Mean Platelet Volume 11.5 H Immature Granulocytes % 2.200 H Neutrophils % 74.7 Lymphocytes % 15.3 Monocytes % 5.9 Eosinophils % 1.5 Basophils % 0.4 Nucleated Red Blood 0.0 Cells % Immature Granulocytes # 0.280 H Neutrophils # 9.4 H Lymphocytes # 1.9 Monocytes # 0.7 Eosinophils # 0.2 Basophils # 0.1 Nucleated Red Blood 0.0 Cells # Bedside Glucose 161 157 256 H Test 10/24/18 20:40 Bedside Glucose 204 Medications Medication Current Medications Insulin Aspart (Novolog Insulin Pen) NOVOLOG *MODERATE* ALGORITHM WITH MEALS BEDTIME SC Last administered on 10/24/18at 21:03; Admin Dose 1 UNIT; Start 09/18 09/04 at 21:00 Zolpidem Tartrate (Ambien) 5 mg HS MAY REPEAT X 1 PRN PO INSOMNIA; Start 10/11/18 at 20:30 Ondansetron HCl (Zofran Inj) 4 mg Q4 PRN IV nausea; Start 10/11/18 at 20:30 Miscellaneous Information 1 ea NOTE XX ; Start 10/11/18 at 21:00 Glucose (Glutose) 15 gm Q15M PRN PO DECREASED GLUCOSE; Start 10/11/18 at 21:00 Glucose (Glutose) 22.5 gm Q15M PRN PO DECREASED GLUCOSE; Start 10/11/18 at 21:00 Dextrose (D50w Syringe) 25 ml Q15M PRN IV DECREASED GLUCOSE; Start 10/11/18 at 21:00 Dextrose (D50w Syringe) 50 ml Q15M PRN IV DECREASED GLUCOSE; Start 10/11/18 at 21:00 Glucagon (Glucagen) 1 mg Q15M PRN IM DECREASED GLUCOSE; Start 10/11/18 at 21:00 Glucose (Glutose) 15 gm Q15M PRN BUCCAL DECREASED GLUCOSE; Start 10/11/18 at 21:00 Digoxin (Digoxin) 0.25 mg DAILY PO Last administered on 10/24/18 09:02; Admin Dose 0.25 MG; Start 10/12/18 at 09:00 Atorvastatin Calcium (Lipitor) 20 mg DAILY@21 PO Last administered on 10/24/18 20:44; Admin Dose 20 MG; Start 10/11/18 at 22:30 Apixaban (Eliquis) 5 mg BID PO Last administered on 10/24/18 20:43; Admin Dose 5 MG; Start 10/12/18 at 12:30 Metoprolol Succinate (Toprol Xl) 50 mg BID PO Last administered on 10/24/18 20:46; Admin Dose 50 MG; Start 10/12/18 at 21:00 Patient Own Medication 6 ea AM PO Last administered on 10/24/18 08:59; Admin Dose 6 EA; Start 10/13/18 at 13:00 Acetazolamide (Diamox) 250 mg BID PO Last administered on 10/24/18 20:43; Admin Dose 250 MG; Start 10/13/18 at 21:00 Metformin HCl (Glucophage Xr) 1,000 mg BID PO Last administered on 10/24/18 20:44; Admin Dose 1,000 MG; Start 10/14/18 at 21:00 Empaglifozin (Jardiance) 25 mg DAILY@08 PO Last administered on 10/24/18 09:02; Admin Dose 25 MG; Start 10/15/18 at 08:00 Diagnostic Test (Pha) (Accu-Chek) 1 ea 02 XX Last administered on 10/23/18 02:00; Admin Dose 1 EA; Start 10/15/18 at 02:00 Linagliptin (Tradjenta) 5 mg DAILY PO Last administered on 10/24/18 09:02; Admin Dose 5 MG; Start 10/15/18 at 09:00 Spironolactone (Aldactone) 25 mg DAILY PO Last administered on 10/24/18 09:03; Admin Dose 25 MG; Start 10/16/18 at 12:30 Furosemide (Lasix) 40 mg DAILY IV Last administered on 10/24/18 09:03; Admin Dose 40 MG; Start 10/19/18 at 09:00 Nystatin (Nystatin Susp) 5 ml QID PO Last administered on 10/24/18 20:44; Admin Dose 5 ML; Start 10/19/18 at 13:00 Docusate Sodium (Colace) 200 mg BID PO Last administered on 10/24/18 20:43; Admin Dose 200 MG; Start 10/20/18 at 11:00 Polyethylene Glycol (Miralax) 17 gm BID PO Last administered on 10/24/18 20:44; Admin Dose 17 GM; Start 10/20/18 at 11:00 Acetylcysteine (Mucomyst) 2 ml Q6H RESP THERAPY NEB Last administered on 10/24/18 20:02; Admin Dose 2 ML; Start 10/21/18 at 14:00 Prednisone (Prednisone) 20 mg DAILY PO Last administered on 10/24/18 09:00; Admin Dose 20 MG; Start 10/24/18 at 09:00; Stop 10/25/18 at 09:01 Prednisone (Prednisone) 10 mg DAILY PO ; Start 10/26/18 at 09:00; Stop 10/27/18 at 09:01 Insulin Human NPH (Humulin N) 24 unit DAILY@0900 SC Last administered on 10/24/18 09:14; Admin Dose 24 UNIT; Start 10/24/18 at 09:00 Promethazine HCl/ Dextromethorphan (Phenergan-Dm) 5 ml Q6 PRN PO COUGH Last administered on 10/24/18 00:47; Admin Dose 5 ML; Start 10/23/18 at 21:19 Levalbuterol (Xopenex Neb) 1.25 mg Q4H RESP THERAPY HHN ; Start 10/25/18 at 01:00 KAYLA BUCK MD Oct 24, 2018 22:53
[2018-10-25 01:23] VITALS: BP 102/68; PULSE 104; RESP 20
[2018-10-25] MEDS: ACETYLCYSTEINE 20% 4 ML VIAL NEB SCH ×3 (01:47→13:54)
[2018-10-25] MEDS: LEVALBUTEROL (NEB) 1.25 MG/0.5 ML AMP HHN SCH ×5 (01:47→17:49)
[2018-10-25] MEDS: ACCU-CHEK XX SCH (02:14)
[2018-10-25 04:00] VITALS: BP 98/66; PULSE 96; RESP 20
[2018-10-25 07:34] VITALS: BP 106/71; PULSE 92; RESP 20
[2018-10-25] MEDS: INSULIN ASPART [NOVOLOG] 3 ML PEN SC SCH ×3 (07:50→17:32)
[2018-10-25] MEDS: EMPAGLIFLOZIN 10 MG TABLET PO SCH (07:50)
[2018-10-25] MEDS: POLYETHYLENE GLYCOL 17 GM PACKET PO SCH (08:11)
[2018-10-25] MEDS: NYSTATIN SUSP 5 ML CUP PO SCH ×3 (08:11→17:20)
[2018-10-25] MEDS: SPIRONOLACTONE 25 MG TAB PO SCH (08:12)
[2018-10-25] MEDS: DOCUSATE SODIUM 100 MG CAP PO SCH (08:12)
[2018-10-25] MEDS: predniSONE 20 MG TAB PO SCH (08:12)
[2018-10-25] MEDS: ACETAZOLAMIDE 250 MG TAB PO SCH (08:12)
[2018-10-25] MEDS: APIXABAN 5 MG TABLET PO SCH (08:13)
[2018-10-25] MEDS: metFORMIN (XR) 500 MG TAB PO SCH (08:13)
[2018-10-25] MEDS: LINAGLIPTIN 5 MG TABLET PO SCH (08:13)
[2018-10-25] MEDS: METOPROLOL (XL) 25 MG TAB PO SCH (08:14)
[2018-10-25] MEDS: DIGOXIN 0.25 MG TAB PO SCH (08:14)
[2018-10-25] MEDS: FUROSEMIDE 40 MG INJ IV SCH (08:15)
[2018-10-25] MEDS: CYCLOSET PO SCH (08:20)
[2018-10-25] MEDS ORDERED: NPH, HUMAN INSULIN ISOPHANE 3ML VIAL SC SCH (09:00)
[2018-10-25] MEDS ORDERED: DIGOXIN 500 MCG INJ IV ONE (10:30)
[2018-10-25] MEDS ORDERED: SOD CHLORIDE 0.9% 500 ML IV ONE (10:30)
--- NOTE | 2018-10-25 10:50 | PDOCDIS ---
Discharge Instructions CONDITION [id number] Patient Condition: [id number] Good HOME CARE INSTRUCTIONS: [id number] Diet Instructions: [id number] Activity Restrictions: [id number] Slowly Increase Activity FOLLOW UP/APPOINTMENTS Follow-up Plan pcp 1 week cardiology 1 week ELI YARBROUGH MD Oct 25, 2018 10:50
[2018-10-25 11:35] VITALS: BP 116/61; PULSE 100; RESP 20
--- NOTE | 2018-10-25 11:35 | CONS ---
Consultation Date/Type/Reason Admit Date/Time Oct 12, 2018 at 06:16 Initial Consult Date 10/14/18 Type of Consult Pulmonary Patient's condition is fairly stable. Remains awake and alert. Denies any chest pain, complains of very scant cough. General exam; elderly male, appears overweight. Sitting in a chair by bedside. Currently no distress. H EENT exam; supple neck, no JVD. No lymphadenopathy. Midline trachea. No thy romegaly. Patient has fair dentition. Chest exam; diminished breath sounds bilaterally. No added sounds. S1-S2 audible, no murmurs. Regular rhythm. Abdomen exam; soft, protuberant. Nontender. Bowel sounds audible. Extremity exam; no peripheral edema clubbing. BEATER BOSS exam; no focal deficit. Assessment and recommendations; 1. patient admitted with hypoxemia likely due to underlying COPD/chronic bronchitis with areas of bilateral lower lobe atelectasis due to mucus impaction. Clinically improving on current treatment regimen. 2. Nonspecific subcentimeter mediastinal adenopathy. 3. History of hypertension, diabetes and atrial fibrillation. Continue current supportive care. Requesting Provider: ROEL ALBA Date/Time of Note DATE: 10/25/18 TIME: 11:33 Exam/Review of Systems Exam Vitals Vital Signs Date Temp Pulse Resp B/P (MAP) Pulse Ox O2 O2 Flow FiO2 Time Delivery Rate 10/25/18 103 18 95 Nasal 2.0 08:39 Cannula 10/25/18 97.5 106/71 07:34 (83) 10/24/18 33 17:03 Intake and Output 10/24/18 10/24/18 10/25/18 1515:00 23:00 07:00 IntakeIntake Total 480 ml 1500 ml 750 ml OutputOutput Total 1650 ml 1400 ml BalanceBalance -1170 ml 100 ml 750 ml Results Result Diagram: 10/24/18 0516 10/25/18 0540 Results 24hrs Laboratory Tests Test 10/24/18 17:11 10/24/18 20:40 10/25/18 02:12 10/25/18 05:40 Bedside Glucose 256 H 204 134 Sodium Level 138 Potassium Level 4.6 Chloride Level 102 Carbon Dioxide Level 29 Anion Gap 7 Blood Urea Nitrogen 26 H Creatinine 0.75 Est Glomerular Filtrat > 60 Rate mL/min Glucose Level 113 Calcium Level 9.6 Magnesium Level 1.9 Test 10/25/18 07:47 Bedside Glucose 92 Medications Medication Current Medications Insulin Aspart (Novolog Insulin Pen) NOVOLOG *MODERATE* ALGORITHM WITH MEALS BEDTIME SC Last administered on 10/24/18 21:03; Admin Dose 1 UNIT; Start 10/11/18 at 21:00 Zolpidem Tartrate (Ambien) 5 mg HS MAY REPEAT X 1 PRN PO INSOMNIA; Start 10/11/18 at 20:30 Ondansetron HCl (Zofran Inj) 4 mg Q4 PRN IV nausea; Start 10/11/18 at 20:30 Miscellaneous Information 1 ea NOTE XX ; Start 10/11/18 at 21:00 Glucose (Glutose) 15 gm Q15M PRN PO DECREASED GLUCOSE; Start 10/11/18 at 21:00 Glucose (Glutose) 22.5 gm Q15M PRN PO DECREASED GLUCOSE; Start 10/11/18 at 21:00 Dextrose (D50w Syringe) 25 ml Q15M PRN IV DECREASED GLUCOSE; Start 10/11/18 at 21:00 Dextrose (D50w Syringe) 50 ml Q15M PRN IV DECREASED GLUCOSE; Start 10/11/18 at 21:00 Glucagon (Glucagen) 1 mg Q15M PRN IM DECREASED GLUCOSE; Start 10/11/18 at 21:00 Glucose (Glutose) 15 gm Q15M PRN BUCCAL DECREASED GLUCOSE; Start 10/11/18 at 21:00 Digoxin (Digoxin) 0.25 mg DAILY PO Last administered on 10/25/18at 08:14; Admin Dose 0.25 MG; Start 10/12/18 at 09:00 Atorvastatin Calcium (Lipitor) 20 mg DAILY@21 PO Last administered on 10/24/18at 20:44; Admin Dose 20 MG; Start 10/11/18 at 22:30 Apixaban (Eliquis) 5 mg BID PO Last administered on 10/25/18 08:13; Admin Dose 5 MG; Start 10/12/18 at 12:30 Metoprolol Succinate (Toprol Xl) 50 mg BID PO Last administered on 10/25/18 08:14; Admin Dose 50 MG; Start 10/12/18 at 21:00 Patient Own Medication 6 ea AM PO Last administered on 10/25/18at 08:20; Admin Dose 6 EA; Start 10/13/18 at 13:00 Acetazolamide (Diamox) 250 mg BID PO Last administered on 10/25/18 08:12; Admin Dose 250 MG; Start 10/13/18 at 21:00 Metformin HCl (Glucophage Xr) 1,000 mg BID PO Last administered on 10/25/18 08:13; Admin Dose 1,000 MG; Start 10/14/18 at 21:00 Empaglifozin (Jardiance) 25 mg DAILY@08 PO Last administered on 10/25/18 07:50; Admin Dose 25 MG; Start 10/15/18 at 08:00 Diagnostic Test (Pha) (Accu-Chek) 1 ea 02 XX Last administered on 10/25/18 02:14; Admin Dose 1 EA; Start 10/15/18 at 02:00 Linagliptin (Tradjenta) 5 mg DAILY PO Last administered on 10/25/18 08:13; Admin Dose 5 MG; Start 10/15/18 at 09:00 Spironolactone (Aldactone) 25 mg DAILY PO Last administered on 10/25/18 08:12; Admin Dose 25 MG; Start 10/16/18 at 12:30 Nystatin (Nystatin Susp) 5 ml QID PO Last administered on 10/25/18 08:11; Admin Dose 5 ML; Start 10/19/18 at 13:00 Docusate Sodium (Colace) 200 mg BID PO Last administered on 10/25/18 08:12; Admin Dose 200 MG; Start 10/20/18 at 11:00 Polyethylene Glycol (Miralax) 17 gm BID PO Last administered on 10/25/18 08:11; Admin Dose 17 GM; Start 10/20/18 at 11:00 Acetylcysteine (Mucomyst) 2 ml Q6H RESP THERAPY NEB Last administered on 10/25/18 08:39; Admin Dose 2 ML; Start 10/21/18 at 14:00 Promethazine HCl/ Dextromethorphan (Phenergan-Dm) 5 ml Q6 PRN PO COUGH Last administered on 10/24/18 00:47; Admin Dose 5 ML; Start 10/23/18 at 21:19 Levalbuterol (Xopenex Neb) 1.25 mg Q4H RESP THERAPY HHN Last administered on 7/9/19at 08:39; Admin Dose 1.25 MG; Start 10/25/18 at 01:00 ANNAI TAYLOR Oct 25, 2018 11:35
[2018-10-25] MEDS ORDERED: DIGOXIN 0.125 MG TAB PO SCH (13:00)
--- NOTE | 2018-10-25 14:35 | CONS ---
Assessment/Plan Assessment/Plan Problems: (1) Type 2 diabetes mellitus without complications Status: Chronic Comment: NPH dose increased to 28 units w/ 20 mg prednisone today. BG already above goal. Will add repaglinide 1 mg and acarbose 25 mg qac. Prednisone was supposed to go down to 10 mg tomorrow but instead has been d/c'ed. Will d/c NPH and monitor off insulin on only oral regimen and decide if pt. getting adequate glycemic control. 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: without custodial use Qualified Codes: E11.9 - Type 2 diabetes mellitus without complications Consultation Date/Type/Reason Admit Date/Time Oct 12, 2018 at 06:16 Initial Consult Date 10/14/18 Type of Consult Endocrinology Reason for Consultation T2DM management Requesting Provider: ROEL ALBA Date/Time of Note DATE: 10/25/18 TIME: 14:31 24 HR Interval Summary Constitutional: no complaints, improved, requiring O2 (but breathing much better; wants to go home) Detailed Summary Respiratory: no complaints Cardiovascular: no complaints Gastrointestinal: no complaints Genitourinary: no complaints Musculoskeletal: no complaints Neurologic: no complaints Exam/Review of Systems Exam Vitals VS - Last 72 Hours, by Label Date Temp Pulse Resp B/P (MAP) Pulse Ox O2 O2 Flow FiO2 Time Delivery Rate 10/25/18 104 18 94 Nasal 2.0 13:54 Cannula 10/25/18 97.8 100 20 116/61 91 Nasal 11:35 (79) Cannula 10/25/18 103 18 95 Nasal 2.0 08:39 Cannula 10/25/18 97.5 92 20 106/71 94 Nasal 07:34 (83) Cannula 10/25/18 92 18 96 Nasal 2.0 04:41 Cannula 10/25/18 97.7 96 20 98/66 (77) 96 Nasal 2.0 04:00 Cannula 10/25/18 93 18 99 Nasal 2.0 01:47 Cannula 10/25/18 2.0 01:47 10/25/18 97.8 104 20 102/68 96 Nasal 01:23 (79) Cannula 10/24/18 Nasal 2.0 20:30 Cannula 10/24/18 2.0 20:02 10/24/18 120 20 94 3.0 20:02 10/24/18 98.0 105 20 117/58 95 Nasal 20:00 (77) Cannula 10/24/18 99 20 94 3.0 33 17:03 10/24/18 97.9 86 19 96/52 (67) 93 Nasal 15:30 Cannula 10/24/18 110 18 93 3.0 33 13:44 10/24/18 95 4.0 31 13:44 10/24/18 98.5 66 21 100/55 91 Nasal 11:30 (70) Cannula 10/24/18 98 24 94 3.0 31 09:30 10/24/18 107/66 09:00 (80) 10/24/18 Nasal 3.0 09:00 Cannula 10/24/18 98.1 101 20 90/65 (73) 95 Nasal 07:38 Cannula 10/24/18 93 3.0 31 06:02 10/24/18 100 22 93 3.0 31 05:35 10/24/18 98.0 96 20 123/66 96 Nasal 3.0 04:00 (85) Cannula 10/24/18 96 20 96 3.0 31 01:45 10/24/18 97.8 107 20 104/68 97 Room Air 00:00 (80) 10/23/18 96 20 95 3.0 31 20:45 10/23/18 97.9 104 20 142/66 98 20:00 (91) 10/23/18 96 4.0 33 19:56 10/23/18 Nasal 3.0 19:43 Cannula 10/23/18 99 19 96 Nasal 4.0 17:07 Cannula 10/23/18 97.8 97 20 104/66 94 15:30 (79) 10/23/18 98 20 93 Nasal 4.0 13:27 Cannula 10/23/18 97.6 124 20 107/67 93 11:14 (80) 10/23/18 117/56 11:00 (76) 10/23/18 4.0 08:17 10/23/18 3.0 08:16 10/23/18 111 18 92 3.0 08:16 10/23/18 97.8 87 20 96/54 (68) 97 07:53 10/23/18 Nasal 3.0 07:40 Cannula 10/23/18 104 20 97 4.0 33 05:00 10/23/18 97 4.0 33 04:52 10/23/18 98.2 93 20 91/62 (72) 96 Nasal 04:00 Cannula 10/23/18 102 18 96 4.0 33 01:50 10/23/18 98.0 102 20 107/63 97 High Flow 00:00 (78) 10/22/18 106 20 97 6.0 20:25 10/22/18 97.4 107 20 93/58 (70) 97 20:00 10/22/18 Nasal 20:00 Cannula 10/22/18 95 5.0 19:24 10/22/18 15.0 50 16:40 10/22/18 122 22 94 20.0 30 16:38 10/22/18 98.2 99 20 104/59 93 15:48 (74) 10/22/18 94 30 15:37 Vital Signs Date Temp Pulse Resp B/P (MAP) Pulse Ox O2 O2 Flow FiO2 Time Delivery Rate 10/25/18 104 18 94 Nasal 2.0 13:54 Cannula 10/25/18 97.8 116/61 11:35 (79) 10/24/18 33 17:03 Intake and Output 10/24/18 10/24/18 10/25/18 1515:00 23:00 07:00 IntakeIntake Total 480 ml 1500 ml 750 ml OutputOutput Total 1650 ml 1400 ml BalanceBalance -1170 ml 100 ml 750 ml Constitutional: alert, oriented, obese Respiratory: wheezing (diffusely B) Cardiovascular: regular rate and rhythm, nl pulses, other (venous congestion BLE); No edema, No murmurs/extra sounds, No rub Gastrointestinal: soft, nl liver, spleen, non-tender, bowel sounds; No mass, No rebound or guarding Musculoskeletal: nl extremities to inspection Extremities: normal pulses; No cyanosis, No clubbing, No edema 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, nl mental status, nl speech, nl strength Additional Comments Bedside Glucose - 72 Hours Test 10/22/18 17:14 10/22/18 20:59 10/23/18 03:22 10/23/18 07:24 Bedside 220 224 104 129 Glucose mg/dL (70-220) mg/dL (70-220) mg/dL (70-220) mg/dL (70-220) H Test 10/23/18 11:40 10/23/18 17:15 10/23/18 20:59 10/24/18 07:26 Bedside 205 241 165 161 Glucose mg/dL (70-220) mg/dL (70-220) mg/dL (70-220) mg/dL (70-220) H Test 10/24/18 11:25 10/24/18 17:11 10/24/18 20:40 10/25/18 02:12 Bedside 157 256 204 134 Glucose mg/dL (70-220) mg/dL (70-220) mg/dL (70-220) mg/dL (70-220) H Test 10/25/18 07:47 10/25/18 11:46 Bedside 92 213 Glucose mg/dL (70-220) mg/dL (70-220) Results Result Diagram: 10/24/18 0516 10/25/18 0540 Results 24hrs Laboratory Tests Test 10/24/18 17:11 10/24/18 20:40 10/25/18 02:12 10/25/18 05:40 Bedside Glucose 256 H 204 134 Sodium Level 138 Potassium Level 4.6 Chloride Level 102 Carbon Dioxide Level 29 Anion Gap 7 Blood Urea Nitrogen 26 H Creatinine 0.75 Est Glomerular Filtrat > 60 Rate mL/min Glucose Level 113 Calcium Level 9.6 Magnesium Level 1.9 Test 10/25/18 07:47 10/25/18 11:46 Bedside Glucose 92 213 Medications Medication Current Medications Insulin Aspart (Novolog Insulin Pen) NOVOLOG *MODERATE* ALGORITHM WITH MEALS BEDTIME SC Last administered on 10/25/18at 11:56; Admin Dose 4 UNIT; Start 10/11/18 at 21:00 Zolpidem Tartrate (Ambien) 5 mg HS MAY REPEAT X 1 PRN PO INSOMNIA; Start 10/11/18 at 20:30 Ondansetron HCl (Zofran Inj) 4 mg Q4 PRN IV nausea; Start 10/11/18 at 20:30 Miscellaneous Information 1 ea NOTE XX ; Start 10/11/18 at 21:00 Glucose (Glutose) 15 gm Q15M PRN PO DECREASED GLUCOSE; Start 10/11/18 at 21:00 Glucose (Glutose) 22.5 gm Q15M PRN PO DECREASED GLUCOSE; Start 10/11/18 at 21:00 Dextrose (D50w Syringe) 25 ml Q15M PRN IV DECREASED GLUCOSE; Start 10/11/18 at 21:00 Dextrose (D50w Syringe) 50 ml Q15M PRN IV DECREASED GLUCOSE; Start 10/11/18 at 21:00 Glucagon (Glucagen) 1 mg Q15M PRN IM DECREASED GLUCOSE; Start 10/11/18 at 21:00 Glucose (Glutose) 15 gm Q15M PRN BUCCAL DECREASED GLUCOSE; Start 10/11/18 at 21:00 Digoxin (Digoxin) 0.25 mg DAILY PO Last administered on 10/25/18 08:14; Admin Dose 0.25 MG; Start 10/12/18 at 09:00 Atorvastatin Calcium (Lipitor) 20 mg DAILY@21 PO Last administered on 10/24/18 20:44; Admin Dose 20 MG; Start 10/11/18 at 22:30 Apixaban (Eliquis) 5 mg BID PO Last administered on 10/25/18 08:13; Admin Dose 5 MG; Start 10/12/18 at 12:30 Metoprolol Succinate (Toprol Xl) 50 mg BID PO Last administered on 10/25/18 08:14; Admin Dose 50 MG; Start 10/12/18 at 21:00 Patient Own Medication 6 ea AM PO Last administered on 10/25/18 08:20; Admin Dose 6 EA; Start 10/13/18 at 13:00 Acetazolamide (Diamox) 250 mg BID PO Last administered on 10/25/18 08:12; Admin Dose 250 MG; Start 10/13/18 at 21:00 Metformin HCl (Glucophage Xr) 1,000 mg BID PO Last administered on 10/25/18 08:13; Admin Dose 1,000 MG; Start 10/14/18 at 21:00 Empaglifozin (Jardiance) 25 mg DAILY@08 PO Last administered on 10/25/18 07:50; Admin Dose 25 MG; Start 10/15/18 at 08:00 Diagnostic Test (Pha) (Accu-Chek) 1 ea 02 XX Last administered on 10/25/18 02:14; Admin Dose 1 EA; Start 10/15/18 at 02:00 Linagliptin (Tradjenta) 5 mg DAILY PO Last administered on 10/25/18 08:13; Admin Dose 5 MG; Start 10/15/18 at 09:00 Spironolactone (Aldactone) 25 mg DAILY PO Last administered on 10/25/18 08:12; Admin Dose 25 MG; Start 10/16/18 at 12:30 Nystatin (Nystatin Susp) 5 ml QID PO Last administered on 10/25/18 13:30; Admin Dose 5 ML; Start 10/19/18 at 13:00 Docusate Sodium (Colace) 200 mg BID PO Last administered on 10/25/18 08:12; Admin Dose 200 MG; Start 10/20/18 at 11:00 Polyethylene Glycol (Miralax) 17 gm BID PO Last administered on 10/25/18 08:11; Admin Dose 17 GM; Start 10/20/18 at 11:00 Acetylcysteine (Mucomyst) 2 ml Q6H RESP THERAPY NEB Last administered on 10/25/18 13:54; Admin Dose 2 ML; Start 10/21/18 at 14:00 Promethazine HCl/ Dextromethorphan (Phenergan-Dm) 5 ml Q6 PRN PO COUGH Last administered on 10/24/18 00:47; Admin Dose 5 ML; Start 10/23/18 at 21:19 Levalbuterol (Xopenex Neb) 1.25 mg Q4H RESP THERAPY HHN Last administered on 10/25/18 13:54; Admin Dose 1.25 MG; Start 10/25/18 at 01:00 Repaglinide (Prandin) 1 mg AC MEALS PO ; Start 10/25/18 at 17:30 Acarbose (Precose) 25 mg WITH MEALS PO ; Start 10/25/18 at 18:00; Status KAYLA QUISPE MD Oct 25, 2018 14:35
--- NOTE | 2018-10-25 14:55 | CONS ---
Assessment/Plan Assessment/Plan Hospital Course (Demo Recall) Alert feels much better comfortable on nasal cannula, no fevers overnight Microbiology: Sputum culture grew Louise albicans blood and urine culture negative MRSA swab negative Antimicrobials: completed Physical examination: This is an obese very pleasant well-developed elderly man who is alert in no distress. Head atraumatic normocephalic sclera nonicteric buccal mucosa moist and pink. Neck is supple chest rise symmetrical breath sounds diminished bases. Heart: S1-S2 tachycardic regular abdomen soft bowel sounds present extremities without cyanosis patient has bilateral lower extr emity chronic discoloration Assessment: 1. Status post acute hypoxemic respiratory failure 2. Resolving right lower lobe pneumonia 3. Status post oral thrush 4. Atrial fibrillation, chronic 5. Bilateral lower extremities chronic venous stasis 6. CHF 7. Diabetes Plan: Doing better, off antibiotics, pending serology for cocci Consultation Date/Type/Reason Admit Date/Time Oct 12, 2018 at 06:16 Initial Consult Date 10/14/18 Type of Consult id Requesting Provider: ROEL ALBA Date/Time of Note DATE: 10/25/18 TIME: 14:53 Exam/Review of Systems Exam Vitals Vital Signs Date Temp Pulse Resp B/P (MAP) Pulse Ox O2 O2 Flow FiO2 Time Delivery Rate 10/25/18 104 18 94 Nasal 2.0 13:54 Cannula 10/25/18 97.8 116/61 11:35 (79) 10/24/18 33 17:03 Intake and Output 10/24/18 10/24/18 10/25/18 1515:00 23:00 07:00 IntakeIntake Total 480 ml 1500 ml 750 ml OutputOutput Total 1650 ml 1400 ml BalanceBalance -1170 ml 100 ml 750 ml Results Result Diagram: 10/24/18 0516 10/25/18 0540 Results 24hrs Laboratory Tests Test 10/24/18 17:11 10/24/18 20:40 10/25/18 02:12 10/25/18 05:40 Bedside Glucose 256 H 204 134 Sodium Level 138 Potassium Level 4.6 Chloride Level 102 Carbon Dioxide Level 29 Anion Gap 7 Blood Urea Nitrogen 26 H Creatinine 0.75 Est Glomerular Filtrat > 60 Rate mL/min Glucose Level 113 Calcium Level 9.6 Magnesium Level 1.9 Test 10/25/18 07:47 10/25/18 11:46 Bedside Glucose 92 213 Medications Medication Current Medications Insulin Aspart (Novolog Insulin Pen) NOVOLOG *MODERATE* ALGORITHM WITH MEALS BEDTIME SC Last administered on 10/25/18at 11:56; Admin Dose 4 UNIT; Start 10/11/18 at 21:00 Zolpidem Tartrate (Ambien) 5 mg HS MAY REPEAT X 1 PRN PO INSOMNIA; Start 10/11/18 at 20:30 Ondansetron HCl (Zofran Inj) 4 mg Q4 PRN IV nausea; Start 10/11/18 at 20:30 Miscellaneous Information 1 ea NOTE XX ; Start 10/11/18 at 21:00 Glucose (Glutose) 15 gm Q15M PRN PO DECREASED GLUCOSE; Start 10/11/18 at 21:00 Glucose (Glutose) 22.5 gm Q15M PRN PO DECREASED GLUCOSE; Start 10/11/18 at 21:00 Dextrose (D50w Syringe) 25 ml Q15M PRN IV DECREASED GLUCOSE; Start 10/11/18 at 21:00 Dextrose (D50w Syringe) 50 ml Q15M PRN IV DECREASED GLUCOSE; Start 10/11/18 at 21:00 Glucagon (Glucagen) 1 mg Q15M PRN IM DECREASED GLUCOSE; Start 10/11/18 at 21:00 Glucose (Glutose) 15 gm Q15M PRN BUCCAL DECREASED GLUCOSE; Start 10/11/18 at 21:00 Digoxin (Digoxin) 0.25 mg DAILY PO Last administered on 10/25/18at 08:14; Admin Dose 0.25 MG; Start 10/12/18 at 09:00 Atorvastatin Calcium (Lipitor) 20 mg DAILY@21 PO Last administered on 10/24/18at 20:44; Admin Dose 20 MG; Start 10/11/18 at 22:30 Apixaban (Eliquis) 5 mg BID PO Last administered on 10/25/18 08:13; Admin Dose 5 MG; Start 10/12/18 at 12:30 Metoprolol Succinate (Toprol Xl) 50 mg BID PO Last administered on 10/25/18 08:14; Admin Dose 50 MG; Start 10/12/18 at 21:00 Patient Own Medication 6 ea AM PO Last administered on 10/25/18 08:20; Admin Dose 6 EA; Start 10/13/18 at 13:00 Acetazolamide (Diamox) 250 mg BID PO Last administered on 10/25/18 08:12; Admin Dose 250 MG; Start 10/13/18 at 21:00 Metformin HCl (Glucophage Xr) 1,000 mg BID PO Last administered on 10/25/18 08:13; Admin Dose 1,000 MG; Start 10/14/18 at 21:00 Empaglifozin (Jardiance) 25 mg DAILY@08 PO Last administered on 10/25/18 07:50; Admin Dose 25 MG; Start 10/15/18 at 08:00 Diagnostic Test (Pha) (Accu-Chek) 1 ea 02 XX Last administered on 10/25/18 02:14; Admin Dose 1 EA; Start 10/15/18 at 02:00 Linagliptin (Tradjenta) 5 mg DAILY PO Last administered on 10/25/18 08:13; Admin Dose 5 MG; Start 10/15/18 at 09:00 Spironolactone (Aldactone) 25 mg DAILY PO Last administered on 10/25/18 08:12; Admin Dose 25 MG; Start 10/16/18 at 12:30 Nystatin (Nystatin Susp) 5 ml QID PO Last administered on 10/25/18 13:30; Admin Dose 5 ML; Start 10/19/18 at 13:00 Docusate Sodium (Colace) 200 mg BID PO Last administered on 10/25/18 08:12; Admin Dose 200 MG; Start 10/20/18 at 11:00 Polyethylene Glycol (Miralax) 17 gm BID PO Last administered on 10/25/18 08:11; Admin Dose 17 GM; Start 10/20/18 at 11:00 Acetylcysteine (Mucomyst) 2 ml Q6H RESP THERAPY NEB Last administered on 10/25/18 13:54; Admin Dose 2 ML; Start 10/21/18 at 14:00 Promethazine HCl/ Dextromethorphan (Phenergan-Dm) 5 ml Q6 PRN PO COUGH Last administered on 10/24/18 00:47; Admin Dose 5 ML; Start 10/23/18 at 21:19 Levalbuterol (Xopenex Neb) 1.25 mg Q4H RESP THERAPY HHN Last administered on 10/25/18 13:54; Admin Dose 1.25 MG; Start 10/25/18 at 01:00 Repaglinide (Prandin) 1 mg AC MEALS PO ; Start 10/25/18 at 17:30 Acarbose (Precose) 25 mg WITH MEALS PO ; Start 10/25/18 at 18:00 AGATHA ATKINS NP Oct 25, 2018 14:55
[2018-10-25 15:36] VITALS: BP 114/72; PULSE 94; RESP 20
--- NOTE | 2018-10-25 17:06 | CONS ---
Assessment/Plan Assessment/Plan Assessment/Plan (Daily) 1. Metabolic alkalosis on Acetazolamide 250mg BID , 1. Acute Hypoxic respiratory failure, likely secondary to reactive airway and pneumonia, patient seems to be euvolemic for now.- on IV abx cefepime and cancidas stopped, Currently on PO Doxycyline< renally dose all abx and monitor electrolytes , o lasix 40mg IV daily , monitor electrolytes and replace as needed , pt is on tapering dose of Prednisone 2. Atrial fibrillation, chronic, rate controlled. 3. Congestive heart failure, diastolic dysfunction, chronic, currently euvolemic. Echocardiogram with EF of 55%.- on lasix 40mg pO BID Continue current medication, patient on oral Lasix daily. 4. Diabetes mellitus Type II with acute hyperglycemia 5. Hypertension Consultation Date/Type/Reason Admit Date/Time Oct 12, 2018 at 06:16 Initial Consult Date 10/14/18 Type of Consult NEPHROLOGY Requesting Provider: ROEL ALBA Date/Time of Note DATE: 10/25/18 TIME: 17:06 Exam/Review of Systems Exam Vitals Vital Signs Date Temp Pulse Resp B/P (MAP) Pulse Ox O2 O2 Flow FiO2 Time Delivery Rate 10/25/18 97.4 94 20 114/72 95 Nasal 15:36 (86) Cannula 10/25/18 2.0 13:54 10/24/18 33 17:03 Intake and Output 10/24/18 10/24/18 10/25/18 1515:00 23:00 07:00 IntakeIntake Total 480 ml 1500 ml 750 ml OutputOutput Total 1650 ml 1400 ml BalanceBalance -1170 ml 100 ml 750 ml Results Result Diagram: 10/24/18 0516 10/25/18 0540 Results 24hrs Laboratory Tests Test 10/24/18 17:11 10/24/18 20:40 10/25/18 02:12 10/25/18 05:40 Bedside Glucose 256 H 204 134 Sodium Level 138 Potassium Level 4.6 Chloride Level 102 Carbon Dioxide Level 29 Anion Gap 7 Blood Urea Nitrogen 26 H Creatinine 0.75 Est Glomerular Filtrat > 60 Rate mL/min Glucose Level 113 Calcium Level 9.6 Magnesium Level 1.9 Test 10/25/18 07:47 10/25/18 11:46 Bedside Glucose 92 213 Medications Medication Current Medications Insulin Aspart (Novolog Insulin Pen) NOVOLOG *MODERATE* ALGORITHM WITH MEALS BEDTIME SC Last administered on 10/25/18 11:56; Admin Dose 4 UNIT; Start 10/11/18 at 21:00 Zolpidem Tartrate (Ambien) 5 mg HS MAY REPEAT X 1 PRN PO INSOMNIA; Start 10/11/18 at 20:30 Ondansetron HCl (Zofran Inj) 4 mg Q4 PRN IV nausea; Start 10/11/18 at 20:30 Miscellaneous Information 1 ea NOTE XX ; Start 10/11/18 at 21:00 Glucose (Glutose) 15 gm Q15M PRN PO DECREASED GLUCOSE; Start 10/11/18 at 21:00 Glucose (Glutose) 22.5 gm Q15M PRN PO DECREASED GLUCOSE; Start 10/11/18 at 21:00 Dextrose (D50w Syringe) 25 ml Q15M PRN IV DECREASED GLUCOSE; Start 10/11/18 at 21:00 Dextrose (D50w Syringe) 50 ml Q15M PRN IV DECREASED GLUCOSE; Start 10/11/18 at 21:00 Glucagon (Glucagen) 1 mg Q15M PRN IM DECREASED GLUCOSE; Start 10/11/18 at 21:00 Glucose (Glutose) 15 gm Q15M PRN BUCCAL DECREASED GLUCOSE; Start 10/11/18 at 21:00 Digoxin (Digoxin) 0.25 mg DAILY PO Last administered on 10/25/18 08:14; Admin Dose 0.25 MG; Start 10/12/18 at 09:00 Atorvastatin Calcium (Lipitor) 20 mg DAILY@21 PO Last administered on 10/24/18at 20:44; Admin Dose 20 MG; Start 10/11/18 at 22:30 Apixaban (Eliquis) 5 mg BID PO Last administered on 10/25/18 08:13; Admin Dose 5 MG; Start 10/12/18 at 12:30 Metoprolol Succinate (Toprol Xl) 50 mg BID PO Last administered on 10/25/18 08:14; Admin Dose 50 MG; Start 10/12/18 at 21:00 Patient Own Medication 6 ea AM PO Last administered on 10/25/18 08:20; Admin Dose 6 EA; Start 10/13/18 at 13:00 Acetazolamide (Diamox) 250 mg BID PO Last administered on 10/25/18 08:12; Admin Dose 250 MG; Start 10/13/18 at 21:00 Metformin HCl (Glucophage Xr) 1,000 mg BID PO Last administered on 10/25/18 08:13; Admin Dose 1,000 MG; Start 10/14/18 at 21:00 Empaglifozin (Jardiance) 25 mg DAILY@08 PO Last administered on 10/25/18 07:50; Admin Dose 25 MG; Start 10/15/18 at 08:00 Diagnostic Test (Pha) (Accu-Chek) 1 ea 02 XX Last administered on 10/25/18 02:14; Admin Dose 1 EA; Start 10/15/18 at 02:00 Linagliptin (Tradjenta) 5 mg DAILY PO Last administered on 10/25/18 08:13; Admin Dose 5 MG; Start 10/15/18 at 09:00 Spironolactone (Aldactone) 25 mg DAILY PO Last administered on 10/25/18 08:12; Admin Dose 25 MG; Start 10/16/18 at 12:30 Nystatin (Nystatin Susp) 5 ml QID PO Last administered on 10/25/18 13:30; Admin Dose 5 ML; Start 10/19/18 at 13:00 Docusate Sodium (Colace) 200 mg BID PO Last administered on 10/25/18 08:12; Admin Dose 200 MG; Start 10/20/18 at 11:00 Polyethylene Glycol (Miralax) 17 gm BID PO Last administered on 10/25/18 08:11; Admin Dose 17 GM; Start 10/20/18 at 11:00 Acetylcysteine (Mucomyst) 2 ml Q6H RESP THERAPY NEB Last administered on 10/25/18 13:54; Admin Dose 2 ML; Start 10/21/18 at 14:00 Promethazine HCl/ Dextromethorphan (Phenergan-Dm) 5 ml Q6 PRN PO COUGH Last administered on 10/24/18 00:47; Admin Dose 5 ML; Start 10/23/18 at 21:19 Levalbuterol (Xopenex Neb) 1.25 mg Q4H RESP THERAPY HHN Last administered on 10/25/18 13:54; Admin Dose 1.25 MG; Start 10/25/18 at 01:00 Repaglinide (Prandin) 1 mg AC MEALS PO ; Start 10/25/18 at 17:30 Acarbose (Precose) 25 mg WITH MEALS PO ; Start 10/25/18 at 18:00 NEDA STAHL MD Oct 25, 2018 17:06
[2018-10-25] MEDS ORDERED: REPAGLINIDE 1 MG TAB PO SCH (17:30)
--- NOTE | 2018-10-25 17:48 | CONS ---
Assessment/Plan Assessment/Plan Hospital Course (Demo Recall) Respiratory failure with hypoxia-improving PNA Acute decompensated systolic and diastolic congestive heart failure History of cardiomyopathy, current left ventricular ejection fraction 50-55% Pulmonary hypertension Chronic Atrial Fibrillation DM Respiratory status continues to improve and currently on nasal cannula Antibiotics as per infectious disease Still with tachycardia with ambulation at times but overall heart rate trend between 90s to 110. Extensive discussion with patient and family, patient wants to go home understands heart rate still not fully controlled. Will continue cur rent dose of beta-dana, digoxin, home dose of diuretics Cont Eliquis if no contraindication Consultation Date/Type/Reason Admit Date/Time Oct 12, 2018 at 06:16 Initial Consult Date Type of Consult Cardiology Requesting Provider: ROEL ALBA Date/Time of Note DATE: 10/25/18 TIME: 17:47 24 HR Interval Summary Free Text/Dictation Denies shortness of breath, chest pain, palpitations or dizziness Exam/Review of Systems Vital Signs Vitals Vital Signs Date Temp Pulse Resp B/P (MAP) Pulse Ox O2 O2 Flow FiO2 Time Delivery Rate 10/25/18 97.4 94 20 114/72 95 Nasal 15:36 (86) Cannula 10/25/18 2.0 13:54 10/24/18 33 17:03 Intake and Output 10/24/18 10/24/18 10/25/18 1515:00 23:00 07:00 IntakeIntake Total 480 ml 1500 ml 750 ml OutputOutput Total 1650 ml 1400 ml BalanceBalance -1170 ml 100 ml 750 ml Exam Constitutional: alert, oriented (No apparent distress, eating dinner) Head: normocephalic Respiratory: other (Coarse breath sounds bilaterally, no wheezing) Cardiovascular: irregular rhythm (S1-S2 heard) Gastrointestinal: soft, non-tender, bowel sounds Extremities: edema (Trace) Labs Result Diagram: 10/24/18 0516 10/25/18 0540 Results 24hrs Laboratory Tests Test 10/24/18 20:40 10/25/18 02:12 10/25/18 05:40 10/25/18 07:47 Bedside Glucose 204 134 92 Sodium Level 138 Potassium Level 4.6 Chloride Level 102 Carbon Dioxide Level 29 Anion Gap 7 Blood Urea Nitrogen 26 H Creatinine 0.75 Est Glomerular Filtrat > 60 Rate mL/min Glucose Level 113 Calcium Level 9.6 Magnesium Level 1.9 Test 10/25/18 11:46 10/25/18 17:20 Bedside Glucose 213 219 Medications Medications Current Medications Insulin Aspart (Novolog Insulin Pen) NOVOLOG *MODERATE* ALGORITHM WITH MEALS BEDTIME SC Last administered on 10/25/18 17:32; Admin Dose 4 UNIT; Start 10/11/18 at 21:00 Zolpidem Tartrate (Ambien) 5 mg HS MAY REPEAT X 1 PRN PO INSOMNIA; Start 10/11/18 at 20:30 Ondansetron HCl (Zofran Inj) 4 mg Q4 PRN IV nausea; Start 10/11/18 at 20:30 Miscellaneous Information 1 ea NOTE XX ; Start 10/11/18 at 21:00 Glucose (Glutose) 15 gm Q15M PRN PO DECREASED GLUCOSE; Start 10/11/18 at 21:00 Glucose (Glutose) 22.5 gm Q15M PRN PO DECREASED GLUCOSE; Start 10/11/18 at 21:00 Dextrose (D50w Syringe) 25 ml Q15M PRN IV DECREASED GLUCOSE; Start 10/11/18 at 21:00 Dextrose (D50w Syringe) 50 ml Q15M PRN IV DECREASED GLUCOSE; Start 10/11/18 at 21:00 Glucagon (Glucagen) 1 mg Q15M PRN IM DECREASED GLUCOSE; Start 10/11/18 at 21:00 Glucose (Glutose) 15 gm Q15M PRN BUCCAL DECREASED GLUCOSE; Start 10/11/18 at 21:00 Digoxin (Digoxin) 0.25 mg DAILY PO Last administered on 10/25/18 08:14; Admin Dose 0.25 MG; Start 10/12/18 at 09:00 Atorvastatin Calcium (Lipitor) 20 mg DAILY@21 PO Last administered on 10/24/18 20:44; Admin Dose 20 MG; Start 10/11/18 at 22:30 Apixaban (Eliquis) 5 mg BID PO Last administered on 10/25/18 08:13; Admin Dose 5 MG; Start 10/12/18 at 12:30 Metoprolol Succinate (Toprol Xl) 50 mg BID PO Last administered on 10/25/18 08:14; Admin Dose 50 MG; Start 10/12/18 at 21:00 Patient Own Medication 6 ea AM PO Last administered on 10/25/18 08:20; Admin Dose 6 EA; Start 10/13/18 at 13:00 Acetazolamide (Diamox) 250 mg BID PO Last administered on 10/25/18 08:12; Admin Dose 250 MG; Start 10/13/18 at 21:00 Metformin HCl (Glucophage Xr) 1,000 mg BID PO Last administered on 10/25/18 08 :13; Admin Dose 1,000 MG; Start 10/14/18 at 21:00 Empaglifozin (Jardiance) 25 mg DAILY@08 PO Last administered on 10/25/18 07:50; Admin Dose 25 MG; Start 10/15/18 at 08:00 Diagnostic Test (Pha) (Accu-Chek) 1 ea 02 XX Last administered on 10/25/18 02:14; Admin Dose 1 EA; Start 10/15/18 at 02:00 Linagliptin (Tradjenta) 5 mg DAILY PO Last administered on 10/25/18 08:13; Admin Dose 5 MG; Start 10/15/18 at 09:00 Spironolactone (Aldactone) 25 mg DAILY PO Last administered on 10/25/18 08:12; Admin Dose 25 MG; Start 10/16/18 at 12:30 Nystatin (Nystatin Susp) 5 ml QID PO Last administered on 10/25/18 17:20; Admin Dose 5 ML; Start 10/19/18 at 13:00 Docusate Sodium (Colace) 200 mg BID PO Last administered on 10/25/18 08:12; Admin Dose 200 MG; Start 10/20/18 at 11:00 Polyethylene Glycol (Miralax) 17 gm BID PO Last administered on 10/25/18 08:11; Admin Dose 17 GM; Start 10/20/18 at 11:00 Acetylcysteine (Mucomyst) 2 ml Q6H RESP THERAPY NEB Last administered on 10/25/18 13:54; Admin Dose 2 ML; Start 10/21/18 at 14:00 Promethazine HCl/ Dextromethorphan (Phenergan-Dm) 5 ml Q6 PRN PO COUGH Last administered on 10/24/18 00:47; Admin Dose 5 ML; Start 10/23/18 at 21:19 Levalbuterol (Xopenex Neb) 1.25 mg Q4H RESP THERAPY HHN Last administered on 10/25/18 13:54; Admin Dose 1.25 MG; Start 10/25/18 at 01:00 Repaglinide (Prandin) 1 mg AC MEALS PO Last administered on 10/25/18 17:25; Admin Dose 1 MG; Start 10/25/18 at 17:30 Acarbose (Precose) 25 mg WITH MEALS PO Last administered on 10/25/18 17:26; Admin Dose 25 MG; Start 10/25/18 at 18:00 Rocael Poole DO Oct 25, 2018 17:48
[2018-10-25] MEDS ORDERED: ACARBOSE 50 MG TAB PO SCH (18:00)
--- NOTE | 2018-10-26 02:11 | DS ---
DATE OF ADMISSION: 10/12/2018 DATE OF DISCHARGE: 10/25/2018 DISCHARGE DIAGNOSES: A 63-year-old male with: 1. Acute hypoxemic respiratory failure, resolved. 2. Community-acquired pneumonia, resolved. 3. Mucus plug, resolved. 4. Congestive heart failure, compensated. 5. Paroxysmal atrial fibrillation. 6. Hypertension. 7. Type 2 diabetes mellitus. 8. Hyperlipidemia. 9. Moderate obesity. HOSPITAL COURSE: A 63-year-old male with multiple other medical problems, presented to emergency [facility] with complaint of shortness of breath and cough. The patient was initially diagnosed with communit y-acquired pneumonia and treated with broad spectrum antibiotics. He remained on high-flow oxygen fo r several days and observed in the intensive care unit. The patient was seen by multiple consultants including pulmonary, cardiology, and infectious disease specialists. Repeat CAT scan of the chest showed multiple areas of mucus plug. The patient received respiratory t reatment and Mucomyst. Mucus block gradually resolved. His oxygenation improved significantly. The antibiotics were discontinued. The patient was noted to have atrial fibrillation with rapid ventricular response. He is taking digo prasad and Lopressor. I attributed this to volume depletion and I gave him 500 mL of normal saline. Th e patient is in a stable condition for discharge if his heart rate is well controlled. Dr. Zulema youngblood s notified of discharge planning. MEDICATIONS ON DISCHARGE: As follows: 1. Acetazolamide 250 mg p.o. b.i.d. 2. Eliquis 5 mg p.o. b.i.d. 3. Cycloset 4.8 mg p.o. daily. 4. Coreg 25 mg p.o. b.i.d. 5. Digoxin 250 mcg p.o. daily. 6. Jardiance 10 mg daily. 7. Lasix 40 mg b.i.d. 8. Glimepiride 4 mg daily. 9. Metformin 1000 mg b.i.d. 10. Sildenafil 20 mg as needed. 11. Zocor 40 mg at bedtime. Follow up with PCP in 1 week. Follow up with cardiology in 1 week. Home oxygen was provided. Dictated By: ELI WAN/MICHAEL Conf#: [id number] DID#: [id number]
[2018-10-26] MEDS ORDERED: predniSONE 10 MG TAB PO SCH (09:00)
== END 2018-10-25 18:40 | disposition home health service (06) | DRG 193 ==
LOC: E/R 13:06 → ICU 10-12 06:16 → CANRESERV 10-12 14:29 → EDBEDREQSVC 10-12 14:59 → 6WM 10-20 18:45
PROVIDERS: ADMIT Internal Medicine; ATTEND Internal Medicine
DX: J18.9 Pneumonia, unspecified organism (principal); J96.01 Acute respiratory failure with hypoxia; I50.43 Acute on chronic combined systolic (congestive) and diastolic (congestive) heart failure; E87.3 Alkalosis; I42.9 Cardiomyopathy, unspecified; B37.0 Candidal stomatitis; I11.0 Hypertensive heart disease with heart failure; T17.990A Other foreign object in respiratory tract, part unspecified in causing asphyxiation, initial encounter; I48.0 Paroxysmal atrial fibrillation; E78.5 Hyperlipidemia, unspecified; E66.8 Other obesity; E86.9 Volume depletion, unspecified; E11.65 Type 2 diabetes mellitus with hyperglycemia; G47.30 Sleep apnea, unspecified; I27.20 Pulmonary hypertension, unspecified; T38.0X5A Adverse effect of glucocorticoids and synthetic analogues, initial encounter; Z68.36 Body mass index [BMI] 36.0-36.9, adult
CPT/HCPCS: 36600; 71045; 71260; 71275; 80048; 80053; 80162; 80202; 81003; 82803; 82962; 83605; 83735; 83880; 84100; 84439; 84443; 84484; 85025; 85378; 85610; 85730; 86038; 86606; 86635; 86703; 87045; 87070; 87077; 87081; 87086; 87449; 93005; 93306; 93308; 94640; 94644; 94664; 94668; 97161; J0692; J0696; J1815; J1940; J1956; J2930; J3370; J7040; J7050; J7512; Q9967